=== PATIENT | female | born 1970 | race Caucasian/White ===

== ENCOUNTER 2020-05-07 12:15 | Emergency (ER) | payer BC, SELFPAY ==
[2020-05-07 12:17] VITALS: BP 160/78; PULSE 65; RESP 16; TEMP 36.8; O2SAT 96; BMI 26.6
[2020-05-07] MEDS: Lidocaine HCl 1 % MPF 5 ML VIAL SUBCUT (13:02)
[2020-05-07] MEDS: LORazepam 1 MG TABLET PO (13:03)
--- NOTE | 2020-05-07 13:07 | PC.NURSE ---
PT ALLERGIC TO OXYCODONE. MED NOT GIVEN AND RETURNED.
--- NOTE | 2020-05-07 13:23 | ED.SKABFB ---
HPI - Skin/Abscess/Foreign Bdy General Chief complaint: Skin/Abscess/Foreign Body Stated complaint: abscess Time Seen by Provider: 05/07/20 12:44 Source: patient Mode of arrival: ambulatory Limitations: no limitations History of Present Illness HPI narrative: 49-year-old female presenting to the ED with complaints of an abscess to her right outer labia that started since last night. Denies any fevers or any other symptoms complaints or concerns. Denies history of MRSA. Related Data Previous Rx's Medication Instructions Recorded doxycycline monohydrate 100 mg PO BID 10 Days #20 cap 05/07/20 ibuprofen 800 mg PO Q8H PRN #14 tab 05/07/20 tramadol 50 mg PO BID PRN #14 tab 05/07/20 Allergies Allergy/AdvReac Type Severity Reaction Status Date / Time acetaminophen [From PERCOCET] Allergy Unknown HIVES Unverified 12/30/19 18:48 clarithromycin [From BIAXIN] Allergy Unknown ANAPHYLAXIS Unverified 12/30/19 18:48 erythromycin base Allergy Unknown ANAPHYLAXIS Unverified 12/30/19 18:48 [From ERYTHROCIN] oxycodone [From PERCOCET] Allergy Unknown HIVES Unverified 12/30/19 18:48 penicillin V Allergy Unknown Verified 03/06/14 00:00 Penicillins [PENICILLINS] Allergy Unknown ANAPHYLAXIS Unverified 12/30/19 18:48 Sulfa (Sulfonamide Allergy Unknown ANAPHYLAXIS Unverified 12/30/19 18:48 Antibiotics) [SULFA (SULFONAMIDE ANTIBIOTICS)] vancomycin [VANCOMYCIN] Allergy Unknown ANAPHYLAXIS Unverified 12/30/19 18:48 Erythromycin Allergy Unknown Uncoded 03/06/14 00:00 Review of Systems Review of Systems: Constitutional : No Fever, No Chills , no body aches, no recent illness Head/Face: No facial swelling, No facial redness ENT/Mouth : No oral/throat swelling, No Hoarseness, No Swallowing Difficulty Eyes: No Eye Pain, No Swelling, No Redness Cardiovascular : No Chest Pain, No SOB, No palpitations Respiratory : No Cough, No Sputum, No Wheezing, No Smoke Exposure, No Dyspnea Gastrointestinal : No Nausea, No Vomiting, No Diarrhea, No abdominal Pain Genitourinary : No Dysuria, No Urinary Frequency, No Hematuria Musculoskeletal : No joint pain, No Myalgias, No Joint Swelling Skin : + skin abscess, No Skin Lesions, No rash Neuro : No Weakness, No Numbness, No Headache, No dizziness, No tingling Psych : No Anxiety/Panic, No Depression Heme/Lymph: No Bruising, No Lymphadenopathy Endocrine : No Polyuria, No Polydipsia Denies changes in lotions or detergents. Denies new medications or any changes in medications. Denies drainage from rash. Denies any recent sick contacts or recent travel. Yes all other systems are reviewed and are negative PMFSH Past Medical History Attestation statement: The following information was validated with the patient. Medical History Atrial septal defect Surgical History History of partial hysterectomy Hx of tonsillectomy Social History Social History Advance Directives: No Advance Directives Information Provided: No Physical Exam Vital Signs: Vital Signs: Last Vital Signs Temp 98.2 F 05/07/20 12:17 Pulse 65 05/07/20 12:17 Resp 16 05/07/20 12:17 BP 160/78 H 05/07/20 12:17 Pulse Ox 96 05/07/20 12:17 Body Mass Index 26.6 vital signs have been reviewed as normal and appeared to be correct. Blood pressure normal. Heart rate normal. Respiration rate normal. Temperature normal. Oxygen saturation normal. Appearance: Alert. Oriented X3. No acute distress. Head: Normal external exam. Normocephalic. Atraumatic. Eyes: PERRLA. EOMI. Conjunctiva and sclera normal. Eyelids normal. ENT:Pharynx normal. Uvula midline. Moist mucous membranes. Neck: Normal inspection. Neck supple. FROM. No adenopathy. No meningeal signs. CVS: Normal heart rate and rhythm. Heart sound normal. No murmurs noted. Pulses normal throughout. Respiratory: No respiratory distress. Painless inspiration. : Supervise by NICOLE Hernandez to right outer labia c fluctuance, erythema consistent with abscess. No streaking/induration noted. No foreign bodies or drainage noted. Back: Full range of motion noted. Skin: Skin warm and dry. Normal skin color. Normal skin turgor. No rashes/lesions/lacerations noted. Extremities: Extremities exhibit normal range of motion. Extremities nontender. Neuro: Oriented X 3. No motor deficit. No sensory deficit. Reflexes normal. Course Course Course Narrative: Patient is now status post I&D of abscess to right outer labia. Patient tolerated procedure well. No complications. Will DC home with antibiotics and symptomatic treatment along with instructions return if any new or worsening symptoms to follow up with primary care provider. Patient understands agrees the plan. Procedures Abscess I/D Site: other (Right outer labia) Side (if applicable): right Local Anesthetic: lidocaine 1% Amount of anesthesia used (mL): 4 Technique: needle aspiration and incised with blade Amount of fluid expressed (mL): 3 Sent for culture/gram staining?: No Irrigation: Yes Packing used?: none Complications: other (No complications) MDM - Skin/Abscess/Foreign Bdy Medical Records Attestation: I reviewed the patient's medical records. Discharge Plan Discharge Clinical Impression: Cellulitis, Abscess of skin or subcutaneous tissue Patient Disposition: Home, Self-Care Instructions: Cellulitis (ED), Abscess (ED) Prescriptions: New ibuprofen 800 mg tablet 800 mg PO Q8H PRN (Reason: pain) Qty: 14 RF: 0 doxycycline monohydrate 100 mg capsule 100 mg PO BID 10 Days Qty: 20 RF: 0 tramadol 50 mg tablet 50 mg PO BID PRN (Reason: pain) Qty: 14 RF: 0 Referrals: Artemio Mckinley MD [Primary Care Provider] - 2 days Stand Alone Forms: Work/School Release
== END 2020-05-07 13:39 | disposition home or self-care (01) ==
PROVIDERS: Emergency Provider Internal Medicine; PCP Pediatrics
DX: N76.2 Acute vulvitis (principal); N76.4 Abscess of vulva; Z79.899 Other long term (current) drug therapy
CPT/HCPCS: 56405; 99283; 99284

== ENCOUNTER → 2020-05-11 08:45 | Outpatient (BNVA) | payer BC, SELFPAY | PROVIDERS: PCP Pediatrics; Visit Provider Obstetrics & Gynecology ==

== ENCOUNTER 2020-05-18 09:51 | Outpatient (REF) | payer BC, SELFPAY | END 2020-05-18 09:52 | disposition home or self-care (01) | LOC: HO.LAB 09:51 | PROVIDERS: PCP Pediatrics; Visit Provider Obstetrics & Gynecology | DX: N76.4 Abscess of vulva (principal) | CPT/HCPCS: 10060; 56405; 87071; 87205 ==

== ENCOUNTER → 2020-05-30 15:20 | Outpatient (BNVA) | payer BC, SELFPAY | PROVIDERS: PCP Pediatrics; Visit Provider Obstetrics & Gynecology ==

== ENCOUNTER → 2020-09-29 12:44 | Outpatient (BNVA) | payer BC, SELFPAY | PROVIDERS: PCP Pediatrics; Visit Provider Obstetrics & Gynecology ==

== ENCOUNTER 2020-10-15 12:43 | Emergency (ER) | payer BC, SELFPAY ==
[2020-10-15 12:47] VITALS: BP 140/71; PULSE 74; RESP 18; TEMP 36.9; O2SAT 96; BMI 25.8
[2020-10-15] MEDS: Lidocaine HCl 2 % MPF 5 ML VIAL SUBCUT (13:11)
--- NOTE | 2020-10-15 13:32 | ED_ITS ---
HPI - Skin/Abscess/Foreign Bdy General Chief complaint: Skin/Abscess/Foreign Body Stated complaint: INGROWN HAIR Time Seen by Provider: 10/15/20 13:02 Source: patient Mode of arrival: ambulatory Limitations: no limitations History of Present Illness HPI narrative: 49-year-old female with a past medical history of labial abscess here with complaints of swelling and pain to the left labia times several days. She tells me this morning while showering she noticed some purulent drainage coming from this site. No fevers or chills. Related Data Previous Rx's Medication Instructions Recorded doxycycline monohydrate 100 mg PO BID 10 Days #20 cap 05/07/20 ibuprofen 800 mg PO Q8H PRN #14 tab 05/07/20 tramadol 50 mg PO BID PRN #14 tab 05/07/20 estradiol 0.05 mg/24 hr semiweekly 1 patch TRANSDERMAL 2XW #8 ea 09/29/20 transdermal patch doxycycline monohydrate 100 mg PO BID #20 cap 10/15/20 Allergies Allergy/AdvReac Type Severity Reaction Status Date / Time acetaminophen [From PERCOCET] Allergy Unknown HIVES Verified 10/15/20 12:47 clarithromycin [From BIAXIN] Allergy Unknown ANAPHYLAXIS Verified 10/15/20 12:47 erythromycin base Allergy Unknown ANAPHYLAXIS Verified 10/15/20 12:47 [From ERYTHROCIN] oxycodone [From PERCOCET] Allergy Unknown HIVES Verified 10/15/20 12:47 Penicillins [PENICILLINS] Allergy Unknown ANAPHYLAXIS Verified 10/15/20 12:47 Sulfa (Sulfonamide Allergy Unknown ANAPHYLAXIS Verified 10/15/20 12:47 Antibiotics) [SULFA (SULFONAMIDE ANTIBIOTICS)] vancomycin [VANCOMYCIN] Allergy Unknown ANAPHYLAXIS Verified 10/15/20 12:47 Review of Systems Review of Systems: Yes all other systems are reviewed and are negative Constitutional: Constitutional: Reports no additional constitutional complaints, Denies body ache(s), Denies chills, Denies fever(s), Denies headache(s) and Denies weakness Eyes: Eyes: Reports no additional eye complaints and Denies change in vision ENT: Reports system reviewed and no additional complaints, except as documented, Denies dizziness, Denies headache(s), Denies nasal congestion, Denies nasal discharge and Denies neck pain Cardiovascular: Cardiovascular: Reports no additional cardiovascular complaints, Denies chest pain, Denies leg edema and Denies dyspnea Respiratory: Respiratory: Reports no additional respiratory complaints, Denies cough and Denies dyspnea Gastrointestinal: Gastrointestinal: Reports no additional gastrointestinal complaints, Denies abdominal pain, Denies diarrhea, Denies nausea and Denies vomiting Genitourinary: Genitourinary: Reports no additional female genitourinary complaints and Denies urinary incontinence Musculoskeletal: Musculoskeletal: Reports no additional musculoskeletal c omplaints, Denies back pain, Denies arthralgias, Denies joint swelling, Denies neck pain, Denies numbness and Denies tingling Integumentary/Breasts: Skin/Breast: Reports system reviewed and no additional complaints, except as docu, Reports swelling, Reports erythema and Denies rash Neurologic: Reports system reviewed and no additional complaints, except as documented, Denies Abnormal speech present, Denies dizziness, Denies headache(s), Denies numbness, Denies tingling and Denies weakness PMFSH Past Medical History Attestation statement: The following information was validated with the patient. Source: old records reviewed and nursing notes reviewed Medical History Atrial septal defect Heart problem Surgical History History of open heart surgery History of partial hysterectomy Hx of tonsillectomy Family History Family History Maternal Grandmother Ovarian cancer Unknown Ovarian cancer Social History Social History Advance Directives: No Advance Directives Information Provided: No Patient : No Physical Exam Vital Signs: Vital Signs: Last Vital Signs Temp 98.5 F 10/15/20 12:47 Pulse 74 10/15/20 12:47 Resp 18 10/15/20 12:47 BP 140/71 H 10/15/20 12:47 Pulse Ox 96 10/15/20 12:47 Body Mass Index 25.8 Const: General: cooperative, healthy appearing, comfortable and no acute distress Orientation/consciousness: patient oriented x3 Limitations: no limitations HENMT: Head: Yes normal to inspection Ears: hearing grossly normal bilaterally General nose exam: Normal external nose present Face and sinus: Yes normal facial exam Mouth: Normal oral and palatal mucosa present Throat: Yes posterior oropharynx normal Eyes: General: appearance normal, both eyes and all related structures Pupils: Equal, round and reactive pupils present Neck: Neck: Yes normal visual inspection Chest: Chest palpation & inspection: normal inspection of the chest Resp: Effort & Inspection: normal respiratory effort Auscultation: clear to auscultation bilaterally Cardio: Rate: regular rate Rhythm: regular rhythm Peripheral pulses: Peripheral pulses 2+ throughout GI: Inspection: Yes normal to inspection Palpation (GI): Soft to palpation and nontender Auscultation: normal bowel sounds : Other: To the left labia there is a medium area of drainage with local swelling and redness. It is not over the bartholian gland. ilieana vocational training director present Back/Spine/Pelvis: Thoracic/Lumbar Spine: thoracic and lumbar spine normal to inspection Skin: General skin exam: no rashes or lesions noted Neuro: General: patient oriented x3, no focal motor deficits and normal sensation to monofilament Cranial nerves: Yes Equal, round and reactive pupils present Cognition (Neuro): normal cognition Speech: No Abnormal speech present Gait exam (Neuro): Normal gait present Motor exam (neuro): 5/5 motor strength present throughout Extrem: General: Yes normal to inspection Course Course Course Narrative: left labial abscess. See procedure note. will start patient on oral antibiotics For local area of cellulitis. no redness or swelling extending to the perineum. reviewed worrisome signs and symptoms and when to return to the emergency department. Comfortable discharge home. Procedures Abscess I/D Site: other ( Left labia) Local Anesthetic: lidocaine 2% Amount of anesthesia used (mL): 3 Technique: incised with blade Amount of fluid expressed (mL): 5 Sent for culture/gram staining?: No Irrigation: No Packing used?: iodoform MDM - Skin/Abscess/Foreign Bdy Medical Records Attestation: I reviewed the patient's medical records. Lab Data Attestation: I reviewed the patient's lab results. Discharge Plan Discharge Clinical Impression: Labial abscess Patient Disposition: Home, Self-Care Instructions: Abscess (ED) Additional Instructions: packing removal in 48 hrs if packing falls out no need to return. While packing in place hand washing only and no soaking in tubs/pools or swimming If continued swelling after 2-3 days of antibiotics follow-up with dr wilson Prescriptions: New doxycycline monohydrate 100 mg capsule 100 mg PO BID Qty: 20 RF: 0 No Action ibuprofen 800 mg tablet 800 mg PO Q8H PRN (Reason: pain) Qty: 14 RF: 0 doxycycline monohydrate 100 mg capsule 100 mg PO BID 10 Days Qty: 20 RF: 0 tramadol 50 mg tablet 50 mg PO BID PRN (Reason: pain) Qty: 14 RF: 0 estradiol 0.05 mg/24 hr patch semiweekly 1 patch transdermal 2XW Qty: 8 RF: 11 Referrals: Clifford Wilson MD [Physician] - 3 days (if no improvement ) Interventions: ED Discharge Assessment Last Done: 10/15/20 13:37 Discharge Date/Time: 10/15/20 13:38
== END 2020-10-15 13:38 | disposition home or self-care (01) ==
PROVIDERS: Emergency Provider Emergency Medicine; PCP Pediatrics
DX: N76.4 Abscess of vulva (principal)
CPT/HCPCS: 56405; 99282; 99284

== ENCOUNTER 2021-03-23 09:42 | Outpatient (REF) | payer BC, SELFPAY | END 2021-03-23 09:43 | disposition home or self-care (01) | LOC: HO.HMGCLDS 09:42 | PROVIDERS: PCP Pediatrics; Visit Provider Internal Medicine | DX: Z20.822 Contact with and (suspected) exposure to COVID-19 (principal) | CPT/HCPCS: C9803; U0003; U0005 ==

== ENCOUNTER 2021-03-26 08:10 | Outpatient (REF) | payer BC, SELFPAY ==
[2021-03-26 09:25] LABS: Hematocrit 44.6 % (37.0-47.0); Hemoglobin 14.9 g/dl (12.0-16.0); Mean Corpuscular HGB Conc 33.4 g/dl (31.0-35.0); Mean Corpuscular Volume 89.7 fL (80.0-98.0); Mean Platelet Volume 10.4 fL (9.4-12.3); Platelet Count 276 X10*3/uL (160-400); Red Blood Count 4.97 X10*6/uL (4.20-5.50); Red Cell Distribution Width 12.1 % (11.0-16.0); White Blood Count 8.8 X10*3/uL (4.8-10.8)
[2021-03-26 09:56] LABS: Anion Gap 13 (12-20); Carbon Dioxide 26 mmol/L (22-29); Chloride 107 mmol/L (96-108); Potassium 4.3 mmol/L (3.3-5.1); Sodium 142 mmol/L (135-145)
[2021-03-26 09:57] LABS: Alanine Aminotransferase 15 U/L (0-31); Albumin Level 4.6 g/dL (3.5-5.0); Alkaline Phosphatase 54 U/L (39-117); Aspartate Amino Transferase 18 U/L (5-31); Bilirubin Total 0.5 mg/dL (0.0-1.0); Blood Urea Nitrogen 16 mg/dL (9-16); Calcium 10.1 mg/dL (8.4-10.2); Estimated Glomerular Filt Rate > 60; Total Protein 7.7 g/dL (6.5-8.0)
[2021-03-26 10:40] LABS: Glucose Random 57 mg/dL (60-115)
== END 2021-03-26 08:11 | disposition home or self-care (01) ==
LOC: HO.LAB 08:10
PROVIDERS: PCP Pediatrics; Visit Provider Nurse Practitioner Family
DX: Z01.818 Encounter for other preprocedural examination (principal); K21.9 Gastro-esophageal reflux disease without esophagitis; K58.2 Mixed irritable bowel syndrome; R14.0 Abdominal distension (gaseous); Z79.899 Other long term (current) drug therapy
CPT/HCPCS: 36415; 80053; 85027

== ENCOUNTER 2021-05-02 10:58 | Outpatient (REF) | payer BC, SELFPAY ==
[2021-05-02 11:24] LABS: Binax Internal Control QC Valid; Binax Now Covid-19 Ag Negative (Negative); Binax Performed by: HO.BONILM
== END 2021-05-02 10:59 | disposition home or self-care (01) ==
LOC: HO.HMGCLDS 10:58
PROVIDERS: PCP Pediatrics; Visit Provider Physician Assistant
DX: Z13.89 Encounter for screening for other disorder (principal)

== ENCOUNTER 2021-06-03 08:29 | Emergency (ER) | payer BC, SELFPAY ==
[2021-06-03 08:32] VITALS: BP 143/83; PULSE 84; RESP 18; TEMP 36.8; O2SAT 99; BMI 26.6
--- NOTE | 2021-06-03 09:07 | ED.GENADULT ---
HPI - General Adult General Chief complaint: General Medical Stated complaint: vaginal issue Time Seen by Provider: 06/03/21 09:04 Source: patient Mode of arrival: ambulatory Limitations: no limitations History of Present Illness HPI narrative: 50-year-old female presents with left labial abscess that is increasing in size since yesterday. Patient just noticed it yesterday. It is painful and swollen on the left side of her labia. She has been fine otherwise, except a family member is actively dying this week, and she is stressed and upset. Patient has had no fevers, no nausea, no vomiting, no diarrhea, no dysuria, no hematuria, no vaginal discharge, no abnormal vaginal bleeding, no concerns for sexually transmitted infection. Patient states she has had this abscess twice before and needed it drained twice before, the most recent visit to the ER for this was October 2020. Dr Wilson is her [employer]NAGER provider. Related Data Previous Rx's Medication Instructions Recorded ibuprofen 800 mg tablet 800 mg PO Q8H PRN #14 tab 05/07/20 bisacodyl 5 mg tablet,delayed 10 mg PO ONCE 1 Days #2 tab 03/26/21 release (Dulcolax (bisacodyl)) dicyclomine 10 mg capsule 10 mg PO TID #90 cap 03/26/21 docusate sodium 100 mg capsule 100 mg PO BEDTIME #30 cap 03/26/21 omeprazole 20 mg capsule,delayed 20 mg PO DAILY #30 cap 03/26/21 release polyethylene glycol 3350 17 238 g PO ONCE #238 g 03/26/21 gram/dose oral powder (Miralax) prednisone 20 mg tablet 20 mg PO DAILY #5 tab 05/02/21 doxycycline hyclate 100 mg capsule 100 mg PO BID 10 Days #20 cap 06/03/21 Allergies Allergy/AdvReac Type Severity Reaction Status Date / Time acetaminophen [From PERCOCET] Allergy Unknown HIVES Verified 05/02/21 10:15 clarithromycin [From BIAXIN] Allergy Unknown ANAPHYLAXIS Verified 05/02/21 10:15 erythromycin base Allergy Unknown ANAPHYLAXIS Verified 05/02/21 10:15 [From ERYTHROCIN] oxycodone [From PERCOCET] Allergy Unknown HIVES Verified 05/02/21 10:15 Penicillins [PENICILLINS] Allergy Unknown ANAPHYLAXIS Verified 05/02/21 10:15 Sulfa (Sulfonamide Allergy Unknown ANAPHYLAXIS Verified 05/02/21 10:15 Antibiotics) [SULFA (SULFONAMIDE ANTIBIOTICS)] vancomycin [VANCOMYCIN] Allergy Unknown ANAPHYLAXIS Verified 05/02/21 10:15 Review of Systems Constitutional: Constitutional: Denies body ache(s), Denies chills, Denies fatigue, Denies fever(s), Denies headache(s), Denies malaise and Denies weakness Eyes: Eyes: Denies diplopia ENT: Denies vertigo, Denies dizziness, Denies otalgia, Denies headache(s), Denies mouth pain, Denies post nasal drip, Denies sinus pain, Denies sinus pressure, Denies sore throat and Denies throat swelling Cardiovascular: Cardiovascular: Denies chest pain, Denies syncope, Denies leg edema, Denies lightheadedness, Denies Loss of Consciousness, Denies palpitations and Denies dyspnea Respiratory: Respiratory: Denies chest congestion, Denies cough and Denies dyspnea Gastrointestinal: Gastrointestinal: Denies abdominal pain, Denies hematochezia, Denies constipation, Denies diarrhea and Denies vomiting Genitourinary: Genitourinary: Denies hematuria, Denies difficulty voiding, Denies genital pruritis, Denies dysuria, Denies pelvic pain, Denies sexual dysfunction, Denies flank pain, Denies urinary incontinence, Denies urinary hesitancy, Denies urinary urgency, Denies vaginal discharge, Denies vaginal odor and Denies vaginal pruritus Musculoskeletal: Musculoskeletal: Reports no additional musculoskeletal complaints Integumentary/Breasts: Comments: Swelling and redness outer left labia Neurologic: Denies confusion, Denies vertigo, Denies dizziness, Denies syncope, Denies headache(s) and Denies weakness Psychiatric: Psychiatric: Denies anxiety, Denies confusion and Denies depression Endocrine: Endocrine: Denies fatigue and Denies palpitations Allergic/Immunologic: Allergic/Immunologic: Denies throat swelling PMFSH Past Medical History Medical History Atrial septal defect Heart problem Surgical History History of esophagogastroduodenoscopy (EGD) History of open heart surgery History of partial hysterectomy Hx of colonoscopy Hx of tonsillectomy Family History Family History Maternal Grandmother Ovarian cancer Unknown Ovarian cancer Father Throat cancer Mother Diabetes Social History Social History Advance Directives: No Advance Directives Information Provided: Yes Physical Exam ED Vital Signs: Vital Signs - 24 hr 06/03/21 08:32 Temperature 98.3 F Pulse Rate 84 Respiratory Rate 18 Blood Pressure 143/83 H Pulse Oximetry 99 BMI result Body Mass Index 26.6 Const General: healthy appearing, no acute distress and awake; No confusion Nutritional Appearance: well nourished Orientation/consciousness: patient oriented x3 and No confusion Limitations: no limitations HENMT Head: Yes normal to inspection, Yes normocephalic and Yes atraumatic Ears: hearing grossly normal bilaterally General nose exam: Normal external nose present Face and sinus: Yes normal facial exam Mouth: Normal oral and palatal mucosa present Throat: Yes posterior oropharynx normal Eyes Pupils: Equal, round and reactive pupils present EOM: EOMs intact bilaterally Resp Effort & Inspection: normal respiratory effort and able to speak in complete sentences Auscultation: clear to auscultation bilaterally, no crackles, no rales, no rhonchi and no wheezes Cardio Rate: regular rate Rhythm: regular rhythm Heart sounds: S1 normal heart sound present and S2 normal heart sound present GI Inspection: Yes normal to inspection Palpation (GI): Soft to palpation, not firm, nontender, no guarding and not rigid Percussion: Yes normal to percussion Auscultation: normal bowel sounds Other: Redness swelling at her left labia, otherwise normal external appearance of genitalia Skin Other: Erythema and swelling left labia Neuro General: patient oriented x3 and No confusion Cranial nerves: Yes Equal, round and reactive pupils present Extrem General: Yes normal to inspection, Yes full ROM and Yes capillary refill normal Psych Appearance: grossly normal Mental Status: mental status grossly normal Speech and movement: Normal speech and movement present Affect: normal affect Attitude: cooperative Course Course Course Narrative: 50-year-old female with recurrent left outer labial abscess. No fevers, no other concerns. On exam, patient has swollen area left outer labia approximately 3 cm x 1 cm. The abscess feels like a discrete hard oval structure, concerned that this may be a cyst that needs to be excised. I did incision and drainage, I was able to cut into the cyst, but no purulence drained. I did pack and have patient return. Placed her on doxycycline, follow up with both Dr. Wilson and General surgery. All patient's questions were answered. Procedures Abscess I/D Site: other (Left outer labia) Side (if applicable): left Local Anesthetic: lidocaine 1% Amount of anesthesia used (mL): 5 Technique: incised with blade Amount of fluid expressed (mL): 0 Sent for culture/gram staining?: No Irrigation: No Packing used?: iodoform Discharge Plan Discharge Clinical Impression: Labial abscess Patient Disposition: Home, Self-Care Instructions: Abscess Follow-up (ED) Additional Instructions: Please fill your prescription for antibiotics and start today. Please return to the emergency room in 2 days for recheck of your incision and drainage. I have given you a work note to return to work on Friday. Please call Dr. Wilson at [phone]. I have referred you to him as well. I am concerned that this may be a cyst that needs to be surgically excised. I have also referred you to General surgery at [phone]. Please start with Dr. Wilson, but then you will have the general surgery referral as well I think you need to see both gynecology and General surgery, but start with gynecology Please return sooner than 2 days for any fevers, worsening pain, or any other new or concerning symptoms. Please see my suggestion for pain control below Please alternate Tylenol and ibuprofen for pain. Take 1 or the other every 4 hours. For example, at midnight take 1000 mg of Tylenol, then at 4:00 a.m. take 800 mg ibuprofen, at 8:00 a.m. take 1000 mg of Tylenol, at noon take 800 mg of ibuprofen, at 4:00 p.m. take 1000 mg of Tylenol, at 8:00 p.m. take 800 mg of ibuprofen. Do not exceed 3000 mg of Tylenol in 24 hours. This method is proven to be as effective as an opioid for pain control. Prescriptions: New doxycycline hyclate 100 mg capsule 100 mg PO BID 10 Days Qty: 20 0RF No Action ibuprofen 800 mg tablet 800 mg PO Q8H PRN (Reason: pain) Qty: 14 0RF prednisone 20 mg tablet 20 mg PO DAILY Qty: 5 0RF bisacodyl [Dulcolax (bisacodyl)] 5 mg tablet,delayed release (DR/EC) 10 mg PO ONCE 1 Days Qty: 2 0RF Rx Instructions: take 2 tabs at noon the day before your colonoscopy polyethylene glycol 3350 [Miralax] 17 gram/dose powder 238 g PO ONCE Qty: 238 0RF Rx Instructions: As directed by gastroenterology department at [facility] docusate sodium 100 mg capsule 100 mg PO BEDTIME Qty: 30 3RF omeprazole 20 mg capsule,delayed release(DR/EC) 20 mg PO DAILY Qty: 30 3RF dicyclomine 10 mg capsule 10 mg PO TID Qty: 90 2RF Referrals: Artemio Redding MD [Physician] - 2 days (recurrent labial abscess ) Clifford Wilson MD [Physician] - 2 days (recurrent labial abscess) Stand Alone Forms: Work/School Release Interventions: ED Discharge Assessment Last Done: 06/03/21 10:31 Discharge Date/Time: 06/03/21 10:31
--- NOTE | 2021-06-03 10:24 | PC.NURSE ---
PROVIDER CANCELLING ROUTINE CULTURE ORDER.
[2021-06-03] MEDS: Lidocaine HCl 1 % 20 ML VIAL INFILTRATI (10:26)
== END 2021-06-03 10:31 | disposition home or self-care (01) ==
PROVIDERS: Emergency Provider Emergency Medicine; PCP Pediatrics
DX: N76.4 Abscess of vulva (principal); Z79.899 Other long term (current) drug therapy
CPT/HCPCS: 56405; 99283

== ENCOUNTER → 2021-06-06 15:05 | Outpatient (BNVA) | payer BC, SELFPAY | PROVIDERS: PCP Pediatrics; Visit Provider Surgery ==

== ENCOUNTER 2021-06-07 09:29 | Day surgery (SDC) | payer BC, SELFPAY ==
[2021-06-07] VITALS (13 sets, daily range): BP systolic 117–144; BP diastolic 63–100; PULSE 61–73; RESP 14–19; TEMP 36.6–37.2; O2SAT 97–99; BMI 25.8
--- NOTE | 2021-06-07 09:51 | PC.NURSE ---
pt aware of risk with rings left on. unable to remove them.
--- NOTE | 2021-06-07 12:37 | HO.ANESPROP2 ---
[facility] Active Problems Active Problems: All Active Problems (Updated 06/06/21 @ 16:05 by Uvaldo Schafer MD) Labial abscess (Acute) Vulvar lump (Acute) Sinus infection (Acute) Labial abscess (Acute) Past Medical History Medical History Atrial septal defect Heart problem Labial abscess Family History Family History Maternal Grandmother Ovarian cancer Unknown Ovarian cancer Father Throat cancer Mother Diabetes Family history of problems with anesthesia: No Surgical History Surgical History History of carpal tunnel release History of esophagogastroduodenoscopy (EGD) History of open heart surgery History of partial hysterectomy Hx of colonoscopy Hx of tonsillectomy Social History Social History Patient Tobacco Use Status: Current everyday Tobacco user Tobacco use type: Cigarette Cigarettes Per Day: 10 Use of substances other than those prescribed or required for medical reasons: No Are you DNR?: No Advance Directives: No Advance Directives Information Provided: Yes Meds Allergies Allergy/AdvReac Type Severity Reaction Status Date / Time acetaminophen [From PERCOCET] Allergy Unknown HIVES Verified 06/06/21 15:30 clarithromycin [From BIAXIN] Allergy Unknown ANAPHYLAXIS Verified 06/06/21 15:30 erythromycin base Allergy Unknown ANAPHYLAXIS Verified 06/06/21 15:30 [From ERYTHROCIN] oxycodone [From PERCOCET] Allergy Unknown HIVES Verified 06/06/21 15:30 Penicillins [PENICILLINS] Allergy Unknown ANAPHYLAXIS Verified 06/06/21 15:30 Sulfa (Sulfonamide Allergy Unknown ANAPHYLAXIS Verified 06/06/21 15:30 Antibiotics) [SULFA (SULFONAMIDE ANTIBIOTICS)] vancomycin [VANCOMYCIN] Allergy Unknown ANAPHYLAXIS Verified 06/06/21 15:30 Exam Exam Date and Time: June 07, 2021 1237 Height,Weight and Vital Signs: Height 5 ft 6 in Weight 72.575 kg Last Vital Signs Temp 97.9 F 06/07/21 10:20 Pulse 62 06/07/21 10:20 Resp 16 06/07/21 10:20 BP 123/71 06/07/21 10:20 Pulse Ox 99 06/07/21 10:20 Airway Mallampati Class: II TM Dist: >3cm Neck ROM: Full Loose/Missing/Broken Teeth: No Heart: RRR Lungs: CTA Assessment and Plan Assessment Anesthesia Assessment: Anesthesia Plan Discussed and Chart Reviewed Final Anesthetic Review Family History of Problems with Anesthesia: No NPO: Yes ASA Class: II Final Preanesthetic Review: Meds/Allgs Chart Reviewed, Consent Obtained/Reviewed and Anes Risks/Benef Reviewed Patient Risk: Low Procedure Risk: Low Anesthetic Plan Anesthetic Plan: GA Disposition: Standard PACU
[2021-06-07] MEDS: Lactated Ringers 1,000 ML 50 ML IVCONT (13:18)
--- NOTE | 2021-06-07 13:57 | P.OP_ITS ---
Operative Note Operative Note Date of Service: 06/07/21 Narrative: Ppreop diagnosis: Recurrent left labial abscess Postop diagnosis: Recurrent left labial abscess with an infected cyst Procedure: Excision of infected cyst in the left labia Surgeon: Uvaldo Schafer MD The patient is a 50-year-old female was had a labial abscess many times with multiple I and D's in the past. She last had an I and D about 4 days ago in the ED and she was sent to me because of this.. Examination in the office showed a fluctuant mass in the left labia majora consistent with an infected labial cyst with an abscess. The recurrent nature of this problem, I told her it would be best drain this and hopefully excise this completely this under anesthesia in the operating room. I explained to her the technique of this procedure. I reviewed the risks, benefits, and alternatives and she had given consent. She was brought to the operating room and placed supine under general anesthesia via laryngeal mask airway. A surgical time-out had been done. The patient received clindamycin preoperatively in view of her allergies to penicillins and vancomycin. She was placed in frogleg position to expose the left labial cyst. This area was prepped and draped. Lidocaine 1% was used for local anesthesia. Examination of the left labia showed a cystic induration with a central fluctuance. The was about 3 cm at its widest. Since this induration appeared to be well-defined, decided to excise this completely. I made an elliptical incision on the skin surrounding this cystic induration using blade 15. This carried down through the full-thickness skin and subcutaneous fat to excise this entire indurated area. Note of pus from the central fluctuance on the skin and we did cultures of this . Entire cystic induration was completely excised. The area of excision was about 3.5 x 2 0.5 cm. I used electrocautery to achieve hemostasis. Once hemostasis was ensured, I closed the incision with full- thickness nylon 5-0 interrupted sutures. The area was infiltrated with Marcaine 0.5% for postop analgesia. The patient tolerated Theprocedure well. There were no complications noted. Initial and final counts of sponges and instruments were correct. Estimated blood loss was about 15 cc . The patient was extubated without difficulty and transferred to the recovery room with stable vital signs.
[2021-06-07] MEDS: fentaNYL citrate/PF 100 MCG/2 ML VIAL 25 MCG IVPUSH ×2 (14:38→14:43)
[2021-06-07] MEDS: traMADoL HCL 50 MG TABLET PO (14:38)
[2021-06-07] MEDS: Acetaminophen 325 MG TABLET 650 MG PO (14:38)
== END 2021-06-07 15:58 | disposition home or self-care (01) ==
PROVIDERS: PCP Pediatrics; Visit Provider Surgery
PROC: (CPT 11424; principal; 2021-06-07 12:50)
DX: N76.4 Abscess of vulva (principal); Q21.1 Atrial septal defect; F17.210 Nicotine dependence, cigarettes, uncomplicated; Z88.0 Allergy status to penicillin; Z88.2 Allergy status to sulfonamides; Z88.1 Allergy status to other antibiotic agents; Z88.8 Allergy status to other drugs, medicaments and biological substances
CPT/HCPCS: 11424; 87071; 87205; 88304; J1100; J1885; J2250; J2405; J3010

== ENCOUNTER → 2021-06-21 12:47 | Outpatient (BNVA) | payer BC, SELFPAY | PROVIDERS: PCP Pediatrics; Visit Provider Surgery ==

== ENCOUNTER 2022-04-22 07:13 | Emergency (ER) | payer BC, SELFPAY ==
--- NOTE | ~2022-04-22 | CT_ITS ---
EXAMINATION: CT ABDOMEN AND PELVIS WITH CONTRAST CLINICAL INFORMATION: Left lower quadrant pain. Question presence of diverticulitis or incarcerated hernia. COMPARISON: 02/09/2018 TECHNIQUE: Multidetector volumetric images were obtained from the superior aspect of the liver through the pubic symphysis following administration 85 mL of Omnipaque 350 intravenous contrast. Sagittal and coronal reformatted images were obtained on the technologist's workstation. Oral contrast: No This CT examination was performed using dose optimization techniques as appropriate, variously including the following: *Automated exposure control *Adjustment of mA and/or kV according to patient size (this includes techniques or standardized protocols for targeted exams where dose is matched to indication/reason for exam; i.e. extremities or head) *Use of iterative reconstruction technique DLP: 524 mGy-cm FINDINGS: LUNG BASES: Normal. No pulmonary consolidation or pleural effusion. LIVER: The liver has normal size, shape, and attenuation. No evidence of liver mass. GALLBLADDER AND BILIARY TREE: Gallbladder is without radiopaque stones, wall thickening or pericholecystic fluid. No dilated bile ducts. PANCREAS: Normal. No edema, pancreatic ductal dilatation or mass. SPLEEN: Normal. ADRENAL GLANDS: Normal. KIDNEYS AND URETERS: The kidneys have normal size and cortical thickness. No perinephric edema or fluid collection. No urolithiasis or hydroureteronephrosis. BLADDER: Normal. No calculi or wall thickening. BOWEL AND PERITONEUM: Stomach is unremarkable. No dilated bowel loops. The appendix is surgically absent. No focal bowel wall thickening, mesenteric fat stranding or free fluid. There appear to be several diverticula of the sigmoid colon without evidence of diverticulitis. ABDOMINAL WALL: No abdominal wall mass, fluid collection or hernia. VASCULATURE: Mild atherosclerosis of the abdominal aorta without aneurysm. LYMPH NODES: No pathologic sized lymph nodes in the abdomen or pelvis. No inguinal lymphadenopathy. PELVIC VISCERA: Status post hysterectomy. No adnexal mass. No pelvic free fluid. MUSCULOSKELETAL: No acute findings within the visualized mildly degenerated lower thoracic and lumbar spine. The vertebral body heights and alignment are maintained. No suspicious bone lesions. CT/CT abdomen pelvis w IV con IMPRESSION: No specific cause of pain is identified. No evidence of abdominal wall hernia. No evidence of inflammation or obstruction along the gastrointestinal tract.
[2022-04-22 07:17] VITALS: BP 155/94; PULSE 94; RESP 17; TEMP 36.6; O2SAT 98; BMI 24.2
[2022-04-22 07:33] VITALS: BP 145/74; PULSE 72; RESP 15; TEMP 36.7; O2SAT 96
--- NOTE | 2022-04-22 07:43 | PC.NURSE ---
51 y/o F pw abdominal pain to LLQ. pt states she was moving boxes last and felt a pop, now has a lump in the LLQ with some mild associated pain. pt has no other complaints, VSS at this time. awaiting MD del valle
[2022-04-22] MEDS: 0.9 % Sodium Chloride 1,000 ML 999 ML IV (08:51)
[2022-04-22 09:00] LABS: MANUAL DIFF FLAG NO
[2022-04-22 09:07] LABS: Basophils Absolute Auto 0.2 X10*3/uL (0.0-0.2); Basophils Percent Auto 1.7 % (0-2); Eosinophils Absolute Auto 0.1 X10*3/uL (0.0-0.4); Eosinophils Percent Auto 1.3 % (0-4); Hematocrit 46.7 % (37.0-47.0); Hemoglobin 15.9 g/dl (12.0-16.0); Imm Gran Abs Auto 0.04 X10*3/uL (0.00-0.03); Imm Gran Pct Auto 0.5 % (0.0-0.4); Lymphocytes Absolute Auto 2.8 X10*3/uL (1.2-4.9); Lymphocytes Percent Auto 32.5 % (20-40); Mean Corpuscular Hemoglobin 29.8 pg (27.0-33.0); Mean Corpuscular Volume 87.6 fL (80.0-98.0); Mean Platelet Volume 10.4 fL (9.4-12.3); Monocytes Absolute Auto 0.8 X10*3/uL (0.1-1.2); Monocytes Percent Auto 9.6 % (2-11); Neutrophils Absolute Auto 4.8 x10*3/uL (2.0-8.3); Neutrophils Percent Auto 54.4 % (45-73); Platelet Count 286 X10*3/uL (160-400); Red Blood Count 5.33 X10*6/uL (4.20-5.50); White Blood Count 8.8 X10*3/uL (4.8-10.8)
[2022-04-22 09:08] LABS: Appearance Urine Clear; Color Urine Straw; Glucose Urine UA Negative (Negative); Leukocyte Esterase Urine Negative (Negative); Nitrite Urine Negative (Negative); PH 6.5 (5.0-9.0); Specific Gravity - Urine <= 1.005 (1.005-1.025); Urine Blood Negative (Negative); Urine Ketones Negative (Negative); Urine Protein Negative (Neg-Trace)
[2022-04-22 09:11] LABS: UPreg QC Valid YES; Urine Pregnancy NEGATIVE (NEGATIVE)
[2022-04-22 09:14] VITALS: BP 142/72; PULSE 65; RESP 15; O2SAT 97
[2022-04-22 09:14] LABS: Prothrombin Time 11.6 SEC (10.0-13.1)
[2022-04-22 09:16] LABS: Partial Thromboplastin Time 32.8 SEC (26.0-36.4)
[2022-04-22] MEDS: Ketorolac Tromethamine 30 MG/ML VIAL IVPUSH (09:39)
--- NOTE | 2022-04-22 09:40 | ED_ITS ---
HPI - General Adult General Chief complaint: Abdominal Pain Stated complaint: Hernia Time Seen by Provider: 04/22/22 08:21 Source: patient Mode of arrival: ambulatory Limitations: no limitations History of Present Illness HPI narrative: 51-year-old female with history of diverticulosis presents to ED for umbilical and left lower quadrant pain that is worse on movement and lifting heavy boxes. Patient believes she might have a hernia in that area. Patient states when she lifts heavy box in the coughing she full ROM. Patient denies any constipation nausea vomiting. Patient denies any dysuria or hematuria. Patient denies any vaginal bleeding or vaginal discharge. Related Data Previous Rx's Medication Instructions Recorded paroxetine HCl 10 mg tablet 10 mg PO DAILY #30 tabs 12/14/21 ketorolac 10 mg tablet 10 mg PO QID PRN pain 5 days #20 04/22/22 tabs Allergies Allergy/AdvReac Type Severity Reaction Status Date / Time acetaminophen [From PERCOCET] Allergy Unknown HIVES Verified 12/12/21 15:19 clarithromycin [From BIAXIN] Allergy Unknown ANAPHYLAXIS Verified 12/12/21 15:19 erythromycin base Allergy Unknown ANAPHYLAXIS Verified 12/12/21 15:19 [From ERYTHROCIN] oxycodone [From PERCOCET] Allergy Unknown HIVES Verified 12/12/21 15:19 Penicillins [PENICILLINS] Allergy Unknown ANAPHYLAXIS Verified 12/12/21 15:19 Sulfa (Sulfonamide Allergy Unknown ANAPHYLAXIS Verified 12/12/21 15:19 Antibiotics) [SULFA (SULFONAMIDE ANTIBIOTICS)] vancomycin [VANCOMYCIN] Allergy Unknown ANAPHYLAXIS Verified 12/12/21 15:19 Review of Systems Review of Systems: LLQ pain or umbilical pain Yes all other systems are reviewed and are negative [facility] Past Medical History Medical History Atrial septal defect Heart problem Labial abscess Thyroid nodule Surgical History History of carpal tunnel release History of esophagogastroduodenoscopy (EGD) History of open heart surgery History of partial hysterectomy Hx of colonoscopy Hx of tonsillectomy Family History Family History Maternal Grandmother Ovarian cancer Unknown Ovarian cancer Father Throat cancer Mother Diabetes Social History Social History Household Members: Spouse Housing: House Alcohol intake: never Patient Tobacco Use Status: Current everyday Tobacco user Tobacco use type: Cigarette Cigarettes Per Day: 10 Advance Directives: Yes Advance Directives on File: No Current occupational status: employed Sexual orientation: Straight/Heterosexual Gender identity: Female Physical Exam ED Vital Signs: Vital Signs - 24 hr 04/22/22 07:17 04/22/22 07:33 04/22/22 09:14 Temperature 98 F 98.0 F Pulse Rate 94 72 65 Respiratory Rate 17 15 15 Blood Pressure 155/94 H 145/74 H 142/72 H Pulse Oximetry 98 96 97 Oxygen Delivery Method Room Air Room Air BMI result Body Mass Index 24.2 Const General: cooperative, healthy appearing, comfortable, no acute distress, well developed, alert, awake and Physically active Orientation/consciousness: oriented to person, oriented to place, oriented to time and patient oriented x3 HENMT Head: Yes normal to inspection, Yes No palpable skull fracture present, Yes normocephalic, Yes atraumatic and No abrasion Eyes General: appearance normal, both eyes and all related structures Neck Neck: Yes normal visual inspection, Yes full ROM, Yes no lymphadenopathy, Yes no meningeal signs, Yes trachea midline, Yes supple, No anterior neck swelling and No tender Chest Chest palpation & inspection: normal inspection of the chest and normal palpation of entire chest wall Resp Effort & Inspection: normal respiratory effort and able to speak in complete sentences Auscultation: clear to auscultation bilaterally Cardio Jugular venous distension: no JVD Heart sounds: S1 normal heart sound present and S2 normal heart sound present GI Other: No obvious mass on palpation of abdomen. Inspection: Yes normal to inspection and No abdominal wall ecchymosis Palpation (GI): Soft to palpation, not firm, Tenderness to palpation present (GI) in the LLQ and periumbilically, no guarding and not rigid General: No CVA tenderness and Yes no CVA tenderness Back/Spine/Pelvis Back: no CVA tenderness, No CVA tenderness and No back tenderness Skin General skin exam: no rashes or lesions noted and elasticity normal Neuro Other: Negative for any neuro deficits General: oriented to person, oriented to place, oriented to time, patient oriented x3, gait normal, tone normal, moves all extremities, Normal light touch and pain sensation, no meningeal signs, no focal motor deficits, CN's II-XI intact bilaterally and normal sensation to monofilament Extrem General: Yes normal to inspection and Yes full ROM Psych Appearance: grossly normal, well kempt and not disheveled Course Course Course Narrative: No obvious mass on palpation of abdomen but patient does have significant periumbilical and left lower quadrant tenderness on palpation. Will do labs and CT scan if she does no diverticulitis or any other abdominal etiology or even incarcerated hernia. UA ordered. Reevaluation(s) Reevaluation #1: Labs UA CT scan imaging normal. Most likely patient has abdominal strain. Patient informed to follow with primary care provider Medications Administered Discontinued Medications Generic Name Dose Route Start Last Admin Trade Name Freq PRN Reason Stop Dose Admin Sodium Chloride 1,000 mls @ 999 mls/hr 04/22/22 08:42 04/22/22 09:50 Ns IV 04/22/22 09:42 Infused .Q1H1M STA Infusion Iohexol 85 ml 04/22/22 10:57 04/22/22 10:58 Iohexol 350 Mg/Ml 100 Ml Infus..Btl IV 04/22/22 10:58 85 ml ONCE ONE Administration Ketorolac Tromethamine 30 mg 04/22/22 09:29 04/22/22 09:39 Ketorolac Tromethamine 30 Mg/Ml Vial IVPUSH 04/22/22 09:30 30 mg ONCE ONE Administration Medical Decision Making Medical Decision Making [facility] Narrative: 51-year-old female history of diverticulosis present with periumbilical left lower quadrant pain worse on movement and she has a hernia. Patient well- appearing. Patient medical workup to make sure there is no intra-abdominal etiology such as diverticulitis, incarcerated hernia or any other etiology. Differential Diagnosis Differential Diagnoses: The differential diagnosis associated with the presentation includes (UTI, incarcerated hernia, diverticulitis, small-bowel obstruction) Admission/Observation Visually no indication for observation/admit Consult Healthcare Provider No need for consultation Lab Data [facility] Lab Attestation statement: I reviewed the patient's lab results. 04/22/22 08:50 04/22/22 08:50 Labs: Lab Results 04/22/22 04/22/22 04/22/22 Range/Units 08:50 08:50 08:50 WBC 8.8 (4.8-10.8) X10*3/uL RBC 5.33 (4.20-5.50) X10*6/uL Hgb 15.9 (12.0-16.0) g/dl Hct 46.7 (37.0-47.0) % MCV 87.6 (80.0-98.0) fL MCH 29.8 (27.0-33.0) pg MCHC 34.0 (31.0-35.0) g/dl RDW 12.0 (11.0-16.0) % Plt Count 286 (160-400) X10*3/uL MPV 10.4 (9.4-12.3) fL Immature Gran % (Auto) 0.5 H (0.0-0.4) % Neut % (Auto) 54.4 (45-73) % Lymph % (Auto) 32.5 (20-40) % [place] % (Auto) 9.6 (2-11) % Eos % (Auto) 1.3 (0-4) % Baso % (Auto) 1.7 (0-2) % Lymph # (Auto) 2.8 (1.2-4.9) X10*3/uL [place] # (Auto) 0.8 (0.1-1.2) X10*3/uL Eos # (Auto) 0.1 (0.0-0.4) X10*3/uL Baso # (Auto) 0.2 (0.0-0.2) X10*3/uL Abs Immat Gran (auto) 0.04 H (0.00-0.03) X10*3/uL Absolute Neuts (auto) 4.8 (2.0-8.3) x10*3/uL Absolute Nucleated RBC 0.000 (0.0-0.012) X10*3/uL Nucleated RBC % (auto) 0.0 (0.0-0.2) /100WBC PT 11.6 (10.0-13.1) SEC INR 1.0 (0.9-1.1) APTT 32.8 (26.0-36.4) SEC Sodium (135-145) mmol/L Potassium (3.3-5.1) mmol/L Chloride (96-108) mmol/L Carbon Dioxide (22-29) mmol/L Anion Gap (12-20) BUN (9-16) mg/dL Creatinine (0.5-1.4) mg/dL Estim Creat Clear Calc Estimated GFR Random Glucose (60-115) mg/dL Calcium (8.4-10.2) mg/dL Total Bilirubin (0.0-1.0) mg/dL AST (5-31) U/L ALT (0-31) U/L Alkaline Phosphatase (39-117) U/L Total Protein (6.5-8.0) g/dL Albumin (3.5-5.0) g/dL Urine Color Straw Urine Appearance Clear Urine pH 6.5 (5.0-9.0) Ur Specific [place] <= 1.005 (1.005-1.025) Urine Protein Negative (Neg-Trace) mg/dL Urine Glucose (UA) Negative (Negative) mg/dL Urine Ketones Negative (Negative) mg/dL Urine Blood Negative (Negative) Urine Nitrite Negative (Negative) Ur Leukocyte Esterase Negative (Negative) Urine Test (NEGATIVE) 04/22/22 04/22/22 Range/Units 08:50 09:44 WBC (4.8-10.8) X10*3/uL RBC (4.20-5.50) X10*6/uL Hgb (12.0-16.0) g/dl Hct (37.0-47.0) % MCV (80.0-98.0) fL MCH (27.0-33.0) pg MCHC (31.0-35.0) g/dl RDW (11.0-16.0) % Plt Count (160-400) X10*3/uL MPV (9.4-12.3) fL Immature Gran % (Auto) (0.0-0.4) % Neut % (Auto) (45-73) % Lymph % (Auto) (20-40) % [place] % (Auto) (2-11) % Eos % (Auto) (0-4) % Baso % (Auto) (0-2) % Lymph # (Auto) (1.2-4.9) X10*3/uL [place] # (Auto) (0.1-1.2) X10*3/uL Eos # (Auto) (0.0-0.4) X10*3/uL Baso # (Auto) (0.0-0.2) X10*3/uL Abs Immat Gran (auto) (0.00-0.03) X10*3/uL Absolute Neuts (auto) (2.0-8.3) x10*3/uL Absolute Nucleated RBC (0.0-0.012) X10*3/uL Nucleated RBC % (auto) (0.0-0.2) /100WBC PT (10.0-13.1) SEC INR (0.9-1.1) APTT (26.0-36.4) SEC Sodium 141 (135-145) mmol/L Potassium 4.4 (3.3-5.1) mmol/L Chloride 110 H (96-108) mmol/L Carbon Dioxide 23 (22-29) mmol/L Anion Gap 12 (12-20) BUN 11 (9-16) mg/dL Creatinine 0.76 (0.5-1.4) mg/dL Estim Creat Clear Calc 81.0 Estimated GFR > 60 Random Glucose 80 (60-115) mg/dL Calcium 9.2 D (8.4-10.2) mg/dL Total Bilirubin 0.6 (0.0-1.0) mg/dL AST 15 (5-31) U/L ALT 10 (0-31) U/L Alkaline Phosphatase 56 (39-117) U/L Total Protein 6.8 (6.5-8.0) g/dL Albumin 4.2 (3.5-5.0) g/dL Urine Color Urine Appearance Urine pH (5.0-9.0) Ur Specific [place] (1.005-1.025) Urine Protein (Neg-Trace) mg/dL Urine Glucose (UA) (Negative) mg/dL Urine Ketones (Negative) mg/dL Urine Blood (Negative) Urine Nitrite (Negative) Ur Leukocyte Esterase (Negative) Urine Test NEGATIVE (NEGATIVE) Radiology Impression Discussion of test interpretation with radiology: I have reviewed the radiologist's reading. Radiologist Impression: They were reviewed. CT scan does not show any intra-abdominal etiology. Prescription Management I considered prescription management with: Pain Medication (Toradol) Discharge Plan Discharge Clinical Impression: Abdominal pain, Abdominal wall strain Patient Disposition: Home, Self-Care Instructions: Muscle Strain (ED), Abdominal Pain (ED), Warm Compress or Soak (ED) Additional Instructions: Return to the ED immediately for any vomiting, fever, chills, flank pain, dysuria, hematuria, diarrhea, mass in abdomen, constipation, abdominal pain, or any other concerning symptoms. Recommend follow-up with primary care provider. Do not take any other NSAIDS WITH TORADOL. Prescriptions: New ketorolac 10 mg tablet 10 mg PO QID PRN (Reason: pain) 5 Days Qty: 20 0RF Rx Instructions: recieved 30mg IM injection in the ED. No Action paroxetine HCl 10 mg tablet 10 mg PO DAILY Qty: 30 0RF Stand Alone Forms: Work/School Release Interventions: ED Discharge Assessment Last Done: 04/22/22 12:51 Discharge Date/Time: 04/22/22 12:51 Print Language: Mohawk
[2022-04-22 10:16] LABS: Alanine Aminotransferase 10 U/L (0-31); Albumin Level 4.2 g/dL (3.5-5.0); Alkaline Phosphatase 56 U/L (39-117); Anion Gap 12 (12-20); Aspartate Amino Transferase 15 U/L (5-31); Bilirubin Total 0.6 mg/dL (0.0-1.0); Blood Urea Nitrogen 11 mg/dL (9-16); Calcium 9.2 mg/dL (8.4-10.2); Carbon Dioxide 23 mmol/L (22-29); Chloride 110 mmol/L (96-108); Estimated Glomerular Filt Rate > 60; Glucose Random 80 mg/dL (60-115); Potassium 4.4 mmol/L (3.3-5.1); Sodium 141 mmol/L (135-145); Total Protein 6.8 g/dL (6.5-8.0)
[2022-04-22] MEDS: iohexoL 350 MG/ML 100 ML INFUS..BTL 85 ML IV (10:58)
== END 2022-04-22 12:51 | disposition home or self-care (01) ==
PROVIDERS: Physician Assistant; Emergency Provider Student in an Organized Health Care Education/Training Program; PCP Pediatrics
DX: S39.011A Strain of muscle, fascia and tendon of abdomen, initial encounter (principal); X50.0XXA Overexertion from strenuous movement or load, initial encounter; R10.32 Left lower quadrant pain; R10.33 Periumbilical pain; Y93.9 Activity, unspecified; Y92.9 Unspecified place or not applicable; Y99.9 Unspecified external cause status
CPT/HCPCS: 36415; 74177; 80053; 81003; 81025; 85025; 85610; 85730; 96361; 96374; 99284; J1885; Q9967

== ENCOUNTER → 2022-07-02 15:56 | Outpatient (BNVA) | payer BC, SELFPAY | PROVIDERS: PCP Pediatrics; Visit Provider Nurse Practitioner Family | DX: Z13.89 Encounter for screening for other disorder (principal) ==

== ENCOUNTER 2022-07-03 15:08 | Outpatient (REF) | payer BC, SELFPAY ==
[2022-07-03 18:43] LABS: Folate 12.8 ng/mL (> or = 4.0); TSH reflex Free T4 1.24 uIU/mL (0.32-4.0)
[2022-07-04 06:46] LABS: Vitamin B12 608 pg/mL (200-900)
[2022-07-05 12:57] LABS: Transglutaminase Ab IgG <1.0 U/mL; Transglutaminase IgA <1.0 U/mL
[2022-07-08 16:03] LABS: Vitamin D 25-OH, D2 <4 ng/mL; Vitamin D 25-OH, D3 26 ng/mL; Vitamin D 25-OH, Total 26 ng/mL (30-100)
== END 2022-07-03 15:09 | disposition home or self-care (01) ==
LOC: HO.HMGCLDS 15:08
PROVIDERS: PCP Pediatrics; Visit Provider Nurse Practitioner Family
DX: R10.9 Unspecified abdominal pain (principal); R19.7 Diarrhea, unspecified; K59.00 Constipation, unspecified; E55.9 Vitamin D deficiency, unspecified
CPT/HCPCS: 36415; 82306; 82607; 82746; 84443; 86364

== ENCOUNTER 2022-07-15 07:54 | Inpatient (IN) | payer BC, SELFPAY ==
[2022-07-15] VITALS (11 sets, daily range): BP systolic 117–163; BP diastolic 57–99; PULSE 64–93; RESP 12–20; TEMP 35.9–36.8; O2SAT 94–99; BMI 24.2; BMI 25.9
--- NOTE | ~2022-07-15 | CT_ITS ---
EXAMINATION: CT ABDOMEN AND PELVIS WITH CONTRAST CLINICAL INFORMATION: Abdominal pain. COMPARISON: 04/22/2022. TECHNIQUE: Multidetector volumetric images were obtained from the superior aspect of the liver through the pubic symphysis following administration 85 mL of Omnipaque 350 intravenous contrast. Sagittal and coronal reformatted images were obtained on the technologist's workstation. Oral contrast: No This CT examination was performed using dose optimization techniques as appropriate, variously including the following: *Automated exposure control *Adjustment of mA and/or kV according to patient size (this includes techniques or standardized protocols for targeted exams where dose is matched to indication/reason for exam; i.e. extremities or head) *Use of iterative reconstruction technique DLP: 457 mGy-cm FINDINGS: LUNG BASES: Normal. No pulmonary consolidation or pleural effusion. LIVER: The liver has normal size, shape, and attenuation. No evidence of liver mass. GALLBLADDER AND BILIARY TREE: Gallbladder is without radiopaque stones, wall thickening or pericholecystic fluid. No dilated bile ducts. PANCREAS: Normal. No edema, pancreatic ductal dilatation or mass. SPLEEN: Normal. ADRENAL GLANDS: Normal. KIDNEYS AND URETERS: The kidneys have normal size and cortical thickness. No perinephric edema or fluid collection. No urolithiasis or hydroureteronephrosis. BLADDER: Normal. No calculi or wall thickening. BOWEL AND PERITONEUM: Stomach is unremarkable. No dilated loops of bowel. Prior appendectomy. No overt bowel wall thickening or mesenteric fat stranding. There are diverticula of the sigmoid colon without evidence of diverticulitis. No free fluid or pneumoperitoneum. ABDOMINAL WALL: Unremarkable. VASCULATURE: The atherosclerotic abdominal aorta is normal in caliber. Inferior vena cava is normal. LYMPH NODES: No pathologic sized lymph nodes in the abdomen or pelvis. No inguinal lymphadenopathy. PELVIC VISCERA: Status post hysterectomy. No adnexal mass or pelvic free fluid. MUSCULOSKELETAL: No acute skeletal abnormality. Mild multilevel discovertebral degenerative change of the spine. Facet arthropathy of the lumbar spine is worst at L4-5 and L5-S1. No suspicious bone lesions. CT/CT abdomen pelvis w IV con IMPRESSION: * No acute imaging abnormalities in the abdomen or pelvis compared to 04/22/2022. * Sigmoid colon diverticulosis without evidence of diverticulitis. * No renal stones or hydronephrosis.
--- NOTE | 2022-07-15 08:16 | ED_ITS ---
HPI - General Adult General Chief complaint: Abdominal Pain Stated complaint: bowel issues Time Seen by Provider: 07/15/22 08:15 Source: patient Mode of arrival: ambulatory Limitations: no limitations History of Present Illness HPI narrative: patient is a 51yo female presenting for abdominal pain over the past two months which has worsened in the past week. Patient stated she has had pain in the LLQ and decreased flatus. She states her last BM was this morning but it was minimal and loose. She state that she has not been able to keep any food or water down and vomits within minutes of consuming anything. She has a history of bowel obstruction due to adhesions and stated that her current symptoms feel similar to the last time. She has a history of multiple abdominal surgery including hysterectomy and appendectomy. Patient has no history of diverticulitis. Patient denies associated symptoms including fever, headache, chest pain, or SOB. Patient states that she had an exploratory lap in 2017 at [facility] where she was told she had adhesions that didn't show up on CT scan. Onset (ago): month(s) (2) Location: abdomen (LLQ) Radiation: non-radiation Quality: aching Pain Consistency: constant Exacerbating factors: eating Associated symptoms: nausea/vomiting Treatments prior to arrival: none Related Data Previous Rx's Medication Instructions Recorded linaclotide 145 mcg capsule 145 mcg PO DAILY #30 caps 07/02/22 (Linzess) bisacodyl 5 mg tablet 10 mg PO ONCE 1 day #2 tabs 07/03/22 polyethylene glycol 3350 17 17 g PO DAILY #238 grams 07/03/22 gram/dose oral powder Allergies Allergy/AdvReac Type Severity Reaction Status Date / Time acetaminophen [From PERCOCET] Allergy Unknown HIVES Verified 07/15/22 07:57 clarithromycin [From BIAXIN] Allergy Unknown ANAPHYLAXIS Verified 07/15/22 07:57 erythromycin base Allergy Unknown ANAPHYLAXIS Verified 07/15/22 07:57 [From ERYTHROCIN] oxycodone [From PERCOCET] Allergy Unknown HIVES Verified 07/15/22 07:57 Penicillins [PENICILLINS] Allergy Unknown ANAPHYLAXIS Verified 07/15/22 07:57 Sulfa (Sulfonamide Allergy Unknown ANAPHYLAXIS Verified 07/15/22 07:57 Antibiotics) [SULFA (SULFONAMIDE ANTIBIOTICS)] vancomycin [VANCOMYCIN] Allergy Unknown ANAPHYLAXIS Verified 07/15/22 07:57 Review of Systems Review of Systems: Yes all other systems are reviewed and are negative Constitutional: Constitutional: Reports no additional constitutional complaints, Denies chills, Denies fever(s) and Denies night sweats Eyes: Eyes: Reports no additional eye complaints, Denies blurry vision, Denies change in vision, Denies diplopia, Denies eye discharge, Denies loss of vision and Denies eye pain ENT: Denies dizziness Cardiovascular: Cardiovascular: Reports no additional cardiovascular complaints, Denies chest pain, Denies lightheadedness, Denies Loss of Cons ciousness and Denies dyspnea Respiratory: Respiratory: Reports no additional respiratory complaints and Denies dyspnea Gastrointestinal: Gastrointestinal: Reports no additional gastrointestinal complaints, Reports abdominal pain, Denies melena, Denies hematochezia, Denies change in bowel habits and Reports loose stools Genitourinary: Genitourinary: Denies hematuria, Denies urinary frequency, Denies dysuria, Denies urinary incontinence, Denies urinary hesitancy and Denies urinary urgency Musculoskeletal: Musculoskeletal: Reports no additional musculoskeletal complaints, Denies numbness and Denies tingling Neurologic: Denies dizziness, Denies loss of vision, Denies numbness and Denies tingling Psychiatric: Psychiatric: Reports no additional psychiatric complaints Endocrine: Endocrine: Reports no additional endocrine complaints Hematologic/Lymphatic: Hematologic/Lymphatic: Reports no additional hematologic/lymphatic complaints Allergic/Immunologic: Allergic/Immunologic: Reports no additional allergic/immunologic complaints [facility] Past Medical History Attestation statement: The following information was validated with the patient. Source: old records reviewed and nursing notes reviewed Medical History Atrial septal defect Heart problem Labial abscess Thyroid nodule Surgical History History of carpal tunnel release History of esophagogastroduodenoscopy (EGD) History of incision and drainage History of open heart surgery History of partial hysterectomy Hx of colonoscopy Hx of tonsillectomy Family History Family History Maternal Grandmother Ovarian cancer Unknown Ovarian cancer Father Throat cancer Mother Diabetes Social History Social History Household Members: Spouse Housing: House Alcohol intake: never Patient Tobacco Use Status: Current everyday Tobacco user Tobacco use type: Cigarette Cigarettes Per Day: 10 Advance Directives: No Advance Directives Information Provided: Yes Current occupational status: employed Sexual orientation: Straight/Heterosexual Gender identity: Female Physical Exam ED Vital Signs: Vital Signs - 24 hr 07/15/22 07:57 07/15/22 10:24 07/15/22 12:14 Temperature 98 F 98.3 F Pulse Rate 93 69 77 Respiratory Rate 18 19 17 Blood Pressure 158/99 H 127/76 132/64 Pulse Oximetry 99 95 97 Oxygen Delivery Method Room Air Room Air Room Air BMI result Body Mass Index 24.2 Const General: cooperative, no acute distress, alert, awake and tired appearing Nutritional Appearance: well nourished Orientation/consciousness: patient oriented x3 Limitations: no limitations HENMT Head: Yes normal to inspection and Yes atraumatic Ears: hearing grossly normal bilaterally and external ears normal General nose exam: Normal external nose present, no nasal discharge noted and no epistaxis Face and sinus: Yes normal facial exam, No abrasion and No laceration Mouth: Normal oral and palatal mucosa present, no drooling and no muffled voice Eyes General: appearance normal, both eyes and all related structures Periorbital: periorbital findings normal Eyelids: Yes eyelids normal Conjunctivae: conjunctivae normal Pupils: Equal, round and reactive pupils present EOM: EOMs intact bilaterally Neck Neck: Yes normal visual inspection, Yes full ROM and Yes no lymphadenopathy Chest Chest palpation & inspection: normal inspection of the chest Resp Effort & Inspection: normal respiratory effort Auscultation: clear to auscultation bilaterally Cardio Rate: regular rate Rhythm: regular rhythm GI Inspection: Yes normal to inspection Palpation (GI): Soft to palpation, not firm and Tenderness to palpation present (GI) in the LLQ Auscultation: normal bowel sounds Neuro General: patient oriented x3 and moves all extremities Cranial nerves: Yes Equal, round and reactive pupils present Cognition (Neuro): normal cognition Motor exam (neuro): 5/5 motor strength present throughout Sensory Exam: Normal double simultaneous stimulation for sensation Coordination: [id number] test normal Extrem General: Yes normal to inspection, Yes full ROM and Yes capillary refill normal Psych Appearance: grossly normal Mental Status: mental status grossly normal Affect: normal affect Attitude: cooperative Thought process: Normal thought process present Thought content: Normal thought content present Insight: Good insight present (Psych) Medications Administered Discontinued Medications Generic Name Dose Route Start Last Admin Trade Name Shahid PRN Reason Stop Dose Admin Hydromorphone HCl 1 mg 07/15/22 11:15 07/15/22 11:25 Hydromorphone Hcl 1 Mg/Ml Syringe IVPUSH 07/15/22 11:16 1 mg ONCE ONE Administration Protocol Iohexol 100 ml 07/15/22 10:08 07/15/22 10:09 Iohexol 350 Mg/Ml 100 Ml Infus..Btl IV 07/15/22 10:09 85 ml ONCE ONE Administration Metoclopramide HCl 10 mg 07/15/22 12:16 07/15/22 12:26 Metoclopramide Hcl 10 Mg/2 Ml Vial IVPUSH 07/15/22 12:17 10 mg ONCE ONE Administration Morphine Sulfate 4 mg 07/15/22 08:58 07/15/22 09:24 Morphine Sulfate 4 Mg/Ml Cartridge IVPUSH 07/15/22 08:59 4 mg ONCE ONE Administration Protocol Ondansetron HCl 4 mg 07/15/22 08:58 07/15/22 09:23 Ondansetron Hcl 4 Mg/2 Ml Vial IVPUSH 07/15/22 08:59 4 mg ONCE ONE Administration Medical Decision Making Medical Decision Making [facility] Narrative: Patient is a 51 year old assigned female at with a history of bowel adhesions presenting to the emergency department today with increased LLQ abdominal pain, nausea, and vomiting. Patient's physical exam was unremarkable. Patient's blood work was unremarkable. Patient's abdominal CT showed no acute process. Given her history, I spoke to the general surgery team who came and examined the patient. They agreed to admission and adding her on the surgical schedule. I explained my physical exam findings as well as all test results to the patient. I answered all questions asked by the patient. Patient verbalized agreement and understanding with this treatment plan and admission. Differential Diagnosis Differential Diagnoses: The differential diagnosis associated with the presentation includes bowel obstruction, partial bowel obstruction, chronic abdominal pain Consult Healthcare Provider Management of the patient was discussed with: Decision Analyst (general surgery team) Lab Data [facility] Lab Attestation statement: I reviewed the patient's lab results. 07/15/22 08:35 07/15/22 08:35 Labs: Lab Results 04/03/23 04/03/23 04/03/23 Range/Units 08:35 08:35 08:36 WBC 10.1 (4.8-10.8) X10*3/uL RBC 5.37 (4.20-5.50) X10*6/uL Hgb 15.9 (12.0-16.0) g/dl Hct 46.9 (37.0-47.0) % MCV 87.3 (80.0-98.0) fL MCH 29.6 (27.0-33.0) pg MCHC 33.9 (31.0-35.0) g/dl RDW 12.1 (11.0-16.0) % Plt Count 303 (160-400) X10*3/uL MPV 10.3 (9.4-12.3) fL Immature Gran % (Auto) 0.4 (0.0-0.4) % Neut % (Auto) 63.9 (45-73) % Lymph % (Auto) 24.2 (20-40) % [place] % (Auto) 9.0 (2-11) % Eos % (Auto) 1.3 (0-4) % Baso % (Auto) 1.2 (0-2) % Lymph # (Auto) 2.4 (1.2-4.9) X10*3/uL [place] # (Auto) 0.9 (0.1-1.2) X10*3/uL Eos # (Auto) 0.1 (0.0-0.4) X10*3/uL Baso # (Auto) 0.1 (0.0-0.2) X10*3/uL Abs Immat Gran (auto) 0.04 H (0.00-0.03) X10*3/uL Absolute Neuts (auto) 6.4 (2.0-8.3) x10*3/uL Absolute Nucleated RBC 0.000 (0.0-0.012) X10*3/uL Nucleated RBC % (auto) 0.0 (0.0-0.2) /100WBC Sodium 142 (135-145) mmol/L Potassium 4.3 (3.3-5.1) mmol/L Chloride 106 (96-108) mmol/L Carbon Dioxide 23 (22-29) mmol/L Anion Gap 17 (12-20) BUN 12 (9-16) mg/dL Creatinine 0.85 (0.5-1.4) mg/dL Estim Creat Clear Calc 72.4 Estimated GFR > 60 Random Glucose 91 (60-115) mg/dL Calcium 9.8 D (8.4-10.2) mg/dL Magnesium 2.1 (1.6-2.6) mg/dL Total Bilirubin 0.7 (0.0-1.0) mg/dL AST 18 (5-31) U/L ALT 10 (0-31) U/L Alkaline Phosphatase 64 (39-117) U/L Total Protein 7.7 (6.5-8.0) g/dL Albumin 4.8 (3.5-5.0) g/dL Urine Color Yellow Urine Appearance Clear Urine pH 6.5 (5.0-9.0) Ur Specific [place] <= 1.005 (1.005-1.025) Urine Protein Negative (Neg-Trace) mg/dL Urine Glucose (UA) Negative (Negative) mg/dL Urine Ketones Negative (Negative) mg/dL Urine Blood Negative (Negative) Urine Nitrite Negative (Negative) Ur Leukocyte Esterase Trace H (Negative) Urine RBC 0-2 (0-2) /HPF Urine WBC 0-5 (0-5) /HPF Ur Squamous Epith Cells 0-2 (0-2) /HPF Urine Bacteria None Seen (None Seen) Hyaline Casts 0-2 (0-2) /LPF Independent Interpretation I performed an independent interpretation of an: CT Scan Interpretation: My interpretation is in agreement with the radiologist's impression of this imaging study. EXAMINATION: CT ABDOMEN AND PELVIS WITH CONTRAST? CLINICAL INFORMATION: Abdominal pain.? COMPARISON: 04/22/2022. ? TECHNIQUE: Multidetector volumetric images were obtained from the superior aspect of the liver through the pubic symphysis following administration 85 mL of Omnipaque 350 intravenous contrast. Sagittal and coronal reformatted images were obtained on the technologist's workstation.? Oral contrast: No This CT examination was performed using dose optimization techniques as appropriate, variously including the following: *Automated exposure control *Adjustment of mA and/or kV according to patient size (this includes techniques or standardized protocols for targeted exams where dose is matched to indication/reason for exam; i.e. extremities or head) *Use of iterative reconstruction technique DLP: 457 mGy-cm FINDINGS: LUNG BASES: Normal. No pulmonary consolidation or pleural effusion.? LIVER: The liver has normal size, shape, and attenuation.? No evidence of liver mass. GALLBLADDER AND BILIARY TREE: Gallbladder is without radiopaque stones, wall thickening or pericholecystic fluid.? No dilated bile ducts. PANCREAS: Normal. No edema, pancreatic ductal dilatation or mass.? SPLEEN: Normal.? ADRENAL GLANDS: Normal.? KIDNEYS AND URETERS: The kidneys have normal size and cortical thickness. No perinephric edema or fluid collection. No urolithiasis or hydroureteronephrosis. BLADDER:? Normal. No calculi or wall thickening. BOWEL AND PERITONEUM: Stomach is unremarkable. No dilated loops of bowel. Prior appendectomy. No overt bowel wall thickening or mesenteric fat stranding. There are diverticula of the sigmoid colon without evidence of diverticulitis. No free fluid or pneumoperitoneum. ABDOMINAL WALL: Unremarkable.? VASCULATURE: The atherosclerotic abdominal aorta is normal in caliber. Inferior vena cava is normal. LYMPH NODES: No pathologic sized lymph nodes in the abdomen or pelvis. No inguinal lymphadenopathy. PELVIC VISCERA: Status post hysterectomy. No adnexal mass or pelvic free fluid. MUSCULOSKELETAL: No acute skeletal abnormality. Mild multilevel discovertebral degenerative change of the spine. Facet arthropathy of the lumbar spine is worst at L4-5 and L5-S1. No suspicious bone lesions. CT/CT abdomen pelvis w IV con IMPRESSION: *? No acute imaging abnormalities in the abdomen or pelvis compared to 04/22/2022. *? Sigmoid colon diverticulosis without evidence of diverticulitis. *? No renal stones or hydronephrosis. Dictated By: Maico Doyle MD Signed By: Electronically signed by Maico Doyle MD 07/15/22 1039 Critical Care Time Critical Care Time Critical Care Time: Yes Total Critical Care Time: 30 Attestation: I spent 30 minutes of Critical Care Time with this patient. This does not include time spent on separately reported billable procedures. Discharge Plan Discharge Clinical Impression: Abdominal pain Patient Disposition: Admitted As Inpatient Prescriptions: No Action bisacodyl 5 mg tablet 10 mg PO ONCE 1 Days Qty: 2 0RF Rx Instructions: take 2 tabs at noon the day before your colonoscopy polyethylene glycol 3350 17 gram/dose powder 17 g PO DAILY Qty: 238 0RF Rx Instructions: take as directed by gastroenterology department at [facility] Linzess 145 mcg capsule 145 mcg PO DAILY Qty: 30 4RF
[2022-07-15 08:43] LABS: MANUAL DIFF FLAG NO
[2022-07-15 08:47] LABS: Appearance Urine Clear; Color Urine Yellow; Glucose Urine UA Negative (Negative); Leukocyte Esterase Urine Trace (Negative); Nitrite Urine Negative (Negative); PH 6.5 (5.0-9.0); Specific Gravity - Urine <= 1.005 (1.005-1.025); UMIC TRIGGER UACC YES; Urine Blood Negative (Negative); Urine Ketones Negative (Negative); Urine Protein Negative (Neg-Trace)
[2022-07-15 08:50] LABS: Basophils Absolute Auto 0.1 X10*3/uL (0.0-0.2); Basophils Percent Auto 1.2 % (0-2); Eosinophils Absolute Auto 0.1 X10*3/uL (0.0-0.4); Eosinophils Percent Auto 1.3 % (0-4); Hematocrit 46.9 % (37.0-47.0); Hemoglobin 15.9 g/dl (12.0-16.0); Imm Gran Abs Auto 0.04 X10*3/uL (0.00-0.03); Imm Gran Pct Auto 0.4 % (0.0-0.4); Lymphocytes Absolute Auto 2.4 X10*3/uL (1.2-4.9); Lymphocytes Percent Auto 24.2 % (20-40); Mean Corpuscular HGB Conc 33.9 g/dl (31.0-35.0); Mean Corpuscular Hemoglobin 29.6 pg (27.0-33.0); Mean Corpuscular Volume 87.3 fL (80.0-98.0); Mean Platelet Volume 10.3 fL (9.4-12.3); Monocytes Absolute Auto 0.9 X10*3/uL (0.1-1.2); Neutrophils Absolute Auto 6.4 x10*3/uL (2.0-8.3); Neutrophils Percent Auto 63.9 % (45-73); Platelet Count 303 X10*3/uL (160-400); Red Blood Count 5.37 X10*6/uL (4.20-5.50); Red Cell Distribution Width 12.1 % (11.0-16.0); White Blood Count 10.1 X10*3/uL (4.8-10.8)
[2022-07-15 08:54] LABS: Bacteria Urine None Seen (None Seen); Hyaline Casts Urine 0-2 /LPF (0-2); RBC Urine 0-2 /HPF (0-2); Squamous Epithelial Cell Urine 0-2 /HPF (0-2); WBC Urine 0-5 /HPF (0-5)
[2022-07-15 09:06] LABS: Alanine Aminotransferase 10 U/L (0-31); Albumin Level 4.8 g/dL (3.5-5.0); Alkaline Phosphatase 64 U/L (39-117); Anion Gap 17 (12-20); Aspartate Amino Transferase 18 U/L (5-31); Bilirubin Total 0.7 mg/dL (0.0-1.0); Blood Urea Nitrogen 12 mg/dL (9-16); Calcium 9.8 mg/dL (8.4-10.2); Carbon Dioxide 23 mmol/L (22-29); Chloride 106 mmol/L (96-108); Creatinine Clr Calc Pharmacy 72.4; Estimated Glomerular Filt Rate > 60; Glucose Random 91 mg/dL (60-115); Magnesium 2.1 mg/dL (1.6-2.6); Potassium 4.3 mmol/L (3.3-5.1); Sodium 142 mmol/L (135-145); Total Protein 7.7 g/dL (6.5-8.0)
[2022-07-15] MEDS: ondansetron HCL 4 MG/2 ML VIAL IVPUSH ×2 (09:23→16:55)
[2022-07-15] MEDS: Morphine Sulfate 4 MG/ML CARTRIDGE IVPUSH (09:24)
[2022-07-15] MEDS: iohexoL 350 MG/ML 100 ML INFUS..BTL IV (10:09)
[2022-07-15] MEDS: HYDROmorphone HCl 1 MG/ML SYRINGE IVPUSH (11:25)
[2022-07-15] MEDS: Metoclopramide HCl 10 MG/2 ML VIAL IVPUSH (12:26)
--- NOTE | 2022-07-15 12:54 | PC.NURSE ---
Surgeon at bedside, states he is going to add patient onto the schedule for OR today.
--- NOTE | 2022-07-15 12:54 | PC.NURSE ---
Late note, patient states she is feel nauseous after zofran
--- NOTE | 2022-07-15 12:58 | P.HPGS_ITS ---
History of Present Illness History of Present Illness Date of Service: 07/15/22 Chief complaint: bowel issues Narrative: Kimi Sheikh is a 51 year old female presenting with complaints of abdominal pain beginning in the left lower quadrant extending up into the epigastrium associated with persistent nausea and vomiting. Pain is been increasing in severity as has the nausea and vomiting. She reports not being able to tolerate any type of food including very bland food food. She denies any bleeding per rectum. She reports having a prior colonoscopy several years ago which was normal. Was previously evaluated for the abdominal pain in GI and a CT enterography pending. She is very miserable because of the persistent pain. She reports a prior history of partial hysterectomy and appendectomy. Following this she also had a small-bowel obstruction adhesions treated at [facility]. She feels her symptoms are very similar to her previous episode approximately 5 years ago. Review of Systems Review of Systems: Yes all other systems are reviewed and are negative Constitutional: Constitutional: Denies chills, Reports fever(s), Denies heada ihsan(s), Reports poor appetite and Denies weakness ENT: Denies headache(s) Cardiovascular: Cardiovascular: Denies chest pain, Denies irregular heart rhythm, Denies palpitations and Denies dyspnea Respiratory: Respiratory: Denies cough, Denies excessive phlegm production and Denies dyspnea Gastrointestinal: Gastrointestinal: Reports abdominal pain, Reports bloating, Denies change in bowel habits, Reports constipation, Denies heartburn, Denies diarrhea, Reports nausea and Reports vomiting Genitourinary: Genitourinary: Denies urinary frequency Musculoskeletal: Musculoskeletal: Denies back pain, Denies muscle weakness and Denies numbness Integumentary/Breasts: Skin/Breast: Denies changing lesions and Denies unusual bruising Neurologic: Denies headache(s), Denies numbness, Denies paresthesias and Denies weakness Psychiatric: Psychiatric: Denies anxiety and Denies depression Endocrine: Endocrine: Denies palpitations Hematologic/Lymphatic: Hematologic/Lymphatic: Denies lymphadenopathy PMFSH Past Medical History Medical History Atrial septal defect Heart problem Labial abscess Thyroid nodule Family History Family History Maternal Grandmother Ovarian cancer Unknown Ovarian cancer Father Throat cancer Mother Diabetes Surgical History Surgical History History of carpal tunnel release History of esophagogastroduodenoscopy (EGD) History of incision and drainage History of open heart surgery History of partial hysterectomy Hx of colonoscopy Hx of tonsillectomy Social History Social History Household Members: Spouse Housing: House Alcohol intake: never Patient Tobacco Use Status: Current everyday Tobacco user Tobacco use type: Cigarette Cigarettes Per Day: 10 Advance Directives: No Advance Directives Information Provided: Yes Current occupational status: employed Sexual orientation: Straight/Heterosexual Gender identity: Female Meds Allergies Allergy/AdvReac Type Severity Reaction Status Date / Time acetaminophen [From PERCOCET] Allergy Unknown HIVES Verified 07/15/22 07:57 clarithromycin [From BIAXIN] Allergy Unknown ANAPHYLAXIS Verified 07/15/22 07:57 erythromycin base Allergy Unknown ANAPHYLAXIS Verified 07/15/22 07:57 [From ERYTHROCIN] oxycodone [From PERCOCET] Allergy Unknown HIVES Verified 07/15/22 07:57 Penicillins [PENICILLINS] Allergy Unknown ANAPHYLAXIS Verified 07/15/22 07:57 Sulfa (Sulfonamide Allergy Unknown ANAPHYLAXIS Verified 07/15/22 07:57 Antibiotics) [SULFA (SULFONAMIDE ANTIBIOTICS)] vancomycin [VANCOMYCIN] Allergy Unknown ANAPHYLAXIS Verified 07/15/22 07:57 Physical Exam Vital Signs: Vital Signs: Last Vital Signs Temp 98.3 F 07/15/22 10:24 Pulse 77 07/15/22 12:14 Resp 17 07/15/22 12:14 BP 132/64 07/15/22 12:14 Pulse Ox 97 07/15/22 12:14 O2 Del Method Room Air 07/15/22 12:14 BMI result Body Mass Index 24.2 Const: General: cooperative and no acute distress Nutritional Appearance: well nourished Orientation/consciousness: patient oriented x3 Limitations: no limitations HEENT: Head: Yes normocephalic and Yes atraumatic Ears: hearing grossly normal bilaterally Resp: Effort & Inspection: normal respiratory effort, no audible wheezes, no cough and no respiratory distress Cardio: Jugular venous distension: no JVD GI: Inspection: Yes normal to inspection Palpation (GI): Soft to palpation, Tenderness to palpation present (GI) in the LLQ, no guarding and not rigid Percussion: Yes normal to percussion Auscultation: abnormal bowel sounds Rectal Exam - Female: deferred Abdomen image: 1. Skin: Other: Warm, dry, no rash Neuro: General: patient oriented x3 Extrem: General: Yes no clubbing, cyanosis or edema Results Results Labs: Short CBC 07/15/22 Range/Units 08:35 WBC 10.1 (4.8-10.8) X10*3/uL Hgb 15.9 (12.0-16.0) g/dl Hct 46.9 (37.0-47.0) % Plt Count 303 (160-400) X10*3/uL BMP 07/15/22 08:35 Sodium 142 Potassium 4.3 Chloride 106 Carbon Dioxide 23 BUN 12 Creatinine 0.85 Calcium 9.8 D Liver Function 07/15/22 Range/Units 08:35 Total Bilirubin 0.7 (0.0-1.0) mg/dL AST 18 (5-31) U/L ALT 10 (0-31) U/L Alkaline Phosphatase 64 (39-117) U/L Albumin 4.8 (3.5-5.0) g/dL Urine 07/15/22 Range/Units 08:36 Urine Color Yellow Urine Appearance Clear Urine pH 6.5 (5.0-9.0) Ur Specific [place] <= 1.005 (1.005-1.025) Urine Protein Negative (Neg-Trace) mg/dL Urine Glucose (UA) Negative (Negative) mg/dL Assessment and Plan (1) Abdominal pain: Status: Acute (2) Partial small bowel obstruction: Status: Acute (3) Intestinal adhesions: Status: Acute Plan 51-year-old female patient presenting with complaints of severe persistent and worsening abdominal pain in the left lower quadrant extending into the epigastri um associated with persistent nausea and vomiting. Workup with CT abdomen and pelvis revealed areas of thickening in the mid small bowel as well as the sigmoid colon. There does not appear to be evidence of a complete obstruction however partial obstruction is possible. Patient feels she has symptoms similar to her previous episode which improved after a exploratory laparoscopy. After discussion of the procedure, risks, and alternatives, she consents to an exploratory laparoscopy possible laparotomy, possible small-bowel resection. She has been added onto the operative schedule for today. Her last meal was last evening. Time Spent With Patient Time: Total time managing care of this patient today ____ minutes. Quality Stroke Does the patient have a stroke diagnosis?: No VTE Prior VTE?: No VTE Risk Level:: Surgical - moderate VTE Device Contraindication: N/A - Device Ordered VTE Drug Contraindication: Treatment Not Indicated Procedures Date of Service Date of Service: 07/15/22
--- NOTE | 2022-07-15 13:01 | PHA.MEDREC ---
Pharmacy Consult ? Medication Reconciliation Pharmacy has completed the medication reconciliation. Patient reported all medicaitons. [facility]
[2022-07-15 13:31] LABS: COVID-19 Test Negative (Negative); IDNOW Serial# 6674DD1D
--- NOTE | 2022-07-15 13:41 | HO.ANESPROP2 ---
HPI - Anesthesia Eval Consult details Narrative: for expl lap abd pain , CT negative PMFSH Active Problems Active Problems: All Active Problems (Updated 07/15/22 @ 13:01 by Artemio Redding MD) Intestinal adhesions (Acute) Partial small bowel obstruction (Acute) Abdominal pain (Acute) Colon cancer screening (Acute) Labial abscess (Acute) Vulvar lump (Acute) Sinus infection (Acute) Hot flash, menopausal (Acute) Labial abscess (Acute) Past Medical History Medical History Atrial septal defect Heart problem Labial abscess Thyroid nodule Family History Family History Maternal Grandmother Ovarian cancer Unknown Ovarian cancer Father Throat cancer Mother Diabetes Family history of problems with anesthesia: No Surgical History Surgical History History of carpal tunnel release History of esophagogastroduodenoscopy (EGD) History of incision and drainage History of open heart surgery History of partial hysterectomy Hx of colonoscopy Hx of tonsillectomy Social History Social History Household Members: Spouse Housing: House Alcohol intake: never Patient Tobacco Use Status: Current everyday Tobacco user Tobacco use type: Cigarette Cigarettes Per Day: 10 Are you DNR?: No Advance Directives: No Advance Directives Information Provided: Yes Recently lost weight without trying: No Nutrition Risks: No Nutritional Risk Current occupational status: employed Sexual orientation: Straight/Heterosexual Gender identity: Female Meds Allergies Allergy/AdvReac Type Severity Reaction Status Date / Time acetaminophen [From PERCOCET] Allergy Unknown HIVES Verified 07/15/22 07:57 clarithromycin [From BIAXIN] Allergy Unknown ANAPHYLAXIS Verified 07/15/22 07:57 erythromycin base Allergy Unknown ANAPHYLAXIS Verified 07/15/22 07:57 [From ERYTHROCIN] oxycodone [From PERCOCET] Allergy Unknown HIVES Verified 07/15/22 07:57 Penicillins [PENICILLINS] Allergy Unknown ANAPHYLAXIS Verified 07/15/22 07:57 Sulfa (Sulfonamide Allergy Unknown ANAPHYLAXIS Verified 07/15/22 07:57 Antibiotics) [SULFA (SULFONAMIDE ANTIBIOTICS)] vancomycin [VANCOMYCIN] Allergy Unknown ANAPHYLAXIS Verified 07/15/22 07:57 Active Medications: Current Medications Levofloxacin (Levaquin) 500 mg in 100 mls @ 100 mls/hr IV PREOP ONE Stop: 07/15/22 14:07 Lactated Ringer's (Lr) 1,000 mls @ 100 mls/hr IVCONT .Q10H [facility] Exam Exam Date and Time: July 15, 2022 1341 Height,Weight and Vital Signs: Height 5 ft 6 in Weight 68.039 kg Last Vital Signs Temp 96.6 F L 07/15/22 13:14 Pulse 81 07/15/22 13:14 Resp 20 07/15/22 13:14 BP 163/76 H 07/15/22 13:14 Pulse Ox 97 07/15/22 13:14 O2 Del Method Room Air 07/15/22 13:14 Pertinent Lab Results Pertinent Lab Results: Laboratory Tests 07/15/22 07/15/22 07/15/22 08:35 08:35 08:36 WBC 10.1 RBC 5.37 Hgb 15.9 Hct 46.9 MCV 87.3 MCH 29.6 MCHC 33.9 RDW 12.1 Plt Count 303 MPV 10.3 Immature Gran % (Auto) 0.4 Neut % (Auto) 63.9 Lymph % (Auto) 24.2 Carbon % (Auto) 9.0 Eos % (Auto) 1.3 Baso % (Auto) 1.2 Lymph # (Auto) 2.4 Carbon # (Auto) 0.9 Eos # (Auto) 0.1 Baso # (Auto) 0.1 Abs Immat Gran (auto) 0.04 H Absolute Neuts (auto) 6.4 Absolute Nucleated RBC 0.000 Nucleated RBC % (auto) 0.0 Sodium 142 Potassium 4.3 Chloride 106 Carbon Dioxide 23 Anion Gap 17 BUN 12 Creatinine 0.85 Estim Creat Clear Calc 72.4 Estimated GFR > 60 Random Glucose 91 Calcium 9.8 D Magnesium 2.1 Total Bilirubin 0.7 AST 18 ALT 10 Alkaline Phosphatase 64 Total Protein 7.7 Albumin 4.8 Urine Color Yellow Urine Appearance Clear Urine pH 6.5 Ur Specific [place] <= 1.005 Urine Protein Negative Urine Glucose (UA) Negative Urine Ketones Negative Urine Blood Negative Urine Nitrite Negative Ur Leukocyte Esterase Trace H Urine RBC 0-2 Urine WBC 0-5 Ur Squamous Epith Cells 0-2 Urine Bacteria None Seen Hyaline Casts 0-2 COVID-19 ([facility]) COVID-19 Clin Com 07/15/22 13:10 WBC RBC Hgb Hct MCV MCH MCHC RDW Plt Count MPV Immature Gran % (Auto) Neut % (Auto) Lymph % (Auto) Carbon % (Auto) Eos % (Auto) Baso % (Auto) Lymph # (Auto) Carbon # (Auto) Eos # (Auto) Baso # (Auto) Abs Immat Gran (auto) Absolute Neuts (auto) Absolute Nucleated RBC Nucleated RBC % (auto) Sodium Potassium Chloride Carbon Dioxide Anion Gap BUN Creatinine Estim Creat Clear Calc Estimated GFR Random Glucose Calcium Magnesium Total Bilirubin AST ALT Alkaline Phosphatase Total Protein Albumin Urine Color Urine Appearance Urine pH Ur Specific [place] Urine Protein Urine Glucose (UA) Urine Ketones Urine Blood Urine Nitrite Ur Leukocyte Esterase Urine RBC Urine WBC Ur Squamous Epith Cells Urine Bacteria Hyaline Casts COVID-19 ([facility]) Negative COVID-19 Clin Com See Note Airway Mallampati Class: II TM Dist: >3cm Neck ROM: Full Heart: rrr Lungs: cta Assessment and Plan Assessment Anesthesia Assessment: Anesthesia Plan Discussed, Smoking Cess. Discussed and Chart Reviewed Final Anesthetic Review Family History of Problems with Anesthesia: No ASA Class: II Final Preanesthetic Review: No Changes in Pt Med Stat, Meds/Allgs Chart Reviewed, Consent Obtained/Reviewed and Anes Risks/Benef Reviewed Patient Risk: Low Procedure Risk: Low Anesthetic Plan Anesthetic Plan: GA Disposition: Standard PACU
--- NOTE | 2022-07-15 14:27 | P.OP_ITS ---
Operative Note Operative Note Date of Service: 07/15/22 Narrative: Preoperative diagnosis: Abdominal pain, possible adhesions, possible small- bowel obstruction Postoperative diagnosis: normal exploratory laparoscopy Procedure: exploratory laparoscopy Surgeon: Artemio Redding MD Director Child Abuse Therapy: Maria Luisa Adams PA-C Anesthesia: general endotracheal Indications for procedure: 51-year-old female patient presenting with a prior history small-bowel obstruction due to adhesions found to have similar symptoms with nausea, vomiting, and abdominal bloating. Operative findings: Normal stomach, duodenum, small bowel, terminal ileum, ascending, transverse, descending and sigmoid colon without evidence of infection or obstruction. Previous hysterectomy with Normal appearing tube remnant and ovaries. Specimen: None Estimated blood loss: Less than 1 mL Complications: None Procedure details: Patient was brought to the OR placed in a supine position. After administering general anesthesia, the abdomen was prepped with ChloraPrep and draped in a sterile fashion. A surgical time-out was called the consent confirmed. Patient received preoperative antibiotics and Venodyne boots were in place. Local anesthesia was infiltrated in the umbilicus. A 5 mm incision was then made with scalpel below the umbilicus. A Veress needle was then inserted while elevating the abdominal cavity with towel clips. After a positive drop test the abdomen was insufflated to a pressure of 15 mmHg. The Veress needle was removed and a 5 mm trocar inserted. Abdomen was then explored using a 5 mm 0 degree scope no abdominal adhesions were noted to the anterior abdominal wall. A 2nd 5 mm trocar was then placed in the left lower quadrant under direct view. The patient was placed in a Trendelenburg position. A dilated loop of sigmoid colon was identified. This was evaluated further and no signs of obstruction was identified adjacent to this. There is no evidence of diverticulitis and no distal obstruction could be identified. The descending colon transverse colon and ascending colon all appeared to be normal without evidence of infection. A normal terminal ileum was identified without evidence of ileitis. Next the liver was evaluated and appeared normal without evidence of cirrhotic changes. Gallbladder was soft and normal appearing. Stomach was also noted to be of normal caliber without evidence of inflammation on the anterior surface. Inferior surface could not be evaluated. Duodenal junction and pylorus appeared normal. The remaining jejunum and ileum were non adherent with no evidence of a closed looped obstruction, adhesions, inflammation, or other pathology. Evaluation of the pelvis revealed previous hysterectomy. The remnants of the tubes bilaterally were normal without hydrosalpinx. Bilateral ovaries appeared normal size without cyst and there is no evidence of endometriosis. The pneumoperitoneum was evacuated with suction. All trocars removed and no bleeding noted from the trocar sites. Skin was then closed using subcuticular 4 -0 Polysorb suture. Steri-Strips, 2 x 2 gauze and Tegaderm were then applied. The patient tolerated the procedure well. Sponge, instrument, and needle counts reported as correct. Patient was transferred to PACU in stable condition.
[2022-07-15] MEDS: HYDROmorphone HCl 2 MG TABLET PO (14:45)
[2022-07-15] MEDS: Lactated Ringers 1,000 ML 100 ML IVCONT ×2 (15:00→23:22)
[2022-07-15] MEDS: HYDROmorphone HCl 1 MG/ML SYRINGE 0.5 MG IVPUSH (15:28)
[2022-07-15] MEDS: 0.9 % Sodium Chloride Flush 3 ML SYRINGE IVFLUSH (23:24)
[2022-07-16 03:48] VITALS: BP 119/55; PULSE 63; RESP 18; TEMP 36.6; O2SAT 95
[2022-07-16 08:00] VITALS: BP 123/56; PULSE 72; RESP 16; TEMP 36.9; O2SAT 96
[2022-07-16] MEDS: Acetaminophen 325 MG TABLET 650 MG PO (08:13)
--- NOTE | 2022-07-16 09:12 | MHC.CM.PN ---
Female 51 DX Abdominal bloating She lives with spouse. She is independent. She has been Vaxxed. A copy of HCP requested. DP home self care. Pts spouse will transport home.
--- NOTE | 2022-07-16 09:32 | PM.DS ---
DS: Providers Provider Date of Service: 07/16/22 Date of admission: 07/15/22 13:08 Date of discharge: 07/16/22 Primary care physician: Artemio Mckinley MD Attending physician on admission: Artemio Redding DS: Diagnosis Discharge Diagnosis (1) Abdominal pain: Status: Acute (2) Partial small bowel obstruction: Status: Acute (3) Intestinal adhesions: Status: Acute DS: Summary Hospital Course Hospital Course: HPI AT ADMISSION: Kimi Sheikh is a 51 year old female presenting with complaints of abdominal pain beginning in the left lower quadrant extending up into the epigastrium associated with persistent nausea and vomiting. Pain is been increasing in severity as has the nausea and vomiting. She reports not being able to tolerate any type of food including very bland food food. She denies any bleeding per rectum. She reports having a prior colonoscopy several years ago which was normal. Was previously evaluated for the abdominal pain in GI and a CT enterography pending. She is very miserable because of the persistent pain. She reports a prior history of partial hysterectomy and appendectomy. Following this she also had a small-bowel obstruction adhesions treated at [facility]. She feels her symptoms are very similar to her previous episode approximately 5 years ago. HOSPITAL COURSE: There did not appear to be evidence of a complete obstruction however partial obstruction is possible and she felt her symptoms were similar to her previous episode which improved after a exploratory laparoscopy. She was therefore added onto the OR schedule for exploratory laparoscopy possible laparotomy, possible small-bowel resection. On 07/15/22, an exploratory laparoscopy was performed by Dr. Redding without complication. The laparoscopy was normal. She was admitted to the medical/surgical floor for observation. The following day, she felt overall improved with less abdominal pain and only mild incisional pain. She was comfortable. She was tolerating a diet. She was ambulating without difficulty. She had a benign abd exam with appropriate post op tenderness and dressings intact. She felt ready for discharge to home. She was discharged to home on 07/16/22 in stable condition. She can follow up in the office for a wound check in 1 week. Status at Discharge Functional status at discharge: independent ambulation Overall status at discharge: patient is progressing back to baseline Time Spent with Patient Time attestation: Total time managing care of this patient today ____ minutes. Discharge coordination time: Less than 30 minutes Quality: Safe Use of Opioids Does Pt have an Active Cancer Diagnosis on the Problem List?: No Quality: Stroke Does the patient have a stroke diagnosis?: No Physical Exam Vital Signs: Vital Signs: Last Vital Signs Temp 98.4 F 07/16/22 08:00 Pulse 72 07/16/22 08:00 Resp 16 07/16/22 08:00 BP 123/56 L 07/16/22 08:00 Pulse Ox 96 07/16/22 08:00 O2 Del Method Room Air 07/16/22 08:00 O2 Flow Rate 5 07/15/22 14:35 BMI result Body Mass Index 25.9 Const: General: comfortable, no acute distress, well developed and alert Orientation/consciousness: patient oriented x3 Resp: Effort & Inspection: normal respiratory effort GI: Inspection: No distended and Yes incision (dressings intact) Palpation (GI): Soft to palpation, Tenderness to palpation present (GI) (very mild incisional), no guarding and not rigid Skin: General skin exam: no rashes or lesions noted Neuro: General: patient oriented x3 DS: Data Data Completed and Pending Labs on day of discharge: Laboratory Results - last 24 hr 07/15/22 13:10 COVID-19 ([facility]) Negative COVID-19 Clin Com See Note Discharge Plan Discharge Anticipated Discharge Date/Time: 07/16/22 08:20 Patient Disposition: Home, Self-Care Discharge Diagnosis: Abdominal pain Referrals: Artemio Redding MD [Physician] - 1 Week Artemio Mckinley MD [Primary Care Provider] - 1 Week Discharge Medications: New hydrocodone-acetaminophen 5-300 mg tablet 1 tab PO Q8H PRN (Reason: pain (scale score 7-10)) Qty: 10 0RF Rx Instructions: Partial Fill upon patient request. Continued Linzess 145 mcg capsule 145 mcg PO DAILY Qty: 30 4RF Discharge Orders: Discharge Order (Routine); Ordered 07/16/22 Ordered By: Artemio Redding Diet: Advance to usual diet Activity on Discharge: No heavy lifting Stand Alone Forms: Patient Portal Discharge page, Work/School Release Activity Restrictions/Additional Instructions: No lifting > 10 pounds for 2 weeks No driving for one week Ice to the incision x 24 hours Remove dressing in 3 days Follow up in office in one week. Care Plan Goals: Return to normal activity and diet Health Concerns: acute abdominal pain, nausea and vomiting Plan of Treatment: Exploratory laparoscopy Assessment: Negative laparoscopy
--- NOTE | 2022-07-16 11:20 | MHC.CLN ---
RE: CONSULT PT REPORTED WT LOSS ON NSG ADMISSION ASSESSMENT CURRENT WT 73KG PREVIOUS WT 73 KG (01/04/22) NO CURRENT SIGNIFICANT WT LOSS AT THIS TIME CONTINUE CURRENT CARE PLAN
--- NOTE | 2022-07-16 14:10 | HO.POSTANES ---
Post Anesthesia Evaluation Post Anesthesia Evaluation Vital Signs: Vital Signs Temp Pulse Resp BP Pulse Ox O2 Del Method 07/16/22 08:00 98.4 F 72 16 123/56 L 96 Room Air 07/16/22 03:48 97.8 F 63 18 119/55 L 95 Room Air Anesthesia: General Endotracheal-GETA Mental Status: Awake Pain Control: Satisfactory Nausea/Vomiting: None Hydration: Adequate Anesthesia-Related Issues: No Anes. Related Issues
== END 2022-07-16 11:44 | disposition home or self-care (01) | DRG 223 ==
LOC: HO.ED 12:59 → HO.EDOVER 13:13 → HO.S3 14:58
PROVIDERS: Anesthesiology; Physician Assistant Medical; Admitting Provider Surgery; Emergency Provider Emergency Medicine; PCP Pediatrics; Visit Provider Surgery
PROC: 0DJD4ZZ Inspection of Lower Intestinal Tract, Percutaneous Endoscopic Approach (ICD-10-PCS; CPT 49320; principal; 2022-07-15 13:30)
DX: R10.9 Unspecified abdominal pain (principal); F17.210 Nicotine dependence, cigarettes, uncomplicated; Z20.822 Contact with and (suspected) exposure to COVID-19; Z87.74 Personal history of (corrected) congenital malformations of heart and circulatory system; Z71.6 Tobacco abuse counseling; Z88.0 Allergy status to penicillin; Z88.2 Allergy status to sulfonamides; Z88.5 Allergy status to narcotic agent; Z79.899 Other long term (current) drug therapy
CPT/HCPCS: 36415; 74177; 80053; 81001; 83735; 85025; 87635; 99283; J1100; J1170; J1885; J1956; J2250; J2270; J2405; J2765; J3010; Q9967

== ENCOUNTER 2022-07-23 10:18 | Outpatient (REF) | payer BC, SELFPAY | END 2022-07-23 10:19 | disposition home or self-care (01) | LOC: HO.LAB 10:18 | PROVIDERS: Absent Provider Nurse Practitioner Family; PCP Pediatrics; Visit Provider Surgery | DX: Z13.89 Encounter for screening for other disorder (principal) ==

== ENCOUNTER 2022-07-26 10:58 | Outpatient (REF) | payer BC, SELFPAY ==
[2022-07-26 14:22] LABS: C Reactive Protein 0.34 mg/dL (< or = 0.50)
== END 2022-07-26 10:59 | disposition home or self-care (01) ==
LOC: HO.HMGCLDS 10:58
PROVIDERS: PCP Pediatrics; Visit Provider Nurse Practitioner Family
DX: K58.0 Irritable bowel syndrome with diarrhea (principal); R15.9 Full incontinence of feces; R10.9 Unspecified abdominal pain
CPT/HCPCS: 36415; 86140

== ENCOUNTER 2022-07-27 09:23 | Outpatient (REF) | payer BC, SELFPAY ==
[2022-07-27 14:31] LABS: Adenovirus F 40/41 Not Detected (Not Detect.); Astrovirus Not Detected (Not Detect.); Campylobacter Not Detected (Not Detect.); Cryptosporidium Not Detected (Not Detect.); Cyclospora cayetanensis Not Detected (Not Detect.); E. coli EAEC Not Detected (Not Detect.); E. coli EPEC Not Detected (Not Detect.); E. coli ETEC Not Detected (Not Detect.); E. coli STEC Not Detected (Not Detect.); Entamoeba histolytica Not Detected (Not Detect.); Giardia lamblia Not Detected (Not Detect.); Norovirus GI/GII Not Detected (Not Detect.); Plesiomonas shigelloides Not Detected (Not Detect.); Rotavirus A Not Detected (Not Detect.); Salmonella Not Detected (Not Detect.); Sapovirus Not Detected (Not Detect.); Shigella sp./EIEC Not Detected (Not Detect.); Vibrio Not Detected (Not Detect.); Vibrio Cholerae Not Detected (Not Detect.); Yersinia enterocolitica Not Detected (Not Detect.)
[2022-08-04 23:44] LABS: Calprotectin, Fecal 9 mcg/g
[2022-08-07 00:48] LABS: Pancreatic Elastase-1 400 mcg/g
== END 2022-07-27 09:24 | disposition home or self-care (01) ==
LOC: HO.HMGCLNP 09:23
PROVIDERS: PCP Pediatrics; Visit Provider Nurse Practitioner Family
DX: R10.9 Unspecified abdominal pain (principal); R19.7 Diarrhea, unspecified; K21.9 Gastro-esophageal reflux disease without esophagitis; R15.9 Full incontinence of feces
CPT/HCPCS: 82656; 83993; 87338; 87507

== ENCOUNTER → 2022-10-02 15:19 | Outpatient (BNVA) | payer BC, SELFPAY | PROVIDERS: PCP Pediatrics; Visit Provider Nurse Practitioner Family ==

== ENCOUNTER 2022-12-06 09:54 | Day surgery (SDC) | payer BC, SELFPAY ==
[2022-09-19 15:06] VITALS: BMI 24.9
--- NOTE | 2022-09-20 12:43 | HO.ANESPROP2 ---
HPI - Anesthesia Eval Consult details Narrative: 51yo F for Upper Endoscopy and Colonoscopy s/p ex lap 07/2022 with GA-ETT 7 PMFSH Active Problems Active Problems: All Active Problems (Updated 07/24/22 @ 00:01 by Nuzhat Bray) Perianal cyst (Acute) Nausea & vomiting (Acute) Colon cancer screening (Acute) Labial abscess (Acute) Vulvar lump (Acute) Sinus infection (Acute) Hot flash, menopausal (Acute) Labial abscess (Acute) Past Medical History Medical History Atrial septal defect Heart problem Labial abscess Thyroid nodule Family History Family History Maternal Grandmother Ovarian cancer Unknown Ovarian cancer Father Throat cancer Mother Diabetes Family history of problems with anesthesia: No Surgical History Surgical History History of carpal tunnel release History of esophagogastroduodenoscopy (EGD) History of exploratory laparotomy (07/15/22) History of incision and drainage History of open heart surgery History of partial hysterectomy Hx of colonoscopy Hx of tonsillectomy Social History Social History Household Members: Spouse Housing: House Do you presently have visiting nurse or other home services: No Alcohol intake: never Patient Tobacco Use Status: Current everyday Tobacco user Tobacco use type: Cigarette Cigarette Packs Per Day: 0.5 Cigarettes Per Day: 10.0 Years Smoked: 45 e-Cigarette/Vaping Use: Never Used Second Hand Smoke Exposure: Yes service: No Current occupational status: employed Sexual orientation: Straight/Heterosexual Gender identity: Female Meds Allergies Allergy/AdvReac Type Severity Reaction Status Date / Time morphine Allergy Mild Rash Verified 07/23/22 11:15 clarithromycin [From BIAXIN] Allergy Unknown ANAPHYLAXIS Verified 07/23/22 11:15 erythromycin base Allergy Unknown ANAPHYLAXIS Verified 07/23/22 11:15 [From ERYTHROCIN] oxycodone [From PERCOCET] Allergy Unknown HIVES Verified 07/23/22 11:15 Penicillins [PENICILLINS] Allergy Unknown ANAPHYLAXIS Verified 07/23/22 11:15 Sulfa (Sulfonamide Allergy Unknown ANAPHYLAXIS Verified 07/23/22 11:15 Antibiotics) [SULFA (SULFONAMIDE ANTIBIOTICS)] vancomycin [VANCOMYCIN] Allergy Unknown ANAPHYLAXIS Verified 07/23/22 11:15 Exam Exam Date and Time: September 20, 2022 1243 Height,Weight and Vital Signs: Height 5 ft 6 in Weight 69.853 kg Pertinent Lab Results Pertinent Lab Results: Laboratory Tests 07/15/22 07/15/22 08:35 08:35 WBC 10.1 Hgb 15.9 Hct 46.9 Plt Count 303 Sodium 142 Potassium 4.3 Chloride 106 Carbon Dioxide 23 BUN 12 Creatinine 0.85 Assessment and Plan Assessment Anesthesia Assessment: Chart Reviewed Final Anesthetic Review Family History of Problems with Anesthesia: No
--- NOTE | 2022-12-05 09:20 | P.CONAN_ITS ---
Documented by User: Kaylah Landeros NP 12/05/22 09:22 HPI - Anesthesia Eval Consult details Narrative: 52yo F for Upper Endoscopy and Colonoscopy s/p ex lap 07/2022 with GA-ETT 7 Hx ASD s/p repair PMFSH Active Problems Active Problems: All Active Problems (Updated 07/24/22 @ 00:01 by Nuzhat Bray) Perianal cyst (Acute) Nausea & vomiting (Acute) Colon cancer screening (Acute) Labial abscess (Acute) Vulvar lump (Acute) Sinus infection (Acute) Hot flash, menopausal (Acute) Labial abscess (Acute) Past Medical History Medical History Abdominal pain Atrial septal defect Heart problem Intestinal adhesions Labial abscess Partial small bowel obstruction Thyroid nodule Family History Family History Maternal Grandmother Ovarian cancer Unknown Ovarian cancer Father Throat cancer Mother Diabetes Family history of problems with anesthesia: No Surgical History Surgical History History of carpal tunnel release History of esophagogastroduodenoscopy (EGD) History of exploratory laparotomy (07/15/22) History of incision and drainage History of open heart surgery History of partial hysterectomy Hx of colonoscopy Hx of tonsillectomy Social History Social History Household Members: Spouse Housing: House Do you presently have visiting nurse or other home services: No Alcohol intake: never Patient Tobacco Use Status: Current someday Tobacco user Tobacco use type: Cigarette Cigarette Packs Per Day: 0.5 Cigarettes Per Day: 10.0 Years Smoked: 45 e-Cigarette/Vaping Use: Never Used Second Hand Smoke Exposure: Yes Are you DNR?: No Advance Directives: No Advance Directives Information Provided: Yes service: No Current occupational status: employed Sexual orientation: Straight/Heterosexual Gender identity: Female Meds Allergies Allergy/AdvReac Type Severity Reaction Status Date / Time morphine Allergy Mild Rash Verified 10/02/22 15:26 clarithromycin [From BIAXIN] Allergy Unknown ANAPHYLAXIS Verified 10/02/22 15:26 erythromycin base Allergy Unknown ANAPHYLAXIS Verified 10/02/22 15:26 [From ERYTHROCIN] oxycodone [From PERCOCET] Allergy Unknown HIVES Verified 10/02/22 15:26 Penicillins [PENICILLINS] Allergy Unknown ANAPHYLAXIS Verified 10/02/22 15:26 Sulfa (Sulfonamide Allergy Unknown ANAPHYLAXIS Verified 10/02/22 15:26 Antibiotics) [SULFA (SULFONAMIDE ANTIBIOTICS)] vancomycin [VANCOMYCIN] Allergy Unknown ANAPHYLAXIS Verified 10/02/22 15:26 Exam Exam Date and Time: December 05, 2022 0920 Height,Weight and Vital Signs: Height 5 ft 6 in Weight 69.853 kg Assessment and Plan Assessment Anesthesia Assessment: Chart Reviewed Final Anesthetic Review Family History of Problems with Anesthesia: No Documented by User: Corrina Hudson MD 12/06/22 12:42 [facility] Past Medical History Medical History Abdominal pain Atrial septal defect Heart problem Intestinal adhesions Labial abscess Partial small bowel obstruction Thyroid nodule Family History Family History Maternal Grandmother Ovarian cancer Unknown Ovarian cancer Father Throat cancer Mother Diabetes Surgical History Surgical History History of carpal tunnel release History of esophagogastroduodenoscopy (EGD) History of exploratory laparotomy (07/15/22) History of incision and drainage History of open heart surgery History of partial hysterectomy Hx of colonoscopy Hx of tonsillectomy History of Problems with Anesthesia: No Social History Social History Household Members: Spouse Housing: House Do you presently have visiting nurse or other home services: No Alcohol intake: never Patient Tobacco Use Status: Current someday Tobacco user Tobacco use type: Cigarette Cigarette Packs Per Day: 0.5 Cigarettes Per Day: 10.0 Years Smoked: 45 e-Cigarette/Vaping Use: Never Used Second Hand Smoke Exposure: Yes Are you DNR?: No Advance Directives: No Advance Directives Information Provided: Yes service: No Current occupational status: employed Sexual orientation: Straight/Heterosexual Gender identity: Female Meds Allergies Allergy/AdvReac Type Severity Reaction Status Date / Time morphine Allergy Mild Rash Verified 10/02/22 15:26 clarithromycin [From BIAXIN] Allergy Unknown ANAPHYLAXIS Verified 10/02/22 15:26 erythromycin base Allergy Unknown ANAPHYLAXIS Verified 10/02/22 15:26 [From ERYTHROCIN] oxycodone [From PERCOCET] Allergy Unknown HIVES Verified 10/02/22 15:26 Penicillins [PENICILLINS] Allergy Unknown ANAPHYLAXIS Verified 10/02/22 15:26 Sulfa (Sulfonamide Allergy Unknown ANAPHYLAXIS Verified 10/02/22 15:26 Antibiotics) [SULFA (SULFONAMIDE ANTIBIOTICS)] vancomycin [VANCOMYCIN] Allergy Unknown ANAPHYLAXIS Verified 10/02/22 15:26 Exam Airway Mallampati Class: II TM Dist: >3cm Neck ROM: Full Heart: rrr Lungs: cta Assessment and Plan Assessment Anesthesia Assessment: Anesthesia Plan Discussed Final Anesthetic Review History of Problems with Anesthesia: No NPO: Yes ASA Class: II Final Preanesthetic Review: No Changes in Pt Med Stat, Meds/Allgs Chart Reviewed and Consent Obtained/Reviewed Patient Risk: Intermediate Procedure Risk: Intermediate Anesthetic Plan Anesthetic Plan: MAC: Disposition: Standard PACU
[2022-12-06 11:15] VITALS: BP 122/63; PULSE 69; RESP 16; TEMP 37; O2SAT 96; BMI 24.2
--- NOTE | 2022-12-06 11:33 | MHC.SHP ---
Pre-Procedural Eval Section A Date of Service: 12/06/22 The patient is an INPATIENT: No The History & Physical has been completed within 30 days and I have reviewed it.: No Section B Chief Complaint: Colon cancer screening, IBS mixed, abdominal pain Relevant Family History (Specify if Yes): No Relevant Social History: Tobacco Use Present Medications: see Short Stay Collaborative assessment Medical History: Significant History (Abdominal pain Atrial septal defect Heart problem Intestinal adhesions Labial abscess Partial small bowel obstruction Thyroid nodule) History of Previous Operations: Relevant previous surgery/procedure and date(s) (History of carpal tunnel release History of esophagogastroduodenoscopy (EGD) History of exploratory laparotomy (07/15/22) History of incision and drainage History of open heart surgery History of partial hysterectomy Hx of colonoscopy Hx of tonsillectomy) Allergies: Allergies Allergy/AdvReac Type Severity Reaction Status Date / Time morphine Allergy Mild Rash Verified 10/02/22 15:26 clarithromycin [From BIAXIN] Allergy Unknown ANAPHYLAXIS Verified 10/02/22 15:26 erythromycin base Allergy Unknown ANAPHYLAXIS Verified 10/02/22 15:26 [From ERYTHROCIN] oxycodone [From PERCOCET] Allergy Unknown HIVES Verified 10/02/22 15:26 Penicillins [PENICILLINS] Allergy Unknown ANAPHYLAXIS Verified 10/02/22 15:26 Sulfa (Sulfonamide Allergy Unknown ANAPHYLAXIS Verified 10/02/22 15:26 Antibiotics) [SULFA (SULFONAMIDE ANTIBIOTICS)] vancomycin [VANCOMYCIN] Allergy Unknown ANAPHYLAXIS Verified 10/02/22 15:26 Review of Systems Sugical H&P ROS: Negative: Constitution, Cardiovascular and Respiratory and Yes, Specify: Gastrointestinal (IBS) Exam Surgical H&P Exam: Normal: Heart, Normal: Lungs, Normal: Extremities and Normal: Abdomen Plan Diagnosis/Plan: Change (add EGD to colonoscopy procedure) I have reviewed the history and physical and performed a pertinent physical examination on my patient. No changes have occurred unless specified. Time Spent With Patient Time: Total time managing care of this patient today ____ minutes.
[2022-12-06] MEDS: Lactated Ringers 1,000 ML 100 ML IVCONT (11:52)
[2022-12-06 11:57] LABS: Glucose, Whole Blood 84 mg/dL (60-115)
--- NOTE | 2022-12-06 12:34 | P.OP_ITS ---
Operative Note Operative Note Date of Service: 12/06/22 Narrative: FLEXIBLE TRANSORAL UPPER GASTROINTESTINAL ENDOSCOPY WITH BIOPSIES AND COLONOSCOPY TILL CECUM WITH BIOPSIES AND SNARE POLYPECTOMY Pre-op diagnosis: Colon cancer screening, abdominal pain, IBS with diarrhea and constipation Post-op diagnosis: ?GERD, hiatal hernia, gastritis, colon polyps, diverticulosis, hemorrhoids Endoscopist:? Michelle Krueger MD Anesthesia:?MAC UPPER ENDOSCOPY Consent: Indications for the procedure and potential complications of bleeding, perforation, reaction to medications and missed diagnosis were discussed with the patient and informed consent was obtained. Instrument: Olympus GIF H 190 mid size upper endoscope Monitoring: Vital signs and clinical assessment, continuous EKG monitoring, Pulse oximetry, Carbon Dioxide monitoring and blood pressure monitoring were done throughout the procedure. Procedure: The patient was placed in the left lateral decubitis position and pre-procedure medications were administered and a bite block was placed. The endoscope was inserted into the mouth and advanced under direct vision to the third part of duodenum. A careful inspection was made as the upper endoscope was withdrawn including a retroflexed examination of the proximal stomach; Findings and interventions are described below. Findings: Larynx: Normal Esophagus: GE junction at 34 cms, hiatal hernia 34 to 38 cms. No esophagitis or Savage's. Stomach: Moderate gastric erythema with multiple chronic appearing erosions. Biopsies were obtained. Grade 3 flap valve on retroflexed examination of the cardia. Duodenum: Mild duodenitis in the bulb and normal descending duodenum. Biopsies obtained from 3rd part of the duodenum to check for celiac sprue. Intervention: Biopsies as noted above COLONOSCOPY PROCEDURE NOTE Consent: Indications for the procedure and potential complications of bleeding, perforation, reaction to medications and missed diagnosis were discussed with the patient and informed consent was obtained. Instrument: Olympus PCF H 190 L variable stiffness pediatric colonoscope Monitoring: Vital signs and clinical assessment, intermittent blood pressure monitoring, continuous EKG monitoring, Pulse oximetry and Carbon Dioxide monitoring were done throughout the procedure. Colon withdrawl time was 19 minutes. Procedure: The patient was placed in the left lateral decubitis position and pre-procedure medications were administered. After a digital rectal examination of the ano-rectum, the video colonoscope was inserted into the rectum and advanced through the colon to the cecum. The colonoscope was slowly withdrawn in a retrograde panoramic fashion and the colon mucosa was carefully examined including a retroflexed view of the rectum. Findings and interventions are described below. Procedure Difficulty: : Without difficulty Findings: Terminal Ileum: Not evaluated Cecum: Normal Ascending Colon: A 7-8 mm sessile polyp in the distal AC - removed with a cold snare Transverse Colon: Normal Descending Colon: Normal Sigmoid Colon: A 10-12 mm sessile polyp - removed with hot snare. Moderate diverticulosis Rectum: Normal Ano-rectum: Moderate internal hemorrhoids Colon preparation: Good after copious irrigation Impression and Post Procedure Diagnosis: Endoscopy Findings: ESOPHAGUS: GE junction at 34 cms, hiatal hernia 34 to 38 cms. No esophagitis or Savage's. STOMACH: Moderate gastric erythema with multiple chronic appearing erosions. Biopsies were obtained. DUODENUM: Mild duodenitis in the bulb and normal descending duodenum. Biopsies obtained from 3rd part of the duodenum to check for celiac sprue. Colonoscopy Findings: One small and one medium sized polyps removed Moderate diverticulosis seen in the sigmoid colon Moderate hemorrhoids on retroflexed exam. Plan: Await pathology results Patient has an appointment on 12/20/22 in the GI Clinic with Rima Tarango FNP- [facility]. Repeat Colonoscopy interval based on path results - in 3-5 years if polyps are adenomatous and 10 years if polyps are hyperplastic. Above findings were reviewed with the patient and Hiatal hernia, colon polyps and diverticulosis handouts were given in the discharge area BIOPSIES SHOWED: A. Small bowel, biopsy: Small intestinal mucosa within normal limits; negative for celiac disease. B. Stomach, antrum, biopsy: Antral-type mucosa within normal limits; no Helicobacter organisms seen. C. Colon, ascending, polypectomy: Fragments of tubular adenoma; negative for high-grade dysplasia or carcinoma. D. Colon, right, biopsy: Colonic mucosa within normal limits; negative for microscopic colitis. E. Colon, transverse, polypectomy: Hyperplastic mucosal polyp. F. Colon, left, biopsy: Colonic mucosa within normal limits; negative for microscopic colitis
[2022-12-06 13:36] VITALS: BP 109/55; PULSE 85; RESP 16; TEMP 36.3; O2SAT 94
[2022-12-06 13:51] VITALS: BP 122/79; PULSE 64; RESP 16; TEMP 36.3; O2SAT 94
== END 2022-12-06 14:35 | disposition home or self-care (01) ==
PROVIDERS: PCP Pediatrics; Visit Provider Internal Medicine Gastroenterology
PROC: (CPT 45385; principal; 2022-12-06 11:50)
DX: Z12.11 Encounter for screening for malignant neoplasm of colon (principal); D12.2 Benign neoplasm of ascending colon; K63.5 Polyp of colon; K57.30 Diverticulosis of large intestine without perforation or abscess without bleeding; K64.8 Other hemorrhoids; K58.2 Mixed irritable bowel syndrome; K29.70 Gastritis, unspecified, without bleeding; K29.80 Duodenitis without bleeding; K21.9 Gastro-esophageal reflux disease without esophagitis; K44.9 Diaphragmatic hernia without obstruction or gangrene; K66.0 Peritoneal adhesions (postprocedural) (postinfection); Z98.890 Other specified postprocedural states; Z88.5 Allergy status to narcotic agent; Z88.1 Allergy status to other antibiotic agents; Z88.0 Allergy status to penicillin; Z88.2 Allergy status to sulfonamides; F17.210 Nicotine dependence, cigarettes, uncomplicated
CPT/HCPCS: 45385; 45380; 43239; 82947; 88305; 88342; J2250

== ENCOUNTER → 2022-12-06 09:54 | Outpatient (BNV) | payer BC, SELFPAY | PROVIDERS: PCP Pediatrics; Visit Provider Internal Medicine Gastroenterology | DX: Z12.11 Encounter for screening for malignant neoplasm of colon (principal); K58.0 Irritable bowel syndrome with diarrhea; K58.1 Irritable bowel syndrome with constipation; K21.9 Gastro-esophageal reflux disease without esophagitis; K29.70 Gastritis, unspecified, without bleeding; K57.30 Diverticulosis of large intestine without perforation or abscess without bleeding; K64.0 First degree hemorrhoids; D12.5 Benign neoplasm of sigmoid colon; D12.2 Benign neoplasm of ascending colon | CPT/HCPCS: 43239; 45385 ==

== ENCOUNTER 2022-12-20 15:04 | Outpatient (AMB) | payer BC, SELFPAY ==
[2022-12-20 15:21] VITALS: BP 143/79; PULSE 77; BMI 25.5
--- NOTE | 2022-12-20 15:21 | MHC.OFFVIS ---
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 Accompanied by: Self / Same As Patient Allergies morphine Allergy (Mild, Verified 12/20/22 15:24) Rash clarithromycin [From BIAXIN] Allergy (Unknown, Verified 12/20/22 15:24) ANAPHYLAXIS erythromycin base [From ERYTHROCIN] Allergy (Unknown, Verified 12/20/22 15:24) ANAPHYLAXIS oxycodone [From PERCOCET] Allergy (Unknown, Verified 12/20/22 15:24) HIVES Penicillins [PENICILLINS] Allergy (Unknown, Verified 12/20/22 15:24) ANAPHYLAXIS Sulfa (Sulfonamide Antibiotics) [SULFA (SULFONAMIDE ANTIBIOTICS)] Allergy (Unknown, Verified 12/20/22 15:24) ANAPHYLAXIS vancomycin [VANCOMYCIN] Allergy (Unknown, Verified 12/20/22 15:24) ANAPHYLAXIS HPI S/p egd/colon- [facility] HPI Details LAST VISIT Colon cancer screening What to expect before during and after procedure discussed with patient. Patient was for GI group in [place] and is aware of prep. What to expect before during and after the procedure discussed with patient. Will do split MiraLax plaque with Dulcolax tablets. MiraLax prep at 17:00 and 22:00. Patient denies any cardiac or respiratory symptoms. Recently had exploratory laparoscopic procedure and did well with anesthesia Abdominal bloating Postprandial abdominal bloating related possibly to constipation and to the food the patient is eating. Low FODMAP diet reviewed with patient IBS (irritable bowel syndrome) Continue low FODMAP diet. Food recommended as well as food to avoid discussed with patient. Negative inflammatory markers. Most likely IBS with both diarrhea and constipation. Patient was also encouraged to increase fiber intake, fluid intake and activity to promote better bowel motility. Constipation Continue Linzess. Patient can bulk her stools with Citrucel. If Linzess 72 mcg is not enough patient can take 145 mcg daily. She was encouraged to hold the higher dose now if she continues to have diarrhea. Epigastric discomfort Epigastric discomfort postprandially. Discussed with patient avoiding dietary triggers. Will send her for upper endoscopy to rule out gastritis, esophagitis, duodenitis. I will see her after the procedure, sooner on as needed basis. Patient is agreeable to this plan and verbalizes understanding of instructions. She was given the opportunity to ask questions and all questions answered. COLONOSCOPY AND UPPER ENDOSCOPY Findings: Larynx: Normal Esophagus: GE junction at 34 cms, hiatal hernia 34 to 38 cms. No esophagitis or Savage's. Stomach: Moderate gastric erythema with multiple chronic appearing erosions. Biopsies were obtained. Grade 3 flap valve on retroflexed examination of the cardia. Duodenum: Mild duodenitis in the bulb and normal descending duodenum. Biopsies obtained from 3rd part of the duodenum to check for celiac sprue. Intervention: Biopsies as noted above Findings: Terminal Ileum: Not evaluated Cecum: Normal Ascending Colon: A 7-8 mm sessile polyp in the distal AC - removed with a cold snare Transverse Colon: Normal Descending Colon: Normal Sigmoid Colon: A 10-12 mm sessile polyp - removed with hot snare. Moderate diverticulosis Rectum: Normal Ano-rectum: Moderate internal hemorrhoids Colon preparation: Good after copious irrigation Impression and Post Procedure Diagnosis: Endoscopy Findings: LARYNX: [] ESOPHAGUS: [] STOMACH: [] DUODENUM: [] Colonoscopy Findings: One small and onemedium sized polyps removed Moderate diverticulosis seen in the sigmoid colon Moderate hemorrhoids on retroflexed exam. Plan: Await pathology results Patient has an appointment on 12/20/22 in the GI Clinic with Rima Tarango FNP-BC. Repeat Colonoscopy interval based on path results - in 3-5 years if polyps are adenomatous and 10 years if polyps are hyperplastic. Above findings were reviewed with the patient and Hiatal hernia, colon polyps and diverticulosis handouts were given in the discharge area PATHOLOGY Diagnosis A. Small bowel, biopsy: Small intestinal mucosa within normal limits; negative for celiac disease. B. Stomach, antrum, biopsy: Antral-type mucosa within normal limits; no Helicobacter organisms seen. C. Colon, ascending, polypectomy: Fragments of tubular adenoma; negative for high-grade dysplasia or carcinoma. D. Colon, right, biopsy: Colonic mucosa within normal limits; negative for microscopic colitis. E. Colon, transverse, polypectomy: Hyperplastic mucosal polyp. F. Colon, left, biopsy: Colonic mucosa within normal limits; negative for microscopic colitis. TODAY'S VISIT Patient is here today for follow-up and to discuss upper endoscopy and colonoscopy results. Patient denies any ill effects from the prep, anesthesia or procedure itself. Patient does report that her symptoms of postprandial epigastric discomfort, bloating occasional loose stools and constipation are still present. Patient reports epigastric discomfort postprandially. Patient feels like she can not eat much sometimes no matter what she eats she feels like she will get bloated. Patient is not taking Linzess or any PPI at this moment. Upper endoscopy and colonoscopy discussed with patient. Small hiatal hernia seen. Patient denies any nausea or vomiting. Denies any melena, hematochezia, unintentional weight loss or ribbon like stools. [facility] Medical History (Updated 12/26/22 @ 20:37 by Rima Tarango [facility]) Hiatal hernia Intestinal adhesions Partial small bowel obstruction Abdominal pain Thyroid nodule Labial abscess Heart problem Atrial septal defect Surgical History (Updated 12/19/22 @ 10:38 by Otilio Barrera) History of exploratory laparotomy (07/15/22) History of incision and drainage History of carpal tunnel release Hx of colonoscopy History of esophagogastroduodenoscopy (EGD) History of open heart surgery History of partial hysterectomy Hx of tonsillectomy Family History Maternal Grandmother Ovarian cancer Unknown Ovarian cancer Father Throat cancer Mother Diabetes Social History Household Members: Spouse Housing: House Do you presently have visiting nurse or other home services: No Alcohol intake: never Patient Tobacco Use Status: Current someday Tobacco user Tobacco use type: Cigarette Cigarette Packs Per Day: 0.5 Cigarettes Per Day: 10.0 Years Smoked: 45 e-Cigarette/Vaping Use: Never Used Second Hand Smoke Exposure: Yes service: No Current occupational status: employed Sexual orientation: Straight/Heterosexual Gender identity: Female Review of Systems Const Denies weight gain and Denies weight loss ENT Reports no additional complaints, Denies dysphagia and Denies odynophagia Card Reports no additional complaints Resp Reports no additional complaints GI Reports abdominal pain (Epigastric), Denies belching, Denies melena, Reports bloating, Reports constipation, Denies dysphagia, Denies excessive flatus, Reports dyspepsia, Reports heartburn, Denies diarrhea, Reports loose stools, Denies nausea, Denies odynophagia and Denies vomiting Reports no additional complaints Musc Reports no additional complaints Neuro Reports no additional complaints Psych Reports no additional complaints Endo Reports no additional complaints Physical Exam Vital Signs: Last Vital Signs Pulse 77 12/20/22 15:21 BP 143/79 H 12/20/22 15:21 BMI result Body Mass Index 25.5 Const General: healthy appearing, no acute distress and well developed Nutritional Appearance: well nourished Orientation/consciousness: patient oriented x3 HEENT Head: Yes normal to inspection, Yes normocephalic and Yes atraumatic Face and sinus: Yes normal facial exam Mouth: Normal oral and palatal mucosa present Throat: Yes posterior oropharynx normal, Yes tonsils normal and Yes uvula midline Eyes General: appearance normal, both eyes and all related structures Neck Neck: Yes normal visual inspection, Yes full ROM and Yes trachea midline Thyroid: Thyroid normal Resp Effort & Inspection: normal respiratory effort, able to speak in complete sentences, no tracheal deviation and symmetric chest movement Auscultation: clear to auscultation bilaterally Cardio Rate: regular rate Heart sounds: S1 normal heart sound present and S2 normal heart sound present GI Inspection: Yes normal to inspection and No distended Palpation (GI): Soft to palpation, not firm, nontender and No hepatosplenomegaly present Auscultation: normal bowel sounds General: Yes no CVA tenderness Back/Spine/Pelvis Back: no CVA tenderness Skin General skin exam: elasticity normal, turgor normal and dry skin Neuro General: patient oriented x3 Psych Appearance: grossly normal Mental Status: mental status grossly normal Speech and movement: Normal speech and movement present Assessment & Plan Assessment & Plan (1) Hiatal hernia: Code(s): K44.9 - Diaphragmatic hernia without obstruction or gangrene Plan: Will send patient for barium swallow. (2) Abdominal bloating: Code(s): R14.0 - Abdominal distension (gaseous) Plan: Occasional postprandial abdominal bloating. Discussed with patient avoiding dietary triggers. Low FODMAP diet discussed with patient. (3) IBS (irritable bowel syndrome): Code(s): K58.9 - Irritable bowel syndrome without diarrhea Qualifiers: Irritable bowel syndrome type: with both diarrhea and constipation Qualified Code(s): K58.2 - Mixed irritable bowel syndrome Plan: Postprandial abdominal bloating and cramping. Mostly on the left lower quadrant. Patient does have diverticulosis that was seen on CT scan as well as on colonoscopy. Patient was encouraged to move her bowels better. Patient can take Senokot to help her empty her bowels better. Low FODMAP diet discussed with patient (4) Constipation: Code(s): K59.00 - Constipation, unspecified Qualifiers: Constipation type: slow transit constipation Qualified Code(s): K59.01 - Slow transit constipation Plan: Patient reports to be constipated. Will have her take Citrucel in the morning and Senokot at bedtime. Patient was encouraged to increase fluid intake and activity to promote better bowel motility. (5) Epigastric discomfort: Code(s): R10.13 - Epigastric pain Plan: Patient reports epigastric discomfort. Hiatal hernia seen on upper endoscopy. Will send patient for barium swallow. If hiatal hernia large and sliding we may have to refer her to surgery. We will review the study with the surgeon before making the decision. I will see patient in 6 months, sooner on as needed basis. Patient is agreeable to this plan and verbalizes understanding of instructions. She was given the opportunity to ask questions and all questions answered. Thank you for allowing me to participate in her care Medications: New sucralfate 1 g PO BEDTIME 30 tabs 4RF R19.7 - Diarrhea, unspecified methylcellulose (laxative) (Citrucel) take it with full glass of water 500 mg PO DAILY 90 tabs 2RF K59.00 - Constipation, unspecified pantoprazole take one tablet half an hour before breakfast 40 mg PO DAILY 30 tabs 2RF K21.9 - Gastro-esophageal reflux disease without esophagitis sennosides (Natural Senna Laxative) 17.2 mg (2 x 8.6 mg) PO BEDTIME 180 tabs 3RF constipation K59.00 - Constipation, unspecified Coding Level of Care Code Est Pt Level 4 (01786) Diagnoses Hiatal hernia K44.9 Abdominal bloating R14.0 Irritable bowel syndrome with both constipation and diarrhea K58.2 Irritable bowel syndrome type: with both diarrhea and constipation Slow transit constipation K59.01 Constipation type: slow transit constipation Epigastric discomfort R10.13 Time Spent (min) 40 Comment 25 minutes spent with patient and additional 15 minutes spent reviewing her records
== END 2022-12-20 15:48 | disposition home or self-care (01) ==
PROVIDERS: PCP Pediatrics; Visit Provider Nurse Practitioner Family
DX: K44.9 Diaphragmatic hernia without obstruction or gangrene (principal); R14.0 Abdominal distension (gaseous); K58.2 Mixed irritable bowel syndrome; K59.01 Slow transit constipation; R10.13 Epigastric pain
CPT/HCPCS: 99214

== ENCOUNTER → 2022-12-20 15:04 | Outpatient (BNVA) | payer BC, SELFPAY | PROVIDERS: PCP Pediatrics; Visit Provider Nurse Practitioner Family ==

== ENCOUNTER 2022-12-25 07:32 | Outpatient (REF) | payer BC, SELFPAY ==
--- NOTE | ~2022-12-25 | FL_ITS ---
EXAMINATION: FL BARIUM SWALLOW WITH AIR CLINICAL INFORMATION: Dysphagia. COMPARISON: None available. TECHNIQUE: Esophagram with thin and thick barium. Half-inch diameter barium tablet and barium coated tristin crackers also given for study. Fluoroscopy Time: 1 minute, 59 seconds DAP: 479.1 uGy-m2 Dose: 36.76 mCi FINDINGS: There is normal apposition of the vocal cords while saying E . There is normal elevation of soft palate while saying candy . There is no evidence of nasopharyngeal reflux or tracheal aspiration. No Zenker's diverticulum is seen. No cricopharyngeal hypertrophy noted. There is normal esophageal motility without mucosal abnormality identified. No persistent stricture is seen. There is a small sliding hiatal hernia present. No gastroesophageal reflux was elicited during the study including with water siphon test. Patient was able to swallow half-inch diameter barium tablet without difficulty. Barium-coated tristin cracker demonstrated normal motility. FL/FL barium swallow with air IMPRESSION: Small sliding hiatal hernia. No gastroesophageal reflux identified.
== END 2022-12-25 07:33 | disposition home or self-care (01) ==
LOC: HO.XRAY 07:32
PROVIDERS: PCP Pediatrics; Visit Provider Nurse Practitioner Family
DX: R13.10 Dysphagia, unspecified (principal)
CPT/HCPCS: 74221

== ENCOUNTER → 2022-12-25 07:32 | Outpatient (BNV) | payer BC, SELFPAY | PROVIDERS: PCP Pediatrics; Visit Provider Radiology Diagnostic Radiology | DX: R13.10 Dysphagia, unspecified (principal) | CPT/HCPCS: 74221 ==

== ENCOUNTER 2023-02-03 14:20 | Outpatient (AMB) | payer BC, SELFPAY ==
--- NOTE | 2023-02-03 14:30 | MHC.OFFVIS ---
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 Allergies morphine Allergy (Mild, Verified 12/20/22 15:24) Rash clarithromycin [From BIAXIN] Allergy (Unknown, Verified 12/20/22 15:24) ANAPHYLAXIS erythromycin base [From ERYTHROCIN] Allergy (Unknown, Verified 12/20/22 15:24) ANAPHYLAXIS oxycodone [From PERCOCET] Allergy (Unknown, Verified 12/20/22 15:24) HIVES Penicillins [PENICILLINS] Allergy (Unknown, Verified 12/20/22 15:24) ANAPHYLAXIS Sulfa (Sulfonamide Antibiotics) [SULFA (SULFONAMIDE ANTIBIOTICS)] Allergy (Unknown, Verified 12/20/22 15:24) ANAPHYLAXIS vancomycin [VANCOMYCIN] Allergy (Unknown, Verified 12/20/22 15:24) ANAPHYLAXIS HPI HPI Comments History of Present Illness Details Thank you for referring Kimi in cardiology consultation today for management of adult congenital heart disease. She had a repair of atrial septal defect in 1990 and age of 20. This was diagnosed after she had multiple syncopal episodes and subsequent workup showed a large ASD. Unclear as to the type of ASD. Do not have any of her old records. However she required surgical repair with a pericardial patch, done at [facility]. She had lot of difficulties postsurgical due to sternal wound bleeding. She had to undergo 2nd sternal repair at that point time. Patient is also a long-time smoker since age of 10-12 years. She had recent workup done for for GI reasons with abdominal pelvic CT scan which shows aortic atherosclerotic changes. She complains of exertional shortness of breath. She also however also complains with stress she has intermittent episodes of interscapular discomfort radiating to her left arm. She does not get much symptoms with exertion although she says she does not exercise on a regular basis. She denies any orthopnea, PND. She has never had any neurologic symptoms. She does get pain in her sternal area which improved with position. She denies any prolonged palpitations, lightheadedness, syncope. [facility] Medical History Hiatal hernia Intestinal adhesions Partial small bowel obstruction Abdominal pain Thyroid nodule Labial abscess Heart problem Atrial septal defect Surgical History Status post atrial septal defect repair History of exploratory laparotomy (07/15/22) History of incision and drainage History of carpal tunnel release Hx of colonoscopy History of esophagogastroduodenoscopy (EGD) History of open heart surgery History of partial hysterectomy Hx of tonsillectomy Family History Maternal Grandmother Ovarian cancer Unknown Ovarian cancer Father Throat cancer Mother Diabetes Social History Household Members: Spouse Housing: House Do you presently have visiting nurse or other home services: No Alcohol intake: never Patient Tobacco Use Status: Current someday Tobacco user Tobacco use type: Cigarette Cigarette Packs Per Day: 0.5 Cigarettes Per Day: 10.0 Years Smoked: 45 e-Cigarette/Vaping Use: Never Used Second Hand Smoke Exposure: Yes service: No Current occupational status: employed Sexual orientation: Straight/Heterosexual Gender identity: Female Review of Systems Const Denies chills, Denies fatigue, Denies fever(s), Denies frequent falls, Denies weakness, Denies weight gain and Denies weight loss ENT Denies dizziness Card Denies chest pain, Denies leg edema, Denies lightheadedness, Denies palpitations, Denies dyspnea, Denies dyspnea on exertion, Denies orthopnea and Denies other (loss of consciousness) Resp Denies cough, Denies dyspnea and Denies dyspnea on exertion GI Denies hematochezia and Denies change in stool character Musc Denies abnormal gait, Denies muscle weakness, Denies numbness, Denies radiating pain into limb and Denies tingling Neuro Denies abnormal gait, Denies dizziness, Denies frequent falls, Denies numbness, Denies tingling and Denies weakness Endo Denies fatigue and Denies palpitations Physical Exam Vital Signs: Last Vital Signs Pulse 69 02/03/23 14:31 BP 124/74 02/03/23 14:31 BMI result Body Mass Index 26.0 Const General: cooperative, comfortable, no acute distress, well developed, alert, awake and Physically active Nutritional Appearance: average body habitus and well nourished Orientation/consciousness: patient oriented x3 Limitations: no limitations HEENT Head: Yes normocephalic and Yes atraumatic Neck Neck: Yes trachea midline, Yes supple and Yes no JVD Resp Effort & Inspection: normal respiratory effort Auscultation: clear to auscultation bilaterally Cardio Jugular venous distension: no JVD Palpation: normal PMI Rate: regular rate Rhythm: regular rhythm Heart sounds: S1 normal heart sound present, S2 normal heart sound present, no click, no gallops, no murmurs, no rubs and Other heart sounds present (Well-healed sternotomy scar) GI Auscultation: normal bowel sounds Skin General skin exam: no rashes or lesions noted Neuro General: patient oriented x3 and no focal motor deficits Extrem General: Yes no clubbing, cyanosis or edema Psych Appearance: grossly normal Office Procedures EKG Details: EKG shows normal sinus rhythm nonspecific ST changes 75887-[id number], Complete Assessment & Plan Assessment & Plan (1) Status post atrial septal defect repair: Code(s): Z87.74 - Personal history of (corrected) congenital malformations of heart and circulatory system Plan: Patient with prior ASD repair many years ago. Will obtain old records. Will advise an echocardiogram to evaluate for biatrial chamber size and RV size and systolic function. Will also evaluate for AST/stress ideal component. Unlikely. Clinically has no symptoms at this point time. Long-term complications of ASD repair and residual underlying pathology was discussed including atrial arrhythmias. Currently not having any symptoms related to the same. Further treatment based on the finding of echocardiogram. (2) Atypical chest pain: Code(s): R07.89 - Other chest pain Plan: Patient with longstanding history of smoking with noted atherosclerotic changes in the abdominal aorta on recent CT scan. She is having atypical chest discomfort associated stressful situation. Will evaluate with exercise treadmill stress test to evaluate for myocardial ischemia. If this is negative further risk stratification will be performed lipid panel, high sensitivity CRP and coronary calcium score. This was discussed with her. Further treatment based on the findings. Discussed with patient about smoking cessation and the benefits associated with long-term health. Complains of exertional shortness of breath and need to rule out presence of underlying COPD. Will order PFTs Follow up in the clinic in 6 weeks time, sooner p.r.n.. Thank you for allowing me to partake in the care Orders: Orders PFT pulmonary function test Today R06.02 - Shortness of breath CRP High Sensitivity Today E78.5 - Hyperlipidemia, unspecified, R07.89 - Other chest pain CA echo transthoracic complete Today Z87.74 - Personal history of (corrected) congenital malformations of heart and circulatory system CA stress test Today R07.89 - Other chest pain Lipid Panel Today I25.10 - Atherosclerotic heart disease of [place] coronary artery without angina pectoris, R07.89 - Other chest pain Coding Level of Care Code New Pt Level 4 (32530) Diagnoses Status post atrial septal defect repair Z87.74 Atypical chest pain R07.89 CPT Codes EKG - CPT: 38914-Aajriqzxbsszilrtt, Complete ([id number])
[2023-02-03 14:31] VITALS: BP 124/74; PULSE 69; BMI 26.0
== END 2023-02-03 15:19 | disposition home or self-care (01) ==
PROVIDERS: PCP Pediatrics; Visit Provider Internal Medicine Cardiovascular Disease
DX: Z87.74 Personal history of (corrected) congenital malformations of heart and circulatory system (principal); R07.89 Other chest pain
CPT/HCPCS: 93010; 99204

== ENCOUNTER → 2023-02-03 14:20 | Outpatient (BNVA) | payer BC, SELFPAY | PROVIDERS: PCP Pediatrics; Visit Provider Internal Medicine Cardiovascular Disease | DX: R07.89 Other chest pain (principal); Z87.74 Personal history of (corrected) congenital malformations of heart and circulatory system | CPT/HCPCS: 93005 ==

== ENCOUNTER 2023-02-22 06:31 | Outpatient (REF) | payer BC, SELFPAY ==
[2023-02-22 12:36] LABS: Cholesterol 235 mg/dL (<200); HDL Cholesterol 44 mg/dL (>40); LDL Cholesterol Calculated 173 mg/dL (<100); Triglycerides 90 mg/dL (<150)
[2023-02-24 12:53] LABS: CRP High Sensitivity 2.5 mg/L
== END 2023-02-22 06:32 | disposition home or self-care (01) ==
LOC: HO.HMGCLDS 06:31
PROVIDERS: PCP Pediatrics; Visit Provider Internal Medicine Cardiovascular Disease
DX: R07.89 Other chest pain (principal); I25.10 Atherosclerotic heart disease of native coronary artery without angina pectoris; E78.5 Hyperlipidemia, unspecified
CPT/HCPCS: 36415; 80061; 86141

== ENCOUNTER → 2023-03-17 08:22 | Outpatient (REF) | payer BC, SELFPAY ==
--- NOTE | 2023-03-17 09:20 | CA_ITS ---
Acquisition Time: 2023-03-17 10:25:43 Total Exercise Time: 00:07:21 Test Indications: CHEST PAIN Medications: SEE MED SHEET Protocol: KOBY Max HR: 137 BPM 82% of Pred: 167 BPM Max BP: 184/072 mmHG Max Work Load: 9.0 METS Exercise stress test exercise 7 min 21 sec achieving 81% MPHR with moderate SOB, no chest pain, with isolated PVCs., with normotensive response to exercise, with EKG changes in leads 2, 3, aVF, V4-V6. Test reviewed with Dr. Kerns. Referred By: Jonh Garcia Overread By: Eve Ferreira
--- NOTE | 2023-03-17 09:20 | CA_ITS ---
Transthoracic Echocardiogram Patient (Last, First, Middle): Kimi Sheikh, Gender: Female Date of : 1970 Age: 52 Procedure Date: 03/17/2023 Procedure Type: Transthoracic Echocardiogram Location: OP Height: 167.64 cm Weight: 70.31 kg BSA: 1.79 m2 Heart Rate: bpm BP: 120 / 70 mmHg Education And Training Manager: Referring MD: Jonh Garcia MD Symptoms: Z87.74 - Personal history of (corrected) congenital malformations of hea... Study Quality: Adequate ECG Rhythm: Sinus Conclusions: - The left ventricular systolic function is normal. The calculated ejection fraction is 57% by biplane method. - The basal inferior segment is hypokinetic. - No obvious valvular pathology seen on this study. Findings Left Ventricle Normal left ventricular cavity size. There is normal left ventricular wall thickness. The left ventricular systolic function is normal. The calculated ejection fraction is 57% by biplane method. Diastolic function is normal for age. Suggestion of basal inferior hypokinesis in some views. Wall Motion Rest Echo Findings The basal inferior segment is hypokinetic. Right Ventricle Normal right ventricular cavity size and systolic function. Atria Both atria are normal in size. There is no evidence of interatrial shunt by color Doppler. Aortic Valve There is a normal trileaflet aortic valve. There is no aortic valve stenosis. There is no aortic valve regurgitation. Mitral Valve The mitral valve appears normal. There is mild mitral valve regurgitation. There is no mitral valve stenosis. Pulmonic Valve The pulmonic valve is likely normal. Tricuspid Valve There is mild tricuspid valve regurgitation. There is no evidence of pulmonary hypertension. Great Vessels The asc aorta is normal in size. Venous The inferior vena cava is normal in size and collapses greater than 50% with inspiration. Pericardium/Pleural There is no evidence of pericardial effusion. Prior Study Comparison No prior study available for comparison. Recommendations, Care & Conclusions No obvious valvular pathology seen on this study. Measurements 2D Linear Measurements IVSd: 0.96 0.6-0.9/0.6-1.0 cm LVIDd: 4.57 3.9-5.3/4.2-5.9 cm LVIDd Index: 2.55 2.4-3.2/2.2-3.1 cm/m2 LVIDs: 3.00 2.0-3.6 cm LVPWd: 0.99 0.7-1.1 cm Ao Root: 2.60 2.1-3.5 cm LA Diam: 4.20 2.7-3.8/3.0-4.0 cm LAIDs Index: 2.35 1.5-2.3 cm/m2 LV Mass: 189.92 67-162/88-224 g LV Mass Index: 106.10 43-95/49-115 g/m2 LVOT Diam: 2.00 3.0+(-)1.3 cm 2D Systolic Function EF 4C: 61.80 >55% EF 2C: 53.30 >55% EF BiP: 57.00 >55% Mitral Valve MV Pk E: 0.63 MV PK A: 0.78 MV Decel Time: 379.00 E/A: 0.80 E'Lateral: 9.90 E'Medial: 6.64 E/E' Med: 9.40 E/E' Lat: 6.30 PHT: 111.00 MVA PHT: 1.98 Decel Towner: 1.65 Aortic Valve AoV Pk Atif: 1.43 AoV Mn Atif: 0.89 AoV VTI: 0.34 AoV Pk Grad: 8.00 Aov Mn Grad: 4.00 [place] Cont.VTI: 1.96 LVOT LVOT Pk Atif: 0.97 LVOT Mn Atif: 0.67 LVOT VTI: 0.22 LVOT Pk Grad: 4.00 LVOT Mn Grad: 2.00 LVOT Diam: 2.00 LVOT Area: 3.14 Diastolic Function MV Pk E: 0.63 MV Pk A: 0.78 E/A: 0.80 E'Medial: 6.64 E/E' Med: 9.40 E' Laterial: 9.90 E/E' Lat: 6.30 Right Ventricle TAPSE (mm): 22.00 TVS' Atif: 11.00 Tricuspid Valve TR Pk Atif: 2.22 TR Pk Grad: 20.00 RA Press: 3.00 RVSP: 23.00 Great Vessels Aorta Ao Root-2D: 2.60 2.0-3.7 cm Ao Asc: 2.60 2.1-3.4 cm Pulmonary Valve PV Pk Atif: 0.78 Peak PV Grad: 2.00 Updated in Other Vendor System with Status of Final Eyal Kerns MD electronically signed on 03/17/2023 12:20:36 PM with status of Final
--- NOTE | 2023-03-17 11:57 | PFT_ITS ---
Indication: Dyspnea Spirometry [FEV1 to FVC 73%; FEV1 3.04 L which is 97% predicted; FVC 4.16 L which is 99% predicted. No significant response to bronchodilators noted. Maximum voluntary ventilation 107% predicted.] Lung Volumes [Total lung capacity 97% predicted] Diffusion Capacity [DLCO 61% predicted] Comparisons [None] Interpretation [No obstructive nor restrictive ventilatory defects identified. No significant response to bronchodilators noted. Normal flow volume loop. Normal maximum voluntary ventilation. Normal lung volumes. The patient does have a mild isolated diffusion impairment. Should correct for hemoglobin. Consider underlying pulmonary vascular conditions and or occult interstitial lung conditions. Clinical correlation warranted. MTDD
== END ==
LOC: HO.CARD 08:22
PROVIDERS: PCP Pediatrics; Visit Provider Internal Medicine Cardiovascular Disease
DX: R07.89 Other chest pain (principal); R06.02 Shortness of breath; Z87.74 Personal history of (corrected) congenital malformations of heart and circulatory system
CPT/HCPCS: 93017; 93306; 94010; 94727; 94729

== ENCOUNTER → 2023-03-17 09:20 | Outpatient (BNV) | payer BC, SELFPAY | PROVIDERS: PCP Pediatrics; Visit Provider Internal Medicine | DX: I34.0 Nonrheumatic mitral (valve) insufficiency (principal); R06.02 Shortness of breath | CPT/HCPCS: 93016; 93018; 93306 ==

== ENCOUNTER → 2023-03-26 07:47 | Outpatient (REF) | payer BC, SELFPAY ==
--- NOTE | ~2023-03-26 | NM_ITS ---
Exercise Myocardial perfusion study Indication: Chest pain to evaluate for myocardial ischemia Technique: The patient was brought in for an exercise perfusion study on 03/26/2023. Patient performed exercise as per Jacob protocol and was injected 25 mCi of sestamibi was given intravenously one target HR was achieved. Images were obtained using the SPECT gamma camera interlaced with the gating device. Images were obtained in supine position. Resting perfusion study was performed on 03/27/2023. Patient was administered 25 mCi of sestamibi intravenously at rest. Images were then obtained in supine position. Images obtained with and without CT attenuation. Total DLP 94 mGy-cm Images were processed with the software and compared side to side in short axis, horizontal long axis and vertical long axis views. Findings: On raw tomographic images there appears to be shifting breast attenuation. Is also intense subdiaphragmatic liver uptake. The stress perfusion study showed non attenuated images show mildly reduced uptake in the anterior wall of the LV myocardium sparing the apex. There is also mildly reduced uptake in the basal lateral wall of the LV myocardium. Attenuation corrected images show minimally reduced uptake in the anteroseptal wall of the LV myocardium.. The gated study shows normal LV systolic function with calculated LVEF of 70%. LV cavity is normal in size. The gated study shows normal systolic wall thickening and contraction of all segments. There is no transient ischemic dilation. Resting study shows nontender images show improved uptake in the anterior wall of the LV myocardium as well as the lateral wall of the LV myocardium. Attenuated corrected images also showed improved uptake in the anteroseptal wall of the LV myocardium.. Gating at rest reveals normal systolic wall motion with ejection fraction at greater than 60%. The findings are consistent with equivocal for mild intensity reversible defect of the anterior wall which could be related ischemia or shifting breast attenuation.. NM/NM cardiolite stress test Impression: 1. Equivocal for mild anterior wall ischemia 2. Gated LVEF is 70% 3. Transient ischemic dilatation not present Stress EKG is positive for ischemia
--- NOTE | 2023-03-26 07:50 | CA_ITS ---
Acquisition Time: 2023-03-26 08:11:18 Total Exercise Time: 00:08:59 Test Indications: ABN ETT, CP, SOB Medications: SEE H Protocol: KOBY Max HR: 137 BPM 82% of Pred: 167 BPM Max BP: 180/060 mmHG Max Work Load: 10.1 METS Exercise stress test exercise 8 min 59 sec of Koby protocol achieving 83% MPHR, with mild SOB, no chest discomfort, with isolated PVCs, with normotensive response to exercise, with baseline abnormalities that increased in leads 2, 3, aVF, V5-V6, and downsloping depression in V3. Nuclear images pending. Test reviewed with Dr. Miller. Referred By: Eve Ferreira Overread By: Eve Ferreira
== END ==
LOC: HO.CARD 07:47
PROVIDERS: Visit Provider Nurse Practitioner
DX: R07.89 Other chest pain (principal); R94.39 Abnormal result of other cardiovascular function study
CPT/HCPCS: 78452; 93017; A9500

== ENCOUNTER → 2023-03-26 07:50 | Outpatient (BNV) | payer BC, SELFPAY | PROVIDERS: Visit Provider Nurse Practitioner | DX: I25.10 Atherosclerotic heart disease of native coronary artery without angina pectoris (principal); R07.9 Chest pain, unspecified | CPT/HCPCS: 78452; 93016; 93018 ==

== ENCOUNTER 2023-04-02 15:08 | Outpatient (REF) | payer BC, SELFPAY ==
[2023-04-02 16:32] LABS: MANUAL DIFF FLAG NO
[2023-04-02 16:34] LABS: Basophils Absolute Auto 0.1 X10*3/uL (0.0-0.2); Basophils Percent Auto 1.3 % (0-2); Eosinophils Absolute Auto 0.2 X10*3/uL (0.0-0.4); Eosinophils Percent Auto 2.4 % (0-4); Hematocrit 42.1 % (37.0-47.0); Hemoglobin 14.3 g/dl (12.0-16.0); Imm Gran Abs Auto 0.03 X10*3/uL (0.00-0.03); Imm Gran Pct Auto 0.3 % (0.0-0.4); Lymphocytes Percent Auto 40.1 % (20-40); Mean Corpuscular Hemoglobin 30.6 pg (27.0-33.0); Mean Platelet Volume 11.3 fL (9.4-12.3); Monocytes Percent Auto 10.2 % (2-11); Neutrophils Absolute Auto 4.5 x10*3/uL (2.0-8.3); Neutrophils Percent Auto 45.7 % (45-73); Platelet Count 270 X10*3/uL (160-400); Red Blood Count 4.68 X10*6/uL (4.20-5.50); Red Cell Distribution Width 12.4 % (11.0-16.0); White Blood Count 9.9 X10*3/uL (4.8-10.8)
[2023-04-02 16:43] LABS: INTERNATIONAL NORM RATIO 0.9 (0.9-1.1); Prothrombin Time 11.1 SEC (11.1-13.3)
[2023-04-02 17:29] LABS: Anion Gap 14 (12-20); Blood Urea Nitrogen 17 mg/dL (9-16); Calcium 9.1 mg/dL (8.4-10.2); Carbon Dioxide 25 mmol/L (22-29); Chloride 109 mmol/L (96-108); Estimated Glomerular Filt Rate 59; Glucose Random 104 mg/dL (60-115); Potassium 4.1 mmol/L (3.3-5.1); Sodium 144 mmol/L (135-145)
== END 2023-04-02 15:09 | disposition home or self-care (01) ==
LOC: HO.HMGCLDS 15:08
PROVIDERS: Nurse Practitioner; Visit Provider Internal Medicine Cardiovascular Disease
DX: Z01.812 Encounter for preprocedural laboratory examination (principal); R07.89 Other chest pain; E78.00 Pure hypercholesterolemia, unspecified
CPT/HCPCS: 36415; 80048; 85025; 85610

== ENCOUNTER → 2023-04-10 23:59 | Outpatient (BNV) | payer BC, SELFPAY | PROVIDERS: Visit Provider Internal Medicine Cardiovascular Disease | DX: R93.1 Abnormal findings on diagnostic imaging of heart and coronary circulation (principal); I20.89 Other forms of angina pectoris | CPT/HCPCS: 93458; 93571; 99152 ==

== ENCOUNTER 2023-04-22 07:54 | Outpatient (AMB) | payer BC, SELFPAY ==
[2023-04-22 08:17] VITALS: BP 120/72; PULSE 69; BMI 27.1
--- NOTE | 2023-04-22 08:17 | A.OFFVIS_ITS ---
Intake Vital Signs 04/22/23 08:17 Height 5 ft 6 in Weight 167 lb 15.876 oz BMI 27.1 BP 120/72 Blood Pressure Location Lt brachial Position Sitting Pulse 69 Pulse Source Pulse Oximeter Intake Visit Reasons: Follow up post cardiac cath Nurse Coordinator Required: No Allergies morphine Allergy (Mild, Verified 04/22/23 08:19) Rash clarithromycin [From BIAXIN] Allergy (Unknown, Verified 04/22/23 08:19) ANAPHYLAXIS erythromycin base [From ERYTHROCIN] Allergy (Unknown, Verified 04/22/23 08:19) ANAPHYLAXIS oxycodone [From PERCOCET] Allergy (Unknown, Verified 04/22/23 08:19) HIVES Penicillins [PENICILLINS] Allergy (Unknown, Verified 04/22/23 08:19) ANAPHYLAXIS Sulfa (Sulfonamide Antibiotics) [SULFA (SULFONAMIDE ANTIBIOTICS)] Allergy (Unknown, Verified 04/22/23 08:19) ANAPHYLAXIS vancomycin [VANCOMYCIN] Allergy (Unknown, Verified 04/22/23 08:19) ANAPHYLAXIS Medication List - Last Reconciled 04/22/23 by Zahira Hernandez NP-C aspirin 81 mg PO DAILY 90 days atorvastatin (Lipitor) 40 mg PO DAILY lorazepam 0.5 mg PO DIRECTED PRN metoprolol succinate ER 25 mg PO DAILY nicotine 1 patch transdermal DAILY pantoprazole 40 mg PO QAM sennosides (Natural Senna Laxative) 17.2 mg (2 x 8.6 mg) PO BEDTIME sucralfate 1 g PO BEDTIME HPI Follow up post cardiac cath HPI Details Kimi is a 52-year-old female with past medical history of smoking, hyperlipidemia, ASD repair 1990 who had reported some interscapular discomfort with left arm radiation and underwent cardiac testing. She had had a echocardiogram and nuclear stress test which did show abnormalities. She then underwent a cardiac catheterization and now presents for follow-up. Today she reports that she has been doing generally well since her cardiac catheterization procedure. She has not had any chest area discomfort. She has had occasional scapular discomfort, nonexertional. No concerning shortness of breath, palpitation, presyncope, syncope, PND, orthopnea or edema. Right radial catheterization site is sensitive but healing well. Taking all meds as directed. [facility] Medical History Claustrophobia Hiatal hernia Intestinal adhesions Partial small bowel obstruction Abdominal pain Thyroid nodule Labial abscess Heart problem Atrial septal defect Surgical History Status post atrial septal defect repair History of exploratory laparotomy (07/15/22) History of incision and drainage History of carpal tunnel release Hx of colonoscopy History of esophagogastroduodenoscopy (EGD) History of open heart surgery History of partial hysterectomy Hx of tonsillectomy Family History Maternal Grandmother Ovarian cancer Unknown Ovarian cancer Father Throat cancer Mother Diabetes Social History Household Members: Spouse Housing: House Do you presently have visiting nurse or other home services: No Alcohol intake: never Patient Tobacco Use Status: Current someday Tobacco user Tobacco use type: Cigarette Cigarette Packs Per Day: 0.5 Cigarettes Per Day: 10.0 Years Smoked: 45 e-Cigarette/Vaping Use: Never Used Second Hand Smoke Exposure: Yes service: No Current occupational status: employed Sexual orientation: Straight/Heterosexual Gender identity: Female Review of Systems Const All systems reviewed & are unremarkable except as noted in HPI and below ENT Denies dizziness Card Denies chest pain, Denies chest pain at rest, Denies chest pain with activity, Denies rapid heart rate, Denies pedal edema, Denies edema, Denies leg edema, Denies lightheadedness, Denies palpitations, Denies dyspnea, Denies dyspnea on exertion and Denies orthopnea Resp Denies cough, Denies dyspnea and Denies dyspnea on exertion GI Denies hematochezia and Denies change in stool character Musc Denies abnormal gait, Denies limited range of motion, Denies muscle cramps, Denies muscle weakness, Denies numbness, Denies radiating pain into limb, Denies stiffness and Denies tingling Neuro Denies abnormal gait, Denies dizziness, Denies numbness and Denies tingling Endo Denies palpitations Physical Exam Vital Signs: Last Vital Signs Pulse 69 04/22/23 08:17 BP 120/72 04/22/23 08:17 BMI result Body Mass Index 27.1 Const General: cooperative, healthy appearing, comfortable and no acute distress Orientation/consciousness: patient oriented x3 Neck Neck: Yes normal visual inspection and Yes no JVD Resp Effort & Inspection: normal respiratory effort Auscultation: clear to auscultation bilaterally, no crackles, no rales, no rhonchi and no wheezes Cardio Jugular venous distension: no JVD Rate: regular rate Rhythm: regular rhythm Heart sounds: S1 normal heart sound present, S2 normal heart sound present, no murmurs and no rubs Neuro General: patient oriented x3 Extrem General: Yes normal to inspection and No no pedal edema Psych Appearance: grossly normal Mental Status: mental status grossly normal Speech and movement: Normal speech and movement present Assessment & Plan Assessment & Plan (1) CAD (coronary artery disease): Code(s): I25.10 - Atherosclerotic heart disease of [place] coronary artery without angina pectoris Plan: Patient with no prior known history of CAD. Does have history of ASD repair 1990. Cardiac risk factors include Long-term history of smoking, hyperlipidemia. On prior visit she reported atypical chest discomfort. Echocardiogram done 03/17/2023 showed normal EF, basal inferior hypokinesis. A nuclear stress test was done on 03/27/2023 with exercise 9 minutes, mild shortness of breath, no chest discomfort, nuclear imaging with mild anterior perfusion defect. She then underwent cardiac catheterization on 04/10/2023 showing moderate LAD stenosis, IFR 0.93. Plan for medical management. Her symptoms are not related to CAD. Spent time reviewing all test results in detail. Diagnosis of coronary artery disease reviewed. Signs and symptoms of angina discussed. Continue aspirin indefinitely. Continue atorvastatin with ideal LDL goal less than 70. Planning for fasting lipid profile and CMP in 2 months, patient aware. Continue metoprolol. Heart rate and blood pressure currently well controlled. Continue activity as tolerated. Discussed cardiac rehab and she declines. She will do exercise on her own and notify this office if she has any concerning symptoms. Cardiology follow-up in 6 months, sooner if needed (2) Atypical chest pain: Code(s): R07.89 - Other chest pain Plan: As above (3) S/P cardiac cath: Comment: 04/10/2023, left main normal, lad mid 60% stenosis, IFR 0.93, left circumflex and RCA normal. Code(s): Z98.890 - Other specified postprocedural states (4) Hyperlipidemia: Code(s): E78.5 - Hyperlipidemia, unspecified Qualifiers: Hyperlipidemia type: unspecified Qualified Code(s): E78.5 - Hyperlipidemia, unspecified Plan: [place] LDL goal less than 70. Recently started on statin therapy. Plan for labs in 2 months. (5) Status post atrial septal defect repair: Comment: 1990 Code(s): Z87.74 - Personal history of (corrected) congenital malformations of heart and circulatory system Plan: Remote history of syncope with finding of large ASD. She underwent ASD repair 1990. At present she denies any symptoms of lightheadedness, presyncope, syncope. Recent echocardiogram shows normal EF, no evidence of intra-atrial shunt by color Doppler. Plan Time spent with chart review, documentation, interview and assessment Orders: Orders Comprehensive Met. Panel Today E78.5 - Hyperlipidemia, unspecified, I25.10 - Atherosclerotic heart disease of [place] coronary artery without angina pectoris Lipid Panel Today E78.5 - Hyperlipidemia, unspecified, I25.10 - Atherosclerotic heart disease of [place] coronary artery without angina pectoris Medications: New nicotine 1 patch transdermal DAILY 28 ea 1RF Refilled metoprolol succinate ER 25 mg PO DAILY 90 tabs 3RF aspirin 81 mg PO DAILY 90 days 90 tabs 3RF atorvastatin (Lipitor) 40 mg PO DAILY 90 tabs 3RF Coding Level of Care Code Est Pt Level 4 (35280) Diagnoses CAD (coronary artery disease) I25.10 Atypical chest pain R07.89 S/P cardiac cath Z98.890 Hyperlipidemia, unspecified hyperlipidemia type E78.5 Hyperlipidemia type: unspecified Status post atrial septal defect repair Z87.74 Time Spent (min) 30
== END 2023-04-22 08:56 | disposition home or self-care (01) ==
PROVIDERS: PCP Pediatrics; Referring Provider Pediatrics; Visit Provider Nurse Practitioner Family
DX: I25.10 Atherosclerotic heart disease of native coronary artery without angina pectoris (principal); R07.89 Other chest pain; Z98.890 Other specified postprocedural states; E78.5 Hyperlipidemia, unspecified; Z87.74 Personal history of (corrected) congenital malformations of heart and circulatory system
CPT/HCPCS: 99214

== ENCOUNTER → 2023-04-22 07:54 | Outpatient (BNVA) | payer BC, SELFPAY | PROVIDERS: Visit Provider Nurse Practitioner Family ==

== ENCOUNTER 2023-05-01 15:14 | Outpatient (AMB) | payer BC, SELFPAY ==
[2023-05-01 15:22] VITALS: BP 114/70; PULSE 69; O2SAT 94; BMI 27.4
--- NOTE | 2023-05-01 15:22 | MHC.PC.OV ---
Vital Signs 05/01/23 15:22 Height 5 ft 6 in Weight 170 lb BMI 27.4 BP 114/70 Blood Pressure Location Rt brachial Position Sitting Pulse 69 Pulse Source Pulse Oximeter Pulse Oximetry (%) 94 Oxygen Delivery Method Room Air Intake Visit Reasons: Est Care/Requesting PE Intake Note: Pt is here to est care Allergies morphine Allergy (Mild, Verified 05/01/23 16:17) Rash clarithromycin [From BIAXIN] Allergy (Unknown, Verified 05/01/23 16:17) ANAPHYLAXIS erythromycin base [From ERYTHROCIN] Allergy (Unknown, Verified 05/01/23 16:17) ANAPHYLAXIS oxycodone [From PERCOCET] Allergy (Unknown, Verified 05/01/23 16:17) HIVES Penicillins [PENICILLINS] Allergy (Unknown, Verified 05/01/23 16:17) ANAPHYLAXIS Sulfa (Sulfonamide Antibiotics) [SULFA (SULFONAMIDE ANTIBIOTICS)] Allergy (Unknown, Verified 05/01/23 16:17) ANAPHYLAXIS vancomycin [VANCOMYCIN] Allergy (Unknown, Verified 05/01/23 16:17) ANAPHYLAXIS Tobacco use date assessed: 05/01/23 Dental Screening Dental Screen Date: 05/01/23 Did you have a dental visit in the last 12 months?: Yes Did you have a dental problem in the last 6 months where you did not have access to dental care?: No Was dental information given to patient?: Patient has dentist HPI HPI Comments History of Present Illness Details Patient is a 52-year-old female here to establish care. She has a past medical history significant for coronary artery disease, hypertension, and hyperlipidemia. She has a cardiac surgical history which includes repair ventral septal defect. Her recent cardiac catheterization 1 month prior showed 60% blockage. Patient has denied episodes of chest pain, syncope, dizziness, numbness, epigastric pain, shortness a breath. She offers a chief complaint of increased anxiety over the past several months. Patient states that she is having episodes of anxiety while driving and while in crowded spaces. The anxiety is starting to get in the way of her activities of daily life. She is not currently taking any medications for anxiety. Patient would like to pursue cognitive behavioral therapy, will refer to in office mental health liaison. [facility] Medical History Claustrophobia Hiatal hernia Intestinal adhesions Partial small bowel obstruction Abdominal pain Thyroid nodule Labial abscess Heart problem Atrial septal defect Surgical History Status post atrial septal defect repair History of exploratory laparotomy (07/15/22) History of incision and drainage History of carpal tunnel release Hx of colonoscopy History of esophagogastroduodenoscopy (EGD) History of open heart surgery History of partial hysterectomy Hx of tonsillectomy Family History Maternal Grandmother Ovarian cancer Unknown Ovarian cancer Father Throat cancer Mother Diabetes Social History Household Members: Spouse Housing: House Do you presently have visiting nurse or other home services: No Alcohol intake: never Patient Tobacco Use Status: Current everyday Tobacco user Tobacco use type: Cigarette Cigarette Packs Per Day: 0.5 Cigarettes Per Day: 10.0 Years Smoked: 45 e-Cigarette/Vaping Use: Never Used Second Hand Smoke Exposure: Yes service: No Current occupational status: employed Sexual orientation: Straight/Heterosexual Gender identity: Female Cognitive needs: No Hearing needs: No Vision needs: No Questionnaire PHQ-9 Over the last 2 weeks, how often have you been bothered by any of the following problems? 1. Little interest or pleasure in doing things: more than half the days 2. Feeling down, depressed, or hopeless: more than half the days 3. Trouble falling or staying asleep, or sleeping too much: several days 4. Feeling tired or having little energy: more than half the days 5. Poor appetite or overeating: more than half the days 6. Feeling bad about yourself - or that you are a failure or have let yourself or your family down: not at all 7. Trouble concentrating on things, such as reading the newspaper or watching television: not at all 8. Moving or speaking so slowly that other people could have noticed. Or the opposite - being so fidgety or restless that you have been moving around a lot more than usual: not at all 9. Thoughts that you would be better off or of hurting yourself in some way: not at all Total score: 9 Depression Screening Interpretation: Negative Depression Screening Done: Yes 15352 - PHQ-9 Billing: Yes Source: Developed by Drs. Russel Deluna, Dontrell Orozco and colleagues, with an educational randee from [employer]. Thrive Questionnaire Date Thrive assessed: 05/01/23 I am a: Patient What is your living situation today?: I have a steady place to live Within the past 12 months, did the food you bought not last and you didn't have the money to get more?: Never true Within the past 12 months, did you worry whether your food would run out before you got money to buy more?: Never true Do you have trouble paying for medicines?: No Do you have trouble getting transportation to medical appointments?: No Do you have trouble paying your heating and electricity bill?: No Do you have trouble taking care of your child, family member or friend?: No Do you have trouble with day-to-day activities such as bathing, preparing meals, shopping, managing finances, etc.?: No Are you currently unemployed and looking for a job?: No Are you interested in more education?: No AUDIT C Alcohol Use Questionnaire (AUDIT-C) 1. How often do you have a drink containing alcohol?: Monthly or less 2. How many drinks containing alcohol do you have on a typical day when you are drinking?: 1 or 2 3. How often do you have six or more drinks on one occasion?: Never Total Score: 1 ZACARIAS-7 AMB Questionnaire ZACARIAS-7 Date ZACARIAS - 7 assessed: 05/01/23 Feeling nervous, anxious, or on edge: 2 = More than half the days Not being able to stop or control worryin = More than half the days Worrying too much about different things: 2 = More than half the days Trouble relaxin = More than half the days Being so restless that it is hard to sit still: 1 = Several days Becoming easily annoyed or irritable: 1 = Several days Feeling afraid as if something awful might happen: 1 = Several days Total ZACARIAS-7 score (0-4 normal; 5-9 mild; 10-14 moderate; 15-21 severe): 11 Source: Developed by Drs. Russel Deluna, Dontrell Orozco and colleagues, with an educational randee from [employer]. ZACARIAS-7 Assessment Billing ZACARIAS-7 Assessment Tool: ZACARIAS-7 Assessment 35105 Review of Systems Const Details: Constitutional : No Weight loss, No Fever, No Chills, No Fatigue, No Malaise ENT/Mouth : No sore throat, No Rhinorrhea Eyes: No Eye Pain, No Swelling, No Redness Cardiovascular : No Chest Pain, No SOB, No Dyspnea on Exertion, No Orthopnea, No Edema, No Palpitations Respiratory : No Cough, No Sputum, No Wheezing Gastrointestinal : No Nausea, No Vomiting, No Diarrhea, No Constipation, No abdominal Pain, No Hematochezia, No Melena Genitourinary : No Dysuria, No Urinary Frequency, No Hematuria, Musculoskeletal : No joint pain, No Myalgias, No Joint Swelling Skin : No Skin Lesions, No rash Neuro : No Weakness, No Numbness, No Dizziness, No Headache Psych : Admits Anxiety/Panic, Admits some Depression, Denies SI/HI. Heme/Lymph: No Bruising, No Bleeding,No Lymphadenopathy Endocrine : No Polyuria, No Polydipsia All other systems reviewed and are negative Physical exam (Primary Care) Vital Signs: Last Vital Signs Pulse 69 05/01/23 15:22 BP 114/70 05/01/23 15:22 Pulse Ox 94 05/01/23 15:22 Oxygen Delivery Method Room Air 05/01/23 15:22 Care Plan Goal for BP management: Vital signs reviewed are stable BMI result Body Mass Index 27.4 Tobacco/Smoking Status: Tobacco use Status Tobacco use date assessed 05/01/23 05/01/23 15:29 Patient Tobacco Use Status Current everyday Tobacco 05/01/23 15:29 Tobacco use type Cigarette 05/01/23 15:22 e-Cigarette/Vaping Use Never Used 05/01/23 15:22 PHQ-9: PHQ-9 Score PHQ-9: Total score 12 05/01/23 15:59 Depression Screening Interpretation: Negative Thrive Assessment: Date of Thrive Assessment Date Thrive assessed 05/01/23 05/01/23 15:41 Const Other: Appearance: Alert.? Oriented X3.? No acute distress.? ENT: Pharynx normal.? Neck: Normal inspection.? Neck supple.? CVS: Normal heart rate and rhythm.? Pulses normal.? Respiratory: No respiratory distress.? Breath sounds normal.? Abdomen: Soft and nontender.? Skin: Skin warm and dry.? Normal skin color.? Normal skin turgor.? Neuro: Oriented X 3.? No motor deficit.? No sensory deficit. CN 2-12 intact Assessment and Plan Assessment & Plan (1) Anxiety: Comment: Will give patient hydroxyzine to be taken p.r.n., and boost prone to be taken as directed. Patient has been educated the side effects of these medications. Patient has been educated on signs of worsening symptoms and when to report to the office or when to present to the ED. Code(s): F41.9 - Anxiety disorder, unspecified Plan: Follow-up in 6 weeks for medication he Plan Take your medications as prescribed. If you were prescribed antibiotics today, it is important that you take your medication to their entirety, do not skip any doses, do not finish them early. Follow-up with your primary care provider this week. Return to the emergency department with new or worsening symptoms. Such as fevers, chills, chest pain, shortness of breath, nausea, vomiting, dizziness, headache, vision changes, lethargy In case of emergency call 911 Orders: Orders Vitamin B12 Today Z13.21 - Encounter for screening for nutritional disorder Vitamin D 25-OH (D2 and D3) Today Z13.21 - Encounter for screening for nutritional disorder UA CC w/rflx Micro + Cult Today E86.0 - Dehydration TSH reflex Free T4 Today E03.9 - Hypothyroidism, unspecified Complete Blood Count Auto Diff Today R53.83 - Other fatigue IRON PROFILE Today Z13.0 - Encounter for screening for diseases of the blood and blood-forming organs and certain disorders involving the immune mechanism Vitamin B6 Today Z13.21 - Encounter for screening for nutritional disorder Medications: New hydroxyzine HCl Can cause drowsiness. 25 mg PO ONCE PRN 30 tabs 0RF anxiety buspirone 5 mg PO BID 90 tabs 0RF levalbuterol tartrate 45 mcg/actuation (Xopenex HFA) 2 puffs inhalation Q4-6H PRN 15 grams 0RF shortness of breath Coding Level of Care Code Est Pt Level 3 (00552) Diagnoses Anxiety F41.9 Additional Codes ZACARIAS-7 Assessment Billing - ZACARIAS-7 Assessment Tool: ZACARIAS-7 Assessment 98052 ([id number]) Time Spent (min) 35
== END 2023-05-01 16:47 | disposition home or self-care (01) ==
PROVIDERS: PCP Nurse Practitioner Primary Care; Visit Provider Nurse Practitioner Primary Care
DX: F41.9 Anxiety disorder, unspecified (principal)
CPT/HCPCS: 99213

== ENCOUNTER 2023-05-17 06:59 | Outpatient (REF) | payer BC, SELFPAY ==
[2023-05-17 11:35] LABS: MANUAL DIFF FLAG NO
[2023-05-17 11:38] LABS: Basophils Absolute Auto 0.1 X10*3/uL (0.0-0.2); Basophils Percent Auto 1.4 % (0-2); Eosinophils Absolute Auto 0.2 X10*3/uL (0.0-0.4); Eosinophils Percent Auto 2.2 % (0-4); Hematocrit 45.4 % (37.0-47.0); Hemoglobin 15.4 g/dl (12.0-16.0); Imm Gran Abs Auto 0.02 X10*3/uL (0.00-0.03); Imm Gran Pct Auto 0.2 % (0.0-0.4); Lymphocytes Percent Auto 22.7 % (20-40); Mean Corpuscular HGB Conc 33.9 g/dl (31.0-35.0); Mean Corpuscular Hemoglobin 30.4 pg (27.0-33.0); Mean Corpuscular Volume 89.5 fL (80.0-98.0); Mean Platelet Volume 11.3 fL (9.4-12.3); Monocytes Absolute Auto 0.8 X10*3/uL (0.1-1.2); Monocytes Percent Auto 8.5 % (2-11); Neutrophils Absolute Auto 5.8 x10*3/uL (2.0-8.3); Platelet Count 249 X10*3/uL (160-400); Red Blood Count 5.07 X10*6/uL (4.20-5.50); Red Cell Distribution Width 12.3 % (11.0-16.0); White Blood Count 8.8 X10*3/uL (4.8-10.8)
[2023-05-17 12:03] LABS: Appearance Urine Clear; Color Urine Yellow; Glucose Urine UA Negative (Negative); Leukocyte Esterase Urine Small (1+) (Negative); Nitrite Urine Negative (Negative); Specific Gravity - Urine 1.015 (1.005-1.025); UMIC TRIGGER UACC YES; Urine Blood Small (1+) (Negative); Urine Ketones Negative (Negative); Urine Protein Negative (Neg-Trace)
[2023-05-17 12:14] LABS: Alanine Aminotransferase 18 U/L (0-31); Albumin Level 4.5 g/dL (3.5-5.0); Alkaline Phosphatase 65 U/L (39-117); Anion Gap 13 (12-20); Aspartate Amino Transferase 19 U/L (5-31); Bilirubin Total 0.8 mg/dL (0.0-1.0); Blood Urea Nitrogen 14 mg/dL (9-16); Calcium 9.7 mg/dL (8.4-10.2); Carbon Dioxide 27 mmol/L (22-29); Chloride 107 mmol/L (96-108); Estimated Glomerular Filt Rate > 60; Glucose Random 74 mg/dL (60-115); Iron 99 mcg/dL (30-160); Percent Iron Saturation 33 % (15-50); Sodium 143 mmol/L (135-145); Total Iron Binding Capacity 299 mcg/dL (228-428); Total Protein 7.7 g/dL (6.5-8.0); Unsaturated Iron Binding 200 ug/dL
[2023-05-17 12:15] LABS: Bacteria Urine Trace (None Seen); Hyaline Casts Urine 0-2 /LPF (0-2); UACC Culture Trigger YES; WBC Urine 0-5 /HPF (0-5)
[2023-05-17 12:21] LABS: Cholesterol 123 mg/dL (<200); HDL Cholesterol 36 mg/dL (>40); LDL Cholesterol Calculated 61 mg/dL (<100); TSH reflex Free T4 0.83 uIU/mL (0.32-4.0); Triglycerides 132 mg/dL (<150)
[2023-05-17 12:27] LABS: Vitamin B12 881 pg/mL (200-900)
[2023-05-21 12:29] LABS: Vitamin D 25-OH, D2 <4 ng/mL; Vitamin D 25-OH, D3 24 ng/mL; Vitamin D 25-OH, Total 24 ng/mL (30-100)
[2023-05-22 15:04] LABS: Vitamin B6 9.3 ng/mL (2.1-21.7)
== END 2023-05-17 07:00 | disposition home or self-care (01) ==
LOC: HO.HMGCLDS 06:59
PROVIDERS: Nurse Practitioner Family; PCP Nurse Practitioner Primary Care; Visit Provider Nurse Practitioner Primary Care
DX: Z13.21 Encounter for screening for nutritional disorder (principal); Z13.0 Encounter for screening for diseases of the blood and blood-forming organs and certain disorders involving the immune mechanism; E78.5 Hyperlipidemia, unspecified; I25.10 Atherosclerotic heart disease of native coronary artery without angina pectoris; R53.83 Other fatigue; E03.9 Hypothyroidism, unspecified; R07.89 Other chest pain; E78.00 Pure hypercholesterolemia, unspecified
CPT/HCPCS: 36415; 80053; 80061; 81001; 81003; 82306; 82607; 83540; 84207; 84443; 85025; 87086

== ENCOUNTER 2023-06-16 15:17 | Outpatient (REF) | payer BC, SELFPAY ==
--- NOTE | ~2023-06-16 | US_ITS ---
EXAMINATION: US THYROID CLINICAL INFORMATION: Multinodular goiter. Prior biopsy or surgery at outside facility with results and images not available at this time. Benign per patient, but correlation with prior reports and images recommended for confirmation. COMPARISON: None available. TECHNIQUE: Linear transducer grayscale and color Doppler examination with attention to the region of the thyroid. FINDINGS: SIZE: Measurements of the thyroid lobes and nodules are given in sagittal, anteroposterior and transverse dimensions respectively. Right Thyroid Lobe: 6.0 x 1.8 x 1.8 cm, volume 1.2 mL. Parenchyma: The gland echotexture is diffusely heterogeneous. Thyroid vascularity is normal. Left Thyroid Lobe: 6.4 x 2.7 x 1.9 cm, volume 17.2 mL. Parenchyma: The gland echotexture is heterogeneous. Thyroid vascularity is normal. Isthmus: 1.0 cm in maximum AP dimension. Estimated total number of nodules greater than or equal to 1 cm: 4. Tenter Feeder nodules are described as follows: 1. Location: Left ive-rb-hwdow pole. Size: 0.8 x 0.4 x 0.6 cm, volume 0.10 mL. Nodule characteristics: Composition: Solid/almost completely solid (2). Echogenicity: Isoechoic (1). Shape: Not taller than wide (0). Margins: Smooth (0). Echogenic Foci: None (0). ACR TI-RADS total points: 3. ACR TI-RADS category: 3. 2. Location: Left lower pole. Size: 2.5 x 1.7 x 1.6 cm, volume 3.45 mL. Nodule characteristics: Composition: Solid/almost completely solid (2). Echogenicity: Hypoechoic (2). Shape: Not taller than wide (0). Margins: Ill-defined (0). Echogenic Foci: None (0). ACR TI-RADS total points: 4. ACR TI-RADS category: 4. 3. Location: Left lower isthmus. Size: 2.7 x 1.4 x 3.0 cm, volume 5.88 mL. Nodule characteristics: Composition: Solid (2). Echogenicity: Hypoechoic (2). Shape: Not taller than wide (0). Margins: Ill-defined (0). Echogenic Foci: None (0). ACR TI-RADS total points: 4. ACR TI-RADS category: 4. 4. Location: Right lower isthmus. Size: 1.1 x 0.6 x 0.9 cm, volume is 0.3 mL. Nodule characteristics: Composition: Solid (2). Echogenicity: Hypoechoic (2). Shape: Not taller than wide (0). Margins: Smooth (0). Echogenic Foci: None (0). ACR TI-RADS total points: 4. ACR TI-RADS category: 4. NODES: No lymphadenopathy is seen in the tissue surrounding the thyroid gland. US/US thyroid IMPRESSION: 2.5 cm left lower pole TR4 nodule and 3.0 cm left lower isthmus TR4 thyroid nodule meet criteria for biopsy. Fine-needle aspiration recommended. Please note that it is difficult to determine whether these are 2 distinct, separate nodules versus a single conglomerate nodule. This study was presented today 06/17/2023 for interpretation. Stat results provided at this time as requested by referring provider. ACR TI-RADS RECOMMENDATION REFERENCE: Ultrasound-guided fine-needle aspiration, followup ultrasound, no further followup. * TR1 (0 point) and TR2 (2 points): No FNA or followup. * TR3 (3 points): FNA if more than or equal to 2.5 cm in maximum dimension, followup ultrasound in 1, 3 and 5 years if 1.5 to 2.4 cm in maximum dimension. * TR4 (4-6 points): FNA if more than or equal to 1.5 cm in maximum dimension, followup ultrasound in 1, 2, 3 and 5 years if 1 to 1.4 cm in maximum dimension. * TR5 (more than or equal to 7 points): FNA if more than or equal to 1 cm in maximum dimension, followup ultrasound every year for 5 years if 0.5 to 0.9 cm in maximum dimension. * TR3, TR4 or TR5 nodules that are below the size threshold for followup receive no followup.
== END 2023-06-16 15:18 | disposition home or self-care (01) ==
LOC: HO.HMGCX 15:17
PROVIDERS: PCP Nurse Practitioner Primary Care; Visit Provider Internal Medicine Endocrinology, Diabetes & Metabolism
DX: E04.2 Nontoxic multinodular goiter (principal)
CPT/HCPCS: 76536

== ENCOUNTER 2023-06-18 15:07 | Outpatient (AMB) | payer BC, SELFPAY ==
[2023-06-18 15:12] VITALS: BP 130/78; PULSE 62; O2SAT 96; BMI 27.2
--- NOTE | 2023-06-18 15:12 | MHC.PC.OV ---
Vital Signs 06/18/23 15:12 Height 5 ft 6 in Weight 168 lb 4 oz BMI 27.2 BP 130/78 Blood Pressure Location Rt brachial Position Sitting Pulse 62 Pulse Source Pulse Oximeter Pulse Oximetry (%) 96 Oxygen Delivery Method Room Air Intake Visit Reasons: 6W F/U Intake Note: pt is here to follow up for lab results Allergies morphine Allergy (Mild, Verified 06/18/23 15:16) Rash clarithromycin [From BIAXIN] Allergy (Unknown, Verified 06/18/23 15:16) ANAPHYLAXIS erythromycin base [From ERYTHROCIN] Allergy (Unknown, Verified 06/18/23 15:16) ANAPHYLAXIS oxycodone [From PERCOCET] Allergy (Unknown, Verified 06/18/23 15:16) HIVES Penicillins [PENICILLINS] Allergy (Unknown, Verified 06/18/23 15:16) ANAPHYLAXIS Sulfa (Sulfonamide Antibiotics) [SULFA (SULFONAMIDE ANTIBIOTICS)] Allergy (Unknown, Verified 06/18/23 15:16) ANAPHYLAXIS vancomycin [VANCOMYCIN] Allergy (Unknown, Verified 06/18/23 15:16) ANAPHYLAXIS Tobacco use date assessed: 06/18/23 Dental Screening Dental Screen Date: 06/18/23 Did you have a dental visit in the last 12 months?: Yes Did you have a dental problem in the last 6 months where you did not have access to dental care?: No Was dental information given to patient?: Patient has dentist HPI HPI Comments History of Present Illness Details Patient is a 52-year-old female in today for a 6 week follow-up. She was started on buspirone and hydroxyzine for anxiety. She has a significant past medical history including ventral septal defect which she had repaired 3 months prior. She has been followed by [facility], recently had stress testing performed. She also has a past medical history significant for hyperlipidemia, goiter. She is establish care with [facility]. She has upcoming pulmonary function test, has Xopenex inhaler due to cardiac history. The appointment today patient states that she has not yet started the medication. She cut COVID and was feeling nauseous and did not want to start any new medications at that time. Patient is planning to start the boost prone today and will have follow-up in 6 weeks. [facility] Medical History Claustrophobia Hiatal hernia Intestinal adhesions Partial small bowel obstruction Abdominal pain Thyroid nodule Labial abscess Heart problem Atrial septal defect Surgical History Status post atrial septal defect repair History of exploratory laparotomy (07/15/22) History of incision and drainage History of carpal tunnel release Hx of colonoscopy History of esophagogastroduodenoscopy (EGD) History of open heart surgery History of partial hysterectomy Hx of tonsillectomy Family History Maternal Grandmother Ovarian cancer Unknown Ovarian cancer Father Throat cancer Mother Diabetes Social History Household Members: Spouse Housing: House Do you presently have visiting nurse or other home services: No Alcohol intake: never Patient Tobacco Use Status: Current everyday Tobacco user Tobacco use type: Cigarette Cigarette Packs Per Day: 0.5 Cigarettes Per Day: 10.0 Years Smoked: 45 e-Cigarette/Vaping Use: Never Used Second Hand Smoke Exposure: Yes service: No Current occupational status: employed Sexual orientation: Straight/Heterosexual Gender identity: Female Cognitive needs: No Hearing needs: No Vision needs: No Questionnaire PHQ-9 Over the last 2 weeks, how often have you been bothered by any of the following problems? 1. Little interest or pleasure in doing things: several days 2. Feeling down, depressed, or hopeless: several days 3. Trouble falling or staying asleep, or sleeping too much: several days 4. Feeling tired or having little energy: not at all 5. Poor appetite or overeating: several days 6. Feeling bad about yourself - or that you are a failure or have let yourself or your family down: several days 7. Trouble concentrating on things, such as reading the newspaper or watching television: not at all 8. Moving or speaking so slowly that other people could have noticed. Or the opposite - being so fidgety or restless that you have been moving around a lot more than usual: several days 9. Thoughts that you would be better off or of hurting yourself in some way: not at all Total score: 6 Depression Screening Interpretation: Negative Depression Screening Done: Yes 87343 - PHQ-9 Billing: Yes Source: Developed by Drs. Russel Deluna, Bee Fernando, Dontrell Major and colleagues, with an educational randee from [employer]. Thrive Questionnaire Date Thrive assessed: 05/01/23 ZACARIAS-7 AMB Questionnaire ZACARIAS-7 Date ZACARIAS - 7 assessed: 05/01/23 Feeling nervous, anxious, or on edge: 1 = Several days Not being able to stop or control worryin = More than half the days Worrying too much about different things: 1 = Several days Trouble relaxin = More than half the days Being so restless that it is hard to sit still: 2 = More than half the days Becoming easily annoyed or irritable: 1 = Several days Feeling afraid as if something awful might happen: 1 = Several days Total ZACARIAS-7 score (0-4 normal; 5-9 mild; 10-14 moderate; 15-21 severe): 10 Source: Developed by Drs. Russel Deluna, Bee Fernando, Dontrell Major and colleagues, with an educational randee from [employer]. ZACARIAS-7 Assessment Billing ZACARIAS-7 Assessment Tool: ZACARIAS-7 Assessment 24771 Review of Systems Const Details: Constitutional : No Weight loss, No Fever, No Chills, No Fatigue, No Malaise Cardiovascular : No Chest Pain, No SOB, No Dyspnea on Exertion, No Orthopnea, No Edema, No Palpitations Respiratory : No Cough, No Sputum, No Wheezing Neuro : No Weakness, No Numbness, No Dizziness, No Headache Psych : Admits Anxiety/Panic, No Depression, Denies SI/HI. All other systems reviewed and are negative Physical exam (Primary Care) Vital Signs: Last Vital Signs Pulse 62 06/18/23 15:12 BP 130/78 06/18/23 15:12 Pulse Ox 96 06/18/23 15:12 Oxygen Delivery Method Room Air 06/18/23 15:12 Care Plan Goal for BP management: Patient's vital signs in control. BMI result Body Mass Index 27.2 Tobacco/Smoking Status: Tobacco use Status Tobacco use date assessed 06/18/23 06/18/23 15:20 Patient Tobacco Use Status Current everyday Tobacco 06/18/23 15:12 Tobacco use type Cigarette 06/18/23 15:12 e-Cigarette/Vaping Use Never Used 06/18/23 15:12 Depression Screening Interpretation: Negative Thrive Assessment: Date of Thrive Assessment Date Thrive assessed 05/01/23 06/18/23 15:12 Assessment and Plan Assessment & Plan (1) Anxiety: Comment: Will give patient hydroxyzine to be taken p.r.n., and Buspirone to be taken as directed. Patient has been educated the side effects of these medications. Patient has been educated on signs of worsening symptoms and when to report to the office or when to present to the ED. Code(s): F41.9 - Anxiety disorder, unspecified Plan: Take your medications as prescribed. If you were prescribed antibiotics today, it is important that you take your medication to their entirety, do not skip any doses, do not finish them early. Follow-up with your primary care provider this week. Return to the emergency department with new or worsening symptoms. Such as fevers, chills, chest pain, shortness of breath, nausea, vomiting, dizziness, headache, vision changes, lethargy In case of emergency call 911 Plan Follow-up in 6 weeks. Orders: Orders Free T4 (Free Thyroxine) Today E04.9 - Nontoxic goiter, unspecified Coding Level of Care Code Est Pt Level 3 (58296) Diagnoses Anxiety F41.9 Additional Codes ZACARIAS-7 Assessment Billing - ZACARIAS-7 Assessment Tool: ZACARIAS-7 Assessment 67417 ([id number]) Time Spent (min) 26
== END 2023-06-18 15:56 | disposition home or self-care (01) ==
PROVIDERS: PCP Nurse Practitioner Primary Care; Visit Provider Nurse Practitioner Primary Care
DX: F41.9 Anxiety disorder, unspecified (principal)
CPT/HCPCS: 99213

== ENCOUNTER 2023-07-30 15:03 | Outpatient (AMB) | payer BC, SELFPAY ==
[2023-07-30 15:04] VITALS: BP 124/74; PULSE 66; O2SAT 97; BMI 27.4
--- NOTE | 2023-07-30 15:04 | A.OFFPC_ITS ---
Vital Signs 07/30/23 15:04 Height 5 ft 6 in Weight 170 lb BMI 27.4 BP 124/74 Blood Pressure Location Lt brachial Position Sitting Pulse 66 Pulse Source Pulse Oximeter Pulse Oximetry (%) 97 Oxygen Delivery Method Room Air Intake Visit Reasons: 6W F/U Intake Note: Pt is here today for 6 weeks follow up visit on thyroid testing. Allergies morphine Allergy (Mild, Verified 07/30/23 15:37) Rash clarithromycin [From BIAXIN] Allergy (Unknown, Verified 07/30/23 15:37) ANAPHYLAXIS erythromycin base [From ERYTHROCIN] Allergy (Unknown, Verified 07/30/23 15:37) ANAPHYLAXIS oxycodone [From PERCOCET] Allergy (Unknown, Verified 07/30/23 15:37) HIVES Penicillins [PENICILLINS] Allergy (Unknown, Verified 07/30/23 15:37) ANAPHYLAXIS Sulfa (Sulfonamide Antibiotics) [SULFA (SULFONAMIDE ANTIBIOTICS)] Allergy (Unknown, Verified 07/30/23 15:37) ANAPHYLAXIS vancomycin [VANCOMYCIN] Allergy (Unknown, Verified 07/30/23 15:37) ANAPHYLAXIS Medication List - Last Reconciled 07/30/23 by SAIMA Foss amlodipine 2.5 mg PO DAILY aspirin 81 mg PO DAILY 90 days atorvastatin (Lipitor) 40 mg PO DAILY diazepam 2 mg PO ONCE PRN levalbuterol tartrate 45 mcg/actuation (Xopenex HFA) 2 puffs inhalation Q4-6H PRN metoprolol succinate ER 25 mg PO DAILY pantoprazole 40 mg PO QAM sennosides (Natural Senna Laxative) 17.2 mg (2 x 8.6 mg) PO BEDTIME sucralfate 1 g PO BEDTIME Tobacco use date assessed: 06/18/23 Dental Screening Dental Screen Date: 06/18/23 HPI HPI Comments History of Present Illness Details Patient is a 52-year-old female in for medication follow-up. Patient was prescribed 5 mg BuSpar p.o. t.i.d. at previous appointment but has not yet started taking the medication as she wants to wait and tell she is completed her treatment plan for thyroid nodule/biopsy. Patient is getting treated for this at [facility], recently had thyroid biopsy. Patient states that she has unhappy with the treatment plan provided to her and would like a 2nd opinion through [facility], will provide referral. Patient denies SI/HI. She reports she has had having stress at work. Will start BuSpar at appointment today in follow-up in 6 weeks. [facility] Medical History Claustrophobia Hiatal hernia Intestinal adhesions Partial small bowel obstruction Abdominal pain Thyroid nodule Labial abscess Heart problem Atrial septal defect Surgical History Status post atrial septal defect repair History of exploratory laparotomy (07/15/22) History of incision and drainage History of carpal tunnel release Hx of colonoscopy History of esophagogastroduodenoscopy (EGD) History of open heart surgery History of partial hysterectomy Hx of tonsillectomy Family History Maternal Grandmother Ovarian cancer Unknown Ovarian cancer Father Throat cancer Mother Diabetes Social History Household Members: Spouse Housing: House Do you presently have visiting nurse or other home services: No Alcohol intake: never Patient Tobacco Use Status: Current everyday Tobacco user Tobacco use type: Cigarette Cigarette Packs Per Day: 0.5 Cigarettes Per Day: 10.0 Years Smoked: 45 e-Cigarette/Vaping Use: Never Used Second Hand Smoke Exposure: Yes service: No Current occupational status: employed Sexual orientation: Straight/Heterosexual Gender identity: Female Cognitive needs: No Hearing needs: No Vision needs: No Questionnaire Thrive Questionnaire Date Thrive assessed: 05/01/23 ZACARIAS-7 AMB Questionnaire ZACARIAS-7 Date ZACARIAS - 7 assessed: 05/01/23 Source: Developed by Drs. Russel Deluna, Bee Fernando, Dontrell Major and colleagues, with an educational randee from [employer]. Review of Systems Const Details: Constitutional : No Weight loss, No Fever, No Chills, No Fatigue, No Malaise ENT/Mouth : No sore throat, No Rhinorrhea. Admits bilateral ear pain. Eyes: No Eye Pain, No Swelling, No Redness Cardiovascular : No Chest Pain, No SOB, No Dyspnea on Exertion, No Orthopnea, No Edema, No Palpitations Respiratory : No Cough, No Sputum, No Wheezing Psych : Admits some Anxiety/Panic, No Depression, Denies SI/HI. Endocrine : No Polyuria, No Polydipsia All other systems reviewed and are negative Physical exam (Primary Care) Vital Signs: Last Vital Signs Pulse 66 07/30/23 15:04 BP 124/74 07/30/23 15:04 Pulse Ox 97 07/30/23 15:04 Oxygen Delivery Method Room Air 07/30/23 15:04 Care Plan Goal for BP management: Vital signs reviewed stable. BMI result Body Mass Index 27.4 Tobacco/Smoking Status: Tobacco use Status Tobacco use date assessed 06/18/23 07/30/23 15:08 Patient Tobacco Use Status Current everyday Tobacco 07/30/23 15:08 Tobacco use type Cigarette 07/30/23 15:08 e-Cigarette/Vaping Use Never Used 07/30/23 15:08 Thrive Assessment: Date of Thrive Assessment Date Thrive assessed 05/01/23 07/30/23 15:08 Const Other: Appearance: Alert.? Oriented X3.? No acute distress.? Head: Normocephalic, atraumatic, no step-offs or deformities ENT: TM intact, Erythema and Effusion of bilateral TM. CVS: Normal heart rate and rhythm.? Pulses normal.? Respiratory: No respiratory distress.? Breath sounds normal.? Neuro: Oriented X 3.? No motor deficit.? No sensory deficit. CN 2-12 intact Assessment and Plan Assessment & Plan (1) Thyroid nodule greater than or equal to 1.5 cm in diameter incidentally noted on imaging study: Comment: Patient has care through [facility] endocrinology. Patient is unhappy with care, would like referral to [facility]. Code(s): E04.1 - Nontoxic single thyroid nodule (2) Bilateral otitis media: Comment: Patient has bilateral otitis media. Will give doxycycline 100 mg b.i.d. x7 day s. Code(s): H66.93 - Otitis media, unspecified, bilateral Qualifiers: Otitis media type: unspecified Qualified Code(s): H66.93 - Otitis media, unspecified, bilateral Plan: Take your medications as prescribed. If you were prescribed antibiotics today, it is important that you take your medication to their entirety, do not skip any doses, do not finish them early. Follow-up with your primary care provider this week. Return to the emergency department with new or worsening symptoms. Such as fevers, chills, chest pain, shortness of breath, nausea, vomiting, dizziness, headache, vision changes, lethargy In case of emergency call 911 Orders: Referrals Endocrinology Referral E04.1 - Nontoxic single thyroid nodule Medications: New doxycycline hyclate 100 mg PO BID 14 tabs 0RF Refilled levalbuterol tartrate 45 mcg/actuation (Xopenex HFA) 2 puffs inhalation Q4-6H PRN 15 grams 0RF shortness of breath Coding Level of Care Code Est Pt Level 3 (59133) Diagnoses Thyroid nodule greater than or equal to 1.5 cm in diameter incidentally noted on imaging study E04.1 Bilateral otitis media, unspecified otitis media type H66.93 Otitis media type: unspecified Time Spent (min) 28
== END 2023-07-30 16:43 | disposition home or self-care (01) ==
PROVIDERS: PCP Nurse Practitioner Primary Care; Visit Provider Nurse Practitioner Primary Care
DX: E04.1 Nontoxic single thyroid nodule (principal); H66.93 Otitis media, unspecified, bilateral
CPT/HCPCS: 99213

== ENCOUNTER 2023-09-03 08:24 | Emergency (ER) | payer BC, SELFPAY ==
--- NOTE | ~2023-09-03 | XR_ITS ---
EXAMINATION: XR CHEST CLINICAL INFORMATION: Chest pain, patient states open heart surgery March 2023, 60% heart blockage, new chest pain starting 2 days ago, increasing pain COMPARISON: None available. TECHNIQUE: 2 views of the chest were obtained. FINDINGS: There is no gross pneumothorax. Median sternotomy wires. There is a break in the most inferior median sternotomy wire. Degenerative changes in the thoracic spine with dextroscoliosis of the thoracolumbar spine. Lungs are well-inflated. Heart size is normal. Right heart border is obscured suggesting possible right middle lobe opacity, possibly related to an infectious/inflammatory process. No pleural effusion. XR/XR chest 2V IMPRESSION: Right heart border is obscured suggesting possible right middle lobe opacity, possibly related to an infectious/inflammatory process. This study was presented today, September 03, 2023 for interpretation. Stat results provided at this time as requested by referring provider.
--- NOTE | 2023-09-03 08:26 | ECG_ITS ---
Test Reason : cp Blood Pressure : / mmHG Vent. Rate : 069 BPM Atrial Rate : 069 BPM P-R Int : 134 ms QRS Dur : 090 ms QT Int : 412 ms P-R-T Axes : 024 077 -67 degrees QTc Int : 441 ms Normal sinus rhythm Nonspecific ST and T wave abnormality Abnormal ECG No previous ECGs available Referred By: Generic ED Physician Electronically Signed By:SYMONE SMITH MD
[2023-09-03 08:37] VITALS: BP 150/79; PULSE 68; RESP 16; TEMP 37; O2SAT 96; BMI 25.8
[2023-09-03 08:41] LABS: MANUAL DIFF FLAG NO
[2023-09-03 08:42] LABS: Basophils Absolute Auto 0.1 X10*3/uL (0.0-0.2); Basophils Percent Auto 1.5 % (0-2); Eosinophils Absolute Auto 0.2 X10*3/uL (0.0-0.4); Eosinophils Percent Auto 1.8 % (0-4); Hematocrit 45.8 % (37.0-47.0); Hemoglobin 15.7 g/dl (12.0-16.0); Imm Gran Abs Auto 0.03 X10*3/uL (0.00-0.03); Imm Gran Pct Auto 0.4 % (0.0-0.4); Lymphocytes Absolute Auto 2.3 X10*3/uL (1.2-4.9); Lymphocytes Percent Auto 27.9 % (20-40); Mean Corpuscular HGB Conc 34.3 g/dl (31.0-35.0); Mean Corpuscular Hemoglobin 30.3 pg (27.0-33.0); Mean Corpuscular Volume 88.4 fL (80.0-98.0); Mean Platelet Volume 10.2 fL (9.4-12.3); Monocytes Absolute Auto 0.8 X10*3/uL (0.1-1.2); Monocytes Percent Auto 9.2 % (2-11); Neutrophils Percent Auto 59.2 % (45-73); Platelet Count 253 X10*3/uL (160-400); Red Blood Count 5.18 X10*6/uL (4.20-5.50); Red Cell Distribution Width 12.6 % (11.0-16.0); White Blood Count 8.4 X10*3/uL (4.8-10.8)
[2023-09-03 08:47] LABS: INTERNATIONAL NORM RATIO 0.9 (0.9-1.1); Prothrombin Time 11.1 SEC (11.1-13.3)
[2023-09-03 08:50] LABS: Partial Thromboplastin Time 31.3 SEC (26.0-36.8)
[2023-09-03 08:56] LABS: Anion Gap 17 (12-20); Blood Urea Nitrogen 12 mg/dL (9-16); Calcium 10.2 mg/dL (8.4-10.2); Carbon Dioxide 24 mmol/L (22-29); Chloride 106 mmol/L (96-108); Estimated Glomerular Filt Rate > 60; Glucose Random 87 mg/dL (60-115); Potassium 3.9 mmol/L (3.3-5.1); Sodium 143 mmol/L (135-145)
[2023-09-03 09:08] LABS: Troponin-I High Sensitivity < 2.7 ng/L (<3.5-17.0)
--- NOTE | 2023-09-03 09:49 | ED.CHESTPAIN ---
HPI - Chest Pain General Chief Complaint: Chest Pain Stated Complaint: chest pain, back pain Time Seen by Provider: 09/03/23 09:49 Source: patient Mode of arrival: ambulatory Limitations: no limitations History of Present Illness ED Provider: Susanna Mcgee PA-C HPI narrative: Patient is a 52 year old assigned female at with a history of anxiety presenting to the emergency department today with back pain and pain with deep breathing. Patient states that over the last 2 days she has had back pain and pain with deep breathing. Patient states that she is also having increased urinary frequency. Patient denies any dizziness, lightheadedness, abdominal pain, nausea, vomiting, fever, chills, blurry vision, double vision, loss of vision, night sweats, pain with urination, increased urinary urgency, blood in her urine or stool, syncope or a near syncopal episode, recent trauma or falls, bowel incontinence, bladder incontinence, bowel retention, bladder retention, or any other complaints at this time. Onset (ago): day(s) (2) Relieving factors: nothing Exacerbating factors: other (deep breathing) Treatment prior to arrival: none Related Data Previous Rx's ?Medication ?Instructions ?Recorded sennosides 8.6 mg tablet (Natural 17.2 mg (2 x 8.6 mg) PO BEDTIME 12/20/22 Senna Laxative) constipation #180 tabs pantoprazole 40 mg tablet,delayed 40 mg PO QAM #90 tabs 04/09/23 release aspirin 81 mg tablet,delayed 81 mg PO DAILY 90 days #90 tabs 04/22/23 release atorvastatin 40 mg tablet (Lipitor) 40 mg PO DAILY #90 tabs 04/22/23 metoprolol succinate 25 mg 25 mg PO DAILY #90 tabs 04/22/23 tablet,extended release 24 hr sucralfate 1 gram tablet 1 g PO BEDTIME #30 tabs 05/22/23 amlodipine 2.5 mg tablet 2.5 mg PO DAILY #30 tabs 06/23/23 diazepam 2 mg tablet 2 mg PO ONCE PRN anxiety #1 tab 07/01/23 doxycycline hyclate 100 mg tablet 100 mg PO BID #14 tabs 07/30/23 levalbuterol tartrate 45 2 puff inhalation Q4-6H PRN 08/04/23 mcg/actuation aerosol inhaler shortness of breath #15 grams (Xopenex HFA) hydrocortisone-acetic acid 1 %-2 % 4 drp otic (ears) TID #10 mL 08/07/23 ear drops linaclotide 72 mcg capsule 72 mcg PO DAILY #30 caps 08/13/23 (Linzess) doxycycline hyclate 100 mg tablet 100 mg PO BID 7 days #14 tabs 09/03/23 Allergies Allergy/AdvReac Type Severity Reaction Status Date / Time morphine Allergy Mild Rash Verified 09/03/23 08:48 clarithromycin [From BIAXIN] Allergy Unknown ANAPHYLAXIS Verified 09/03/23 08:48 erythromycin base Allergy Unknown ANAPHYLAXIS Verified 09/03/23 08:48 [From ERYTHROCIN] oxycodone [From PERCOCET] Allergy Unknown HIVES Verified 09/03/23 08:48 Penicillins [PENICILLINS] Allergy Unknown ANAPHYLAXIS Verified 09/03/23 08:48 Sulfa (Sulfonamide Allergy Unknown ANAPHYLAXIS Verified 09/03/23 08:48 Antibiotics) [SULFA (SULFONAMIDE ANTIBIOTICS)] vancomycin [VANCOMYCIN] Allergy Unknown ANAPHYLAXIS Verified 09/03/23 08:48 Review of Systems Constitutional: Constitutional: Reports no additional constitutional complaints, Denies chills, Denies fever(s) and Denies night sweats Eyes: Eyes: Reports no additional eye complaints, Denies blurry vision, Denies change in vision, Denies diplopia, Denies eye discharge, Denies loss of vision and Denies eye pain ENT: Denies dizziness Cardiovascular: Cardiovascular: Reports no additional cardiovascular complaints, Denies lightheadedness, Denies Loss of Consciousness and Denies dyspnea Respiratory: Respiratory: Reports no additional respiratory complaints and Denies dyspnea Gastrointestinal: Gastrointestinal: Reports no additional gastrointestinal complaints, Denies abdominal pain, Denies melena, Denies hematochezia, Denies change in bowel habits and Denies change in stool character Genitourinary: Genitourinary: Denies hematuria, Denies urinary frequency, Denies dysuria, Denies urinary incontinence, Denies urinary hesitancy and Denies urinary urgency Comments: increased urinary frequency Musculoskeletal: Musculoskeletal: Reports no additional musculoskeletal complaints, Reports back pain, Denies numbness and Denies tingling Neurologic: Denies dizziness, Denies loss of vision, Denies numbness and Denies tingling Psychiatric: Psychiatric: Reports no additional psychiatric complaints Endocrine: Endocrine: Reports no additional endocrine complaints Hematologic/Lymphatic: Hematologic/Lymphatic: Reports no additional hematologic/lymphatic complaints Allergic/Immunologic: Allergic/Immunologic: Reports no additional allergic/immunologic complaints [facility] Past Medical History Attestation statement: The following information was validated with the patient. Source: old records reviewed and nursing notes reviewed Medical History Claustrophobia Hiatal hernia Intestinal adhesions Partial small bowel obstruction Abdominal pain Thyroid nodule Labial abscess Heart problem Atrial septal defect Surgical History Status post atrial septal defect repair History of exploratory laparotomy (07/15/22) History of incision and drainage History of carpal tunnel release Hx of colonoscopy History of esophagogastroduodenoscopy (EGD) History of open heart surgery History of partial hysterectomy Hx of tonsillectomy Family History Family History Maternal Grandmother Ovarian cancer Unknown Ovarian cancer Father Throat cancer Mother Diabetes Social History Social History Household Members: Spouse Housing: House Do you presently have visiting nurse or other home services: No Alcohol intake: never Patient Tobacco Use Status: Current everyday Tobacco user Tobacco use type: Cigarette Cigarette Packs Per Day: 0.5 Cigarettes Per Day: 10.0 Years Smoked: 45 e-Cigarette/Vaping Use: Never Used Second Hand Smoke Exposure: Yes Advance Directives: No service: No Current occupational status: employed Sexual orientation: Straight/Heterosexual Gender identity: Female Cognitive needs: No Hearing needs: No Vision needs: No Physical Exam Vital Signs: Vital Signs: Last Vital Signs Temp 98 F 09/03/23 10:12 Pulse 52 09/03/23 10:12 Resp 12 09/03/23 10:12 BP 141/67 H 09/03/23 10:12 Pulse Ox 94 09/03/23 10:12 O2 Del Method Room Air 09/03/23 10:12 BMI result Body Mass Index 25.8 Const: General: cooperative, no acute distress, alert and awake Nutritional Appearance: well nourished Orientation/consciousness: patient oriented x3 Limitations: no limitations HEENT: Head: Yes normal to inspection and Yes atraumatic Ears: hearing grossly normal bilaterally and external ears normal General nose exam: Normal external nose present, no nasal discharge noted and no epistaxis Face and sinus: Yes normal facial exam, No abrasion and No laceration Mouth: Normal oral and palatal mucosa present, no drooling and no muffled voice Eyes: General: appearance normal, both eyes and all related structures Periorbital: periorbital findings normal Eyelids: Yes eyelids normal Conjunctivae: conjunctivae normal Pupils: Equal, round and reactive pupils present EOM: EOMs intact bilaterally Neck: Neck: Yes normal visual inspection, Yes full ROM and Yes no lymphadenopathy Chest: Chest palpation & inspection: normal inspection of the chest Resp: Effort & Inspection: normal respiratory effort and able to speak in complete sentences GI: Inspection: Yes normal to inspection Neuro: General: patient oriented x3 and moves all extremities Cranial nerves: Yes Equal, round and reactive pupils present Cognition (Neuro): normal cognition Motor exam (neuro): 5/5 motor strength present throughout Sensory Exam: Normal double simultaneous stimulation for sensation Coordination: [id number] test normal Extrem: General: Yes normal to inspection, Yes full ROM and Yes capillary refill normal Psych: Appearance: grossly normal Mental Status: mental status grossly normal Affect: normal affect Attitude: cooperative Thought process: Normal thought process present Thought content: Normal thought content present Insight: Good insight present (Psych) Medical Decision Making Medical Decision Making MDM Narrative: Patient is a 52 year old assigned female at with a history of anxiety presenting to the emergency department today with back pain, pain with deep breathing, and increased urinary frequency. Patient's physical exam was unremarkable. Patient's blood work was unremarkable. Patient's urine showed a possible UTI, given patient's symptoms, will treat. Patient's EKG was unremarkable. Patient's chest x-ray showed a right middle lobe PNA. I explained my physical exam findings as well as all test results to the patient. I answered all questions asked by the patient. I stressed the importance of the patient taking her medication as prescribed. I stressed the importance of the patient following up with her primary care provider. I stressed the importance of the patient returning to the emergency department immediately if her symptoms were to worsen or if she were to develop any dizziness, shortness of breath, difficulty breathing, chest pain, blurry vision, loss of vision, nausea, vomiting, abdominal pain, fever, chills, back pain, or any other complaints. Patient verbalized agreement and understanding with this treatment plan and discharge. Differential Diagnosis Differential Diagnoses: The differential diagnosis associated with the presentation includes PNA NSTEMI STEMI Musculoskeletal pain UTI Admission/Observation Consideration of admission/observation: Escalation of care including admission/observation considered Patient would have been admitted to the hospital had her work up had any findings where hospital admission was appropriate and her clinical presentation warranted hospital admission. Lab Data [facility] Lab Attestation statement: I reviewed the patient's lab results. My interpretation of these results are in the [facility] Rationale portion of this note. 09/03/23 08:37 09/03/23 08:37 Labs: Lab Results 09/03/23 09/03/23 09/03/23 Range/Units 08:37 10:05 10:07 WBC 8.4 (4.8-10.8) X10*3/uL RBC 5.18 (4.20-5.50) X10*6/uL Hgb 15.7 (12.0-16.0) g/dl Hct 45.8 (37.0-47.0) % MCV 88.4 (80.0-98.0) fL MCH 30.3 (27.0-33.0) pg MCHC 34.3 (31.0-35.0) g/dl RDW 12.6 (11.0-16.0) % Plt Count 253 (160-400) X10*3/uL MPV 10.2 (9.4-12.3) fL Immature Gran % (Auto) 0.4 (0.0-0.4) % Neut % (Auto) 59.2 (45-73) % Lymph % (Auto) 27.9 (20-40) % Mcleod % (Auto) 9.2 (2-11) % Eos % (Auto) 1.8 (0-4) % Baso % (Auto) 1.5 (0-2) % Lymph # (Auto) 2.3 (1.2-4.9) X10*3/uL Mcleod # (Auto) 0.8 (0.1-1.2) X10*3/uL Eos # (Auto) 0.2 (0.0-0.4) X10*3/uL Baso # (Auto) 0.1 (0.0-0.2) X10*3/uL Abs Immat Gran (auto) 0.03 (0.00-0.03) X10*3/uL Absolute Neuts (auto) 5.0 (2.0-8.3) x10*3/uL Absolute Nucleated RBC 0.000 (0.0-0.012) X10*3/uL Nucleated RBC % (auto) 0.0 (0.0-0.2) /100WBC PT 11.1 (11.1-13.3) SEC INR 0.9 (0.9-1.1) APTT 31.3 (26.0-36.8) SEC Sodium 143 (135-145) mmol/L Potassium 3.9 (3.3-5.1) mmol/L Chloride 106 (96-108) mmol/L Carbon Dioxide 24 (22-29) mmol/L Anion Gap 17 (12-20) BUN 12 (9-16) mg/dL Creatinine 0.84 (0.5-1.4) mg/dL Estim Creat Clear Calc 79.0 Estimated GFR > 60 Random Glucose 87 (60-115) mg/dL Calcium 10.2 (8.4-10.2) mg/dL Total Bilirubin 0.8 (0.0-1.0) mg/dL Direct Bilirubin 0.3 (0.0-0.5) mg/dL AST 19 (5-31) U/L ALT 16 (0-31) U/L Alkaline Phosphatase 69 (39-117) U/L Troponin I High Sens < 2.7 (<3.5-17.0) ng/L Total Protein 8.1 H (6.5-8.0) g/dL Albumin 4.8 (3.5-5.0) g/dL Lipase 50 (8-78) U/L Urine Color Yellow Urine Appearance Clear Urine pH 7.5 (5.0-9.0) Ur Specific [place] <= 1.005 (1.005-1.025) Urine Protein Negative (Neg-Trace) mg/dL Urine Glucose (UA) Negative (Negative) mg/dL Urine Ketones Negative (Negative) mg/dL Urine Blood Trace H (Negative) Urine Nitrite Negative (Negative) Ur Leukocyte Esterase Trace H (Negative) Urine RBC 0-2 (0-2) /HPF Urine WBC 0-5 (0-5) /HPF Ur Squamous Epith Cells 3-5 (0-2) /HPF Urine Bacteria Trace (None Seen) Hyaline Casts 0-2 (0-2) /LPF Influenza Type A (PCR) NEGATIVE (Negative) Influenza Type B (PCR) NEGATIVE (Negative) RSV RNA Qual (PCR) NEGATIVE (Negative) SARS-CoV-2 RNA (RT-PCR) NEGATIVE (Negative) Independent Interpretation I performed an independent interpretation of an: EKG and Plain X-Ray Interpretation: My interpretation is in agreement with the radiologist's impression of this imaging study. EXAMINATION: XR CHEST CLINICAL INFORMATION: Chest pain, patient states open heart surgery March 2023, 60% heart blockage, new chest pain starting 2 days ago, increasing pain COMPARISON: None available. TECHNIQUE: 2 views of the chest were obtained. FINDINGS: There is no gross pneumothorax. Median sternotomy wires. There is a break in the most inferior median sternotomy wire. Degenerative changes in the thoracic spine with dextroscoliosis of the thoracolumbar spine. Lungs are well-inflated. Heart size is normal. Right heart border is obscured suggesting possible right middle lobe opacity, possibly related to an infectious/inflammatory process. No pleural effusion. XR/XR chest 2V IMPRESSION: Right heart border is obscured suggesting possible right middle lobe opacity, possibly related to an infectious/inflammatory process. This study was presented today, September 03, 2023 for interpretation. Stat results provided at this time as requested by referring provider. Dictated By: Rubia Parada MD Signed By: Electronically signed by Rubia Parada MD 09/03/23 0929 Vent. Rate: 069 BPM Atrial Rate: 069 BPM P-R Int: 134 ms QRS Dur: 090 ms QT Int: 412 ms P-R-T Axes: 024 077 -67 degrees QTc Int: 441 ms Normal sinus rhythm Nonspecific ST and T wave abnormality Abnormal ECG No previous ECGs available DD/ 0825 Radiology Impression Discussion of test interpretation with radiology: I have reviewed the radiologist's reading. Prescription Management I considered prescription management with: Antibiotic (patient prescribed an antibiotic to cover both her UTI and PNA) Discharge Plan Discharge Clinical Impression: Pneumonia, UTI (urinary tract infection) Patient Disposition: Home, Self-Care Instructions: Urinary Tract Infection in Women (DC), Community Acquired Pneumonia (DC) Additional Instructions: Take your antibiotic as prescribed. Follow up with your primary care provider. Return to the emergency department immediately if your symptoms worsen or if you develop any dizziness, shortness of breath, difficulty breathing, chest pain, blurry vision, loss of vision, nausea, vomiting, abdominal pain, fever, chills, back pain, or any other complaints. Prescriptions: New doxycycline hyclate 100 mg tablet 100 mg PO BID 7 Days Qty: 14 0RF No Action pantoprazole 40 mg tablet,delayed release (DR/EC) 40 mg PO QAM Qty: 90 3RF sucralfate 1 gram tablet 1 g PO BEDTIME Qty: 30 4RF amlodipine 2.5 mg tablet 2.5 mg PO DAILY Qty: 30 5RF Rx Instructions: New BP medicine. diazepam 2 mg tablet 2 mg PO ONCE PRN (Reason: anxiety) Qty: 1 0RF Rx Instructions: Take 30 minutes before procedure. levalbuterol tartrate [Xopenex HFA] 45 mcg/actuation HFA aerosol inhaler 2 puff inhalation Q4-6H PRN (Reason: shortness of breath) Qty: 15 0RF hydrocortisone-acetic acid 1-2 % drops 4 drp otic (ears) TID Qty: 10 0RF Linzess 72 mcg capsule 72 mcg PO DAILY Qty: 30 2RF doxycycline hyclate 100 mg tablet 100 mg PO BID Qty: 14 0RF aspirin 81 mg tablet,delayed release (DR/EC) 81 mg PO DAILY 90 Days Qty: 90 3RF atorvastatin [Lipitor] 40 mg tablet 40 mg PO DAILY Qty: 90 3RF metoprolol succinate 25 mg tablet extended release 24 hr 25 mg PO DAILY Qty: 90 3RF sennosides [Natural Senna Laxative] 8.6 mg tablet 17.2 mg PO BEDTIME Qty: 180 3RF Referrals: Aden Arias FNP [Primary Care Provider] - Stand Alone Forms: Work/School Release Print Language: Thai
[2023-09-03 10:12] VITALS: BP 141/67; PULSE 52; RESP 12; TEMP 36.6; O2SAT 94
[2023-09-03 10:13] LABS: Appearance Urine Clear; Color Urine Yellow; Glucose Urine UA Negative (Negative); Leukocyte Esterase Urine Trace (Negative); Nitrite Urine Negative (Negative); PH 7.5 (5.0-9.0); Specific Gravity - Urine <= 1.005 (1.005-1.025); UMIC TRIGGER UACC YES; Urine Blood Trace (Negative); Urine Ketones Negative (Negative); Urine Protein Negative (Neg-Trace)
[2023-09-03 10:15] LABS: Bacteria Urine Trace (None Seen); Hyaline Casts Urine 0-2 /LPF (0-2); RBC Urine 0-2 /HPF (0-2); WBC Urine 0-5 /HPF (0-5)
[2023-09-03 10:32] LABS: Alanine Aminotransferase 16 U/L (0-31); Albumin Level 4.8 g/dL (3.5-5.0); Alkaline Phosphatase 69 U/L (39-117); Aspartate Amino Transferase 19 U/L (5-31); Bilirubin Direct 0.3 mg/dL (0.0-0.5); Bilirubin Total 0.8 mg/dL (0.0-1.0); Lipase 50 U/L (8-78); Total Protein 8.1 g/dL (6.5-8.0)
[2023-09-03 10:49] LABS: Influenza A PCR NEGATIVE (Negative); Influenza B PCR NEGATIVE (Negative); Resp Syncy Virus RNA Qual PCR NEGATIVE (Negative); SARS COV2 PCR INHOUSE NEGATIVE (Negative)
[2023-09-03 11:18] VITALS: BP 128/76; PULSE 84; RESP 20; TEMP 36.7; O2SAT 100
== END 2023-09-03 11:30 | disposition home or self-care (01) ==
PROVIDERS: Physician Assistant Medical; Emergency Provider Emergency Medicine; PCP Nurse Practitioner Primary Care
DX: N39.0 Urinary tract infection, site not specified (principal); J18.9 Pneumonia, unspecified organism; R07.9 Chest pain, unspecified; M54.9 Dorsalgia, unspecified; R35.0 Frequency of micturition; Z03.818 Encounter for observation for suspected exposure to other biological agents ruled out
CPT/HCPCS: 0241U; 36415; 71046; 80048; 80076; 81001; 83690; 84484; 85025; 85610; 85730; 93005; 99283; 99284

== ENCOUNTER → 2023-09-03 08:26 | Outpatient (BNV) | payer BC, SELFPAY | PROVIDERS: Emergency Provider Emergency Medicine; PCP Nurse Practitioner Primary Care; Visit Provider Internal Medicine Cardiovascular Disease | DX: R94.31 Abnormal electrocardiogram [ECG] [EKG] (principal) | CPT/HCPCS: 93010 ==

== ENCOUNTER 2023-09-15 11:43 | Outpatient (AMB) | payer BC, SELFPAY ==
[2023-09-15 11:45] VITALS: BP 122/74; PULSE 75; O2SAT 98; BMI 27.1
--- NOTE | 2023-09-15 11:45 | A.OFFPC_ITS ---
Vital Signs 09/15/23 11:45 Height 5 ft 6 in Weight 168 lb BMI 27.1 BP 122/74 Blood Pressure Location Rt brachial Position Sitting Pulse 75 Pulse Source Pulse Oximeter Pulse Oximetry (%) 98 Oxygen Delivery Method Room Air Intake Visit Reasons: Anxiety Intake Note: pt is here for follow up on anxiety Machine Stuffer Automatic Required: No Accompanied by: Self / Same As Patient Allergies morphine Allergy (Mild, Verified 09/15/23 12:06) Rash clarithromycin [From BIAXIN] Allergy (Unknown, Verified 09/15/23 12:06) ANAPHYLAXIS erythromycin base [From ERYTHROCIN] Allergy (Unknown, Verified 09/15/23 12:06) ANAPHYLAXIS oxycodone [From PERCOCET] Allergy (Unknown, Verified 09/15/23 12:06) HIVES Penicillins [PENICILLINS] Allergy (Unknown, Verified 09/15/23 12:06) ANAPHYLAXIS Sulfa (Sulfonamide Antibiotics) [SULFA (SULFONAMIDE ANTIBIOTICS)] Allergy (Unknown, Verified 09/15/23 12:06) ANAPHYLAXIS vancomycin [VANCOMYCIN] Allergy (Unknown, Verified 09/15/23 12:06) ANAPHYLAXIS bupropion [From Wellbutrin] Adverse Reaction (Intermediate, Verified 09/15/23 12:27) Agitated Medication List - Last Reconciled 09/15/23 by SAIMA Foss amlodipine 2.5 mg PO DAILY aspirin 81 mg PO DAILY 90 days atorvastatin (Lipitor) 40 mg PO DAILY linaclotide (Linzess) 72 mcg PO DAILY metoprolol succinate ER 25 mg PO DAILY pantoprazole 40 mg PO QAM sennosides (Natural Senna Laxative) 17.2 mg (2 x 8.6 mg) PO BEDTIME sucralfate 1 g PO BEDTIME Tobacco use date assessed: 06/18/23 Dental Screening Dental Screen Date: 06/18/23 HPI HPI Comments History of Present Illness Details Patient is a 52-year-old female in today for follow-up with anxiety. Patient has been prescribed BuSpar 5 mg p.o. t.i.d. has not yet started taking the medication. Patient has been educated that she should start taking this medication because it takes several weeks for it to take effect. Patient has also been given hydroxyzine for insomnia secondary to anxiety. Patient denies SI/HI. She will also meet with our in office mental health liaison to establish care with therapist Psychiatry. PFSH Medical History Claustrophobia Hiatal hernia Intestinal adhesions Partial small bowel obstruction Abdominal pain Thyroid nodule Labial abscess Heart problem Atrial septal defect Surgical History Status post atrial septal defect repair History of exploratory laparotomy (07/15/22) History of incision and drainage History of carpal tunnel release Hx of colonoscopy History of esophagogastroduodenoscopy (EGD) History of open heart surgery History of partial hysterectomy Hx of tonsillectomy Family History Maternal Grandmother Ovarian cancer Unknown Ovarian cancer Father Throat cancer Mother Diabetes Social History Household Members: Spouse Housing: House Do you presently have visiting nurse or other home services: No Alcohol intake: never Patient Tobacco Use Status: Current everyday Tobacco user Tobacco use type: Cigarette Cigarette Packs Per Day: 0.5 Cigarettes Per Day: 10.0 Years Smoked: 45 e-Cigarette/Vaping Use: Never Used Second Hand Smoke Exposure: Yes service: No Current occupational status: employed Sexual orientation: Straight/Heterosexual Gender identity: Female Cognitive needs: No Hearing needs: No Vision needs: No Questionnaire Thrive Questionnaire Date Thrive assessed: 05/01/23 ZACARIAS-7 AMB Questionnaire ZACARIAS-7 Date ZACARIAS - 7 assessed: 05/01/23 Feeling nervous, anxious, or on edge: 3 = Nearly every day Not being able to stop or control worryin = More than half the days Worrying too much about different things: 3 = Nearly every day Trouble relaxin = Nearly every day Being so restless that it is hard to sit still: 2 = More than half the days Becoming easily annoyed or irritable: 2 = More than half the days Feeling afraid as if something awful might happen: 3 = Nearly every day Total ZACARISA-7 score (0-4 normal; 5-9 mild; 10-14 moderate; 15-21 severe): 18 Source: Developed by Drs. Russel Deluna, Bee Fernando, Dontrell Major and colleagues, with an educational randee from [employer]. ZACARIAS-7 Assessment Billing ZACARIAS-7 Assessment Tool: ZACARIAS-7 Assessment 39567 (Patient starting medication today buspirone 5 mg PO TID. Meeting for liaison for therapy and psychiatry. No SI.HI. ) Review of Systems Const All systems reviewed & are unremarkable except as noted in HPI and below Physical exam (Primary Care) Vital Signs: Last Vital Signs Pulse 75 09/15/23 11:45 BP 122/74 09/15/23 11:45 Pulse Ox 98 09/15/23 11:45 Oxygen Delivery Method Room Air 09/15/23 11:45 Care Plan Goal for BP management: Patients BP in control. BMI result Body Mass Index 27.1 Tobacco/Smoking Status: Tobacco use Status Tobacco use date assessed 06/18/23 09/15/23 11:51 Patient Tobacco Use Status Current everyday Tobacco 09/15/23 11:51 Tobacco use type Cigarette 09/15/23 11:51 e-Cigarette/Vaping Use Never Used 09/15/23 11:51 Thrive Assessment: Date of Thrive Assessment Date Thrive assessed 05/01/23 09/15/23 11:51 Const Other: Appearance: Alert.? Oriented X3.? No acute distress.? Head: Normocephalic,. Eyes: Sclera white. Respiratory: No respiratory distress.? Neuro: Oriented X 3.? Psych: No SI/HI. Assessment and Plan Assessment & Plan (1) Non-compliant patient: Comment: This is patient 3rd appointment for anxiety has yet to start anxiety medication originally prescribed. Patient indicates that she will start them today. Code(s): Z91.199 - Patient's noncompliance with other medical treatment and regimen due to unspecified reason (2) Anxiety: Comment: Will give patient hydroxyzine to be taken p.r.n., and Buspirone to be taken as directed. Patient has been educated the side effects of these medications. Patient has been educated on signs of worsening symptoms and when to report to the office or when to present to the ED. Will also meet with in office liaison to establish care with therapy and Psychiatry. Code(s): F41.9 - Anxiety disorder, unspecified Plan: Follow up in 5 weeks. Coding Level of Care Code Est Pt Level 3 (34132) Diagnoses Non-compliant patient Z91.199 Anxiety F41.9 Additional Codes ZACARIAS-7 Assessment Billing - ZACARIAS-7 Assessment Tool: ZACARIAS-7 Assessment 89304 ([id number]) Time Spent (min) 24
== END 2023-09-15 12:35 | disposition home or self-care (01) ==
PROVIDERS: PCP Nurse Practitioner Primary Care; Visit Provider Nurse Practitioner Primary Care
DX: F41.9 Anxiety disorder, unspecified (principal); Z91.199 Patient's noncompliance with other medical treatment and regimen due to unspecified reason
CPT/HCPCS: 96127; 99213

== ENCOUNTER 2023-09-26 08:31 | Outpatient (AMB) | payer BC, SELFPAY ==
[2023-09-26 08:34] VITALS: BP 110/62; BMI 27.0
--- NOTE | 2023-09-26 08:34 | MHC.OFFVIS ---
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 Present Accompanied by: Self / Same As Patient Allergies morphine Allergy (Mild, Verified 09/26/23 08:35) Rash clarithromycin [From BIAXIN] Allergy (Unknown, Verified 09/26/23 08:35) ANAPHYLAXIS erythromycin base [From ERYTHROCIN] Allergy (Unknown, Verified 09/26/23 08:35) ANAPHYLAXIS oxycodone [From PERCOCET] Allergy (Unknown, Verified 09/26/23 08:35) HIVES Penicillins [PENICILLINS] Allergy (Unknown, Verified 09/26/23 08:35) ANAPHYLAXIS Sulfa (Sulfonamide Antibiotics) [SULFA (SULFONAMIDE ANTIBIOTICS)] Allergy (Unknown, Verified 09/26/23 08:35) ANAPHYLAXIS vancomycin [VANCOMYCIN] Allergy (Unknown, Verified 09/26/23 08:35) ANAPHYLAXIS bupropion [From Wellbutrin] Adverse Reaction (Intermediate, Verified 09/26/23 08:35) Agitated Is last menstrual period known: Yes Post menopausal: Yes HPI Comments Details: Patient is here today to discuss treatment for hot flashes, along with feeling low energy, and difficulty focusing. She tried Estrace patch in the past and felt well on. Subsequent follow up appointment in 11/2021 she was ordered Paroxetine and does not remember taking this medicine. History of a left breast biopsy 2-3 years ago at [facility], no follow up mammograms since, no records available today. History of CAD, cardiac catheter and stent placement 2022. Current everyday smoker. History of goiter/ enlarged thyroid nodules, has an endocrine appointment on October 19. She reports taking Buspirone currently, it was deleted off her med list, advised her to speak to her primary care if there are refills or it was discontinued. [facility] Medical History Claustrophobia Hiatal hernia Intestinal adhesions Partial small bowel obstruction Abdominal pain Thyroid nodule Labial abscess Heart problem Atrial septal defect Surgical History Status post atrial septal defect repair History of exploratory laparotomy (07/15/22) History of incision and drainage History of carpal tunnel release Hx of colonoscopy History of esophagogastroduodenoscopy (EGD) History of open heart surgery History of partial hysterectomy Hx of tonsillectomy Family History Maternal Grandmother Ovarian cancer Unknown Ovarian cancer Father Throat cancer Mother Diabetes Social History Household Members: Spouse Housing: House Do you presently have visiting nurse or other home services: No Alcohol intake: never Patient Tobacco Use Status: Current everyday Tobacco user Tobacco use type: Cigarette Cigarette Packs Per Day: 0.5 Cigarettes Per Day: 10.0 Years Smoked: 45 e-Cigarette/Vaping Use: Never Used Second Hand Smoke Exposure: Yes service: No Current occupational status: employed Sexual orientation: Straight/Heterosexual Gender identity: Female Cognitive needs: No Hearing needs: No Vision needs: No Review of Systems Const All systems reviewed & are unremarkable except as noted in HPI and below Endo Reports no additional complaints Physical Exam Vital Signs: Last Vital Signs BP 110/62 09/26/23 08:34 BMI result Body Mass Index 27.0 Const General: cooperative, healthy appearing and no acute distress Psych Appearance: well kempt Attitude: cooperative Thought process: Normal thought process present Assessment & Plan Assessment & Plan (1) Hot flash, menopausal: Code(s): N95.1 - Menopausal and female climacteric states Category: Medical (2) Counseling for hormone replacement therapy: Code(s): Z71.89 - Other specified counseling Plan Discussed: The role of HRT, indications, side effects and risks including increased risk for cardiovascular and stroke events. Advised to review the literature and look at alternatives. Handout Memonote from menopause.org regarding hormone replacement therapy use. She responded I can live with the hot flashes, it's the other stuff . Sign a release for records for Domenico Castillo documents on her breast care to include breast biopsy, any imaging MRI, ultrasound, pathology reports, and provider notes. Schedule a mammogram here as she has transitioned her primary care to the [facility]. Schedule annual exam, and schedule follow up to discuss her menopausal symptoms. Clarify with pharmacy her primary care about her dosing and medication refills. Lab work for thyroid, keep a follow up appointment with endocrine. Discuss the role of functioning of the thyroid can also affect some of the symptoms she is feeling and can be treated if there is an underlying cause. All of her questions and concerns were addressed to the best of my ability and shared decision making. She is agreeable to the plan of care. This note is constructed using voice recognition software. While every effort has been made to ensure accuracy, receiving tank operator errors may have been included. Orders: Orders TSH reflex Free T4 Today N95.1 - Menopausal and female climacteric states, R23.2 - [place] MM tomosynthesis screening BI Today Z12.31 - Encounter for screening mammogram for malignant neoplasm of breast Coding Level of Care Code Est Pt Level 4 (27425) Diagnoses Hot flash, menopausal N95.1 Counseling for hormone replacement therapy Z71.89
== END 2023-09-26 09:09 | disposition home or self-care (01) ==
PROVIDERS: PCP Nurse Practitioner Primary Care; Visit Provider Advanced Practice Midwife
DX: N95.1 Menopausal and female climacteric states (principal); Z71.89 Other specified counseling
CPT/HCPCS: 99214

== ENCOUNTER → 2023-09-26 08:31 | Outpatient (BNVA) | payer BC, SELFPAY | PROVIDERS: PCP Nurse Practitioner Primary Care; Visit Provider Advanced Practice Midwife ==

== ENCOUNTER 2023-10-10 09:06 | Outpatient (REF) | payer BC, SELFPAY ==
--- NOTE | ~2023-10-10 | MM_ITS ---
EXAMINATION: MM SCREENING DIGITAL BREAST TOMOSYNTHESIS, BILATERAL CLINICAL INFORMATION: Screening. Asymptomatic. COMPARISON: Mammography: There are no prior bilateral mammograms for comparison. Air is a prior unilateral left mammogram for comparison from September 2020. TECHNIQUE: Digital breast tomosynthesis is performed in both the craniocaudal and mediolateral oblique views along with computer-aided detection (CAD). Synthesized 2D images are generated from the tomosynthesis. FINDINGS: There are scattered areas of fibroglandular density (ACR BI-RADS breast composition Category b). There are no significant masses, abnormal calcifications, or other abnormalities. There is a tissue marker in the left breast from prior percutaneous biopsy. MM/MM tomosynthesis screening BI IMPRESSION: No mammographic evidence of malignancy. ASSESSMENT: BI-RADS BI-RADS 2 - Benign Findings RECOMMENDATION: Routine annual mammography screening. 1 year F/U This examination should not preclude the clinical evaluation of a suspicious palpable abnormality. This patient's information was entered into a reminder system with a target due date for their next mammogram.
== END 2023-10-10 09:07 | disposition home or self-care (01) ==
LOC: HO.MAMMO 09:06
PROVIDERS: PCP Nurse Practitioner Primary Care; Visit Provider Advanced Practice Midwife
DX: Z12.31 Encounter for screening mammogram for malignant neoplasm of breast (principal)
CPT/HCPCS: 77063; 77067

== ENCOUNTER → 2023-10-10 09:30 | Outpatient (BNV) | payer BC, SELFPAY | PROVIDERS: PCP Nurse Practitioner Primary Care; Visit Provider Radiology Diagnostic Radiology | DX: Z12.31 Encounter for screening mammogram for malignant neoplasm of breast (principal) | CPT/HCPCS: 77063; 77067 ==

== ENCOUNTER 2023-10-20 10:07 | Outpatient (AMB) | payer BC, SELFPAY ==
[2023-10-20 10:27] VITALS: BP 110/66; PULSE 73; O2SAT 95; BMI 27.6
--- NOTE | 2023-10-20 10:27 | A.OFFPC_ITS ---
Vital Signs 10/20/23 10:27 Height 5 ft 6 in Weight 171 lb BMI 27.6 BP 110/66 Blood Pressure Location Lt brachial Position Sitting Pulse 73 Pulse Source Pulse Oximeter Pulse Oximetry (%) 95 Oxygen Delivery Method Room Air Intake Visit Reasons: 5WK F/U Anxiety Intake Note: pt is here for 5 wk f/u for anxiety Allergies morphine Allergy (Mild, Verified 10/20/23 10:51) Rash clarithromycin [From BIAXIN] Allergy (Unknown, Verified 10/20/23 10:51) ANAPHYLAXIS erythromycin base [From ERYTHROCIN] Allergy (Unknown, Verified 10/20/23 10:51) ANAPHYLAXIS oxycodone [From PERCOCET] Allergy (Unknown, Verified 10/20/23 10:51) HIVES Penicillins [PENICILLINS] Allergy (Unknown, Verified 10/20/23 10:51) ANAPHYLAXIS Sulfa (Sulfonamide Antibiotics) [SULFA (SULFONAMIDE ANTIBIOTICS)] Allergy (Unknown, Verified 10/20/23 10:51) ANAPHYLAXIS vancomycin [VANCOMYCIN] Allergy (Unknown, Verified 10/20/23 10:51) ANAPHYLAXIS bupropion [From Wellbutrin] Adverse Reaction (Intermediate, Verified 10/20/23 10:51) Agitated Medication List - Last Reconciled 10/20/23 by SAIMA Foss amlodipine 2.5 mg PO DAILY aspirin 81 mg PO DAILY 90 days atorvastatin (Lipitor) 40 mg PO DAILY linaclotide (Linzess) 72 mcg PO DAILY metoprolol succinate ER 25 mg PO DAILY pantoprazole 40 mg PO QAM sennosides (Natural Senna Laxative) 17.2 mg (2 x 8.6 mg) PO BEDTIME sucralfate 1 g PO BEDTIME Tobacco use date assessed: 10/20/23 Dental Screening Dental Screen Date: 06/18/23 HPI HPI Comments History of Present Illness Details Patient is here for a follow-up for anxiety. She reports that she has not started the BuSpar, however she feels better because she has changed jobs. She reports that she feels most of her stress has been from her place of employment. She denies any SI/HI. Patient does have complaint of left knee pain x2 weeks. Patient reports that she twisted her knee and felt a small pop. She reports she has been able to ambulate on the affected extremity, however the pain has not subsided even with rest and ice. Will obtain left knee x-ray. Will refer to PT if indicated. [facility] Medical History Claustrophobia Hiatal hernia Intestinal adhesions Partial small bowel obstruction Abdominal pain Thyroid nodule Labial abscess Heart problem Atrial septal defect Surgical History H/O left breast biopsy Status post atrial septal defect repair History of exploratory laparotomy (07/15/22) History of incision and drainage History of carpal tunnel release Hx of colonoscopy History of esophagogastroduodenoscopy (EGD) History of open heart surgery History of partial hysterectomy Hx of tonsillectomy Family History Maternal Grandmother Ovarian cancer Unknown Ovarian cancer Father Throat cancer Mother Diabetes Social History Household Members: Spouse Housing: House Do you presently have visiting nurse or other home services: No Alcohol intake: never Patient Tobacco Use Status: Current everyday Tobacco user Tobacco use type: Cigarette Cigarette Packs Per Day: 0.5 Cigarettes Per Day: 10.0 Years Smoked: 45 e-Cigarette/Vaping Use: Never Used Second Hand Smoke Exposure: Yes service: No Current occupational status: employed Sexual orientation: Straight/Heterosexual Gender identity: Female Cognitive needs: No Hearing needs: No Vision needs: No Questionnaire Thrive Questionnaire Date Thrive assessed: 05/01/23 AUDIT C Alcohol Use Questionnaire (AUDIT-C) 1. How often do you have a drink containing alcohol?: Monthly or less 2. How many drinks containing alcohol do you have on a typical day when you are drinking?: 1 or 2 3. How often do you have six or more drinks on one occasion?: Never Total Score: 1 ZACARIAS-7 AMB Questionnaire ZACARIAS-7 Date ZACARIAS - 7 assessed: 10/20/23 Feeling nervous, anxious, or on edge: 0 = Not at all Not being able to stop or control worryin = Nearly every day Worrying too much about different things: 3 = Nearly every day Trouble relaxin = Not at all Being so restless that it is hard to sit still: 0 = Not at all Becoming easily annoyed or irritable: 1 = Several days Feeling afraid as if something awful might happen: 0 = Not at all Total ZACARIAS-7 score (0-4 normal; 5-9 mild; 10-14 moderate; 15-21 severe): 7 Source: Developed by Drs. Russel Deluna, Bee Fernando, Dontrell Major and colleagues, with an educational randee from [employer]. ZACARIAS-7 Assessment Billing ZACARIAS-7 Assessment Tool: ZACARIAS-7 Assessment 11434 Review of Systems Const All systems reviewed & are unremarkable except as noted in HPI and below Psych Denies homicidal ideation and Denies suicidal ideation Physical exam (Primary Care) Vital Signs: Last Vital Signs Pulse 73 10/20/23 10:27 BP 110/66 10/20/23 10:27 Pulse Ox 95 10/20/23 10:27 Oxygen Delivery Method Room Air 10/20/23 10:27 Care Plan Goal for BP management: patient's blood pressure is controlled. BMI result Body Mass Index 27.6 Tobacco/Smoking Status: Tobacco use Status Tobacco use date assessed 10/20/23 10/20/23 10:33 Patient Tobacco Use Status Current everyday Tobacco 10/20/23 10:33 Tobacco use type Cigarette 10/20/23 10:33 e-Cigarette/Vaping Use Never Used 10/20/23 10:33 Thrive Assessment: Date of Thrive Assessment Date Thrive assessed 05/01/23 10/20/23 10:33 Const Other: Appearance: Alert.? Oriented X3.? No acute distress.? Head: Normocephalic, atraumatic, no step-offs or deformities Neck: Normal inspection.? Neck supple.? CVS: Normal heart rate and rhythm.? Pulses normal.? Respiratory: No respiratory distress.? Breath sounds normal.? Skin: Skin warm and dry.? Normal skin color.? Normal skin turgor.? Extremities: Scant left knee edema.+ Crepitus. No erythema.? No calf ttp. 5/5 strength to bilateral upper and lower extremities. Neuro: Oriented X 3.? No motor deficit.? No sensory deficit. CN 2-12 intact Assessment and Plan Assessment & Plan (1) Knee crepitus: Comment: Will order left knee x-ray. Will also order ultrasound of left knee. Code(s): M23.8X9 - Other internal derangements of unspecified knee Qualifiers: Laterality: left Qualified Code(s): M23.8X2 - Other internal derangements of left knee (2) Anxiety: Comment: patient reports that she feels heard anxiety and depression has improved with employment change. Code(s): F41.9 - Anxiety disorder, unspecified Orders: Orders XR knee LT 2V Today M23.8X9 - Other internal derangements of unspecified knee US venous duplex LE LT Today M25.469 - Effusion, unspecified knee, M71.20 - Synovial cyst of popliteal space [Welch], unspecified knee Coding Level of Care Code Est Pt Level 3 (25038) Diagnoses Crepitus of joint of left knee M23.8X2 Laterality: left Anxiety F41.9 Additional Codes ZACARIAS-7 Assessment Billing - ZACARIAS-7 Assessment Tool: ZACARIAS-7 Assessment 97623 ([id number])
== END 2023-10-20 12:55 | disposition home or self-care (01) ==
PROVIDERS: PCP Nurse Practitioner Primary Care; Visit Provider Nurse Practitioner Primary Care
DX: M23.8X2 Other internal derangements of left knee (principal); F41.9 Anxiety disorder, unspecified
CPT/HCPCS: 99213

== ENCOUNTER 2023-10-21 08:28 | Outpatient (AMB) | payer BC, SELFPAY ==
[2023-10-21 08:42] VITALS: BP 124/68; PULSE 64; BMI 27.4
--- NOTE | 2023-10-21 08:42 | A.OFFVIS_ITS ---
Vital Signs 10/21/23 08:42 10/21/23 08:49 10/21/23 08:50 10/21/23 08:52 Height 5 ft 6 in Weight 170 lb BMI 27.4 BP 124/68 137/75 127/77 132/84 Blood Pressure Location Lt brachial Lt brachial Lt brachial Lt brachial Position Sitting Supine Sitting Standing Pulse 64 70 75 80 Pulse Source Pulse Oximeter Pulse Oximeter Pulse Oximeter Pulse Oximeter Intake Visit Reasons: 6 mth f/up per DC Intake Note: pt is here for follow up pt feels dizziness. Accompanied by: Spouse Allergies morphine Allergy (Mild, Verified 10/20/23 10:51) Rash clarithromycin [From BIAXIN] Allergy (Unknown, Verified 10/20/23 10:51) ANAPHYLAXIS erythromycin base [From ERYTHROCIN] Allergy (Unknown, Verified 10/20/23 10:51) ANAPHYLAXIS oxycodone [From PERCOCET] Allergy (Unknown, Verified 10/20/23 10:51) HIVES Penicillins [PENICILLINS] Allergy (Unknown, Verified 10/20/23 10:51) ANAPHYLAXIS Sulfa (Sulfonamide Antibiotics) [SULFA (SULFONAMIDE ANTIBIOTICS)] Allergy (Unknown, Verified 10/20/23 10:51) ANAPHYLAXIS vancomycin [VANCOMYCIN] Allergy (Unknown, Verified 10/20/23 10:51) ANAPHYLAXIS bupropion [From Wellbutrin] Adverse Reaction (Intermediate, Verified 10/20/23 10:51) Agitated Medication List - Last Reconciled 10/21/23 by Jonh Garcia MD amlodipine 2.5 mg PO DAILY aspirin 81 mg PO DAILY 90 days atorvastatin (Lipitor) 40 mg PO DAILY linaclotide (Linzess) 72 mcg PO DAILY metoprolol succinate ER 25 mg PO DAILY pantoprazole 40 mg PO QAM sennosides (Natural Senna Laxative) 17.2 mg (2 x 8.6 mg) PO BEDTIME sucralfate 1 g PO BEDTIME HPI Comments Details: Kimi comes for follow-up after 6 months. LDL in May was well controlled at 61 mg/dL. She has been taking a statin therapy. She has not had any more chest pain since being on amlodipine therapy. She has symptoms of palpitations which she feels fluttering in her chest that last for few seconds. Symptoms usually happen in the morning and also happen when she is trying to rest at nighttime. She also complains of symptoms of dizziness which happens while she is walking or sometimes while she is sitting and watching TV. No lightheadedness or syncopal episodes. No prolonged irregular heartbeat or palpitations. No exertional chest pain. No worsening shortness of breath, orthopnea, PND. [facility] Medical History Claustrophobia Hiatal hernia Intestinal adhesions Partial small bowel obstruction Abdominal pain Thyroid nodule Labial abscess Heart problem Atrial septal defect Surgical History H/O left breast biopsy Status post atrial septal defect repair History of exploratory laparotomy (07/15/22) History of incision and drainage History of carpal tunnel release Hx of colonoscopy History of esophagogastroduodenoscopy (EGD) History of open heart surgery History of partial hysterectomy Hx of tonsillectomy Family History Maternal Grandmother Ovarian cancer Unknown Ovarian cancer Father Throat cancer Mother Diabetes Social History Household Members: Spouse Housing: House Do you presently have visiting nurse or other home services: No Alcohol intake: never Patient Tobacco Use Status: Current everyday Tobacco user Tobacco use type: Cigarette Cigarette Packs Per Day: 0.5 Cigarettes Per Day: 10.0 Years Smoked: 45 e-Cigarette/Vaping Use: Never Used Second Hand Smoke Exposure: Yes service: No Current occupational status: employed Sexual orientation: Straight/Heterosexual Gender identity: Female Cognitive needs: No Hearing needs: No Vision needs: No Review of Systems Const Denies weakness ENT Reports dizziness Card Denies chest pain, Denies chest pain with activity, Denies syncope, Denies rapid heart rate, Denies pedal edema, Denies edema, Denies leg edema, Denies lightheadedness, Denies palpitations, Denies dyspnea, Denies dyspnea on exertion and Denies orthopnea Resp Denies cough, Denies dyspnea and Denies dyspnea on exertion GI Denies hematochezia and Denies change in stool character Musc Denies abnormal gait, Denies muscle cramps, Denies muscle weakness, Denies numbness, Denies radiating pain into limb and Denies tingling Neuro Denies abnormal gait, Reports dizziness, Denies syncope, Denies numbness, Denies tingling and Denies weakness Endo Denies palpitations Physical Exam Vital Signs: Last Vital Signs Pulse 80 10/21/23 08:52 BP 132/84 10/21/23 08:52 BMI result Body Mass Index 27.4 Const General: cooperative, comfortable, no acute distress, well developed, alert, awake and Physically active Nutritional Appearance: average body habitus and well nourished Orientation/consciousness: patient oriented x3 Limitations: no limitations HEENT Head: Yes normocephalic and Yes atraumatic Neck Neck: Yes trachea midline, Yes supple and Yes no JVD Resp Effort & Inspection: normal respiratory effort Auscultation: clear to auscultation bilaterally Cardio Jugular venous distension: no JVD Palpation: normal PMI Rate: regular rate Rhythm: regular rhythm Heart sounds: S1 normal heart sound present, S2 normal heart sound present, no click, no gallops, no murmurs, no rubs and Other heart sounds present (Well- healed sternotomy scar) GI Auscultation: normal bowel sounds Skin General skin exam: no rashes or lesions noted Neuro General: patient oriented x3 and no focal motor deficits Extrem General: Yes no clubbing, cyanosis or edema Psych Appearance: grossly normal Assessment & Plan Assessment & Plan (1) CAD (coronary artery disease): Code(s): I25.10 - Atherosclerotic heart disease of [place] coronary artery without angina pectoris Category: Medical Plan: CAD with moderate nonobstructive disease in mid LAD. Her symptoms of atypical chest discomfort have improved with dual therapy with metoprolol amlodipine. Question coronary vaso spasm. Continue amlodipine therapy. She has not having any side effects. Continue low-dose aspirin therapy for life. Her LDL is extremely well optimized on current dose of statin. Continue the same. Importance of good risk factor modification was discussed with her. She u nderstands and agrees. (2) Status post atrial septal defect repair: Comment: 1990 Code(s): Z87.74 - Personal history of (corrected) congenital malformations of heart and circulatory system Category: Surgical Plan: Prior history of ASD repair without any evidence of shunting at this point time. Continue to follow clinically. (3) Palpitations: Code(s): R00.2 - Palpitations Plan: Symptoms of palpitation most suggestive of PACs. She is at risk for developing atrial fibrillation this was discussed with her. If she develops more prolonged irregular heartbeat she is advised to call my office and may require further monitoring and alternative therapy for management. Continue metoprolol therapy. Avoidance of stimulants was discussed. Will follow up in the clinic in 1 year's time, sooner p.r.n.. Thank you for allowing me to partake in the care Medications: New nicotine apply 1-21 mg NICOTINE PATCH daily for 28 days; follow with 1-14 mg PATCH daily for 14 days, then 1-7mg PATCH daily for 14 days transdermal 56 patches 0RF Coding Level of Care Code Est Pt Level 4 (10505) Diagnoses CAD (coronary artery disease) I25.10 Status post atrial septal defect repair Z87.74 Palpitations R00.2
[2023-10-21 08:49] VITALS: BP 137/75; PULSE 70
[2023-10-21 08:50] VITALS: BP 127/77; PULSE 75
[2023-10-21 08:52] VITALS: BP 132/84; PULSE 80
== END 2023-10-21 09:12 | disposition home or self-care (01) ==
PROVIDERS: PCP Nurse Practitioner Primary Care; Referring Provider Nurse Practitioner Primary Care; Visit Provider Internal Medicine Cardiovascular Disease
DX: I25.10 Atherosclerotic heart disease of native coronary artery without angina pectoris (principal); Z87.74 Personal history of (corrected) congenital malformations of heart and circulatory system; R00.2 Palpitations
CPT/HCPCS: 99214

== ENCOUNTER → 2023-10-21 08:28 | Outpatient (BNVA) | payer BC, SELFPAY | PROVIDERS: Visit Provider Internal Medicine Cardiovascular Disease ==

== ENCOUNTER 2023-10-22 08:38 | Outpatient (AMB) | payer BC, SELFPAY ==
--- NOTE | 2023-10-22 08:43 | A.OFFVIS_ITS ---
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 (Melanie Smith JONO) Accompanied by: Self / Same As Patient Allergies morphine Allergy (Mild, Verified 10/22/23 08:50) Rash clarithromycin [From BIAXIN] Allergy (Unknown, Verified 10/22/23 08:50) ANAPHYLAXIS erythromycin base [From ERYTHROCIN] Allergy (Unknown, Verified 10/22/23 08:50) ANAPHYLAXIS oxycodone [From PERCOCET] Allergy (Unknown, Verified 10/22/23 08:50) HIVES Penicillins [PENICILLINS] Allergy (Unknown, Verified 10/22/23 08:50) ANAPHYLAXIS Sulfa (Sulfonamide Antibiotics) [SULFA (SULFONAMIDE ANTIBIOTICS)] Allergy (Unknown, Verified 10/22/23 08:50) ANAPHYLAXIS vancomycin [VANCOMYCIN] Allergy (Unknown, Verified 10/22/23 08:50) ANAPHYLAXIS bupropion [From Wellbutrin] Adverse Reaction (Intermediate, Verified 10/22/23 08:50) Agitated Post menopausal: Yes HPI Comments Details: Presenting for annual exam. Complaining of hot flashes, the patient was started on paroxetine , took them for few months but did not make a difference in her hot flashes severity and frequency , she discontinued the medication on her own. Last Pap/HPV was many years ago no history of abnormal Pap smear and the patient is status post hysterectomy for benign disease Last Mammogram was in 10/10/2023, reports still pending Last colonoscopy was in 12/04, the recommendation was to repeat in 5 years No previous screening DEXA scan, the patient is currently a smoker and has history of rheumatoid arthritis [facility] Medical History Claustrophobia Hiatal hernia Intestinal adhesions Partial small bowel obstruction Abdominal pain Thyroid nodule Labial abscess Heart problem Atrial septal defect Surgical History H/O left breast biopsy Status post atrial septal defect repair History of exploratory laparotomy (07/15/22) History of incision and drainage History of carpal tunnel release Hx of colonoscopy History of esophagogastroduodenoscopy (EGD) History of open heart surgery History of partial hysterectomy Hx of tonsillectomy Family History Maternal Grandmother Ovarian cancer Unknown Ovarian cancer Father Throat cancer Mother Diabetes Social History Household Members: Spouse Housing: House Do you presently have visiting nurse or other home services: No Alcohol intake: never Patient Tobacco Use Status: Current everyday Tobacco user Tobacco use type: Cigarette Cigarette Packs Per Day: 0.5 Cigarettes Per Day: 10.0 Years Smoked: 45 e-Cigarette/Vaping Use: Never Used Second Hand Smoke Exposure: Yes service: No Current occupational status: employed Sexual orientation: Straight/Heterosexual Gender identity: Female Cognitive needs: No Hearing needs: No Vision needs: No Female Reproductive History Menstrual Date of Mammogram: 10/10/23 Review of Systems Const All systems reviewed & are unremarkable except as noted in HPI and below Card Reports as per HPI and Reports no additional complaints Resp Reports as per HPI and Reports no additional complaints GI Reports as per HPI and Reports no additional complaints Reports as per HPI Physical Exam Vital Signs: Last Vital Signs BP 122/70 10/22/23 08:47 BMI result Body Mass Index 27.4 Const General: cooperative, healthy appearing and comfortable Chest Chest palpation & inspection: normal inspection of the chest and normal palpation of entire chest wall Breast/axilla inspection: normal inspection of the breasts and normal inspection of the axillae Breast/axilla palpation: normal palpation of the breasts, normal palpation of the axillae and no axillary lymphadenopathy Resp Effort & Inspection: normal respiratory effort Auscultation: clear to auscultation bilaterally Percussion: percussion normal Cardio Palpation: normal PMI Rate: regular rate Rhythm: regular rhythm Heart sounds: no murmurs and no rubs Peripheral pulses: Peripheral pulses 2+ throughout GI Inspection: Yes normal to inspection Palpation (GI): Soft to palpation, nontender, no guarding, not rigid and No hepatosplenomegaly present Percussion: Yes normal to percussion Auscultation: normal bowel sounds Rectal Exam - Female: deferred General: Yes bladder normal to palpation External Female Exam: No lesion Speculum Exam - Vagina: normal appearance of the vagina, normal vaginal discharge and not erythematous Speculum Exam - Cervix: Cervix absent Bimanual exam- vagina & uterus: bladder normal to palpation and uterus absent Bimanual Exam- Adnexa, other: Other (No masses detected) Assessment & Plan Assessment & Plan (1) Well woman exam: Code(s): Z01.419 - Encounter for gynecological examination (general) (routine) without abnormal findings Category: Medical Plan: Co testing not indicated. Counseled the patient about the recommended dietary allowance of 1200 mg of Calcium & 600 IU of vitamin D. Instructions given the patient to schedule next screening Mammogram in 10/06. Will order DEXA scan since the patient has risk factors for osteoporosis, instructions given the patient to schedule a 2 week DEXA scan follow-up appointment The patient was instructed to perform monthly self-breast exams and schedule annual exam in a year. All questions answered and the patient verbalized understanding. (2) Hot flashes: Code(s): R23.2 - [place] Category: Medical Plan: Discussed with the patient the options of treatment of hot flashes including hormonal replacement therapy, which will increase the risk of DC with a history of coronary artery 60% blockage and being a smoker. In addition, discussed with the patient non hormonal treatment options for hot flashes treatment in surgical menopausal patient. Options discussed with the patient include the following: SSRI/SNRIs , difficulty has been demonstrated in multiple trials clinical response is more rapid (days) than typical response to SSRI for depression (weeks), they are equally effective in natural versus surgical menopause, they have similar modest benefit for hot flashes; Paroxetine 7.5 mg per day is suggested to be as a 1st choice the SSRI/SNRI such, FDA approved for treatment of hot flashes. Citalopram 20 mg per day is another 1st choice option. Sertraline and fluoxetine are not effective options. Effexor at 37.5 mg per day up to 75 mg per day after the 1st week has similar efficacy for hot flashes relief as low-dose estradiol at 0.5 mg per day, 47% efficacy reduction hot flashes Gabapentin it 300 mg p.o. t.i.d. especially for patient was hot flashes are at night has been shown to reduce hot flashes, 41% efficacy reduction hot flashes, if 1 of the SSRI/SNRI class of drugs is ineffective or not tolerated trial of gabapentin would be reasonable Other options include the following: Clonidine patch 0.1 mg per day up to 0.3 mg per day is another acceptable less effective options with high side effect profile Oxybutynin 5-10 mg p.o. q.d. has been shown to relieve hot flashes, the most common side effects will be dry mouth in 20-30% of patients Depo-Provera has been shown to reduce hot flashes Norethindrone acetate at 10 mg p.o. q.d. The patient decided to proceed with citalopram 20 mg p.o. q.d., prescription sent for 90 days. Instructions given to patient to schedule a 3 month follow-up appointment. All questions answered, the patient verbalized understanding Orders: Orders XR DEXA axial skeleton Today Z78.0 - Asymptomatic menopausal state Medications: New citalopram 20 mg PO DAILY 90 days 90 tabs 0RF Coding Level of Care Code Est Pt Prev Care 40-64y(28888) Diagnoses Well woman exam Z01.419 Hot flashes R23.2
[2023-10-22 08:47] VITALS: BP 122/70; BMI 27.4
== END 2023-10-22 10:05 | disposition home or self-care (01) ==
PROVIDERS: PCP Nurse Practitioner Primary Care; Visit Provider Obstetrics & Gynecology
DX: Z01.419 Encounter for gynecological examination (general) (routine) without abnormal findings (principal); R23.2 Flushing
CPT/HCPCS: 99396

== ENCOUNTER → 2023-10-22 08:38 | Outpatient (BNVA) | payer BC, SELFPAY | PROVIDERS: PCP Nurse Practitioner Primary Care; Visit Provider Obstetrics & Gynecology ==

== ENCOUNTER 2023-10-23 11:16 | Outpatient (REF) | payer BC, SELFPAY ==
--- NOTE | ~2023-10-23 | US_ITS ---
EXAMINATION: US VENOUS ULTRASOUND WITH DOPPLER LOWER EXTREMITY, LEFT CLINICAL INFORMATION: Effusion COMPARISON: None available. TECHNIQUE: Ultrasound of the deep veins is performed from the hip to the calf with compression sonography and color and pulse Doppler assessment. Spectral analysis with color-flow imaging is performed. FINDINGS: There is normal venous compression and respiratory variation and augmented flow. The visualized common femoral vein, superficial femoral vein, profunda femoral vein, popliteal vein, and the trifurcation region shows no evidence of deep venous thrombosis. There is no significant popliteal fossa cyst. Contralateral common femoral vein is patent. If the patient's symptoms persist, followup ultrasound in 5 days 7 days might be of value to exclude proximal propagation from a non-visualized calf vein. US/US venous duplex LE LT IMPRESSION: No DVT demonstrated in the left lower extremity.
--- NOTE | ~2023-10-23 | XR_ITS ---
EXAMINATION: XR KNEE, LEFT CLINICAL INFORMATION: Internal derangement of unspecified knee. COMPARISON: None available. TECHNIQUE: Two views of the left knee. FINDINGS: Trace joint effusion. Minimal narrowing of the medial compartment with minimal marginal osteophytes. XR/XR knee LT 2V IMPRESSION: Minimal degenerative changes.
== END 2023-10-23 11:17 | disposition home or self-care (01) ==
LOC: HO.HMGCX 11:16
PROVIDERS: PCP Nurse Practitioner Primary Care; Visit Provider Nurse Practitioner Primary Care
DX: M25.462 Effusion, left knee (principal); M71.22 Synovial cyst of popliteal space [Baker], left knee; R60.0 Localized edema
CPT/HCPCS: 73560; 93971

== ENCOUNTER 2023-11-14 13:25 | Outpatient (AMB) | payer BC, SELFPAY ==
--- NOTE | 2023-11-14 13:58 | MHC.OFFVIS ---
Vital Signs 11/14/23 14:16 Height 5 ft 6 in Weight 171 lb 15.369 oz BMI 27.8 BP 136/64 Blood Pressure Location Lt brachial Position Sitting Pulse 63 Intake Visit Reasons: abdominal pains Intake Note: Kimi presents in the office as a follow up for abdominal pains. CC: She states that she is having issues with constipation and pains in her stomach. She will have severe constipation that turns to explosive diarrhea. It is turning to a point where she is missing days and having to leave at her job. It goes in a cycle. Internal Audit Director Required: No Allergies morphine Allergy (Mild, Verified 11/17/23 08:17) Rash clarithromycin [From BIAXIN] Allergy (Unknown, Verified 11/17/23 08:17) ANAPHYLAXIS erythromycin base [From ERYTHROCIN] Allergy (Unknown, Verified 11/17/23 08:17) ANAPHYLAXIS oxycodone [From PERCOCET] Allergy (Unknown, Verified 11/17/23 08:17) HIVES Penicillins [PENICILLINS] Allergy (Unknown, Verified 11/17/23 08:17) ANAPHYLAXIS Sulfa (Sulfonamide Antibiotics) [SULFA (SULFONAMIDE ANTIBIOTICS)] Allergy (Unknown, Verified 11/17/23 08:17) ANAPHYLAXIS vancomycin [VANCOMYCIN] Allergy (Unknown, Verified 11/17/23 08:17) ANAPHYLAXIS bupropion [From Wellbutrin] Adverse Reaction (Intermediate, Verified 11/17/23 08:17) Agitated HPI HPI abdominal pains: Details: LAST VISIT Hiatal hernia Will send patient for barium swallow. Abdominal bloating Occasional postprandial abdominal bloating. Discussed with patient avoiding dietary triggers. Low FODMAP diet discussed with patient. IBS (irritable bowel syndrome) Postprandial abdominal bloating and cramping. Mostly on the left lower quadrant. Patient does have diverticulosis that was seen on CT scan as well as on colonoscopy. Patient was encouraged to move her bowels better. Patient can take Senokot to help her empty her bowels better. Low FODMAP diet discussed with patient Constipation Patient reports to be constipated. Will have her take Citrucel in the morning and Senokot at bedtime. Patient was encouraged to increase fluid intake and activity to promote better bowel motility. Epigastric discomfort Patient reports epigastric discomfort. Hiatal hernia seen on upper endoscopy. Will send patient for barium swallow. If hiatal hernia large and sliding we may have to refer her to surgery. We will review the study with the surgeon before making the decision. I will see patient in 6 months, sooner on as needed basis. Patient is agreeable to this plan and verbalizes understanding of instructions. She was given the opportunity to ask questions and all questions answered. ? Thank you for allowing me to participate in her care Plan Medications New sucralfate 1 g PO BEDTIME 30 tabs 4RF R19.7 methylcellulose (laxative) (Citrucel) take it with full glass of water 500 mg PO DAILY 90 tabs 2RF K59.00 pantoprazole take one tablet half an hour before breakfast 40 mg PO DAILY 30 tabs 2RF K21.9 sennosides (Natural Senna Laxative) 17.2 mg (2 x 8.6 mg) PO BEDTIME 180 tabs 3RF constipation K59.00 TODAY'S VISIT Patient is here today for requested visit. Patient states that she has been having abdominal pain and discomfort. Patient states that the pain is getting worse it is throughout the whole abdomen. Patient reports pain radiating to her back. Patient denies any nausea or vomiting. Frequent loose stools, reports rectal pain. Denies any melena or hematochezia. History of ileal adhesion and partial small-bowel obstructions. Patient denies any fever or chills. Reports abdominal bloating, states that her abdomen feels always bloated. Patient denies acid reflux, dyspepsia, dysphagia or odynophagia. [facility]LY [facility], [facility] Medical History (Updated 11/14/23 @ 14:48 by SAIMA Cifuentes-MILTON) Ileal adhesions Claustrophobia Hiatal hernia Intestinal adhesions Partial small bowel obstruction Abdominal pain Thyroid nodule Labial abscess Heart problem Atrial septal defect Surgical History H/O left breast biopsy Status post atrial septal defect repair History of exploratory laparotomy (07/15/22) History of incision and drainage History of carpal tunnel release Hx of colonoscopy History of esophagogastroduodenoscopy (EGD) History of open heart surgery History of partial hysterectomy Hx of tonsillectomy Family History Maternal Grandmother Ovarian cancer Unknown Ovarian cancer Father Throat cancer Mother Diabetes Social History Household Members: Spouse Housing: House Do you presently have visiting nurse or other home services: No Alcohol intake: never Patient Tobacco Use Status: Current everyday Tobacco user Tobacco use type: Cigarette Cigarette Packs Per Day: 0.5 Cigarettes Per Day: 10.0 Years Smoked: 45 e-Cigarette/Vaping Use: Never Used Second Hand Smoke Exposure: Yes service: No Current occupational status: employed Sexual orientation: Straight/Heterosexual Gender identity: Female Cognitive needs: No Hearing needs: No Vision needs: No Review of Systems Const Denies weight gain and Denies weight loss ENT Reports no additional complaints, Denies dysphagia and Denies odynophagia Card Reports no additional complaints Resp Reports no additional complaints GI Reports abdominal pain, Denies belching, Denies melena, Reports bloating, Reports constipation, Denies dysphagia, Denies excessive flatus, Denies dyspepsia, Denies heartburn, Denies diarrhea, Reports loose stools, Denies nausea, Denies odynophagia and Denies vomiting Reports no additional complaints Musc Reports no additional complaints Neuro Reports no additional complaints Psych Reports no additional complaints Endo Reports no additional complaints Physical Exam Vital Signs: Last Vital Signs Pulse 63 11/14/23 14:16 BP 136/64 11/14/23 14:16 BMI result Body Mass Index 27.8 Const General: healthy appearing, no acute distress and well developed Nutritional Appearance: well nourished Orientation/consciousness: patient oriented x3 Resp Effort & Inspection: normal respiratory effort, able to speak in complete sentences, no tracheal deviation and symmetric chest movement Auscultation: clear to auscultation bilaterally Cardio Rate: regular rate GI Inspection: Yes normal to inspection and No distended Palpation (GI): Soft to palpation, not firm, nontender and No hepatosplenomegaly present Auscultation: normal bowel sounds Rectal Exam - Female: normal sphincter tone and External hemorrhoid(s) present General: Yes no CVA tenderness Back/Spine/Pelvis Back: no CVA tenderness Skin General skin exam: elasticity normal, turgor normal and dry skin Neuro General: patient oriented x3 Psych Appearance: grossly normal Mental Status: mental status grossly normal Results Reviewed Results Reviewed: BARIUM SWALLOW FINDINGS: There is normal apposition of the vocal cords while saying E . There is normal elevation of soft palate while saying candy . There is no evidence of nasopharyngeal reflux or tracheal aspiration. No Zenker's diverticulum is seen. No cricopharyngeal hypertrophy noted. There is normal esophageal motility without mucosal abnormality identified. No persistent stricture is seen. There is a small sliding hiatal hernia present. No gastroesophageal reflux was elicited during the study including with water siphon test. Patient was able to swallow half-inch diameter barium tablet without difficulty. Barium-coated tristin cracker demonstrated normal motility. FL/FL barium swallow with air IMPRESSION: Small sliding hiatal hernia. No gastroesophageal reflux identified. Assessment & Plan Assessment & Plan (1) Ileal adhesions: Code(s): K66.0 - Peritoneal adhesions (postprocedural) (postinfection) Category: Medical (2) Abdominal bloating: Code(s): R14.0 - Abdominal distension (gaseous) (3) IBS (irritable bowel syndrome): Code(s): K58.9 - Irritable bowel syndrome without diarrhea Qualifiers: Irritable bowel syndrome type: with both diarrhea and constipation Qualified Code(s): K58.2 - Mixed irritable bowel syndrome (4) Constipation: Code(s): K59.00 - Constipation, unspecified Qualifiers: Constipation type: slow transit constipation Qualified Code(s): K59.01 - Slow transit constipation (5) Abdominal pain: Code(s): R10.9 - Unspecified abdominal pain Qualifiers: Abdominal location: lower abdomen, unspecified Qualified Code(s): R10.30 - Lower abdominal pain, unspecified Plan Patient will start taking Dulcolax daily, patient will stop senna. Increase Citrucel to 2 tablets a day. Proctosol for hemorrhoids. Small hemorrhoids noted on rectal exam. Abdomen nontender, history of ileal adhesions and small-bowel obstructions will send patient for enterography. Patient will call our office if she will continue to have symptoms. Patient is agreeable to plan and verbalizes understanding of instructions. She was given the opportunity to ask questions and all questions answered. Thank you for allowing me Orders: Orders CT enterography 11/14/23 K57.90 - Diverticulosis of intestine, part unspecified, without perforation or abscess without bleeding, K66.0 - Peritoneal adhesions (postprocedural) (postinfection) Blood Urea Nitrogen 11/14/23 R10.11 - Right upper quadrant pain Creatinine 11/14/23 R10.11 - Right upper quadrant pain Medications: New bisacodyl (Dulcolax (bisacodyl)) 10 mg (2 x 5 mg) PO BEDTIME 180 tabs 4RF hydrocortisone 2.5% (Proctosol HC) 1 appl TX BID-QID PRN 30 grams 2RF hemorrhoids K64.9 - Unspecified hemorrhoids methylcellulose (laxative) (Citrucel) take it with full glass of water 500 mg PO DAILY 90 tabs 2RF K59.00 - Constipation, unspecified Discontinued sennosides (Natural Senna Laxative) Discontinued Reason: Doctor's Order 17.2 mg (2 x 8.6 mg) PO BEDTIME 180 tabs 3RF constipation K59.00 - Constipation, unspecified Coding Level of Care Code Est Pt Level 4 (99438) Diagnoses Ileal adhesions K66.0 Abdominal bloating R14.0 Irritable bowel syndrome with both constipation and diarrhea K58.2 Irritable bowel syndrome type: with both diarrhea and constipation Slow transit constipation K59.01 Constipation type: slow transit constipation Lower abdominal pain R10.30 Abdominal location: lower abdomen, unspecified Time Spent (min) 35 Comment 25 minutes spent with patient and additional 10 minutes spent reviewing her records
[2023-11-14 14:16] VITALS: BP 136/64; PULSE 63; BMI 27.8
== END 2023-11-14 15:05 | disposition home or self-care (01) ==
PROVIDERS: PCP Nurse Practitioner Family; Visit Provider Nurse Practitioner Family
DX: K66.0 Peritoneal adhesions (postprocedural) (postinfection) (principal); R14.0 Abdominal distension (gaseous); K58.2 Mixed irritable bowel syndrome; K59.01 Slow transit constipation; R10.30 Lower abdominal pain, unspecified
CPT/HCPCS: 99214

== ENCOUNTER → 2023-11-14 13:25 | Outpatient (BNVA) | payer BC, SELFPAY | PROVIDERS: PCP Nurse Practitioner Family; Visit Provider Nurse Practitioner Family ==

== ENCOUNTER 2023-11-17 08:11 | Outpatient (AMB) | payer BC, SELFPAY ==
[2023-11-17 08:12] VITALS: BP 124/80; PULSE 73; TEMP 36.6; O2SAT 94; BMI 27.8
--- NOTE | 2023-11-17 08:12 | AM.OFFWIN_ITS ---
Intake Vital Signs 11/17/23 08:12 Height 5 ft 6 in Weight 172 lb 2 oz BMI 27.8 BP 124/80 Blood Pressure Location Lt brachial Position Sitting Pulse 73 Pulse Source Pulse Oximeter Temp 97.9 F Temp Source Oral Pulse Oximetry (%) 94 Oxygen Delivery Method Room Air Intake Visit Reasons: Diarrhea, nausa, pain mid section Intake Note: Pt states she started to begin to nausea and having diarrhea at work. Over the weekend symptoms progress. Stomach pain is wrapping around towards her lower back. Unable to hole any food or fluids down. Patient Tobacco Use Status: Current everyday Tobacco user Allergies morphine Allergy (Mild, Verified 11/17/23 08:17) Rash clarithromycin [From BIAXIN] Allergy (Unknown, Verified 11/17/23 08:17) ANAPHYLAXIS erythromycin base [From ERYTHROCIN] Allergy (Unknown, Verified 11/17/23 08:17) ANAPHYLAXIS oxycodone [From PERCOCET] Allergy (Unknown, Verified 11/17/23 08:17) HIVES Penicillins [PENICILLINS] Allergy (Unknown, Verified 11/17/23 08:17) ANAPHYLAXIS Sulfa (Sulfonamide Antibiotics) [SULFA (SULFONAMIDE ANTIBIOTICS)] Allergy (Unknown, Verified 11/17/23 08:17) ANAPHYLAXIS vancomycin [VANCOMYCIN] Allergy (Unknown, Verified 11/17/23 08:17) ANAPHYLAXIS bupropion [From Wellbutrin] Adverse Reaction (Intermediate, Verified 11/17/23 08:17) Agitated Do you need a note to return to daycare/school/sports/work: Yes HPI Diarrhea, nausa, pain mid section HPI Details This note is constructed using voice recognition software. While every effort has been made to ensure accuracy, child and youth program assistant errors may have been included. The patient is a 53 year old female who presents to the clinic today with nausea, diarrhea, abdominal pain. She notes that she was seen by her GI specialist on Friday, at which time she was ordered labs and a CT scan for concern of diverticulitis. She has not yet had these as she saw this provider later on Friday and needed prior authorization from the insurance. She denies fever, chills at this time, however feels that she did have a low-grade fever on Friday. Pain is in the left side of her abdomen wrapping around the left side slightly. She is having numerous diarrhea episodes per day, and feels that she is unable to keep any food in as a result. She is hydrating well. As a result of her symptoms she did stop her Linzess as well as her Dulcolax. [facility] Medical History (Updated 11/14/23 @ 14:48 by Rima Tarango [facility]) Ileal adhesions Claustrophobia Hiatal hernia Intestinal adhesions Partial small bowel obstruction Abdominal pain Thyroid nodule Labial abscess Heart problem Atrial septal defect Surgical History H/O left breast biopsy Status post atrial septal defect repair History of exploratory laparotomy (07/15/22) History of incision and drainage History of carpal tunnel release Hx of colonoscopy History of esophagogastroduodenoscopy (EGD) History of open heart surgery History of partial hysterectomy Hx of tonsillectomy Family History Maternal Grandmother Ovarian cancer Unknown Ovarian cancer Father Throat cancer Mother Diabetes Social History Household Members: Spouse Housing: House Do you presently have visiting nurse or other home services: No Alcohol intake: never Patient Tobacco Use Status: Current everyday Tobacco user Tobacco use type: Cigarette Cigarette Packs Per Day: 0.5 Cigarettes Per Day: 10.0 Years Smoked: 45 e-Cigarette/Vaping Use: Never Used Second Hand Smoke Exposure: Yes service: No Current occupational status: employed Sexual orientation: Straight/Heterosexual Gender identity: Female Cognitive needs: No Hearing needs: No Vision needs: No Review of Systems Const All systems reviewed & are unremarkable except as noted in HPI and below Physical Exam Vital Signs: Last Vital Signs Temp 97.9 F 11/17/23 08:12 Pulse 73 11/17/23 08:12 BP 124/80 11/17/23 08:12 Pulse Ox 94 11/17/23 08:12 Oxygen Delivery Method Room Air 11/17/23 08:12 BMI result Body Mass Index 27.8 Const General: cooperative, healthy appearing, comfortable, no acute distress and alert Orientation/consciousness: patient oriented x3 Limitations: no limitations Resp Effort & Inspection: normal respiratory effort and able to speak in complete sentences Auscultation: clear to auscultation bilaterally Cardio Jugular venous distension: no JVD Palpation: normal PMI Rate: regular rate Heart sounds: S1 normal heart sound present, S2 normal heart sound present, no click, no gallops, no murmurs and no rubs GI Inspection: Yes normal to inspection Palpation (GI): Soft to palpation and Tenderness to palpation present (GI) in the LLQ and in the LUQ Percussion: Yes normal to percussion Rectal Exam - Female: deferred Skin General skin exam: no rashes or lesions noted, elasticity normal and turgor normal Neuro General: patient oriented x3 Psych Appearance: grossly normal Mental Status: mental status grossly normal Speech and movement: Normal speech and movement present Affect: normal affect Assessment & Plan Assessment & Plan (1) Diarrhea: Code(s): R19.7 - Diarrhea, unspecified Qualifiers: Diarrhea type: unspecified type Qualified Code(s): R19.7 - Diarrhea, unspecified Plan: Reviewed provider note from specialty and GI. Patient does have labs and CT scan pending, advised patient to contact the office to get a CT scan scheduled urgently as it was ordered. Discussed potential causes including diverticulitis, gastroenteritis. Advised patient to continue with ongoing hydration efforts. Additional labs and imaging not ordered at this time as the appropriate workup is pending with her gastro specialist. Letter provided for work for today. Plan See above for full details and plan. Coding Level of Care Code Est Pt Level 3 (36052) Diagnoses Diarrhea, unspecified type R19.7 Diarrhea type: unspecified type
== END 2023-11-17 08:51 | disposition home or self-care (01) ==
PROVIDERS: PCP Nurse Practitioner Family; Visit Provider Registered Nurse
DX: R19.7 Diarrhea, unspecified (principal)
CPT/HCPCS: 99213

== ENCOUNTER 2023-11-24 12:50 | Outpatient (REF) | payer BC, SELFPAY ==
--- NOTE | ~2023-11-24 | CT_ITS ---
EXAMINATION: CT ENTEROGRAPHY ABDOMEN AND PELVIS WITH CONTRAST CLINICAL INFORMATION: Diverticulosis. COMPARISON: 07/15/2022 and 04/22/2022 TECHNIQUE: Study performed with oral VoLumen (1350 mL) and 480 mL of water to distend the abdomen. The patient was injected with 85 mL Omnipaque 350 intravenous contrast which was administered without adverse effect. Coronal and sagittal reformatted images were obtained at the technologist's workstation. This CT examination was performed using dose optimization techniques as appropriate, variously including the following: *Automated exposure control *Adjustment of mA and/or kV according to patient size (this includes techniques or standardized protocols for targeted exams where dose is matched to indication/reason for exam; i.e. extremities or head) *Use of iterative reconstruction technique DLP: 460 mGy-cm FINDINGS: GASTROINTESTINAL FINDINGS: Stomach: Well distended and unremarkable in appearance. Small intestine: Suboptimally distended. No small bowel obstruction. No mucosal hyperenhancement. Large intestine: Satisfactorily distended. No focal wall thickening. Moderate fecal retention in the colon. Sigmoid diverticulosis. No perirectal changes demonstrated. The appendix is not visualized. Additional findings: No abnormal enhancement of the vasa recta or significant mesenteric or retroperitoneal lymphadenopathy is seen. No abdominal abscess or fistulous tract demonstrated. ABDOMINAL AND PELVIC CT FINDINGS: Liver, gallbladder, biliary tract: The liver is normal in size and contour. No focal hepatic lesion. No biliary ductal dilatation. The gallbladder is unremarkable. Pancreas: No ductal dilatation. Spleen: Not enlarged. Adrenal glands and kidneys: No adrenal mass. The kidneys are symmetric in size and enhance normally. No hydronephrosis or perinephric fluid collection. Ureters and bladder: Unremarkable. Lymphovascular structures: No bulky lymphadenopathy. Normal caliber abdominal aorta. Pelvic viscera: Uterus is surgically absent. Bones: No destructive bone lesions. Lung bases: No pleural or pericardial effusion. CT/CT enterography IMPRESSION: No acute abnormality in the abdomen or pelvis.
[2023-11-24 13:34] LABS: Blood Urea Nitrogen 20 mg/dL (9-16); Estimated Glomerular Filt Rate 55
[2023-11-24] MEDS: iohexoL 350 MG/ML 100 ML INFUS..BTL IV (14:50)
[2023-11-24] MEDS: Sorbitol/Mannit/Xanth Imaging 500 ML LIQUID 1500 ML PO (14:52)
== END 2023-11-24 12:51 | disposition home or self-care (01) ==
LOC: HO.CT 12:50
PROVIDERS: PCP Nurse Practitioner Primary Care; Visit Provider Nurse Practitioner Family
DX: K57.90 Diverticulosis of intestine, part unspecified, without perforation or abscess without bleeding (principal); K66.0 Peritoneal adhesions (postprocedural) (postinfection); R10.11 Right upper quadrant pain
CPT/HCPCS: 36415; 74177; 82565; 84520; Q9967

== ENCOUNTER 2024-06-25 13:33 | Outpatient (REF) | payer BC, SELFPAY ==
--- NOTE | ~2024-06-25 | US_ITS ---
EXAMINATION: US THYROID HISTORY: MULTINODULAR GOITER TECHNIQUE: Real-time grayscale ultrasound imaging was performed and images were reviewed. COMPARISON: Comparison is made with the prior examination dated 06/16/2023. FINDINGS: SIZE: The right thyroid lobe measures 6.5 x 1.7 x 1.7 cm. The left thyroid lobe measures 6.4 x 2.7 x 1.8 cm. The isthmus measures 10 mm. FLOW: Flow to the gland is normal. ECHOGENICITY: The echotexture of the gland is homogeneous. NODULES: Multiple nodules are again identified as described below: Nodule #: 1 Location: A portion of the left thyroid lobe measuring 7 x 4 x 6 mm (previously 8 x 4 x 6 mm). Shape: Wider than tall (0 points) Margins: Smooth (0 points) Echotexture: Isoechoic (1 point) Composition: Mostly solid (2 points) Calcifications: None (0 points) Total points: 3 TIRADS: TR3: Mildly suspicious. Nodule #: 2 Location: Lower pole left thyroid lobe measuring 2.5 x 1.9 x 1.7 cm (previously 2.5 x 1.7 x 1.6 cm). Shape: Taller than wide (3 points) Margins: Ill-defined (0 points) Echotexture: Hypoechoic (2 points) Composition: Solid (2 points) Calcifications: None (0 points) Total points: 7 TIRADS: TR5: Highly suspicious. Nodule #: 3 Location: Lower left isthmus measuring 2.4 x 1.6 x 2.2 cm (previously 2.7 x 1.4 x 3.0 cm). Shape: Wider than tall (0 points) Margins: Ill-defined (0 points) Echotexture: Hypoechoic (2 points) Composition: Solid (2 points) Calcifications: None (0 points) Total points: 4 TIRADS: TR4: Moderately suspicious. Nodule #: 4 Location: Lower right isthmus measuring 1.3 x 0.7 x 1.0 cm (previously 1.1 x 0.6 x 0.9 cm). Shape: Wider than tall (0 points) Margins: Smooth (0 points) Echotexture: Hypoechoic (2 points) Composition: Solid (2 points) Calcifications: None (0 points) Total points: 4 TIRADS: TR4: Moderately suspicious. US/US thyroid IMPRESSION: Multiple bilateral thyroid nodules are again noted. Ultrasound-guided fine-needle aspiration of the left lower pole nodule (nodule #2) and the left lower isthmus nodule (nodule #3) is recommended if this has not previously been performed. ACR TI-RADS Guidelines TR1: Benign, No follow-up or biopsy required TR2: Not Suspicious, No biopsy indicated TR3: Mildly Suspicious, FNA if >= 2.5 cm, Follow if >= 1.5 cm TR4: Moderately Suspicious, FNA if >= 1.5 cm, Follow if >= 1.0 cm TR5: Highly Suspicious, FNA if >= 1.0 cm, Follow if >= 0.5 cm Electronically signed by: Russel Jensen MD 06/25/2024 02:51 PM EDT
--- OUTSIDE RECORDS SUMMARY | 2024-06-25 15:10 | XMS_ITS | Patient Health Record ---
Author Organization [facility] Address [address] [place] [address] Care Team Providers Care Drawing Operator Name Role Phone Artemio Mckinley MD Primary Care Provider Unavail able Deepika Cortez Unavailable [phone] Allergies Allergen (clinical drug ingredient) Drug/Non Drug Allergy documented on EMR Reaction Allergy Type Onset Date Status Biaxin throat closes, hives, shortness of breath Drug Allergy Active erythromycin Erythromycin throat closes, hives, shortness of breath Drug Allergy Active acetaminophen / oxycodone Percocet throat closes, hives, shortness of breath Drug Allergy Active vancomycin Vancomycin HCl throat closes, hives, shortness of breath Drug Allergy Active Latex Latex Unknown Allergy Active Substance with penicillin structure and antibacterial mechanism of action (substance) Penicillins throat closes, hives, shortness of breath Drug Allergy Active Substance with sulfonamide structure and antibacterial mechanism of action (substance) Sulfa Antibiotics throat closes, hives, shortness of breath Drug Allergy Active Reason For Referral No Information Social History Tobacco Use: Social History Observation Description Date Details (start date - stop date) Current Smoker NA - NA Tobacco Use/Smoking Question Answer Notes Are you a: current smoker Additional Findings: Tobacco User Light cigarett e smoker ((1-9 cigs/day) Alcohol Screen Question Answer Notes Did you have a drink containing alcohol in the p ast year? No Points 0 Interpretation Negative Tobacco use other than smoking: Question Answer Notes Are you an other tobacco user? No Problems Problem Type SNOMED Code ICD Code Onset Dates Problem Status W/U Status Risk Notes Problem [id number] Hammer toe of right foot (M20.41) Active confirmed Plan Of Treatment Pending Test Test Name Order Date X ray : Foot, right 3V 01/29/2022 Insurance Providers Payer Name Payer Address Payer Phone Subscriber Number Group Number Insured Name Patient Relationship to Insured Coverage Start Date Coverage End Date [facility] [address] [place] [address] [id number] Emmett Sheikh Spouse - patient is the spouse of the insured Medical (General) History Medical History History ICD Code Anxiety Arthritis asthma Back,Hip,and Knee pain Diverticulosis Fibromyalgia Reflux ( GERD) chronic sinusitis thyroid Transfusions Surgical History Surgery Date(Month/Year) Open Heart 11/17/1990 tonsillectomy and adenoidectomy carpal tunnel surgery partial hysterectomy 2009 multiple fibroid removals
== END 2024-06-25 13:34 | disposition home or self-care (01) ==
LOC: HO.HMGCX 13:33
PROVIDERS: PCP Nurse Practitioner Family; Visit Provider Internal Medicine Endocrinology, Diabetes & Metabolism
DX: E04.2 Nontoxic multinodular goiter (principal)
CPT/HCPCS: 76536

== ENCOUNTER → 2024-06-25 13:37 | Outpatient (BNV) | payer BC, SELFPAY | PROVIDERS: PCP Nurse Practitioner Family; Visit Provider Radiology Diagnostic Radiology | DX: E04.2 Nontoxic multinodular goiter (principal) | CPT/HCPCS: 76536 ==

== ENCOUNTER 2024-07-21 08:02 | Outpatient (AMB) | payer BC, SELFPAY ==
--- OUTSIDE RECORDS SUMMARY | 2024-07-21 08:07 | XMS_ITS | Patient Health Record ---
Author Organization [facility] Address [address] [place] [address] Care Team Providers Care Communications Maintainer Name Role Phone Artemio Mckinley MD Primary Care Provider Unavail able Deepika Cortez Unavailable [phone] Allergies Allergen (clinical drug ingredient) Drug/Non Drug [...] Problem Status W/U Status Risk Notes Problem [id number] Hammer toe of right foot (M20.41) Active confirmed Plan Of Treatment Pending Test Test Name Order Date X ray : Foot, right 3V 01/29/2022 Insurance Providers Payer Name Payer Address Payer Phone Subscriber Number Group Number Insured Name Patient Relationship to Insured Coverage Start Date Coverage End Date [facility] [address] [place] [address] [id number] Emmett Sheikh Spouse - patient is the spouse of the insured Medical (General) History Medical History History ICD Code Anxiety Arthritis asthma Back,Hip,and Knee pain Diverticulosis Fibromyalgia Reflux ( GERD) chronic sinusitis thyroid Transfusions Surgical History Surgery Date(Month/Year) Open Heart 11/17/1990 tonsillectomy and adenoidectomy carpal tunnel surgery partial hysterectomy 2009 multiple fibroid removals
--- NOTE | 2024-07-21 08:13 | A.OFFVIS_ITS ---
Vital Signs 07/21/24 08:14 Height 5 ft 6 in Weight 178 lb 9.191 oz BMI 28.8 BP 120/74 Blood Pressure Location Lt brachial Position Sitting Pulse 70 Intake Visit Reasons: Follow up Intake Note: Follow-up per patients request c/o heart palpitations in the morning and fatigue Plug Drill Operator Required: No Allergies morphine Allergy (Mild, Verified 11/17/23 08:17) Rash clarithromycin [From BIAXIN] Allergy (Unknown, Verified 11/17/23 08:17) ANAPHYLAXIS erythromycin base [From ERYTHROCIN] Allergy (Unknown, Verified 11/17/23 08:17) ANAPHYLAXIS oxycodone [From PERCOCET] Allergy (Unknown, Verified 11/17/23 08:17) HIVES Penicillins [PENICILLINS] Allergy (Unknown, Verified 11/17/23 08:17) ANAPHYLAXIS Sulfa (Sulfonamide Antibiotics) [SULFA (SULFONAMIDE ANTIBIOTICS)] Allergy (Unknown, Verified 11/17/23 08:17) ANAPHYLAXIS vancomycin [VANCOMYCIN] Allergy (Unknown, Verified 11/17/23 08:17) ANAPHYLAXIS bupropion [From Wellbutrin] Adverse Reaction (Intermediate, Verified 11/17/23 08:17) Agitated Medication List - Last Reconciled 07/21/24 by Jonh Garcia MD amlodipine 2.5 mg PO DAILY aspirin 81 mg PO DAILY 90 days atorvastatin (Lipitor) 40 mg PO DAILY metoprolol succinate ER 25 mg PO DAILY sucralfate 1 g PO BEDTIME 90 days HPI Comments Details: Kimi comes for follow-up. She is worried about her broken sternal wire. She complains of dermatomal pain in the lower thoracic region and also pain in the right upper extremity. She was complains of significant amount of fatigue and with exertional shortness of breath. She has no exertional chest pain. She has been taking all her medications unfortunately she continues to smoke. She was no orthopnea, PND, leg edema. Every morning or almost every morning she gets short episodes of fast heart rate, describes fluttering. No lightheadedness, syncope. [facility] Medical History Ileal adhesions Claustrophobia Hiatal hernia Intestinal adhesions Partial small bowel obstruction Abdominal pain Thyroid nodule Labial abscess Heart problem Atrial septal defect Surgical History H/O left breast biopsy Status post atrial septal defect repair History of exploratory laparotomy (07/15/22) History of incision and drainage History of carpal tunnel release Hx of colonoscopy History of esophagogastroduodenoscopy (EGD) History of open heart surgery History of partial hysterectomy Hx of tonsillectomy Family History Maternal Grandmother Ovarian cancer Unknown Ovarian cancer Father Throat cancer Mother Diabetes Social History Household Members: Spouse Housing: House Do you presently have visiting nurse or other home services: No Alcohol intake: never Patient Tobacco Use Status: Current everyday Tobacco user Tobacco use type: Cigarette Cigarette Packs Per Day: 0.5 Cigarettes Per Day: 10.0 Years Smoked: 45 e-Cigarette/Vaping Use: Never Used Second Hand Smoke Exposure: Yes service: No Current occupational status: employed Sexual orientation: Straight/Heterosexual Gender identity: Female Cognitive needs: No Hearing needs: No Vision needs: No Review of Systems Const Denies chills, Reports fatigue, Denies fever(s), Denies frequent falls, Denies weakness, Denies weight gain and Denies weight loss ENT Denies dizziness Card Reports chest pain, Denies leg edema, Denies lightheadedness, Reports palpitations, Denies dyspnea, Denies dyspnea on exertion, Denies orthopnea and Denies other (loss of consciousness) Resp Denies cough, Denies dyspnea and Denies dyspnea on exertion GI Denies hematochezia and Denies change in stool character Musc Denies abnormal gait, Denies muscle weakness, Denies numbness, Denies radiating pain into limb and Denies tingling Neuro Denies abnormal gait, Denies dizziness, Denies frequent falls, Denies numbness, Denies tingling and Denies weakness Endo Reports fatigue and Reports palpitations Physical Exam Vital Signs: Last Vital Signs Pulse 70 07/21/24 08:14 BP 120/74 07/21/24 08:14 BMI result Body Mass Index 28.8 Const General: cooperative, comfortable, no acute distress, well developed, alert, awake and Physically active Nutritional Appearance: average body habitus and well nourished Orientation/consciousness: patient oriented x3 Limitations: no limitations HEENT Head: Yes normocephalic and Yes atraumatic Neck Neck: Yes trachea midline, Yes supple and Yes no JVD Resp Effort & Inspection: normal respiratory effort Auscultation: clear to auscultation bilaterally Cardio Jugular venous distension: no JVD Palpation: normal PMI Rate: regular rate Rhythm: regular rhythm Heart sounds: S1 normal heart sound present, S2 normal heart sound present, no click, no gallops, no murmurs, no rubs and Other heart sounds present (Well- healed sternotomy scar) GI Auscultation: normal bowel sounds Skin General skin exam: no rashes or lesions noted Neuro General: patient oriented x3 and no focal motor deficits Extrem General: Yes no clubbing, cyanosis or edema Psych Appearance: grossly normal Office Procedures EKG Details: EKG shows normal sinus rhythm with diffuse ST T wave changes which could represent repolarization abnormality [id number], Complete Assessment & Plan Assessment & Plan (1) CAD (coronary artery disease): Code(s): I25.10 - Atherosclerotic heart disease of [place] coronary artery without angina pectoris Category: Medical Plan: Known CAD with moderate stenosis. She is currently having increasing symptoms. Will suggest a exercise myocardial perfusion imaging to evaluate for progressive coronary artery disease. Discussed about complete smoking cessation to reduce risk of future cardiovascular events. Continue low-dose aspirin therapy. Dang nue current metoprolol as amlodipine was well optimized blood pressure. Also suggest to continue high-intensity statin therapy. Advised lipid panel as well as other lipid parameters in near future to assess for adequate response. Importance of good medical therapy was discussed. She understands agrees. Will also obtain echocardiogram to evaluate for LV systolic and diastolic function to evaluate for atrial septal defect repair. (2) Status post atrial septal defect repair: Comment: 1990 Code(s): Z87.74 - Personal history of (corrected) congenital malformations of heart and circulatory system Category: Surgical Plan: Status post ASD repair remotely. Noted to have broken sternal wires on a CAT scan imaging. Benign nature of this was discussed. Discussed that this would be high risk surgery if required to do so. If she would propose can referred to Cardiothoracic surgery although this is unnecessary. As advised Holter monitor given her frequent symptoms of palpitation as atrial arrhythmias highly likely. Given her significant fatigue will obtain sleep study to assess for the same. Will follow up in the clinic in 1 year's time, sooner p.r.n.. Thank you for allowing me to partake in her care Orders: Orders NM cardiolite stress test 2 Weeks R07.89 - Other chest pain, R07.9 - Chest pain, unspecified ECG 7 day holter monitor Today R00.2 - Palpitations Complete Blood Count no Diff Today I25.10 - Atherosclerotic heart disease of [place] coronary artery without angina pectoris Basic Metabolic Panel Today I25.10 - Atherosclerotic heart disease of [place] coronary artery without angina pectoris TSH reflex Free T4 Today I25.10 - Atherosclerotic heart disease of [place] coronary artery without angina pectoris CA stress test Today R07.89 - Other chest pain CA echo transthoracic complete Today R07.89 - Other chest pain RT home sleep study Today R40.0 - Somnolence Lipid Panel Today I25.10 - Atherosclerotic heart disease of [place] coronary artery without angina pectoris CRP High Sensitivity Today E78.5 - Hyperlipidemia, unspecified, I25.10 - Atherosclerotic heart disease of [place] coronary artery without angina pectoris Vitamin D 1,25 dihydroxy Today I25.10 - Atherosclerotic heart disease of [place] coronary artery without angina pectoris Vitamin D 25-OH (D2 and D3) Today I25.10 - Atherosclerotic heart disease of [place] coronary artery without angina pectoris Vitamin D 25-OH Total Today I25.10 - Atherosclerotic heart disease of [place] coronary artery without angina pectoris Coding Level of Care Code Est Pt Level 4 (44507) Complex EM visit Add On G2211 Diagnoses CAD (coronary artery disease) I25.10 Status post atrial septal defect repair Z87.74 CPT Codes EKG - CPT: 61974-[id number], Complete ([id number])
[2024-07-21 08:14] VITALS: BP 120/74; PULSE 70; BMI 28.8
== END 2024-07-21 09:07 | disposition home or self-care (01) ==
LOC: HO.HCS 08:03
PROVIDERS: PCP Nurse Practitioner Family; Visit Provider Internal Medicine Cardiovascular Disease
DX: I25.10 Atherosclerotic heart disease of native coronary artery without angina pectoris (principal); Z87.74 Personal history of (corrected) congenital malformations of heart and circulatory system
CPT/HCPCS: 93010; 99214

== ENCOUNTER → 2024-07-21 08:02 | Outpatient (BNVA) | payer BC, SELFPAY | PROVIDERS: PCP Nurse Practitioner Family; Visit Provider Internal Medicine Cardiovascular Disease | DX: I25.10 Atherosclerotic heart disease of native coronary artery without angina pectoris (principal); Z87.74 Personal history of (corrected) congenital malformations of heart and circulatory system | CPT/HCPCS: 93005 ==

== ENCOUNTER 2024-07-30 10:02 | Outpatient (REF) | payer BC, SELFPAY ==
[2024-07-30 12:36] LABS: Alanine Aminotransferase 25 U/L (0-31); Albumin Level 4.6 g/dL (3.5-5.0); Anion Gap 11 (12-20); Aspartate Amino Transferase 26 U/L (5-31); Bilirubin Direct 0.2 mg/dL (0.0-0.5); Bilirubin Total 0.5 mg/dL (0.0-1.0); Blood Urea Nitrogen 15 mg/dL (9-16); Calcium 9.8 mg/dL (8.4-10.2); Carbon Dioxide 28 mmol/L (22-29); Chloride 106 mmol/L (96-108); Estimated Glomerular Filt Rate > 60; Glucose Random 84 mg/dL (60-115); Lipase 50 U/L (8-78); Potassium 4.1 mmol/L (3.3-5.1); Sodium 141 mmol/L (135-145); Total Protein 7.8 g/dL (6.5-8.0)
[2024-07-30 19:44] LABS: Alkaline Phosphatase 63 U/L (39-117); Amylase 80 U/L (28-100)
== END 2024-07-30 10:03 | disposition home or self-care (01) ==
LOC: HO.LAB 10:02
PROVIDERS: PCP Nurse Practitioner Family; Visit Provider Nurse Practitioner Family
DX: R07.89 Other chest pain (principal)
CPT/HCPCS: 36415; 80048; 80076; 82150; 83690

== ENCOUNTER 2024-07-30 10:02 | Outpatient (AMB) | payer BC, SELFPAY ==
--- NOTE | 2024-07-30 10:49 | A.OFFVIS_ITS ---
Vital Signs 07/30/24 10:50 Height 5 ft 6 in Weight 173 lb BMI 27.9 BP 100/70 Blood Pressure Location Lt brachial Position Sitting Pulse 71 Pulse Source Pulse Oximeter Intake Visit Reasons: follow[facility]up [facility] Intake Note: [facility] f/up Automation Controls Expert Required: No Accompanied by: Self / Same As Patient Allergies morphine Allergy (Mild, Verified 11/17/23 08:17) Rash clarithromycin [From BIAXIN] Allergy (Unknown, Verified 11/17/23 08:17) ANAPHYLAXIS erythromycin base [From ERYTHROCIN] Allergy (Unknown, Verified 11/17/23 08:17) ANAPHYLAXIS oxycodone [From PERCOCET] Allergy (Unknown, Verified 11/17/23 08:17) HIVES Penicillins [PENICILLINS] Allergy (Unknown, Verified 11/17/23 08:17) ANAPHYLAXIS Sulfa (Sulfonamide Antibiotics) [SULFA (SULFONAMIDE ANTIBIOTICS)] Allergy (Unknown, Verified 11/17/23 08:17) ANAPHYLAXIS vancomycin [VANCOMYCIN] Allergy (Unknown, Verified 11/17/23 08:17) ANAPHYLAXIS bupropion [From Wellbutrin] Adverse Reaction (Intermediate, Verified 11/17/23 08:17) Agitated Medication List - Last Reconciled 07/30/24 by ALYCIA GutierrezC amlodipine 2.5 mg PO DAILY aspirin 81 mg PO DAILY 90 days atorvastatin (Lipitor) 40 mg PO DAILY metoprolol succinate ER 25 mg PO DAILY pantoprazole 40 mg PO QAM sucralfate 1 g PO BEDTIME 90 days HPI HPI follow-up [facility] [place]: Details: The patient is a 53-year-old female presenting with chest pain and a cardiovascular history of coronary artery disease. She experienced severe chest pain, described as sharply intense, located in the center of both the chest and back. The pain began on Friday morning after a weekend of malaise and fluctuated in severity without a distinct pattern. Hypertense episodes prompted a [facility] emergency room visit, where diagnostic evaluations including an EKG, cardiac enzymes, chest x-rays, and a CTA were performed. The EKG showed nonspecific ST and T-wave abnormalities which were not new, and the CTA of chest was normal, No pulmonary embolism. They also did a nuclear stress test which showed no ischemia and echocardiogram which showed no acute abnormalities. The patient has known history of nonobstructive coronary artery disease as seen on prior cardiac catheterization, however there is no evidence to indicate this is causing her symptom. Despite undergoing comprehensive cardiac evaluation, the exact etiology of the pain remains unclear, although esophageal spasm and musculoskeletal pain are considered. She remains exhausted and continues to experience episodes of pain intermittently, described as affecting her quality of life and activities. She has not been having any concerning palpitations and declines the Holter monitor at this time. [facility] Medical History Ileal adhesions Claustrophobia Hiatal hernia Intestinal adhesions Partial small bowel obstruction Abdominal pain Thyroid nodule Labial abscess Heart problem Atrial septal defect Surgical History H/O left breast biopsy Status post atrial septal defect repair History of exploratory laparotomy (07/15/22) History of incision and drainage History of carpal tunnel release Hx of colonoscopy History of esophagogastroduodenoscopy (EGD) History of open heart surgery History of partial hysterectomy Hx of tonsillectomy Family History Maternal Grandmother Ovarian cancer Unknown Ovarian cancer Father Throat cancer Mother Diabetes Social History Household Members: Spouse Housing: House Do you presently have visiting nurse or other home services: No Alcohol intake: never Patient Tobacco Use Status: Current everyday Tobacco user Tobacco use type: Cigarette Cigarette Packs Per Day: 0.5 Cigarettes Per Day: 10.0 Years Smoked: 45 e-Cigarette/Vaping Use: Never Used Second Hand Smoke Exposure: Yes service: No Current occupational status: employed Sexual orientation: Straight/Heterosexual Gender identity: Female Cognitive needs: No Hearing needs: No Vision needs: No Review of Systems Const All systems reviewed & are unremarkable except as noted in HPI and below Denies chills, Denies fatigue, Denies fever(s), Denies frequent falls, Denies weakness, Denies weight gain and Denies weight loss ENT Denies dizziness Card Reports chest pain, Reports chest pain at rest, Denies chest pain with activity, Denies leg edema, Denies lightheadedness, Denies palpitations, Denies dyspnea and Denies dyspnea on exertion Resp Denies cough, Denies dyspnea and Denies dyspnea on exertion GI Denies hematochezia Musc Denies abnormal gait, Denies muscle weakness, Denies numbness, Denies radiating pain into limb and Denies tingling Neuro Denies abnormal gait, Denies dizziness, Denies frequent falls, Denies numbness, Denies tingling and Denies weakness Endo Denies fatigue and Denies palpitations Physical Exam Vital Signs: Last Vital Signs Pulse 71 07/30/24 10:50 BP 100/70 07/30/24 10:50 BMI result Body Mass Index 27.9 Const General: cooperative, healthy appearing, comfortable and no acute distress Orientation/consciousness: patient oriented x3 Neck Neck: Yes normal visual inspection Resp Effort & Inspection: normal respiratory effort Auscultation: clear to auscultation bilaterally, no rales, no rhonchi and no wheezes Cardio Rate: regular rate Rhythm: regular rhythm Heart sounds: S1 normal heart sound present, S2 normal heart sound present, no gallops, no murmurs and no rubs Neuro General: patient oriented x3 Extrem General: Yes normal to inspection, No no pedal edema and No calf tenderness Psych Appearance: grossly normal Mental Status: mental status grossly normal Speech and movement: Normal speech and movement present Assessment & Plan Assessment & Plan (1) Non-cardiac chest pain: Code(s): R07.89 - Other chest pain Category: Medical Plan: Reports of atypical chest discomfort that was ruled noncardiac based on in depth [facility] cardiac evaluation. (2) CAD (coronary artery disease): Code(s): I25.10 - Atherosclerotic heart disease of chilkat coronary artery without angina pectoris Category: Medical Plan: Known history of nonobstructive coronary disease. Continue aspirin indefinitely. Continue atorvastatin with ideal LDL goal less than 70. Continue metoprolol. Signs and symptoms of angina reviewed. (3) S/P cardiac cath: Comment: 04/10/2023, left main normal, lad mid 60% stenosis, IFR 0.93, left circumflex and RCA normal. Code(s): Z98.890 - Other specified postprocedural states Category: Surgical Plan During this visit, we discussed the results of the comprehensive cardiac evaluations, including the EKG findings and normal nuclear stress test, which ruled out immediate cardiac concerns like myocardial infarction. I explained the secondary nature of pre-existing coronary artery disease given the lack of stress-induced perfusion deficiencies. We considered alternative pain sources such as esophageal spasms and musculoskeletal conditions. I addressed potential gastrointestinal involvement, suggesting lab work for gallbladder assessment. I emphasized recognizing exacerbated symptoms during physical exertion, potential heart palpitations, and action plans for significant episodes, assuring her that her current cardiac state is stable. She understands the plan, including analgesic options and seeking further evaluation to differentiate non-cardiac origins. Orders: Orders Amylase Today R07.89 - Other chest pain Liver Panel Today R07.89 - Other chest pain Basic Metabolic Panel Today R07.89 - Other chest pain Lipase Today R07.89 - Other chest pain Patient Instructions: - Monitor for any pain on exertion or associated symptoms such as shortness of breath or dizziness. - Use [id number] pain relief such as ibuprofen or Tylenol as needed. - Follow up with Primary care provider to evaluate noncardiac causes of her symptom. - Obtain labwork today - Return for immediate evaluation if experiencing intense chest pain, especially if associated with additional symptoms like fainting or sweating. Coding Level of Care Code Est Pt Level 4 (91198) Complex EM visit Add On G2211 Diagnoses Non-cardiac chest pain R07.89 CAD (coronary artery disease) I25.10 S/P cardiac cath Z98.890 Time Spent (min) 30
[2024-07-30 10:50] VITALS: BP 100/70; PULSE 71; BMI 27.9
--- OUTSIDE RECORDS SUMMARY | 2024-07-30 10:50 | XMS_ITS | Patient Health Record ---
Author Organization [facility] Address [address] [place] [address] Care Team Providers Care Marketing Planner Name Role Phone Artemio Mckinley MD Primary Care Provider Unavail able Deepika Cortez Unavailable [phone] Allergies Allergen (clinical drug ingredient) Drug/Non Drug [...] Problem Status W/U Status Risk Notes Problem [id number] Hammer toe of right foot (M20.41) Active confirmed Plan Of Treatment Pending Test Test Name Order Date X ray : Foot, right 3V 01/29/2022 Insurance Providers Payer Name Payer Address Payer Phone Subscriber Number Group Number Insured Name Patient Relationship to Insured Coverage Start Date Coverage End Date [facility] [address] [place] [address] [id number] Emmett Sheikh Spouse - patient is the spouse of the insured Medical (General) History Medical History History ICD Code Anxiety Arthritis asthma Back,Hip,and Knee pain Diverticulosis Fibromyalgia Reflux ( GERD) chronic sinusitis thyroid Transfusions Surgical History Surgery Date(Month/Year) Open Heart 11/17/1990 tonsillectomy and adenoidectomy carpal tunnel surgery partial hysterectomy 2009 multiple fibroid removals
== END 2024-07-30 11:34 | disposition home or self-care (01) ==
LOC: HO.HCS 10:02
PROVIDERS: PCP Nurse Practitioner Family; Visit Provider Nurse Practitioner Family
DX: R07.89 Other chest pain (principal); I25.10 Atherosclerotic heart disease of native coronary artery without angina pectoris; Z98.890 Other specified postprocedural states
CPT/HCPCS: 99214

== ENCOUNTER 2024-11-01 07:10 | Outpatient (REF) | payer BC, SELFPAY ==
--- OUTSIDE RECORDS SUMMARY | 2024-11-01 07:13 | XMS_ITS | Patient Health Record ---
Author Organization [facility] Address [address] [place] [address] Care Team Providers Care Rd Manager Name Role Phone Artemio Mckinley MD Primary Care Provider Unavail able Deepika Cortez Unavailable [phone] Allergies Allergen (clinical drug ingredient) Drug/Non Drug [...] Problem Status W/U Status Risk Notes Problem Acquired hammer toe of right foot ([id number]) Hammer toe of right foot (M20.41) Active confirmed Plan Of Treatment Pending Test Test Name Order Date X ray : Foot, right 3V 01/29/2022 Insurance Providers Payer Name Payer Address Payer Phone Subscriber Number Group Number Insured Name Patient Relationship to Insured Coverage Start Date Coverage End Date [facility] [address] [place] [address] [id number] Emmett Sheikh Spouse - patient is the spouse of the insured Medical (General) History Medical History History ICD Code Anxiety Arthritis asthma Back,Hip,and Knee pain Diverticulosis Fibromyalgia Reflux ( GERD) chronic sinusitis thyroid Transfusions Surgical History Surgery Date(Month/Year) Open Heart 11/17/1990 tonsillectomy and adenoidectomy carpal tunnel surgery partial hysterectomy 2009 multiple fibroid removals
--- OUTSIDE RECORDS SUMMARY | 2024-11-01 07:13 | XMS_ITS | Encounter Summary ---
Author Organization [facility] Address [address] [place] [address] Phone Care Team Providers Care Marketing Assistant Manager Name Role Phone Artemio Mckinley MD Primary Care Provider [phone] Reason for Visit * Reason Comments Med Change Request Encounter Details Date Type Department Care Team (Late st Contact Info) Description 10/14/2024 Refill [facility] Medical [facility] Family Medicine [address] [place] [address] Artemio Mckinley MD [address] [facility] [place] [address] .[employer] Med Change Request Social History Tobacco Use Types Packs/Day Years Used Date Smoking Tobacco: Every Day Cigarettes 1 39.6 Started: 1985 Smokeless Tobacco: Never Comments:Tapering down [...] 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 Not on file Not on file documented as of this encounter Plan of Treatment Not on file documented as of this encounter Visit Diagnoses Diagnosis Menopausal and postmenopausal disorder Unspecified menopausal and postmenopausal disorder Anxiety Anxiety state, unspecified documented in this encounter Additional Health Concerns Assessment Noted Time PHQ-9 Depression Total Score: 14 023 1:53 PM EDT PHQ-2 Depression Total Score: 6 08/03/19 23 1:53 PM EDT documented as of this encounter Care Teams Marketing Assistant Manager Relationship Specialty Start Date End Date Artemio Mckinley MD [address] [place] [address], [address] [place] [address] [email or web address] PCP - General Internal Medicine 04/27/19 documented as of this encounter Additional Source Comments The information contained in this document represents components of the legal health record. It is not the complete legal health record.[facility]
[2024-11-01 10:07] LABS: MANUAL DIFF FLAG NO
[2024-11-01 10:25] LABS: Hematocrit 44.7 % (37.0-47.0); Hemoglobin 15.2 g/dl (12.0-16.0); Imm Gran Abs Auto 0.03 X10*3/uL (0.00-0.03); Imm Gran Pct Auto 0.4 % (0.0-0.4); Lymphocytes Absolute Auto 3.0 X10*3/uL (1.2-4.9); Mean Corpuscular HGB Conc 34.0 g/dl (31.0-35.0); Mean Corpuscular Hemoglobin 30.5 pg (27.0-33.0); Mean Corpuscular Volume 89.8 fL (80.0-98.0); NRBC Abs Auto 0.000 X10*3/uL (0.0-0.012); NRBC Pct Auto 0.0 /100WBC (0.0-0.2); Platelet Count 266 X10*3/uL (160-400); Red Blood Count 4.98 X10*6/uL (4.20-5.50); White Blood Count 8.5 X10*3/uL (4.8-10.8)
[2024-11-01 10:29] LABS: Alanine Aminotransferase 19 U/L (0-31); Albumin Level 4.6 g/dL (3.5-5.0); Alkaline Phosphatase 62 U/L (39-117); Anion Gap 11 (12-20); Aspartate Amino Transferase 24 U/L (5-31); Blood Urea Nitrogen 18 mg/dL (9-16); Calcium 9.0 mg/dL (8.4-10.2); Carbon Dioxide 27 mmol/L (22-29); Chloride 109 mmol/L (96-108); Cholesterol 128 mg/dL (<200); Estimated Glomerular Filt Rate 60; HDL Cholesterol 34 mg/dL (>40); Potassium 3.9 mmol/L (3.3-5.1); Sodium 143 mmol/L (135-145); Total Protein 7.5 g/dL (6.5-8.0); Triglycerides 156 mg/dL (<150)
[2024-11-06 15:38] LABS: Vitamin D 25-OH, D2 <4 ng/mL; Vitamin D 25-OH, D3 44 ng/mL; Vitamin D 25-OH, Total 44 ng/mL (30-100)
[2024-11-06 22:54] LABS: VITAMIN D (1,25 OH) D3 32 pg/mL; Vit D (1,25-Dihydroxy) Total 32 pg/mL (18-72); Vitamin D (1,25 OH) D2 <8 pg/mL
== END 2024-11-01 07:11 | disposition home or self-care (01) ==
LOC: HO.HMGCLDS 07:10
PROVIDERS: Internal Medicine Cardiovascular Disease; PCP Pediatrics; Visit Provider Pediatrics
DX: I25.10 Atherosclerotic heart disease of native coronary artery without angina pectoris (principal); I25.83 Coronary atherosclerosis due to lipid rich plaque; E78.5 Hyperlipidemia, unspecified
CPT/HCPCS: 36415; 80053; 80061; 82306; 82652; 84443; 85025; 86141

== ENCOUNTER 2024-12-16 11:18 | Outpatient (REF) | payer BC, SELFPAY ==
--- OUTSIDE RECORDS SUMMARY | 2006-11-18 | XMS_ITS | Encounter Summary ---
Author Organization [facility] Address [address] [place] [address] Phone Care Team Providers Care Esl Instructional Assistant Name Role Phone Unavailable Primary Care Provider Unavailabl e Encounter Details Date Type Department Care Team (Late st Contact Info) Description 11/18/2006 Hospital Encounter [facility],Outside Imaging [address] [place], [place] [phone] System, Provider [place] In, [place] [address] Social History Tobacco Use Types Packs/Day Years Used Date Smoking Tobacco: Every Day Cigarettes 1 39.7 Started: 1985 Smokeless Tobacco: Never Comments:Tapering down [...] 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
--- OUTSIDE RECORDS SUMMARY | 2006-11-18 00:05 | XMS_ITS | Encounter Summary ---
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
--- NOTE | ~2024-12-16 | MM_ITS ---
EXAMINATION: MM SCREENING DIGITAL BREAST TOMOSYNTHESIS, BILATERAL CLINICAL INFORMATION: Screening. Asymptomatic. COMPARISON: Mammography: Comparison is made with available priors TECHNIQUE: Digital breast mammography with tomosynthesis is performed in both the craniocaudal and mediolateral oblique views along with computer-aided detection (CAD). FINDINGS: There are scattered areas of fibroglandular density (ACR BI-RADS breast composition Category b). Left marker clip. There are no significant masses, abnormal calcifications, or other abnormalities. MM/MM tomosynthesis screening BI IMPRESSION: No mammographic evidence of malignancy. ASSESSMENT: BI-RADS BI-RADS 2 - Benign Findings RECOMMENDATION: Routine annual mammography screening. 1 year F/U This examination should not preclude the clinical evaluation of a suspicious palpable abnormality. This patient's information was entered into a reminder system with a target due date for their next mammogram. Electronically signed by: Nicolasa Drake DO 12/20/2024 10:52 AM EDT
--- OUTSIDE RECORDS SUMMARY | 2024-12-16 12:59 | XMS_ITS | Encounter Summary ---
Author Organization [facility] Address [address] [place] [address] Phone Care Team Providers Care Bi Tri Operator Name Role Phone Artemio Mckinley MD Primary Care Provider [phone] Reason for Visit * Reason Comments Med Change Request Encounter Details Date Type Department Care Team (Late st Contact Info) Description 10/14/2024 Refill [facility] Medical [facility] Family Medicine [address] [place] [address] Artemio Mckinley MD [address] 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 Not on file Not on file documented as of this encounter Plan of Treatment Upcoming Encounters Date Type Department Care Team (Late st Contact Info) Description 03/07/2025 4:30 PM EST Office Visit [facility] [address] [place] [address] Artemio Mckinley MD [address] [place] [address], [address] [place] [address] [email or web address] documented as of this encounter Visit Diagnoses Diagnosis Menopausal and postmenopausal disorder Unspecified menopausal and postmenopausal disorder Anxiety Anxiety state, unspecified documented in this encounter Additional Health Concerns Assessment Noted Time PHQ-9 Depression Total Score: 14 023 1:53 PM EDT PHQ-2 Depression Total Score: 6 08/03/19 23 1:53 PM EDT documented as of this encounter Care Teams Bi Tri Operator Relationship Specialty Start Date End Date Artemio Mckinley MD [address] [place] [address], [address] [place] [address] [email or web address] PCP - General Internal Medicine 04/27/19 documented as of this encounter Additional Source Comments The information contained in this document represents components of the legal health record. It is not the complete legal health record.[facility]
--- OUTSIDE RECORDS SUMMARY | 2024-12-16 12:59 | XMS_ITS | Encounter Summary ---
Author Organization [facility] Address [address] [place] [address] Phone Care Team Providers Care Director Of Religious Activities Name Role Phone Misa Dinero MD Unavailable [phone] Tri Trujillo MD Unavailable [phone] Artemio Mckinley MD Primary Care Provider [phone] Artemio Mckinley MD Unavailable [phone] Encounter Details Date Type Department Care Team (Late st Contact Info) Description 12/31/2019 Procedure Pass [address] [address] Social History Tobacco Use Types Packs/Day Years Used Date Smoking Tobacco: Every Day Cigarettes 0.5 25 Smokeless Tobacco: Never Alcohol Use Standard Drinks/Week Comments No 0 (1 standard drink = 0.6 oz pur e alcohol) once a year, maybe Comments No Sex and Gender Information Value Date Recorded Sex Assigned at Female 10/13/2017 8:55 AM EDT Legal Sex Female 10:32 PM EDT Gender Identity Female 10/13/2017 8:55 AM EDT Sexual Orientation Straight 10/13/2017 8: 55 AM EDT Occupation Industry 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 Not on file Not on file documented as of this encounter Plan of Treatment Upcoming Encounters Date Type Department Care Team (Late st Contact Info) Description 03/07/2025 4:30 PM EST Office Visit [address] [place] [address] Artemio Mckinley MD [address] [facility] [place] [address] documented as of this encounter Visit Diagnoses Not on filedocumented in this encounter Additional Health Concerns Infection Onset Date Last Indicated Resolved Time CoV-Risk 02/07/2020 02/07/2020 02/21/2020 1:23 AM EST CoV-Risk 03/31/2020 03/31/2020 04/14/2020 1:24 AM EST CoV-Exposed Comment:Recent close contact documented in the COVID-19 PCR/PRO order 08/02/2020 08/02/2020 08/17/2020 1:23 AM E DT CoV-Presumed 02/01/2022 02/01/2022 02/22/2022 1:23 AM EST Assessment Noted Time PHQ-2 Depression Total Score: 0 10/01/19 11:25 AM EDT documented as of this encounter Care Teams Director Of Religious Activities Relationship Specialty Start Date End Date Artemio Mckinley MD [address] [facility] [place] [address] PCP - General Internal Medicine 04/27/19 Misa Dinero MD [address] [place] [address], [address] [place] [address] Historical LMR Provider 02/01/1704/21 [facility] [address] [address] Historical LMR Provider 02/01/17 2 Artemio Mckinley MD [address] [facility] [address] [place] [address] Insurance Assigned Provider 07/19/23 01/18/24 documented as of this encounter Additional Source Comments The information contained in this document represents components of the legal health record. It is not the complete legal health record.[facility]
--- OUTSIDE RECORDS SUMMARY | 2024-12-16 12:59 | XMS_ITS | Encounter Summary ---
Author Organization [facility] Address [address] [place] [address] Phone Care Team Providers Care Retail Management Keyholder Name Role Phone Misa Dinero MD Unavailable Tri Trujillo MD Unavailable [phone] Artemio Mckinley MD Primary Care Provider [phone] Artemio Mckinley MD Unavailable [phone] Encounter Details Date Type Department Care Team (Late st Contact Info) Description 12/31/2019 Ancillary Orders [facility] [address] [place] [address] Artemio Mckinley MD [address] [facility] [place] [address] [email or web address] Breast pain, left Social History Tobacco Use Types Packs/Day Years Used Date Smoking Tobacco: Every Day Cigarettes 0.5 25 Smokeless Tobacco: Never Alcohol Use Standard Drinks/Week Comments No 0 (1 standard drink = 0.6 oz pur e alcohol) once a year, maybe Comments Unknown Sex and Gender Information Value Date Recorded Sex Assigned at Female 10/13/2017 8:55 AM EDT Legal Sex Female 10:32 PM EDT Gender Identity Female 10/13/2017 8:55 AM EDT Sexual Orientation Straight 10/13/2017 8: 55 AM EDT Occupation Industry Job Start Date Job End Date 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 Not on file Not on file documented as of this encounter Plan of Treatment Upcoming Encounters Date Type Department Care Team (Late st Contact Info) Description 03/07/2025 4:30 PM EST Office Visit [facility] [address] [place] [address] Artemio Mckinley MD [address] [facility] [place] [address] [email or web address] documented as of this encounter Results * BI US BREAST LIMITED (LEFT) (01/13/2020 12:02 PM EDT) Anatomical Region Laterality Modality Breast Left, Breast Bilateral Left Ul trasound 01/13/2020 11:4 7 AM EDT Narrative 01/13/2020 11:57 AM EDT Refer to same day mammogram report. Procedure Note Indio Majano MD - 01/13/2020 Refer to same day mammogram report. Artemio Mckinley MD [facility] US BREAST Final Result documented in this encounter Visit Diagnoses Diagnosis Breast pain, left Breast pain, left documented in this encounter Additional Health Concerns Infection [...] documented as of this encounter Care Teams Retail Management Keyholder Relationship Specialty Start Date End Date Artemio Mckinley MD [address] [facility] [place] [address] PCP - General Internal Medicine 04/27/19 Misa Dinero MD [address] [facility] [place] [address] [email or web address] Historical LMR Provider 02/01/1704/21 [facility] [address] [address] Historical LMR Provider 02/01/17 2 Artemio Mckinley MD [address] [facility] [place] [address] [email or web address] Insurance Assigned Provider 07/19/23 01/18/24 documented as of this encounter Additional Source Comments The information contained in this document represents components of the legal health record. It is not the complete legal health record.[facility]
--- OUTSIDE RECORDS SUMMARY | 2024-12-16 12:59 | XMS_ITS | Clinical Summary ---
Author Organization [facility] Address [address] [place] [address] Phone Care Team Providers Care Over Hauler Helper Name Role Phone Artemio Mckinley MD Primary Care Provider [phone] Allergies Active Allergy Reactions Criticality Noted Date Comments Citalopram Insomnia Low 10/01/2019 Clarithromycin Anaphylaxis High 12/27/2013 Clindamycin Anaphylaxis High 05/21/2021 Venlafaxine Insomnia Low 01/26/2021 Erythromycin Rash,Anaphylaxis High 12/27/2013 Fd And C Red No.40 Nausea And Vomiting 12/28/19 14 Pt reports she does not have this allergy-JL 04/30/2019 Latex Unknown 09/13/2024 Morphine Rash Low 08/02/2022 Penicillins Rash,Anaphylaxis High 12/27/2013 Oxycodone-Acetaminophen GI Upset 10/13/2017 Propofol 09/13/2024 Sulfa (Sulfonamide Antibiotics) Rash Low 10/13/2017 Other reaction(s): rash, respitory distress Sulfadiazine Anaphylaxis High 06/28/2021 Sulfasalazine Anaphylaxis High 12/27/2013 Vancomycin Rash,Anaphylaxis High 12/27/2013 Bupropion Hcl 01/26/2021 Medications sucralfate (CARAFATE) 1 gram tablet Take 1 g by mouth daily. 4 Active metoprolol succinate (TOPROL-XL) 25 MG 24 hr tablet Take 25 mg by mouth daily. 4 Active atorvastatin (LIPITOR) 40 MG tablet Take 1 tablet by mouth every morning. 4 Active aspirin 81 MG EC tablet Take 81 mg by mouth daily. 4 Active amLODIPine (NORVASC) 2.5 MG tablet Take 2.5 mg by mouth daily. Active pantoprazole (PROTONIX) 40 MG tablet Take 40 mg by mouth every morning. 5 Active venlafaxine (EFFEXOR-XR) 37.5 MG 24 hr capsuleIndications: Menopausal and postmenopausal disorder,Anxiety TAKE 1 CAPSULE BY MOUTH EVERY DAY 90 capsule 3 5 Active Active Problems Problem Noted Date Diagnosed Date Coronary atherosclerosis due to lipid rich plaqu e 04/15/2023 Overview (04/15/2023): 60% LAD lesion at Cath, Dr. Miller, [facility] [place] 03/2023 Assessment & Plan (09/13/2024 2:38 PM EDT): Chronic. - History of a 60% blockage in one of the heart arteries, managed medically. Currently on amlodipine, aspirin, atorvastatin, metoprolol, pantoprazole, and Carafate. - Fasting labs will be ordered to monitor current health status. Orders: Lipid panel; Future Comprehensive metabolic panel; Future CBC and differential; Future Menopausal syndrome (hot flashes) 10/20/2021 Weight gain 06/28/2021 Fibromyalgia 06/11/2020 Assessment & Plan (05/15/2021 6:16 PM EST): Has tried several meds in past, has not tolerated SNRI, may have tolerated pregabalin. Controlled med status of this medication discussed. Side effects discussed. Recommend starting at lowest dose, reassess in a month. Vaccine reaction 06/09/2020 Overview (06/09/2020): Reaction to Moderna vaccine #2. Nontoxic multinodular goiter 05/24/2020 Assessment & Plan (07/01/2024 3:02 PM EDT): The patient has nontoxic multinodular goiter. Repeat ultrasound shows thyroid nodule #1 is slightly smaller in size and is subcentimeter in size does not require biopsy. Nodule #2 that was previously biopsy has grown by 20% and does not have significant growth to repeat the biopsy. Nodule #3 is smaller in size this nodule was also biopsied found to be benign and does not require repeat biopsy. Nodule #4 has grown by 51% but this nodule is still small and typically we wait for all 3 dimensions to be at least 1 cm in size before biopsying. So at this point we will request ultrasound to be repeated at [facility] in a years time by 06/25/2024. Assessment & Plan (07/04/2023 1:00 PM EDT): The patient had her left lower pole nodule indicated as #2 in the HPI and left lower isthmus nodule indicated as #3 and per HPI which was biopsied and found to be benign. At this point I recommend the patient repeat ultrasound thyroid panel on 06/15/2024 at [facility] and she should follow-up with me afterwards to review imaging and to determine future management. Assessment & Plan (06/23/2023 4:16 PM EDT): The patient repeated ultrasound at [facility] because is more convenient to her due to the location. However, the description of the nodules are completely different and it is really difficult to follow. The ultrasound actually is quite excellent and I have informed the patient that in the future she just needs to follow-up 1 place. Since she did have the ultrasound done last at [facility] she should continue going there from now on. In any case there are 2 nodules in particular that are quite large and is difficult for me to say if they have grown extensively or not because I cannot compared volumes to the previous nodule since I do not know exactly which 1 was switch. There is 1 in particular left lower isthmus nodule that is quite large measuring 2.7 x 1.4 x 3.0 cm a volume of 5.88 mL that should definitely be biopsy. The left lower pole nodule measuring 2.5 x 1.7 x 1.6 cm with a volume of 3.45 mL should be biopsy as well because I cannot really tell which nodule this was previously. I have informed her that she has to go through interventional radiology at [facility] for the biopsy. Assessment & Plan (03/18/2022 3:43 PM EST): Repeat ultrasound done on 06/20/2021 shows that the nodules are either smaller in size and if they have grown grew by 8.9% which is not significant. Therefore she does not require repeat biopsy but nevertheless we still have to continue monitoring the nodules for growth. She now needs to repeat the ultrasound in 2 years time by 06/21/2023. Assuming the nodules remain stable in size then she will require repeat the ultrasound 3 years later by 2026 and then 5 years later by 2031. We monitor the nodules for period of 11 years. After 11 years we do not need to continue monitoring. If during one of the ultrasounds the nodules grow by 30 %/year or more this is considered significant and she will require repeat biopsy. Then we start the process over again. Still ultrasound date is so far out in advance I cannot order the study presently. So what I suggested to the patient is that she contact me by 23 to schedule this ultrasound alternatively she can also request that her primary care physician also ordered the study at least 6 months prior to the due date. She should follow with me after she obtains the ultrasound study. At this point I would not give her a follow-up appointment because I cannot schedule II years in advance. Assessment & Plan (07/21/2020 12:02 PM EDT): This is a patient with a nontoxic multinodular goiter with a dominant nodule in the left lobe which was biopsied and found to be benign. The patient will repeat ultrasound in a year's time around June 2021, for monitoring of nodular growth. She will return for follow-up in 1 year. Assessment & Plan (05/24/2020 4:53 PM EST): This is a patient with a nontoxic multinodular goiter with at least 3 nodules in the left lobe. 2 of the nodules are enlarged and one of them is classified as TI RADS 4 nodule which is moderately suspicious for malignancy the second is classified as a TI RADS 3 nodule which is mildly suspicious for malignancy. I believe that we should biopsy both nodules. I did inform the patient that multiple nodules are usually less inclined to be malignant then single nodules. Also I informed that high TSH is associated with malignancy but normal TSH is not. I will check TPO antibodies for evaluation of Halie's thyroiditis because it is associated with papillary thyroid carcinoma. I did inform the patient that 95% of all nodules are benign nevertheless we still have to perform the biopsy to ensure that this is the case. Thyroid nodule greater than or equal to 1 cm in diameter incidentally noted on imaging study 04/28/2020 Overview (04/28/2020): Noted on outside CT at [facility] for evaluation of shortness of breath. Dedicated ultrasound is needed. Assessment & Plan (08/02/2022 2:53 PM EDT): next US due 06/21/2023, follow up with Dr. Schneider Other chest pain 09/17/2019 Assessment & Plan (09/17/2019 2:33 PM EDT): Very atypical symptoms right shoulder into the neck and upper chest area. Likely this is some sort of musculoskeletal or radiculopathy. I reassured her. If this persist or gets worse then we can talk about an exercise stress test although I my very low suspicion of this being something cardiac Tobacco dependence syndrome 04/30/2019 Assessment & Plan (09/13/2024 9:56 AM EDT): Assessment & Plan (08/04/2022 11:08 PM EDT): Contemplative regarding smoking cessation. Hopefully, the buspirone will help with smoking cessation. Assessment & Plan (01/28/2021 7:05 PM EDT): Tobacco use is unchanged. Smoking cessation counseling was provided. precontemplative regarding smoking cessation Tobacco use will be reassessed at the next regular appointment. Time spent in counseling 5 minutes. Assessment & Plan (09/17/2019 2:34 PM EDT): We talked at length about her smoking. In the past she is able to quit cold turkey for up to 4-1/2 years. However the headaches from withdrawal really bad. Regular try a nicotine patch to help her quit Rheumatoid arthritis 04/30/2019 Assessment & Plan (01/28/2021 7:01 PM EDT): Working diagnosis, recommend further evaluation with rheumatology. She would like to see Dr. Rm at the [facility], close to her home. Defer workup to rheumatology. History of atrial septal defect repair 9 Assessment & Plan (02/12/2019 2:56 PM EDT): I am going to repeat her echocardiogram to just assess her ASD repair and any other structural abnormality's. I think her symptoms of fatigue weight gain and what sounds like anxiety are all exactly that related to stress. I want her to increase her exercise to 30 minutes a day. She should try to lose some weight. I want to take a TSH as well just to be sure there is nothing abnormal there. Otherwise I did provide her with reassurance her EKG is fine. If her echocardiogram is normal I am happy to see her as needed. Malaise and fatigue 02/12/2019 Depression 01/04/2014 IBS (irritable bowel syndrome) 01/04/2014 Anxiety 01/04/2014 Assessment & Plan (09/13/2024 2:38 PM EDT): Reports heightened anxiety due to personal stressors, affecting sleep and overall well-being. - Discussed the potential benefits of counseling and advised to explore virtual counseling options covered by insurance. - Venlafaxine 37.5 mg will also be used to help manage anxiety symptoms. - Encouraged to check with insurance provider for available counseling services. Orders: venlafaxine (EFFEXOR-XR) 37.5 MG 24 hr capsule; Take 1 capsule (37.5 mg total) by mouth daily. Anxiety Follow-up E-Visit; Future Assessment & Plan (09/05/2022 8:58 AM EDT): Increase buspirone to 15 mg twice daily, this would be more of a therapeutic dose. Reassess in 6 weeks. Assessment & Plan (08/04/2022 11:04 PM EDT): Has not responded to other medications, trial of buspirone, side effects discussed. ASD (atrial septal defect) 01/04/2014 Overview (04/30/2019): Overview: repaired Allergic rhinitis 01/04/2014 GERD (gastroesophageal reflux disease) 4 Overview (06/11/2020): Overview: Seen on EGD 08/22 Hyperlipidemia 01/04/2014 Encounters Date Type Department Care Team Description 12/06/[address] [place] [address] Artemio Mckinley MD 11/12/2024 Orders Only [address] [address] Jacoby Pereyra MD 11/11/[address] [place] [address] Artemio Mckinley MD Results 11/09/2024 Orders Only [address] [place] [address] Jacoby Pereyra MD 11/05/[address] [place] [address] Artemio Mckinley MD Medication Refill 11/04/[address] [place] [address] Daniel Blanton RN 11/03/2024 Orders Only [address] [place] [address] Jacoby Pereyra MD 10/14/[address] [place] [address] Artemio Mckinley MD Med Change Request from Last 3 Months Immunizations Immunization Administration Dates Next Due COVID-19 (Pre-02/03) Moderna Vaccine, mRNA, PF 0 06/07/2020,05/04/2020 Influenza Quadrivalent Preservative Free IM 01/12,02/15/2019 MMR 12/14/2008 Measles 12/14/2008 Rubella 12/14/2008 Varicella 12/14/2008 Family History Medical History Relation Comments Mental retardation Brother Osteoarthritis Father Prostate cancer Father Throat cancer Father Breast cancer Maternal Aunt Brain cancer Maternal Uncle COPD Mother Relation Status Comments Brother Alive Daughter Alive Father Alive Maternal Aunt Maternal Uncle (Age 60) Mother (Age 73) Son Alive Social History Tobacco Use Types Packs/Day Years Used Date Smoking Tobacco: Every Day Cigarettes 1 39.7 Started: 1985 Smokeless Tobacco: Never Tobacco Cessation:Ready to Q uit: Not Asked; Counseling Given: Not Answered Comments:Tapering down quite a lot. Not setting [...] your housing situation today? 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 Not on file Not on file Last Filed Vital Signs Vital Sign Reading Time Taken Comments Blood Pressure 122/60 09/13/2024 9:09 AM EDT Pulse 89 09/13/2024 9:09 AM EDT Temperature 36.1 C (97 F) 09/13/2024 9:09 AM EDT Respiratory Rate 18 11/24/2022 10:37 AM EDT Oxygen Saturation 97% 09/13/2024 9:09 AM EDT Inhaled Oxygen Concentration - - Weight 77.1 kg (170 lb) 09/13/2024 9:09 AM EDT Height 164.6 cm (5' 4.8 ) 09/13/2024 9:09 AM EDT Body Mass Index 28.46 09/13/2024 9:09 AM EDT Plan of Treatment Upcoming Encounters Date Type Department Care Team (Late st Contact Info) Description 03/07/2025 4:30 PM EST Office Visit [facility] [address] [place] [address] [place] [address] Artemio Mckinley MD [address] [facility] [place] [address] [phone] (work) Health Maintenance Due Date Last Done Comments Adult Td,Tdap Booster 1969 PNEUMOCOCCAL VACCINES (50+ years) (1 of 2 - PCV) 1988 COLOGUARD 2014 FIT TEST 2014 FOBT 2014 SIGMOIDOSCOPY 2014 VIRTUAL COLONOSCOPY 2014 LUNG CANCER SCREENING (LDCT Only) 11/01/2019 ZOSTER VACCINES (1 of 2) 11/01/2019 MAMMOGRAM 01/12/2022 01/13/2020, 11/18/2006 SCREENING FOR DIABETES 12/30/2022 0, 12/31/2019 DEPRESSION SCREENING 08/03/2023 08/02/2022, 08/02/2022 INFLUENZA VACCINE (#1) 2024 0, 02/15/2019 COVID-19 VACCINE (2024-2 6 season) 2024 03/16/2021, 06/07/2020, 05/04/2020 SMOKING Hx and SMOKELESS TOBACCO SCREENING 09/13/2025 09/13/2024 COLONOSCOPY 12/06/2032 12/06/2022 COLORECTAL CANCER SCREENING 12/06/2032 HEPATITIS C SCREENING Completed 01/07/2014 HIV ONE-TIME SCREENING (18-6 5 YEARS) Completed 01/07/2014, 01/07/2014 HEPATITIS A VACCINES Aged Out No long er eligible based on patient's age to complete this topic HIB VACCINES Aged Out No longer eligi ble based on patient's age to complete this topic MENINGOCOCCAL VACCINES (ACWY) Aged Out No longer eligible based on patient's age to complete this topic MENINGOCOCCAL VACCINES (B) Aged Out N o longer eligible based on patient's age to complete this topic Medical Devices Implanted Type Area [employer] Consultant Device Identifier Shelf Expiration Date Model / Serial / Lot Marker Ultraclip 17ga 10cm Tissue Dual Trigger Breast Ti Heart Shape Bx/5ea - [id number] Implanted:Qty: 1 on 04/24/2020 by Gamal Orlando MD at [facility] Left: Breast CR [employer] [id number] / / Procedures Procedure Name Priority Date/Time Associated Diagnosis Comments OUTSIDE LAB Routine 11/01/2024 3:00 PM EDT OUTSIDE LAB Routine 11/01/2024 11:01 AM EDT OUTSIDE LAB Routine 11/01/2024 10:57 AM EDT [facility] COLONOSCOPY FOR RESULT ENTRY ONLY Routine 12/06/2022 BI MAMMOGRAM DIAGNOSTIC WITH TOMOSYNTHESIS WITH CAD (BILATERAL) Routine 01/13/2020 11:09 AM EDT Breast pain OUTSIDE HIV Routine 01/07/2014 OUTSIDE HEPATITIS C VIRUS SCREENING Routine 01/07/2014 from Last 3 Months or Most Recently Relevant to Health Maintenance Results * Outside Lab (11/01/2024 3:00 PM EDT) Only the most recent of3 resultswithin the time period is included. Historical Provider LAB BLOOD ORDERABLES Edit ed Result - Final * [facility] COLONOSCOPY FOR RESULT ENTRY ONLY (12/06/2022) Artemio Mckinley MD HEALTH MAINTENANCE Edited Resu lt - Final * BI MAMMOGRAM DIAGNOSTIC WITH TOMOSYNTHESIS WITH CAD (BILATERAL) (01/13/2020 11:09 AM EDT) Anatomical Region Laterality Modality Breast Left, Breast Right, Breast Bilateral Bila teral Mammography 01/13/2020 11:2 0 AM EDT Addenda Addendum by Roxanne Stratton MD on 01/17/2020 1:06 PM EDT Previous mammograms from 2006 are available for comparison. No interval change. Impressions 01/13/2020 12:01 PM EDT Left breast palpable abnormality corresponds to a 1.5 cm mass on ultrasound only. This may represent an island of benign fibroglandular tissue lower potentially fibroadenoma. Ultrasound-guided biopsy is recommended. Findings discussed with the patient at the completion of the exam. These findings were Cortexted to Dr. Mckinley at the time of dictation with receipt confirmation and acknowledgment. BI-RADS CATEGORY 4 - SUSPICIOUS DENSITY: There are scattered fibroglandular densities. LEFT RECOMMENDATION DATE: 1 Month Biopsy RIGHT RECOMMENDATION DATE: 12 Months Mammography Screening Narrative 01/13/2020 12:01 PM EDT 49-year-old female with presents for left breast pain and lump. No prior mammograms available for comparison. Interpretation made in conjunction with computer-aided detection and tomosynthesis. Standard views obtained with skin marker at the site of the upper outer left breast lump. There are scattered areas of fibroglandular density. No suspicious mass, architectural distortion or suspicious cluster of microcalcifications. Left breast ultrasound was performed. At the site of the palpable abnormality which is at 2:00 5 cm from the nipple is a circumscribed macrolobulated hypoechoic avascular mass measuring 1.5 x 1.5 x 0.8 cm. No suspicious findings. Procedure Note Roxanne Stratton MD - 01/13/2020 49-year-old female with presents for left breast pain and lump. No priormammograms available for comparison. Interpretation made in conjunctionwith computer-aided detection and tomosynthesis. Standard views obtained with skin marker at the site of the upper outerleft breast lump. There are scattered areas of fibroglandular density. Nosuspicious mass, architectural distortion or suspicious cluster ofmicrocalcifications. Left breast ultrasound was performed. At the site of the palpableabnormality which is at 2:00 5 cm from the nipple is a circumscribedmacrolobulated hypoechoic avascular mass measuring 1.5 x 1.5 x 0.8 cm. Nosuspicious findings. IMPRESSION: Left breast palpable abnormality corresponds to a 1.5 cm mass onultrasound only. This may represent an island of benign fibroglandulartissue lower potentially fibroadenoma. Ultrasound-guided biopsy isrecommended. Findings discussed with the patient at the completion of theexam. These findings were Cortexted to Dr. Mckinley at the time of dictationwith receipt confirmation and acknowledgment. BI-RADS CATEGORY 4 - SUSPICIOUS DENSITY: There are scattered fibroglandular densities. LEFT RECOMMENDATION DATE: 1 Month Biopsy RIGHT RECOMMENDATION DATE: 12 Months Mammography Screening Deepika Jack PA IMG MG EXAMS Edite d Result - Final * Outside Hepatitis C Virus Screening (01/07/2014) Hepatitis C Screening - External Neg Historical Provider LAB BLOOD ORDERABLES Marine [facility] Result * OUTSIDE HIV TEST (01/07/2014) HIV - External Neg Historical Provider LAB BLOOD ORDERABLES Marine [facility] Result from Last 3 Months or Most Recently Relevant to Health Maintenance Insurance [facility] [place] [id number] [facility] [place] [id number] [facility] [place] [id number] [facility] Care Teams Over Hauler Helper Relationship Specialty Start Date End Date Artemio Mckinley MD [address] [place] [address], [address] [place], [place] [id number] [email or web address] PCP - General Internal Medicine 04/27/19 Additional Source Comments The information contained in this document represents components of the legal health record. It is not the complete legal health record.[facility]
--- OUTSIDE RECORDS SUMMARY | 2024-12-16 12:59 | XMS_ITS | Encounter Summary ---
Author Organization [facility] Address [address] [place] [address] Phone Care Team Providers Care Historic Interpreter Name Role Phone Artemio Mckinley MD Primary Care Provider [phone] Artemio Mckinley MD Unavailable [phone] Encounter Details Date Type Department Care Team (Late Contact Info) Description 07/12/2021 Telephone [facility] [address] [address] Artemio Mckinley MD [address] [facility] [place] [address] [email or web address] Social History Tobacco Use Types Packs/Day Years [...] 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 Not on file Not on file documented as of this encounter Plan of Treatment Upcoming Encounters Date Type Department Care Team (Late Contact Info) Description 03/07/2025 4:30 PM EST Office Visit [facility] [address] [place] [address] Artemio Mckinley MD [address] [facility] [place] [address] [email or web address] documented as of this encounter Visit Diagnoses Not on filedocumented in this encounter Additional Health Concerns Infection Onset Date Last Indicated Resolved Time CoV-Presumed 02/01/2022 02/01/2022 02/22/2022 1:23 AM EST Assessment Noted Time PHQ-2 Depression Total Score: 0 10/01/19 11:25 AM EDT documented as of this encounter Care Teams Historic Interpreter Relationship Specialty Start Date End Date Artemio Mckinley MD [address] [place] [address], [address] [place] [address] [email or web address] PCP - General Internal Medicine 04/27/19 Artemio Mckinley MD [address] [place] [address], [address] [place] [address] [email or web address] Insurance Assigned Provider 07/19/23 01/18/24 documented as of this encounter Additional Source Comments The information contained in this document represents components of the legal health record. It is not the complete legal health record.[facility]
--- OUTSIDE RECORDS SUMMARY | 2024-12-16 12:59 | XMS_ITS | Encounter Summary ---
Author Organization [facility] Address [address] [place] [address] Phone Care Team Providers Care Commercial Appraiser Name Role Phone Artemio Mckinley MD Primary Care Provider [phone] Artemio Mckinley MD Unavailable [phone] Encounter Details Date Type Department Care Team (Late st Contact Info) Description 07/02/2023 Procedure Pass [facility] [address] [place] [address] Social History Tobacco Use Types Packs/Day Years Used Date Smoking Tobacco: Every Day Cigarettes 0.5 25 Smokeless Tobacco: Never Comments:Tapering down quite a [...] Answer Date Recorded Are you interested in help w ith more adult education (for example, completing high school, GED, job training, learning the Khmer language, technical skills, or developing parenting skills)? 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 Not on file Not on file documented as of this encounter Plan of Treatment Upcoming Encounters Date Type Department Care Team (Late st Contact Info) Description 03/07/2025 4:30 PM EST Office Visit [facility] [place] [facility] [address] [place] [address] [place] [address] Artemio Mckinley MD [address] [place] [address], [address] [place] [address] [email or web address] documented as of this encounter Visit Diagnoses Not on filedocumented in this encounter Additional Health Concerns Assessment Noted Time PHQ-9 Depression Total Score: 14 023 1:53 PM EDT PHQ-2 Depression Total Score: 6 08/03/19 23 1:53 PM EDT documented as of this encounter Care Teams Commercial Appraiser Relationship Specialty Start Date End Date Artmeio Mckinley MD [address] [place] [address], [address] [place] [address] [email or web address] PCP - General Internal Medicine 04/27/19 Artemio Mckinley MD [address] [place] [address], [address] [place] [address] [email or web address] Insurance Assigned Provider 07/19/23 01/18/24 documented as of this encounter Additional Source Comments The information contained in this document represents components of the legal health record. It is not the complete legal health record.[facility]
--- OUTSIDE RECORDS SUMMARY | 2024-12-16 13:00 | XMS_ITS | Encounter Summary ---
Author Organization [facility] Address [address] [place] [address] Phone Care Team Providers Care Manager Utilities Name Role Phone Misa Dinero MD Unavailable [phone] Tri Trujillo MD Unavailable [phone] Artemio Mckinley MD Primary Care Provider [phone] Artemio Mckinley MD Unavailable [phone] Encounter Details Date Type Department Care Team (Latest Contact Info) Description 08/02/2020 Transcribe Orders Virtual Department [address] [place] [address] Carter Andersen MD [address] [place] [address] [email or web address] Close exposure to COVID-19 virus (Primary Dx) Social History Tobacco Use Types Packs/Day Years [...] 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 NO [facility] 08/02/2020 8:57 AM EDT 08/02/2020 1:09 PM EDT us Carter Andersen MD BODY FLUIDS AND STOOLS ORDERAB LES Final Result [facility] [address] [place] [address] documented in this encounter Visit Diagnoses Diagnosis Close exposure to COVID-19 virus- Primary documented in this encounter Additional Health Concerns Infection Onset Date Last Indicated Resolved Time CoV-Exposed Comment:Recent close contact documented in the COVID-19 PCR/PRO order 08/02/2020 08/02/2020 08/17/2020 1:23 AM E DT CoV-Presumed 02/01/2022 02/01/2022 02/22/2022 1:23 AM EST Assessment Noted Time PHQ-2 Depression Total Score: 0 10/01/19 20 11:25 AM EDT documented as of this encounter Care Teams Manager Utilities Relationship Specialty Start Date End Date Artemio Mckinley MD [address] [place] [address], [address] [place] [address] PCP - General Internal Medicine 04/27/19 Misa Dinero MD [address] [facility], [address] [place] [address] [email or web address] Historical LMR Provider 02/01/1704/21 Tri Trujillo MD [address] [address] Historical LMR Provider 02/01/17 2 Artemio Mckinley MD [address] [facility], [address] [place] [address] [email or web address] Insurance Assigned Provider 07/19/23 01/18/24 documented as of this encounter Additional Source Comments The information contained in this document represents components of the legal health record. It is not the complete legal health record.[facility]
--- OUTSIDE RECORDS SUMMARY | 2024-12-16 13:00 | XMS_ITS | Encounter Summary ---
Author Organization [facility] Address [address] [place] [address] Phone Care Team Providers Care Soaping Machine Back Tender Name Role Phone Misa Dinero MD Unavailable [phone] Tri Trujillo MD Unavailable [phone] Artemio Mckinley MD Primary Care Provider [phone] Artemio Mckinley MD Unavailable [phone] Encounter Details Date Type Department Care Team (Latest Contact Info) Description 04/24/2020 Ancillary Orders [facility] [address] [place] [address] [place] [address] Artemio Mckinley MD [address] [facility], [address] [place] [address] [email or web address] Breast lump in female Social History Tobacco Use Types Packs/Day Years [...] 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 Not on file Not on file documented as of this encounter Plan of Treatment Upcoming Encounters Date Type Department Care Team (Late st Contact Info) Description 03/07/2025 4:30 PM EST Office Visit [facility] [address] [place] [address] Artemio Mckinley MD [address] [facility], [address] [place] [address] [email or web address] documented as of this encounter Results * BI MAMMOGRAM DIAGNOSTIC POST PROCEDURE NO TOMOSYNTHESIS NO CAD (LEFT) (04/24/2020 9:41 AM EST) Anatomical Region Laterality Modality Breast Left Left Mammography 04/24/2020 12:1 3 PM EST Addenda Addendum by Gamal Orlando MD on 04/25/2020 5:31 PM EST ADDENDUM: FINAL PATHOLOGIC DIAGNOSIS: PALPABLE LEFT BREAST MASS, 2 O'CLOCK UPPER/OUTER, ULTRASOUND GUIDED CORE BIOPSY: Mostly fibroadipose tissue with scant breast tissue. Clinical and radiologic correlation is recommended to see if this is account services representative. Pathology findings are benign and concordant with the imaging findings. From the imaging point of view, patient may return to routine screening mammogram. However, if any clinical concern persists on the physical examination, recommend consult with breast surgeon. Impressions 04/24/2020 12:18 PM EST Left breast ultrasound-guided core biopsy completed. Pathology pending. Concordance addendum will be generated when pathologic analysis is complete. Narrative 04/24/2020 12:18 PM EST History: Left breast mass for ultrasound-guided core biopsy. Diagnostic workup for palpable concern on January 13, 2020 describes a finding in the left breast at 2 o'clock position at 5 cm measuring 1.5 x 1.5 x 0.8 cm. The procedure was explained to the patient including benefits and alternatives. The risks, including but not limited to infection and bleeding, were reviewed and the patient agreed to undergo the procedure, signing the consent form. Her identity was confirmed with two unique patient identifiers. Left breast ultrasound-guided core biopsy: The patient's left breast was imaged with the [facility] ultrasound unit and images of the solid hypoechoic structure measuring 1.5 x 1.4 x 0.8 cm at 2 o'clock at the distance of 5 cm from the nipple were obtained. The breast was prepped for the procedure and area was anesthetized with a local anesthetic. Using a Bard 14-gauge 13 cm needle, one pass was made through the area and 3 specimens were obtained. A heart shaped micromarker was placed at the site of the core biopsy. The patient experienced no complications during the procedure. Postprocedure full field digital mammogram: The patient was then moved to a digital mammographic room where CC, MLO and ML 90 degrees full field digital mammographic images of the breast were obtained. These show satisfactory placement of the heart shape micromarker. Procedure Note Gamal Orlando MD - 04/24/2020 History: Left breast mass for ultrasound-guided core biopsy. Diagnosticworkup for palpable concern on January 13, 2020 describes a finding in theleft breast at 2 o'clock position at 5 cm measuring 1.5 x 1.5 x 0.8 cm. The procedure was explained to the patient including benefits andalternatives. The risks, including but not limited to infection andbleeding, were reviewed and the patient agreed to undergo the procedure,signing the consent form. Her identity was confirmed with two uniquepatient identifiers. Left breast ultrasound-guided core biopsy: The patient's left breast was imaged with the [facility] ultrasound unit andimages of the solid hypoechoic structure measuring 1.5 x 1.4 x 0.8 cm at 2o'clock at the distance of 5 cm from the nipple were obtained. The breastwas prepped for the procedure and area was anesthetized with a localanesthetic. Using a Bard 14- gauge 13 cm needle, one pass was made throughthe area and 3 specimens were obtained. A heart shaped micromarker wasplaced at the site of the core biopsy. The patient experienced nocomplications during the procedure. Postprocedure full field digital mammogram: The patient was then moved to a digital mammographic room where CC, MLOand ML 90 degrees full field digital mammographic images of the breastwere obtained. These show satisfactory placement of the heart shapemicromarker. IMPRESSION: Left breast ultrasound-guided core biopsy completed. Pathology pending. Concordance addendum will be generated when pathologic analysis iscomplete. Artemio Mckinley MD IMG MG EXAMS Edited Result - Final documented in this encounter Visit Diagnoses Diagnosis Breast lump in female Lump or mass in breast Breast lump in female Lump or mass in breast documented in this encounter Additional Health Concerns Infection Onset Date Last Indicated Resolved Time CoV-Exposed Comment:Recent close contact documented in the COVID-19 PCR/PRO order 08/02/2020 08/02/2020 08/17/2020 1:23 AM E DT CoV-Presumed 02/01/2022 02/01/2022 02/22/2022 1:23 AM EST Assessment Noted Time PHQ-2 Depression Total Score: 0 10/01/19 20 11:25 AM EDT documented as of this encounter Care Teams Soaping Machine Back Tender Relationship Specialty Start Date End Date Artemio Mckinley MD [address] [facility], [address] [place] [address] PCP - General Internal Medicine 04/27/19 Misa Dinero MD [address] [facility], [address] [place] [address] Historical LMR Provider 02/01/1704/21 Tri Trujillo MD [facility] [address] [address] Historical LMR Provider 02/01/17 2 Artemio Mckinley MD [address] [facility], [address] [place] [address] [email or web address] Insurance Assigned Provider 07/19/23 01/18/24 documented as of this encounter Additional Source Comments The information contained in this document represents components of the legal health record. It is not the complete legal health record.[facility]
--- OUTSIDE RECORDS SUMMARY | 2024-12-16 13:00 | XMS_ITS | Encounter Summary ---
Author Organization [facility] Address [address] [place] [address] Phone Care Team Providers Care Sports Broadcaster Name Role Phone Misa Dinero MD Unavailable Tri Trujillo MD Unavailable [phone] Patricia Martinez MD Primary Care Provider Eli Cornejo Primary Care Provide r Artemio Mckinley MD Primary Care Provider Artemio Mckinley MD Unavailable [phone] Reason for Referral * Physical Therapy (Routine) - Closed Specialty Diagnoses / Procedures Referred By Agatha razo Referred To Contact Physical Therapy Diagnoses Encounter for rehabilitation System, Provider Not In, [facility] [id number] [place] [address] Phone: tel: Referral ID Status Reason Start Date Expiration Date Visits Re quested Visits Authorized [id number] Closed 02/17/2017 02/17/2018 16 16 Encounter Details Date Type Department Care Team (Latest Contact Info) Description 02/27/2017 Transcribe Orders [facility] [address] [place] [id number] Indio Davis MD [address] [place] [address] Encounter for rehabilitation (Primary Dx) Social History Tobacco Use Types Packs/Day Years Used Date Smoking Tobacco: Never Assessed Comments Unknown Sex and Gender Information Value Date Recorded Sex Assigned at Female 10/13/2017 8:55 AM EDT Legal Sex Female 10:32 PM EDT Gender Identity Female 10/13/2017 8:55 AM EDT Sexual Orientation Straight 10/13/2017 8: 55 AM EDT documented as of this encounter Plan of Treatment Upcoming Encounters Date Type Department Care Team ([facility] st Contact Info) Description 03/07/2025 4:30 PM EST Office Visit [address] [place] [address] Artemio Mckinley MD [address] [place] [address], [address] [place] [address] [email or web address] Scheduled Referrals Name Type Priority Associated Diagnoses Orde r Schedule Ambulatory referral to [facility] Physical Therapy Outpatient Referral Routine Encounter for rehabilitation Ordered: 02/27/2017 documented as of this encounter Visit Diagnoses Diagnosis Encounter for rehabilitation- Primary documented in this encounter Additional Health [...] AM EST documented as of this encounter Care Teams Sports Broadcaster Relationship Specialty Start Date End Date Patricia Martinez MD [address] [address] PCP - General Internal Medicine 02/18/17 01/28/19 Eli Cornejo PA [address] [address] PCP - General Pumper Head 01/29/19 04/26/19 Artemio Mckinley MD [address] [place] [address], [address] [place] [address] PCP - General Internal Medicine 04/27/19 Misa Dinero MD [address] [facility], [address] [place] [address] Historical LMR Provider 02/01/1704/21 Tri Trujillo MD [address] [address] Historical LMR Provider 02/01/17 2 Artemio Mckinley MD [address] [place] [address], [address] [place] [address] Insurance Assigned Provider 07/19/23 01/18/24 documented as of this encounter Additional Source Comments The information contained in this document represents components of the legal health record. It is not the complete legal health record.[facility]
--- OUTSIDE RECORDS SUMMARY | 2024-12-16 13:00 | XMS_ITS | Encounter Summary ---
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 Not on file Not on file documented as of this encounter Plan of Treatment Upcoming Encounters Date Type Department Care Team (Late st Contact Info) Description 03/07/2025 4:30 PM EST Office Visit [facility] Cast[facility] [address] [place] [address] Artemio Mckinley MD [address] [place] [address], [address] [place] [address] [email or web address] documented as of this encounter Procedures Procedure Name Priority Date/Time Associated Diagnosis Comments OUTSIDE LAB Routine 11/01/2024 11:01 AM EDT documented in this encounter Results * Outside Lab (11/01/2024 11:01 AM EDT) us Historical Provider LAB BLOOD ORDERABLES Edit ed Result - Final documented in this encounter Visit Diagnoses Not on filedocumented in this encounter Additional Health Concerns Assessment Noted Time PHQ-9 Depression Total Score: 14 023 1:53 PM EDT PHQ-2 Depression Total Score: 6 08/03/19 23 1:53 PM EDT documented as of this encounter Care Teams Compressor Battery Pellets Relationship Specialty Start Date End Date Artemio Mckinley MD [address] [place] [address], [address] [place] [address] [email or web address] PCP - General Internal Medicine 04/27/19 documented as of this encounter Additional Source Comments The information contained in this document represents components of the legal health record. It is not the complete legal health record.[facility]
--- OUTSIDE RECORDS SUMMARY | 2024-12-16 13:00 | XMS_ITS | Encounter Summary ---
Author Organization [facility] Address [address] [place] [address] Phone Care Team Providers Care Assistant Director Of Plant Operations Name Role Phone Artemio Mckinley MD Primary Care Provider [phone] Encounter Details Date Type Department Care Team (Late st Contact Info) Description 12/06/2024 Telephone [employer] [facility] [address] [place] [address] Artemio Mckinley MD [address] [facility], [address] [place] [address] [email or web address] Social History Tobacco Use Types Packs/Day Years [...] 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 Not on file Not on file documented as of this encounter Plan of Treatment Upcoming Encounters Date Type Department Care Team (Late st Contact Info) Description 03/07/2025 4:30 PM EST Office Visit [address] [place] [address] Artemio Mckinley MD [address] [place] [address], [address] [place] [address] [email or web address] documented as of this encounter Visit Diagnoses Not on filedocumented in this encounter Additional Health Concerns Assessment Noted Time PHQ-9 Depression Total Score: 14 023 1:53 PM EDT PHQ-2 Depression Total Score: 6 08/03/19 23 1:53 PM EDT documented as of this encounter Care Teams Assistant Director Of Plant Operations Relationship Specialty Start Date End Date Artemio Mckinley MD [address] [place] [address], [address] [place] [address] [email or web address] PCP - General Internal Medicine 04/27/19 documented as of this encounter Additional Source Comments The information contained in this document represents components of the legal health record. It is not the complete legal health record.[facility]
--- OUTSIDE RECORDS SUMMARY | 2024-12-16 13:00 | XMS_ITS | Patient Health Record ---
Author Organization [facility] Address [address] [facility] [place] [address] Care Team Providers Care Ingot Supervisor Name Role Phone Artemio Mckinley MD Primary Care Provider Unavail able Deepika Cortez Unavailable [phone] Allergies Allergen (clinical drug ingredient) Drug/Non Drug [...] Problem Acquired hammer toe of right foot ([id number] 105) Hammer toe of right foot (M20.41) Active confirmed Plan Of Treatment Pending Test Test Name Order Date X ray : Foot, right 3V 01/29/2022 Insurance Providers Payer Name Payer Address Payer Phone Subscriber Number Group Number Insured Name Patient Relationship to Insured Coverage Start Date Coverage End Date [facility] [address] [place] [address] [id number] Emmett Sheikh Spouse - patient is the spouse of the insured Medical (General) History Medical History History ICD Code Anxiety Arthritis asthma Back,Hip,and Knee pain Diverticulosis Fibromyalgia Reflux ( GERD) chronic sinusitis thyroid Transfusions Surgical History Surgery Date(Month/Year) Open Heart 11/17/1990 tonsillectomy and adenoidectomy carpal tunnel surgery partial hysterectomy 2009 multiple fibroid removals
--- OUTSIDE RECORDS SUMMARY | 2024-12-16 13:00 | XMS_ITS | Encounter Summary ---
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 Not on file Not on file documented as of this encounter Plan of Treatment Upcoming Encounters Date Type Department Care Team (Late st Contact Info) Description 03/07/2025 4:30 PM EST Office Visit [facility] Medicine [address] [place] [address] Artemio Mckinley MD [address] [facility], [address] [place] [address] [email or web address] documented as of this encounter Visit Diagnoses [...] documented as of this encounter Care Teams Teamcenter Solution Architect Relationship Specialty Start Date End Date Artemio Mckinley MD [address] [place] [address], [address] [place] [address] [email or web address] PCP - General Internal Medicine 04/27/19 Misa Dinero MD [address] [place] [address], [address] [place] [address] [email or web address] Historical LMR Provider 02/01/1704/21 [facility] [address] [address] Historical LMR Provider 02/01/17 2 Artemio Mckinley MD [address] [place] [address], [address] [place] [address] [email or web address] Insurance Assigned Provider 07/19/23 01/18/24 documented as of this encounter Additional Source Comments The information contained in this document represents components of the legal health record. It is not the complete legal health record.[facility]
--- OUTSIDE RECORDS SUMMARY | 2024-12-16 13:00 | XMS_ITS | Encounter Summary ---
Author Organization [facility] Address [address] [place] [address] Phone Care Team Providers Care [employer] Special Education Teacher Name Role Phone Misa Dinero MD Unavailable Tri Trujillo MD Unavailable [phone] Artemio Mckinley MD Primary Care Provider [phone] Artemio Mckinley MD Unavailable [phone] Encounter Details Date Type Department Care Team (Late st Contact Info) Description 01/17/2020 Ancillary Orders [facility],Outside Imaging [address] [place] [address] System, Provider Not In, [place] [address] Social History Tobacco Use Types Packs/Day Years [...] 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 Not on file Not on file documented as of this encounter Plan of Treatment Upcoming Encounters Date Type Department Care Team (Late st Contact Info) Description 03/07/2025 4:30 PM EST Office Visit [facility] [address] [place] [address] Artemio Mckinley MD [address] [place] [address] [email or web address] documented as of this encounter Results * Mammogram Outside (No [...] documented as of this encounter Care Teams [employer] Special Education Teacher Relationship Specialty Start Date End Date Artemio Mckinley MD [address] [place] [address], [address] [place] [address] PCP - General Internal Medicine 04/27/19 Misa Dinero MD [address] [place] [address], [address] [place] [address] Historical LMR Provider 02/01/1704/21 Tri Trujillo MD [address] [address] Historical LMR Provider 02/01/17 2 Artemio Mckinley MD [address] [place] [address] Insurance Assigned Provider 07/19/23 01/18/24 documented as of this encounter Additional Source Comments The information contained in this document represents components of the legal health record. It is not the complete legal health record.[facility]
--- OUTSIDE RECORDS SUMMARY | 2024-12-16 13:00 | XMS_ITS | Encounter Summary ---
Author Organization [facility] Address [address] [place] [address] Phone Care Team Providers Care Stonecutter Hand Name Role Phone Misa Dinero MD Unavailable Tri Trujillo MD Unavailable [phone] Patricia Martinez MD Primary Care Provider Eli Cornejo Primary Care Provide r Artemio Mckinley MD Primary Care Provider Artemio Mckinley MD Unavailable [phone] Encounter Details Date Type Department Care Team (Late st Contact Info) Description 06/03/2018 Ancillary Orders Virtual Department [address] [place] [address] Russel Vogt MD [address] [place] [id number] Pelvic pain Social History Tobacco Use Types Packs/Day Years Used Date Smoking Tobacco: Never Smokeless Tobacco: Never Alcohol Use Standard Drinks/Week Comments No 0 (1 standard drink = 0.6 oz pur e alcohol) Comments Unknown Sex and Gender Information Value [...] Description 03/07/2025 4:30 PM EST Office Visit [address] [place] [address] Artemio Mckinley MD [address] [place] [address], [address] [place] [address] [email or web address] documented as of this encounter Results * US PELVIS TRANSABDOMINAL PLUS TRANSVAGINAL (06/04/2018 5:21 PM EST) Anatomical Region Laterality Modality Pelvis, Uterus/Adnexa Ultrasound 06/04/2018 5:22 PM EST Impressions 06/04/2018 5:24 PM EST Status post hysterectomy. Ovaries not visualized. No adnexal mass or free fluid demonstrated. POS - [id number] Narrative 06/04/2018 5:24 PM EST EXAM: US PELVIS TRANSABDOMINAL PLUS TRANSVAGINAL COMPARISON: None HISTORY: Pelvic pain FINDINGS: UTERUS: Status post hysterectomy. RIGHT OVARY: Not visualized. No right adnexal mass demonstrated. LEFT OVARY: Not visualized. No left adnexal mass demonstrated. PELVIS: No free fluid. Procedure Note Gamal Orlando MD - 06/04/2018 EXAM: US PELVIS TRANSABDOMINAL PLUS TRANSVAGINAL COMPARISON: None HISTORY: Pelvic pain FINDINGS: UTERUS: Status post hysterectomy. RIGHT OVARY: Not visualized. No right adnexal mass demonstrated. LEFT OVARY: Not visualized. No left adnexal mass demonstrated. PELVIS: No free fluid. IMPRESSION: Status post hysterectomy. Ovaries not visualized. No adnexal mass or freefluid demonstrated. POS - [id number] Russel Vogt MD IMG US PELVIS Final Resul t documented in this encounter Visit Diagnoses Diagnosis Pelvic pain Pelvic pain documented in this encounter Additional Health Concerns [...] documented as of this encounter Care Teams Stonecutter Hand Relationship Specialty Start Date End Date Patricia Martinez MD [address] [address] PCP - General Internal Medicine 02/18/17 01/28/19 Eli Cornejo PA [address] [address] PCP - General Health Education Teacher 01/29/19 04/26/19 Artemio Mckinley MD [address] [place] [address], [address] [place] [address] [email or web address] PCP - General Internal Medicine 04/27/19 Misa Dinero MD [address] [place] [address], [address] [place] [address] Historical LMR Provider 02/01/1704/21 Tri Trujillo MD [address] [address] Historical LMR Provider 02/01/17 2 Artemio Mckinley MD [address] [place] [address], [address] [place] [address] [email or web address] Insurance Assigned Provider 07/19/23 01/18/24 documented as of this encounter Additional Source Comments The information contained in this document represents components of the legal health record. It is not the complete legal health record.[facility]
--- OUTSIDE RECORDS SUMMARY | 2024-12-16 13:00 | XMS_ITS | Encounter Summary ---
Author Organization [facility] Address [address] [place] [address] Phone Care Team Providers Care Mortar Worker Name Role Phone Misa Dinero MD Unavailable [phone] Tri Trujillo MD Unavailable [phone] Artemio Mckinley MD Primary Care Provider [phone] rAtemio Mckinley MD Unavailable [phone] Encounter Details Date Type Department Care Team (Late st Contact Info) Description 04/10/2020 Transcribe Orders Virtual Department [address] [place] [address] Carter Andersen MD [address] [place] [address] [email or web address] Social History Tobacco Use Types Packs/Day Years [...] 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 Not on file Not on file documented as of this encounter Plan of Treatment Upcoming Encounters Date Type Department Care Team (Late st Contact Info) Description 03/07/2025 4:30 PM EST [facility] [address] [place] [address] Artemio Mckinley MD [address] [facility] [place] [address] documented as of this encounter Visit Diagnoses Not on filedocumented in this encounter Additional Health Concerns Infection Onset Date Last Indicated Resolved Time CoV-Risk 03/31/2020 03/31/2020 04/14/2020 1:24 AM EST CoV-Exposed Comment:Recent close contact documented in the COVID-19 PCR/PRO order 08/02/2020 08/02/2020 08/17/2020 1:23 AM E DT CoV-Presumed 02/01/2022 02/01/2022 02/22/2022 1:23 AM EST Assessment Noted Time PHQ-2 Depression Total Score: 0 10/01/19 11:25 AM EDT documented as of this encounter Care Teams Mortar Worker Relationship Specialty Start Date End Date Artemio Mckinley MD [address] [place] [address], [address] [place] [address] PCP - General Internal Medicine 04/27/19 Misa Dinero MD [address] [place] [address], [address] [place] [address] Historical LMR Provider 02/01/1704/21 Tri Trujillo MD [address] [address] Historical LMR Provider 02/01/17 2 Artemio Mckinley MD [address] [place] [address], [address] [place] [address] [email or web address] Insurance Assigned Provider 07/19/23 01/18/24 documented as of this encounter Additional Source Comments The information contained in this document represents components of the legal health record. It is not the complete legal health record.[facility]
--- OUTSIDE RECORDS SUMMARY | 2024-12-16 13:00 | XMS_ITS | Encounter Summary ---
Author Organization [facility] Address [address] [place] [address] Phone Care Team Providers Care Literacy Teacher Name Role Phone Misa Dinero MD Unavailable [phone] Tri Trujillo MD Unavailable [phone] Artemio Mckinley MD Primary Care Provider [phone] Artemio Mckinley MD Unavailable Encounter Details Date Type Department Care Team (Late st Contact Info) Description 01/17/2020 Ancillary Orders [facility],Outside Imaging [address] [place] [address] System, Provider Not In, [place] [address] Social History Tobacco Use Types Packs/Day Years [...] Industry 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 Not on file Not on file documented as of this encounter Plan of Treatment Upcoming Encounters Date Type Department Care Team (Late st Contact Info) Description 03/07/2025 4:30 PM EST Office Visit [facility] [address] [place] [address] Artemio Mckinley MD [address] [facility] [place] [address] [email or web address] documented as of this encounter Results * US Breast Outside [...] documented as of this encounter Care Teams Literacy Teacher Relationship Specialty Start Date End Date Artemio Mckinley MD [address] [place] [address], [address] [place] [address] PCP - General Internal Medicine 04/27/19 Misa Dinero MD [address] [place] [address], [address] [place] [address] Historical LMR Provider 02/01/1704/21 Tri Trujillo MD [address] [address] Historical LMR Provider 02/01/17 2 Artemio Mckinley MD [address] [facility] [place] [address] Insurance Assigned Provider 07/19/23 01/18/24 documented as of this encounter Additional Source Comments The information contained in this document represents components of the legal health record. It is not the complete legal health record.[facility]
== END 2024-12-16 11:19 | disposition home or self-care (01) ==
LOC: HO.MAMMO 11:18
PROVIDERS: PCP Pediatrics; Visit Provider Pediatrics
DX: Z12.31 Encounter for screening mammogram for malignant neoplasm of breast (principal)
CPT/HCPCS: 77063; 77067

== ENCOUNTER → 2024-12-16 11:45 | Outpatient (BNV) | payer BC, SELFPAY | PROVIDERS: PCP Pediatrics; Visit Provider Internal Medicine | DX: Z12.31 Encounter for screening mammogram for malignant neoplasm of breast (principal) | CPT/HCPCS: 77063; 77067 ==

== ENCOUNTER 2024-12-20 10:17 | Outpatient (AMB) | payer BC, SELFPAY ==
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
[2024-12-20 10:26] VITALS: BP 130/70; PULSE 74; RESP 14; TEMP 36.7; O2SAT 99; BMI 30.5
--- OUTSIDE RECORDS SUMMARY | 2024-12-20 12:14 | XMS_ITS | Patient Health Record ---
Author Organization [facility] Address [address] [facility] [place] [address] Care Team Providers Care Lamp Tester And Inspector Name Role Phone Artemio Mckinley MD Primary Care Provider Unavail able Deepika Cortez Unavailable [phone] Allergies Allergen (clinical drug ingredient) Drug/Non Drug [...] Problem Acquired hammer toe of right foot ([id number] 105) Hammer toe of right foot (M20.41) Active confirmed Plan Of Treatment Pending Test Test Name Order Date X ray : Foot, right 3V 01/29/2022 Insurance Providers Payer Name Payer Address Payer Phone Subscriber Number Group Number Insured Name Patient Relationship to Insured Coverage Start Date Coverage End Date [facility] [address] [place] [address] [id number] Emmett Sheikh Spouse - patient is the spouse of the insured Medical (General) History Medical History History ICD Code Anxiety Arthritis asthma Back,Hip,and Knee pain Diverticulosis Fibromyalgia Reflux ( GERD) chronic sinusitis thyroid Transfusions Surgical History Surgery Date(Month/Year) Open Heart 11/17/1990 tonsillectomy and adenoidectomy carpal tunnel surgery partial hysterectomy 2009 multiple fibroid removals
== END 2024-12-20 11:04 | disposition home or self-care (01) ==
LOC: HO.HMCSH 10:17
PROVIDERS: PCP Internal Medicine; Visit Provider Internal Medicine
DX: F41.1 Generalized anxiety disorder (principal)

== ENCOUNTER 2025-01-31 15:46 | Outpatient (AMB) | payer BC, SELFPAY ==
--- OUTSIDE RECORDS SUMMARY | 2006-11-18 | XMS_ITS | Encounter Summary ---
Author Organization [facility] Address [address] [place] [address] Phone Care Team Providers Care Surgical Elastic Knitter Name Role Phone Unavailable Primary Care Provider Unavailabl e Encounter Details Date Type Department Care Team (Late st Contact Info) Description 11/18/2006 Hospital Encounter [facility],Outside Imaging [address] [place], [place] [phone] System, Provider [place] In, [place] [address] Social History Tobacco Use Types Packs/Day Years Used Date Smoking Tobacco: Every Day Cigarettes 1 39.8 Started: 1985 Smokeless Tobacco: Never Comments:Tapering down [...] 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 Family Medicine [address] [place] [address] Artemio Mckinley MD [address] [place] [address], [address] [place] [address] [email or web address] documented as of this encounter Procedures Procedure [...] It is not the complete legal health record.[facility]
--- OUTSIDE RECORDS SUMMARY | 2006-11-18 00:05 | XMS_ITS | Encounter Summary ---
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
[2025-01-31 15:50] VITALS: BP 117/70; PULSE 64; TEMP 36.2; O2SAT 97; BMI 28.6
--- OUTSIDE RECORDS SUMMARY | 2025-01-31 20:03 | XMS_ITS | Encounter Summary ---
Author Organization [facility] Address [address] [place] [address] Phone Care Team Providers Care Continuous Process Coffee Roaster Name Role Phone Misa Dinero MD Unavailable [phone] Tri Trujillo MD Unavailable [phone] Artemio Mckinley MD Primary Care Provider [phone] Artemio Mckinley MD Unavailable [phone] Encounter Details Date Type Department Care Team (Late st Contact Info) Description 12/31/2019 Ancillary Orders [facility] [address] [place] [address] Artemio Mckinley MD [address] [facility] [place] [address] [email or web address] Breast pain, left Social History Tobacco [...] 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 Not on file Not on file documented as of this encounter Plan of Treatment Upcoming Encounters Date Type Department Care Team (Late st Contact Info) Description 03/07/2025 4:30 PM EST Office Visit [facility] [address] [place] [address] Artemio Mckinley MD [address] [facility] [place] [address] [email or web address] documented as of this encounter Results * BI US BREAST LIMITED (LEFT) (01/13/2020 12:02 PM EDT) Anatomical Region Laterality Modality Breast Left, Breast Bilateral Left Ul trasound 01/13/2020 11:4 7 AM EDT Narrative 01/13/2020 11:57 AM EDT Refer to same day mammogram report. Procedure Note Indio Maajno MD - 01/13/2020 Refer to same day mammogram report. Artemio Mckinley MD [facility] US BREAST Final Result documented in this [...] documented as of this encounter Care Teams Continuous Process Coffee Roaster Relationship Specialty Start Date End Date Artemio Mckinley MD [address] [facility] [place] [address] PCP - General Internal Medicine 04/27/19 Misa Dinero MD [address] [facility] [place] [address] [email or web address] Historical LMR Provider 02/01/1704/21 [facility] [address] [address] Historical LMR Provider 02/01/17 2 Artemio Mckinley MD [address] [facility] [place] [address] [email or web address] Insurance Assigned Provider 07/19/23 01/18/24 documented as of this encounter Additional Source Comments The information contained in this document represents components of the legal health record. It is not the complete legal health record.[facility]
--- OUTSIDE RECORDS SUMMARY | 2025-01-31 20:03 | XMS_ITS | Encounter Summary ---
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 Not on file Not on file documented as of this encounter Plan of Treatment Upcoming Encounters Date Type Department Care Team (Late st Contact Info) Description 03/07/2025 4:30 PM EST Office Visit [address] [place] [address] Artemio Mckinley MD [address] [facility] [place] [address] [email or web address] documented as of this encounter Visit Diagnoses [...] documented as of this encounter Care Teams Auto Phone Installer Relationship Specialty Start Date End Date Artemio Mckinley MD [address] [facility] [place] [address] [email or web address] PCP - General Internal Medicine 04/27/19 Misa Dinero MD [address] [place] [address], [address] [place] [address] [email or web address] Historical LMR Provider 02/01/1704/21 [facility] [address] [address] Historical LMR Provider 02/01/17 2 Artemio Mckinley MD [address] [facility] [place] [address] [email or web address] Insurance Assigned Provider 07/19/23 01/18/24 documented as of this encounter Additional Source Comments The information contained in this document represents components of the legal health record. It is not the complete legal health record.[facility]
--- OUTSIDE RECORDS SUMMARY | 2025-01-31 20:03 | XMS_ITS | Encounter Summary ---
Author Organization [facility] Address [address] [place] [address] Phone Care Team Providers Care Roll Threader Operator Name Role Phone Artemio Mckinley MD Primary Care Provider [phone] Artemio Mckinley MD Unavailable [phone] Encounter Details Date Type Department Care Team (Late Contact Info) Description 07/12/2021 Telephone [employer] [address] [address] Artemio Mckinley MD [address] [facility] [place] [address] [email or web address] Social History Tobacco Use Types Packs/Day Years [...] 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 Not on file Not on file documented as of this encounter Plan of Treatment Upcoming Encounters Date Type Department Care Team (Late Contact Info) Description 03/07/2025 4:30 PM EST Office Visit [facility] [address] [place] [address] Artemio Mckinley MD [address] [facility] [place] [address] [email or web address] documented as of this encounter Visit Diagnoses Not on filedocumented in this encounter Additional Health Concerns Infection Onset Date Last Indicated Resolved Time CoV-Presumed 02/01/2022 02/01/2022 02/22/2022 1:23 AM EST Assessment Noted Time PHQ-2 Depression Total Score: 0 10/01/19 11:25 AM EDT documented as of this encounter Care Teams Roll Threader Operator Relationship Specialty Start Date End Date Artemio Mckinley MD [address] [place] [address], [address] [place] [address] [email or web address] PCP - General Internal Medicine 04/27/19 Artemio Mckinley MD [address] [place] [address], [address] [place] [address] [email or web address] Insurance Assigned Provider 07/19/23 01/18/24 documented as of this encounter Additional Source Comments The information contained in this document represents components of the legal health record. It is not the complete legal health record.[facility]
--- OUTSIDE RECORDS SUMMARY | 2025-01-31 20:03 | XMS_ITS | Encounter Summary ---
Author Organization [facility] Address [address] [place] [address] Phone Care Team Providers Care Plumbing Warehouse Helper Name Role Phone Artemio Mckinley MD Primary Care Provider [phone] Artemio Mckinley MD Unavailable [phone] Encounter Details Date Type Department Care Team (Late st Contact Info) Description 07/02/2023 Procedure Pass [facility] [address] [place] [address] Social History Tobacco Use Types Packs/Day Years [...] high school, GED, job training, learning the Qatari language, technical skills, or developing parenting skills)? 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 [address] [place] [address] [place] [address] Artemio Mckinley MD [address] [place] [address], [address] [place] [address] [email or web address] documented as of this encounter Visit Diagnoses Not on filedocumented in this encounter Additional Health Concerns Assessment Noted Time PHQ-9 Depression Total Score: 14 023 1:53 PM EDT PHQ-2 Depression Total Score: 6 08/03/19 23 1:53 PM EDT documented as of this encounter Care Teams Plumbing Warehouse Helper Relationship Specialty Start Date End Date Artemio Mckinley MD [address] [place] [address], [address] [place] [address] [email or web address] PCP - General Internal Medicine 04/27/19 Artemio Mckinley MD [address] [place] [address], [address] [place] [address] [email or web address] Insurance Assigned Provider 07/19/23 01/18/24 documented as of this encounter Additional Source Comments The information contained in this document represents components of the legal health record. It is not the complete legal health record.[facility]
--- OUTSIDE RECORDS SUMMARY | 2025-01-31 20:04 | XMS_ITS | Patient Health Record ---
Author Organization [facility] Address [address] [place] [address] Care Team Providers Care Buckle Sewer Machine Name Role Phone Artemio Mckinley MD Primary Care Provider Unavail able Deepika Cortez Unavailable [phone] Allergies Allergen (clinical drug ingredient) Drug/Non Drug [...] Problem Acquired hammer toe of right foot ([id number] 105) Hammer toe of right foot (M20.41) Active confirmed Plan Of Treatment Pending Test Test Name Order Date X ray : Foot, right 3V 01/29/2022 Insurance Providers Payer Name Payer Address Payer Phone Subscriber Number Group Number Insured Name Patient Relationship to Insured Coverage Start Date Coverage End Date [facility] [address] [place] [address] [id number] Emmett Sheikh Spouse - patient is the spouse of the insured Medical (General) History Medical History History ICD Code Anxiety Arthritis asthma Back,Hip,and Knee pain Diverticulosis Fibromyalgia Reflux ( GERD) chronic sinusitis thyroid Transfusions Surgical History Surgery Date(Month/Year) Open Heart 11/17/1990 tonsillectomy and adenoidectomy carpal tunnel surgery partial hysterectomy 2009 multiple fibroid removals
--- OUTSIDE RECORDS SUMMARY | 2025-01-31 20:04 | XMS_ITS | Clinical Summary ---
Author Organization [facility] Address [address] [place] [address] Phone Care Team Providers Care Foster Care Social Worker Name Role Phone Artemio Mckinley MD Primary Care Provider [phone] Allergies Active Allergy Reactions Criticality Noted Date [...] LAD lesion at Cath, Dr. Miller, [facility] 03/2023 Assessment & Plan (09/13/2024 2:38 PM [...] will request ultrasound to be repeated at [facility] in a years time by 06/25/2024. Assessment & Plan (07/04/2023 1:00 PM EDT): The patient had her left lower pole nodule indicated as #2 in the HPI and left lower isthmus nodule indicated as #3 and per HPI which was biopsied and found to be benign. At this point I recommend the patient repeat ultrasound thyroid panel on 06/15/2024 at [facility] and she should follow-up with me afterwards to review imaging and to determine future management. Assessment & Plan (06/23/2023 4:16 PM EDT): The patient repeated ultrasound at [facility] because is more convenient to her due to the location. However, the description of the nodules are completely different and it is really difficult to follow. The ultrasound actually is quite excellent and I have informed the patient that in the future she just needs to follow-up 1 place. Since she did have the ultrasound done last at [facility] she should continue going there from [...] has to go through interventional radiology at [facility] for the biopsy. Assessment & Plan (03/18/2022 [...] Overview (04/28/2020): Noted on outside CT at [facility] for evaluation of shortness of breath. Dedicated [...] like to see Dr. Rm at the [facility], close to her home. Defer workup to [...] Encounters Date Type Department Care Team Description 12/23/[address] [place] [address] Artemio Mckinley MD Visit for screening mammogram 12/06/[address] [place] [address] Artemio Mckinley MD 11/12/2024 Orders Only [facility] [address] [place] [address] Jacoby Pereyra MD 11/11/[address] [place] [address] Artemio Mckinley MD Results 11/09/[address] [place] [address] Jacoby Pereyra MD 11/05/[address] [place] [address] Artemio Mckinley MD Medication Refill 11/04/[address] [place] [address] Daniel Blanton, NICOLE 11/03/[address] [place] [address] ProviderJacoby MD from Last 3 Months Immunizations Immunization Administration [...] 1 39.8 Started: 1985 Smokeless Tobacco: Never Tobacco Cessation:Ready [...] 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 Not on file [...] Description 03/07/2025 4:30 PM EST Office Visit [facility] [address] [place] [address] [place] [address] Artemio Mckinley MD [address] [facility] [facility] [place] [address] [email or web address] Health Maintenance Due Date Last Done Comments Adult Td,Tdap Booster 1969 PNEUMOCOCCAL VACCINES (50+ years) (1 of 2 - PCV) 1988 COLOGUARD 2014 FIT TEST 2014 FOBT 2014 SIGMOIDOSCOPY 2014 VIRTUAL COLONOSCOPY 2014 LUNG CANCER SCREENING (LDCT Only) 11/01/2019 ZOSTER VACCINES (1 of 2) 11/01/2019 SCREENING FOR DIABETES 12/30/2022 0, 12/31/2019 DEPRESSION SCREENING 08/03/2023 08/02/2022, 08/02/2022 INFLUENZA VACCINE (#1) 2024 0, 02/15/2019 COVID-19 VACCINE ( - 2024-2 6 season) 2024 03/16/2021, 06/07/2020, 05/04/2020 SMOKING Hx and SMOKELESS TOBACCO SCREENING 09/13/2025 09/13/2024 MAMMOGRAM 12/16/2026 12/16/2024, 01/13/2020, 11/18/2006 COLONOSCOPY 12/06/2032 12/06/2022 COLORECTAL CANCER SCREENING 12/06/2032 RSV VACCINE (1 - 1-dose 75+ series) 2044 HEPATITIS C SCREENING Completed 01/07/2014 HIV ONE-TIME [...] this topic Medical Devices Implanted Type Area Naval Inspector Device Identifier Shelf Expiration Date Model / Serial / Lot Marker Ultraclip 17ga 10cm Tissue Dual Trigger Breast Ti Heart Shape Bx/5ea - [id number] Implanted:Qty: 1 on 04/24/2020 by Gamal Orlando MD at [facility] Left: Breast CR [employer] [id number] / / Procedures Procedure Name Priority Date/Time Associated Diagnosis Comments BI MAMMOGRAM SCREENING (BILATERAL) Routine 12/16/2024 9:46 AM EDT Visit for screening mammogram OUTSIDE LAB Routine 11/01/2024 3:00 PM EDT OUTSIDE LAB Routine 11/01/2024 11:01 AM EDT OUTSIDE LAB Routine 11/01/2024 10:57 AM EDT HM COLONOSCOPY FOR RESULT ENTRY ONLY Routine 12/06/2022 OUTSIDE HIV Routine 01/07/2014 OUTSIDE HEPATITIS C VIRUS SCREENING Routine 01/07/2014 from Last 3 Months or Most Recently Relevant to Health Maintenance Results * Mammogram Screening (Bilateral) (12/16/2024 9:46 AM EDT) Anatomical Region Laterality Modality Breast Left, Breast Right, Breast Bilateral Bila teral Breast Screening Artemio Mckinley MD IMG MG EXAMS Final Result * Outside Lab (11/01/2024 3:00 PM EDT) Only the most recent of3 resultswithin the time period is included. Result [facility] Historical [employer] LAB BLOOD ORDERABLES Edit ed Result - Final * HM COLONOSCOPY FOR RESULT ENTRY ONLY (12/06/2022) Artemio Mckinley MD HEALTH MAINTENANCE Edited Resu lt - Final * Outside Hepatitis C Virus Screening (01/07/2014) Hepatitis C Screening - External Neg Result [facility] Historical [employer] LAB BLOOD ORDERABLES Marine l Result * OUTSIDE HIV TEST (01/07/2014) HIV - External Neg Result [facility] Historical [employer] LAB BLOOD ORDERABLES Marine l Result from Last 3 Months or Most Recently Relevant to Health Maintenance Insurance [facility] [employer] [facility] [employer] [employer] [facility] [place] [id number] [facility] [place] [address] [facility] [place] [id number] [facility] [employer] [facility] [place] [address] [facility] [place] Care Teams Foster Care Social Worker Relationship Specialty Start Date End Date Artemio Mckinley MD [address] [place] [address], [address] [place] [address] [email or web address] PCP - General Internal Medicine 04/27/19 Additional Source Comments The information contained in this document represents components of the legal health record. It is not the complete legal health record.[facility]
--- OUTSIDE RECORDS SUMMARY | 2025-01-31 20:04 | XMS_ITS | Encounter Summary ---
Author Organization [facility] Address [address] [place] [address] Phone Care Team Providers Care Consultant Nurse Name Role Phone Misa Dinero MD Unavailable [phone] Tri Trujillo MD Unavailable [phone] Artemio Mckinley MD Primary Care Provider [phone] Artemio Mckinley MD Unavailable [phone] Encounter Details Date Type Department Care Team (Late st Contact Info) Description 04/10/2020 Transcribe Orders Virtual Department [address] [place] [address] Carter Andersen MD [address] [place] [address] [email or web address] Social History Tobacco Use Types Packs/Day Years [...] 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 Not on file documented as of this encounter Plan of Treatment Upcoming Encounters Date Type Department Care Team (Late st Contact Info) Description 03/07/2025 4:30 PM EST Office Visit [facility] [address] [place] [address] Artemio Mckinley MD [address] [facility], [address] [place] [address] documented as of this encounter Visit Diagnoses [...] documented as of this encounter Care Teams Consultant Nurse Relationship Specialty Start Date End Date Artemio Mckinley MD [address] [place] [address], [address] [place] [address] PCP - General Internal Medicine 04/27/19 Misa Dinero MD [address] [place] [address], [address] [place] [address] Historical LMR Provider 02/01/1704/21 Tri Trujillo MD [address] [address] Historical LMR Provider 02/01/17 2 Artemio Mckinley MD [address] [place] [address], [address] [place] [address] [email or web address] Insurance Assigned Provider 07/19/23 01/18/24 documented as of this encounter Additional Source Comments The information contained in this document represents components of the legal health record. It is not the complete legal health record.[facility]
--- OUTSIDE RECORDS SUMMARY | 2025-01-31 20:04 | XMS_ITS | Encounter Summary ---
Author Organization [facility] Address [address] [place] [address] Phone Care Team Providers Care Platform Material Handler Manager Name Role Phone Misa Dinero MD Unavailable [phone] Tri Trujillo MD Unavailable [phone] Patricia Martinez MD Primary Care Provider [phone] Eli Cornejo Primary Care Provide r Artemio Mckinley MD Primary Care Provider Artemio Mckinley MD Unavailable [phone] Reason for Referral * Physical Therapy (Routine) - Closed Specialty Diagnoses / Procedures Referred By Agatha razo Referred To Contact Physical Therapy Diagnoses Encounter for rehabilitation System, Provider Not In, [facility] [id number] [place] [address] Phone: tel: Referral ID Status Reason Start Date Expiration Date Visits Re quested Visits Authorized [id number] Closed 02/17/2017 02/17/2018 16 16 Encounter Details Date Type Department Care Team (Latest Contact Info) Description 02/27/2017 Transcribe Orders [facility] [address] [place] [address] [id number] Indio Davis MD [address] [place] [id number] Encounter for rehabilitation (Primary Dx) Social History [...] Upcoming Encounters Date Type Department Care Team ([facility] st Contact Info) Description 03/07/2025 4:30 PM EST Office Visit [address] [place] [address] Artemio Mckinley MD [address] [place] [address], [address] [place] [address] [email or web address] Scheduled Referrals Name Type Priority Associated Diagnoses Orde r Schedule Ambulatory referral to [facility] Physical Therapy Outpatient Referral Routine Encounter for [...] documented as of this encounter Care Teams Platform Material Handler Manager Relationship Specialty Start Date End Date Patricia Matrinez MD [address] [address] PCP - General Internal Medicine 02/18/17 01/28/19 Eli Cornejo PA [address] [address] PCP - General Patient Flow Coordinator 01/29/19 04/26/19 Artemio Mckinley MD [address] [place] [address], [address] [place] [address] PCP - General Internal Medicine 04/27/19 Misa Dinero MD [address] [facility], [address] [place] [address] Historical LMR Provider 02/01/1704/21 Tri Trujillo MD [address] [address] Historical LMR Provider 02/01/17 2 Artemio Mckinley MD [address] [place] [address], [address] [place] [address] Insurance Assigned Provider 07/19/23 01/18/24 documented as of this encounter Additional Source Comments The information contained in this document represents components of the legal health record. It is not the complete legal health record.[facility]
--- OUTSIDE RECORDS SUMMARY | 2025-01-31 20:04 | XMS_ITS | Encounter Summary ---
Author Organization [facility] Address [address] [place] [address] Phone Care Team Providers Care Floor Care Specialist Name Role Phone Misa Dinero MD Unavailable Tri Trujillo MD Unavailable [phone] Artemio Mckinley MD Primary Care Provider [phone] Artemio Mckinley MD Unavailable [phone] Encounter Details Date Type Department Care Team (Late st Contact Info) Description 01/17/2020 Ancillary Orders [facility],Outside Imaging [address] [place] [address] System, Provider Not In, [place] [address] Social History Tobacco Use Types Packs/Day Years [...] 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 Not on file Not on file documented as of this encounter Plan of Treatment Upcoming Encounters Date Type Department Care Team (Late st Contact Info) Description 03/07/2025 4:30 PM EST Office Visit [facility] [address] [place] [address] Artemio Mckinley MD [address] [facility], [address] [place] [address] [email or web address] documented as of this encounter Results * [...] documented as of this encounter Care Teams Floor Care Specialist Relationship Specialty Start Date End Date Artemio Mckinley MD [address] [place] [address], [address] [place] [address] PCP - General Internal Medicine 04/27/19 Misa Dinero MD [address] [place] [address], [address] [place] [address] Historical LMR Provider 02/01/1704/21 Tri Trujillo MD [address] [address] Historical LMR Provider 02/01/17 2 Artemio Mckinley MD [address] [facility] [place] [address] Insurance Assigned Provider 07/19/23 01/18/24 documented as of this encounter Additional Source Comments The information contained in this document represents components of the legal health record. It is not the complete legal health record.[facility]
--- OUTSIDE RECORDS SUMMARY | 2025-01-31 20:04 | XMS_ITS | Encounter Summary ---
Author Organization [facility] Address [address] [place] [address] Phone Care Team Providers Care Satellite Dish Technician Name Role Phone Misa Dinero MD Unavailable [phone] Tri Trujillo MD Unavailable [phone] Artemio Mckinley MD Primary Care Provider [phone] Artemio Mckinley MD Unavailable [phone] Encounter Details Date Type Department Care Team (Latest Contact Info) Description 08/02/2020 Transcribe Orders Virtual Department 30 [place] [address] Carter Andersen MD [address] [place] [address] [email or web address] Close exposure to COVID-19 virus (Primary Dx) [...] 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 NO [facility] 08/02/2020 8:57 AM EDT 08/02/2020 1:09 PM EDT us Carter Andersen MD BODY FLUIDS AND STOOLS ORDERAB LES Final Result [facility] [address] [place] [address] documented in this encounter Visit Diagnoses Diagnosis [...] documented as of this encounter Care Teams Satellite Dish Technician Relationship Specialty Start Date End Date Artemio Mckinley MD [address] [place] [address], [address] [place] [address] PCP - General Internal Medicine 04/27/19 Misa Dinero MD [address] [facility], [address] [place] [address] [email or web address] Historical LMR Provider 02/01/1704/21 Tri Trujillo MD [address] [address] Historical LMR Provider 02/01/17 2 Artemio Mckinley MD [address] [facility] [place] [address] [email or web address] Insurance Assigned Provider 07/19/23 01/18/24 documented as of this encounter Additional Source Comments The information contained in this document represents components of the legal health record. It is not the complete legal health record.[facility]
--- OUTSIDE RECORDS SUMMARY | 2025-01-31 20:04 | XMS_ITS | Encounter Summary ---
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 Not on file documented as of this encounter Plan of Treatment Upcoming Encounters Date Type Department Care Team (Late st Contact Info) Description 03/07/2025 4:30 PM EST Office Visit [address] [place] [address] Artemio Mckinley MD [address] [facility] [place] [address] [email or web address] documented as of this encounter Visit Diagnoses [...] documented as of this encounter Care Teams Check Processing Clerk Relationship Specialty Start Date End Date Artemio Mckinley MD [address] [facility], [address] [place] [address] [email or web address] PCP - General Internal Medicine 04/27/19 Misa Dinero MD [address] [place] [address], [address] [place] [address] [email or web address] Historical LMR Provider 02/01/1704/21 Tri Trujillo MD [facility] [address] [address] Historical LMR Provider 02/01/17 2 Artemio Mckinley MD [address] [facility] [place] [address] [email or web address] Insurance Assigned Provider 07/19/23 01/18/24 documented as of this encounter Additional Source Comments The information contained in this document represents components of the legal health record. It is not the complete legal health record.[facility]
--- OUTSIDE RECORDS SUMMARY | 2025-01-31 20:04 | XMS_ITS | Encounter Summary ---
Author Organization [facility] Address [address] [place] [address] Phone Care Team Providers Care Line Crewman Name Role Phone Artemio Mckinley MD Primary Care Provider [phone] Encounter Details Date Type Department Care Team (Late st Contact Info) Description 12/06/2024 Telephone [facility] [address] [place] [address] Artemio Mckinley MD [address] [facility], [address] [place] [address] [email or web address] Social History Tobacco Use Types Packs/Day Years [...] 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 Not 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 Not on file documented as of this encounter Plan of Treatment Upcoming Encounters Date Type Department Care Team (Late st Contact Info) Description 03/07/2025 4:30 PM EST Office Visit [address] [place] [address] Artemio Mckinley MD [address] [place] [address], [address] [place] [address] [email or web address] documented as of this encounter Visit Diagnoses Not on filedocumented in this encounter Additional Health Concerns Assessment Noted Time PHQ-9 Depression Total Score: 14 023 1:53 PM EDT PHQ-2 Depression Total Score: 6 08/03/19 23 1:53 PM EDT documented as of this encounter Care Teams Line Crewman Relationship Specialty Start Date End Date Artemio Mckinley MD [address] [place] [address], [address] [place] [address] [email or web address] PCP - General Internal Medicine 04/27/19 documented as of this encounter Additional Source Comments The information contained in this document represents components of the legal health record. It is not the complete legal health record.[facility]
--- OUTSIDE RECORDS SUMMARY | 2025-01-31 20:04 | XMS_ITS | Encounter Summary ---
Author Organization [facility] Address [address] [place] [address] Phone Care Team Providers Care Laser Systems Engineer Name Role Phone Misa Dinero MD Unavailable Tri Trujillo MD Unavailable [phone] Patricia Martinez MD Primary Care Provider Eli Cornejo Primary Care Provide r Artemio Mckinley MD Primary Care Provider Artemio Mckinley MD Unavailable [phone] Encounter Details Date Type Department Care Team (Late st Contact Info) Description 06/03/2018 Ancillary Orders Virtual Department [address] [place] [address] Russel Vogt MD [address] [place] [address] [id number] Pelvic pain Social History Tobacco Use Types [...] Description 03/07/2025 4:30 PM EST Office Visit [address] [place] [address] Artemio Mckinley MD [address] [place] [address], [address] [place] [address] [email or web address] documented as of this encounter Results * US PELVIS TRANSABDOMINAL PLUS TRANSVAGINAL (06/04/2018 5:21 PM EST) Anatomical Region Laterality Modality Pelvis, Uterus/Adnexa Ultrasound 06/04/2018 5:22 PM EST Impressions 06/04/2018 5:24 PM EST Status post hysterectomy. Ovaries not visualized. No adnexal mass or free fluid demonstrated. POS - [id number] Narrative 06/04/2018 5:24 PM EST EXAM: US [...] adnexal mass or freefluid demonstrated. POS - [id number] Russel Vogt MD IMG US PELVIS Final [...] documented as of this encounter Care Teams Laser Systems Engineer Relationship Specialty Start Date End Date Patricia Martinez MD [address] [address] PCP - General Internal Medicine 02/18/17 01/28/19 Eli Cornejo PA [address] [address] PCP - General Country Director 01/29/19 04/26/19 Artemio Mckinley MD [address] [place] [address], [address] [place] [address] [email or web address] PCP - General Internal Medicine 04/27/19 Misa Dinero MD [address] [place] [address], [address] [place] [address] Historical LMR Provider 02/01/1704/21 Tri Trujillo MD [address] [address] Historical LMR Provider 02/01/17 2 Artemio Mckinley MD [address] [place] [address], [address] [place] [address] [email or web address] Insurance Assigned Provider 07/19/23 01/18/24 documented as of this encounter Additional Source Comments The information contained in this document represents components of the legal health record. It is not the complete legal health record.[facility]
--- OUTSIDE RECORDS SUMMARY | 2025-01-31 20:05 | XMS_ITS | Encounter Summary ---
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 Not on file documented as of this encounter Plan of Treatment Upcoming Encounters Date Type Department Care Team (Late st Contact Info) Description 03/07/2025 4:30 PM EST Office Visit [facility] Medicine [address] [place] [address] Artemio Mckinley MD [address] [facility], [address] [place] [address] [email or web address] documented as of this encounter Visit Diagnoses [...] documented as of this encounter Care Teams Special Effects Designer Relationship Specialty Start Date End Date Artemio Mckinley MD [address] [place] [address], [address] [place] [address] [email or web address] PCP - General Internal Medicine 04/27/19 Misa Dinero MD [address] [place] [address], [address] [place] [address] [email or web address] Historical LMR Provider 02/01/1704/21 [facility] [address] [address] Historical LMR Provider 02/01/17 2 Artemio Mckinley MD [address] [place] [address], [address] [place] [address] [email or web address] Insurance Assigned Provider 07/19/23 01/18/24 documented as of this encounter Additional Source Comments The information contained in this document represents components of the legal health record. It is not the complete legal health record.[facility]
--- OUTSIDE RECORDS SUMMARY | 2025-01-31 20:05 | XMS_ITS | Encounter Summary ---
Author Organization [facility] Address [address] [place] [address] Phone Care Team Providers Care Collections Clerk Name Role Phone Misa Dinero MD Unavailable [phone] Tri Trujillo MD Unavailable [phone] Artemio Mckinley MD Primary Care Provider [phone] Artemio Mckinley MD Unavailable Encounter Details Date Type Department Care Team (Latest Contact Info) Description 04/24/2020 [facility] Medicine [address] [place] [address] [place] [address] Artemio Mckinley MD [address] [facility], [address] [place] [address] [email or web address] Breast lump in female Social [...] 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 Pathology findings are benign and concordant [...] patient's left breast was imaged with the [facility] ultrasound unit and images of the solid [...] patient's left breast was imaged with the [facility] ultrasound unit andimages of the solid hypoechoic [...] documented as of this encounter Care Teams Collections Clerk Relationship Specialty Start Date End Date Artemio Mckinley MD [address] [facility], [address] [place] [address] PCP - General Internal Medicine 04/27/19 Misa Dinero MD [address] [facility], [address] [place] [address] Historical LMR Provider 02/01/1704/21 [facility] [address] [address] Historical LMR Provider 02/01/17 2 Artemio Mckinley MD [address] [facility] [place] [address] [email or web address] Insurance Assigned Provider 07/19/23 01/18/24 documented as of this encounter Additional Source Comments The information contained in this document represents components of the legal health record. It is not the complete legal health record.[facility]
== END 2025-01-31 16:32 | disposition home or self-care (01) ==
LOC: HO.HMCSH 15:46
PROVIDERS: PCP Internal Medicine; Visit Provider Internal Medicine
DX: F41.1 Generalized anxiety disorder (principal)

== ENCOUNTER → 2025-01-31 15:46 | Outpatient (BNVA) | payer BC, SELFPAY | PROVIDERS: PCP Internal Medicine; Visit Provider Internal Medicine | DX: F41.1 Generalized anxiety disorder (principal); F43.10 Post-traumatic stress disorder, unspecified; Z28.9 Immunization not carried out for unspecified reason | CPT/HCPCS: 90471; 96127 ==

== ENCOUNTER 2025-03-28 08:53 | Outpatient (AMB) | payer BC, SELFPAY ==
[2025-03-28 09:18] VITALS: BP 110/68; PULSE 74; TEMP 36.7; O2SAT 98; BMI 28.6
--- NOTE | 2025-03-28 09:18 | AM.OFFWIN_ITS ---
Intake Vital Signs 03/28/25 09:18 Height 5 ft 6 in Weight 177 lb BMI 28.6 BP 110/68 Blood Pressure Location Rt brachial Position Sitting Pulse 74 Pulse Source Pulse Oximeter Temp 98.1 F Temp Source Oral Pulse Oximetry (%) 98 Oxygen Delivery Method Room Air Intake Visit Reasons: eP ear pain cough over a month Intake Note: pt presents with bilateral ear pain LT>RT and non resolving productive coughing x1 mo, reports mid upper back pain starting and has a h/o pneumonia Patient Tobacco Use Status: Current everyday Tobacco user Allergies morphine Allergy (Mild, Verified 03/28/25 09:22) Rash clarithromycin (From BIAXIN) Allergy (Unknown, Verified 03/28/25 09:22) ANAPHYLAXIS erythromycin base (From ERYTHROCIN) Allergy (Unknown, Verified 03/28/25 09:22) ANAPHYLAXIS oxycodone (From PERCOCET) Allergy (Unknown, Verified 03/28/25 09:22) HIVES Penicillins (PENICILLINS) Allergy (Unknown, Verified 03/28/25 09:22) ANAPHYLAXIS Sulfa (Sulfonamide Antibiotics) (SULFA (SULFONAMIDE ANTIBIOTICS)) Allergy (Unknown, Verified 03/28/25 09:22) ANAPHYLAXIS vancomycin (VANCOMYCIN) Allergy (Unknown, Verified 03/28/25 09:22) ANAPHYLAXIS bupropion (From Wellbutrin) Adverse Reaction (Intermediate, Verified 03/28/25 09:22) Agitated Medication List - Last Reconciled 03/28/25 by Bette Vergara, GEO amlodipine 2.5 mg PO DAILY aspirin 81 mg PO DAILY 90 days atorvastatin 40 mg PO DAILY cetirizine (Zyrtec) 10 mg PO DAILY citalopram 20 mg PO DAILY metoprolol succinate ER 25 mg PO DAILY pantoprazole 40 mg PO QAM sucralfate 1 g PO BEDTIME 90 days trazodone 100 mg PO BEDTIME PRN 90 days Do you need a note to return to daycare/school/sports/work: No HPI HPI Comments History of Present Illness Details 54-year-old female presents to the walk- in clinic with complaints of upper respiratory symptoms. Patient reports bilateral ear pain and pressure. She also reports a persistent cough on and off for approximately 1 month. Denies fevers, chills, nausea, or vomiting. Denies recent sick contacts. [facility] Medical History (Updated 03/28/25 @ 09:41 by Bette Vergara NP) Cough Generalized anxiety disorder Ileal adhesions Claustrophobia Hiatal hernia Intestinal adhesions Partial small bowel obstruction Abdominal pain Thyroid nodule Labial abscess Heart problem Atrial septal defect Surgical History H/O left breast biopsy Status post atrial septal defect repair History of exploratory laparotomy (07/15/22) History of incision and drainage History of carpal tunnel release Hx of colonoscopy (~12/06/22) History of esophagogastroduodenoscopy (EGD) History of open heart surgery History of partial hysterectomy Hx of tonsillectomy Family History Maternal Grandmother Ovarian cancer Unknown Ovarian cancer Father Throat cancer Mother Diabetes Social History Household Members: Spouse Housing: House Do you presently have visiting nurse or other home services: No Alcohol intake: current Alcohol intake frequency: does not drink Patient Tobacco Use Status: Current everyday Tobacco user Tobacco use type: Cigarette Cigarette Packs Per Day: 0.5 Cigarettes Per Day: 10.0 Years Smoked: 45 Second Hand Smoke Exposure: Yes service: No Current occupational status: employed Sexual orientation: Straight/Heterosexual Gender identity: Female Cognitive needs: No Hearing needs: No Vision needs: Yes (reading glasses) Review of Systems Const All systems reviewed & are unremarkable except as noted in HPI and below Physical Exam Vital Signs: Last Vital Signs Temp 98.1 F 03/28/25 09:18 Pulse 74 03/28/25 09:18 BP 110/68 03/28/25 09:18 Pulse Ox 98 03/28/25 09:18 Oxygen Delivery Method Room Air 03/28/25 09:18 BMI result Body Mass Index 28.6 Const General: no acute distress Nutritional Appearance: obese Orientation/consciousness: patient oriented x3 HEENT Head: Yes normocephalic Ears: external ears normal and TM abnormal bulging bilateral and with fluid behind the TM bilateral General nose exam: Normal external nose present Face and sinus: Yes sinuses nontender Mouth: moist mucous membranes Throat: Yes uvula midline Resp Effort & Inspection: normal respiratory effort and able to speak in complete sentences Auscultation: clear to auscultation bilaterally, no crackles, no rales, no rhonchi and no wheezes Cardio Heart sounds: S1 normal heart sound present and S2 normal heart sound present Neuro General: patient oriented x3 Assessment & Plan Assessment & Plan (1) Cough: Code(s): R05.9 - Cough, unspecified Plan: Ordered Chest Xray. Supportive care recommended Encourage increased oral fluids and rest OTC decongestant and/or antihistamine as needed for nasal and ear pressure symptoms Consider intranasal corticosteroid (e.g., Flonase) daily OTC cough suppressant as needed Educated patient on expected course of viral illness Return precautions reviewed: worsening symptoms, fever, shortness of breath, persistent ear pain, or no improvement. Orders: Orders XR chest 2V Today R05.9 - Cough, unspecified Medications: New cetirizine (Zyrtec) 10 mg PO DAILY 30 tabs 0RF J06.9 - Acute upper respiratory infection, unspecified benzonatate 200 mg (2 x 100 mg) PO BID 60 caps 0RF R05.9 - Cough, unspecified Coding Level of Care Code Est Pt Level 4 (19052) Diagnoses Cough R05.9 Time Spent (min) 20
== END 2025-03-28 10:05 | disposition home or self-care (01) ==
PROVIDERS: PCP Internal Medicine; Visit Provider Nurse Practitioner Family
DX: R05.9 Cough, unspecified (principal)

== ENCOUNTER 2025-03-28 08:53 | Outpatient (REF) | payer BC, SELFPAY ==
--- NOTE | ~2025-03-28 | XR_ITS ---
EXAMINATION: XR CHEST CLINICAL INFORMATION: R05.9 - Cough, unspecified COMPARISON: September 03, 2023. TECHNIQUE: PA and lateral views. FINDINGS: Pulmonary reticular pattern. No gross consolidation, pleural fissure pneumothorax. Cardiomediastinal silhouette size is normal. Status post median sternotomy with sternal wires. Multilevel spondylosis. S-shaped curvature of the thoracolumbar spine. XR/XR chest 2V IMPRESSION: Chronic interstitial lung disease without acute airspace disease. Electronically signed by: Hair Shah MD 03/28/2025 09:53 AM EST
== END 2025-03-28 08:54 | disposition home or self-care (01) ==
LOC: HO.HMGCX 08:53
PROVIDERS: PCP Internal Medicine; Visit Provider Nurse Practitioner Family
DX: R05.1 Acute cough (principal); H92.03 Otalgia, bilateral
CPT/HCPCS: 71046

== ENCOUNTER → 2025-03-28 09:43 | Outpatient (BNV) | payer BC, SELFPAY | PROVIDERS: PCP Internal Medicine; Visit Provider Radiology Diagnostic Radiology | DX: J84.9 Interstitial pulmonary disease, unspecified (principal) | CPT/HCPCS: 71046 ==

== ENCOUNTER 2025-03-28 13:58 | Outpatient (REF) | payer BC, SELFPAY ==
--- OUTSIDE RECORDS SUMMARY | 2006-11-17 23:00 | XMS_ITS | Encounter Summary ---
Author Organization [facility] Address [address] [place] [address] Phone Care Team Providers Care Firer Powerhouse Name Role Phone Unavailable Primary Care Provider Unavailabl e Encounter Details Date Type Department Care Team (Late st Contact Info) Description 11/18/2006 Hospital Encounter [facility],Outside Imaging [address], [place] [id number] System, Provider [place] In, [place] [address] Social History Tobacco Use Types Packs/Day Years Used Date Smoking Tobacco: Every Day Cigarettes 1 40 Started: 1985 Smokeless Tobacco: Never Comments:Tapering down quite a lot. Not setting a quit date. Alcohol Use Standard Drinks/Week Comments No 0 (1 standard drink = 0.6 oz pur e alcohol) once a year, maybe Child or Family Care Answer Date Record ed Do you have problems with on e of the following making it difficult for you to work, study, or receive health care? No 08/02/2022 Education Answer Date Recorded Are you interested in more education? Not on jorge alberto e 08/02/2024 Are you concerned about learning? Not on file 08/02/2024 No 08/02/2024 No 08/02/2024 Food Answer Date Recorded Within the past 6 months we worried whether our food would run out before we got money to buy more. Never True 08/02/2022 Within the past 6 months the food we bought just didn't last and we didn't have enough money to get more. Never True Residential Stability Answer Date Recor ded What is your housing situation today? I have peg spencer 08/02/2022 How many times have you move d in the past 12 months? Zero (I did not move) 08/02/2022 Paying for Meds Answer Date Recorded Do you have trouble paying for medicines? No 08/02/2022 Paying Utility Bills Answer Date Record ed Do you have trouble paying your heating or elect ricity bill? No 08/02/2022 Transportation Answer Date Recorded Has the lack of transportati on kept you from medical appointments or from getting medications? No 08/02/2022 Unemployment Answer Date Recorded Are you currently unemployed or working on a part-time or temporary basis, and looking for work? No 08/02/2022 Digital Access Answer Date Recorded No 09/04/2022 No 09/04/2022 Reliable internet access at home? Not on file 09/04/2022 Device with a working camera? Not on file Intimate Partner Violence Answer Date R ecorded Are you denied basic needs s uch as food, clothing, or medical care? No 07/02/2023 In the past 12 months have y ou been in a relationship with a person who hurts, threatens, or tries to control you? No 07/02/2023 Are you denied basic needs s uch as food, clothing, or medical care? No 07/02/2023 In the past 12 months have y ou been in a relationship with a person who hurts, threatens, or tries to control you? 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 us Provider Not In System PhD IMG OUTSIDE IMAGING W /OUT INTERPRETATION Final Result documented in this encounter Visit Diagnoses Not on filedocumented in this encounter Additional Health Concerns Infection Onset Date Last Indicated Resolved Time CoV-Risk 11/22/2019 11/22/2019 12/06/2019 1:24 AM EDT CoV-Risk 02/07/2020 02/07/2020 02/21/2020 1:23 AM EST CoV-Risk 03/31/2020 03/31/2020 04/14/2020 1:24 AM EST CoV-Exposed Comment:Recent close contact documented in the COVID-19 PCR/PRO order 08/02/2020 08/02/2020 08/17/2020 1:23 AM E DT CoV-Presumed 02/01/2022 02/01/2022 02/22/2022 1:23 AM EST documented as of this encounter Additional Source Comments The information contained in this document represents components of the legal health record. It is not the complete legal health record.[facility]
--- OUTSIDE RECORDS SUMMARY | 2006-11-17 23:05 | XMS_ITS | Encounter Summary ---
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
[2025-03-28 15:10] LABS: Resp Syncy Virus RNA Qual PCR NEGATIVE (Negative); SARS COV2 PCR INHOUSE NEGATIVE (Negative)
--- OUTSIDE RECORDS SUMMARY | 2025-03-28 20:20 | XMS_ITS | Encounter Summary ---
Author Organization [facility] Address [address] [place] [address] Phone Care Team Providers Care Hardness Tester Name Role Phone Misa Dinero MD Unavailable [phone] Tri Trujillo MD Unavailable [phone] Artemio Mckinley MD Primary Care Provider [phone] Artemio Mckinley MD Unavailable [phone] Encounter Details Date Type Department Care Team (Latest Contact Info) Description 04/24/2020 [facility] Medicine [address] [place] [address] [place] [address] Artemio Mckinley MD [address] [facility], [address] [place] [address] [email or web address] Breast lump in female Social [...] Industry Job Start Date 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 Pathology findings are benign and concordant [...] patient's left breast was imaged with the [facility] [place] and images of the solid [...] patient's left breast was imaged with the [facility] ultrasound unit andimages of the solid hypoechoic [...] when pathologic analysis iscomplete. Artemio Mckinley MD [facility] EX[facility] Edited Result - Final documented in [...] documented as of this encounter Care Teams Hardness Tester Relationship Specialty Start Date End Date Artemio Mckinley MD [address] [place] [address], [address] [place] [address] PCP - General Internal Medicine 04/27/19 Misa Dinero MD [address] [place] [address], [address] [place] [address] Historical LMR Provider 02/01/1704/21 Tri Trujillo MD [address] [address] Historical LMR Provider 02/01/17 2 Artemio Mckinley MD [address] [place] [address], [address] [place] [address] Insurance Assigned Provider 07/19/23 01/18/24 documented as of this encounter Additional Source Comments The information contained in this document represents components of the legal health record. It is not the complete legal health record.[facility]
--- OUTSIDE RECORDS SUMMARY | 2025-03-28 20:20 | XMS_ITS | Encounter Summary ---
Author Organization [facility] Address [address] [place] [address] Phone Care Team Providers Care Bareback Rider Name Role Phone Misa Dinero MD Unavailable [phone] Tri Trujillo MD Unavailable [phone] Artemio Mckinley MD Primary Care Provider [phone] Artemio Mckinley MD Unavailable [phone] Encounter Details Date Type Department Care Team (Late st Contact Info) Description 01/17/2020 Ancillary Orders [facility],Outside Imaging [address] [place] [address] System, Provider Not In, [facility] [address] [address] Social History Tobacco Use Types Packs/Day Years [...] 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 PCP - General Internal Medicine 04/27/19 Misa Dinero MD 22 [facility], [address] [place] [address] Historical LMR Provider 02/01/1704/21 Tri Trujillo MD [address] [address] Historical LMR Provider 02/01/17 2 Artemio Mckinley MD 22 [facility], [address] [place] [address] [email or web address] Insurance Assigned Provider 07/19/23 01/18/24 documented as of this encounter Additional Source Comments The information contained in this document represents components of the legal health record. It is not the complete legal health record.[facility]
--- OUTSIDE RECORDS SUMMARY | 2025-03-28 20:20 | XMS_ITS | Encounter Summary ---
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 Not on file [...] documented as of this encounter Care Teams Chain Forming Machine Operator Relationship Specialty Start Date End Date Artemio Mckinley MD [address] [facility], [address] [place] [address] PCP - General Internal Medicine 04/27/19 Misa Dinero MD [address] [facility], [address] [place] [address] Historical LMR Provider 02/01/1704/21 Tri Trujillo MD [address] [address] Historical LMR Provider 02/01/17 2 Artemio Mckinley MD [address] [facility] [place] [address] Insurance Assigned Provider 07/19/23 01/18/24 documented as of this encounter Additional Source Comments The information contained in this document represents components of the legal health record. It is not the complete legal health record.[facility]
--- OUTSIDE RECORDS SUMMARY | 2025-03-28 20:20 | XMS_ITS | Clinical Summary ---
Author Organization [facility] Address [address] [place] [address] Phone Care Team Providers Care Ship Joiner Name Role Phone Artemio Mckinley MD Primary Care Provider [phone] Allergies Active Allergy Reactions Criticality Noted Date [...] 60% LAD lesion at Cath, Dr. Miller, [facility] 03/2023 Assessment & Plan [...] will request ultrasound to be repeated at [facility] in a years time by 06/25/2024. Assessment & Plan (07/04/2023 1:00 PM EDT): The patient had her left lower pole nodule indicated as #2 in the HPI and left lower isthmus nodule indicated as #3 and per HPI which was biopsied and found to be benign. At this point I recommend the patient repeat ultrasound thyroid panel on 06/15/2024 at [facility] and she should follow-up with me afterwards to review imaging and to determine future management. Assessment & Plan (06/23/2023 4:16 PM EDT): The patient repeated ultrasound at [facility] because is more convenient to her due to the location. However, the description of the nodules are completely different and it is really difficult to follow. The ultrasound actually is quite excellent and I have informed the patient that in the future she just needs to follow-up 1 place. Since she did have the ultrasound done last at [facility] she should continue going there from [...] has to go through interventional radiology at [facility] for the biopsy. Assessment & Plan [...] Overview (04/28/2020): Noted on outside CT at [facility] for evaluation of shortness of breath. Dedicated [...] like to see Dr. Rm at the [facility], close to her home. 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 [...] 09/13/2024 9:09 AM EDT Plan of Treatment Health Maintenance Due Date Last Done Comments [...] VACCINE (#1) 2024 0, 02/15/2019 COVID-19 VACCINE (4 - 2024-2 6 season) 2024 03/16/2021, 06/07/2020, [...] this topic Medical Devices Implanted Type Area Coil Assembler Device Identifier Shelf Expiration Date Model / Serial / Lot Marker Ultraclip 17ga 10cm Tissue Dual Trigger Breast Ti Heart Shape Bx/5ea - [id number] Implanted:Qty: 1 on 04/24/2020 by Gamal Orlando MD at [facility] Left: Breast CR [employer] [id number] / / Procedures Procedure Name Priority Date/Time Associated Diagnosis Comments BI MAMMOGRAM SCREENING (BILATERAL) Routine 12/16/2024 9:46 AM EDT Visit for screening mammogram COLONOSCOPY FOR RESULT ENTRY ONLY Routine 12/06/2022 OUTSIDE HIV Routine 01/07/2014 OUTSIDE HEPATITIS C VIRUS SCREENING Routine 01/07/2014 from Last 3 Months or Most Recently Relevant to Health Maintenance Results * Mammogram Screening (Bilateral) (12/16/2024 9:46 AM EDT) Anatomical Region Laterality Modality Breast Left, Breast Right, Breast Bilateral Bila teral Breast Screening Artemio Mckinley MD [facility] EXAMS Final Result * COLONOSCOPY FOR RESULT ENTRY ONLY (12/06/2022) Artemio [...] Most Recently Relevant to Health Maintenance Insurance [facility] [place] [address] [place] [address] [facility] [place] [address] [facility] [place] [address] [facility] Care Teams Ship Joiner Relationship Specialty Start Date End Date Artemio Mckinley MD [address] [facility], [address] [place] [address] [email or web address] PCP - General Internal Medicine 04/27/19 Additional Source Comments The information contained in this document represents components of the legal health record. It is not the complete legal health record.[facility]
--- OUTSIDE RECORDS SUMMARY | 2025-03-28 20:20 | XMS_ITS | Encounter Summary ---
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 Not on [...] documented as of this encounter Care Teams Sign Installer Relationship Specialty Start Date End Date Artemio Mckinley MD [address] [facility] [place] [address] PCP - General Internal Medicine 04/27/19 Misa Dinero MD [address] [facility] [place] [address] Historical LMR Provider 02/01/1704/21 Tri Trujillo MD [address] [address] Historical LMR Provider 02/01/17 2 Artemio Mckinley MD [address] [facility] [place] [address] Insurance Assigned Provider 07/19/23 01/18/24 documented as of this encounter Additional Source Comments The information contained in this document represents components of the legal health record. It is not the complete legal health record.[facility]
--- OUTSIDE RECORDS SUMMARY | 2025-03-28 20:20 | XMS_ITS | Encounter Summary ---
Author Organization [facility] Address [address] [place] [address] Phone Care Team Providers Care Transcript Clerk Name Role Phone Artemio Mckinley MD Primary Care Provider [phone] Artemio Mckinley MD Unavailable [phone] Encounter Details Date Type Department Care Team (Late st Contact Info) Description 07/12/2021 Telephone [facility] Medicine [address] [place] [address] [place] [address] Artemio Mckinley MD [address] [facility], [address] [place] [address] [email or web address] Social History Tobacco Use Types Packs/Day Years [...] 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 Not on [...] documented as of this encounter Care Teams Transcript Clerk Relationship Specialty Start Date End Date Artemio Mckinley MD [address] [facility] [place] [address] [email or web address] PCP - General Internal Medicine 04/27/19 Artemio Mckinley MD [address] [facility] [place] [address] [email or web address] Insurance Assigned Provider 07/19/23 01/18/24 documented as of this encounter Additional Source Comments The information contained in this document represents components of the legal health record. It is not the complete legal health record.[facility]
--- OUTSIDE RECORDS SUMMARY | 2025-03-28 20:20 | XMS_ITS | Patient Health Record ---
Author Organization [facility] Address [address] [place] [address] Care Team Providers Care Ux Architect Name Role Phone Artemio Mckinley MD Primary Care Provider Unavail able Deepika Cortez Unavailable [phone] Allergies Allergen (clinical drug ingredient) Drug/Non Drug [...] Problem Acquired hammer toe of right foot ([id number] 105) Hammer toe of right foot (M20.41) Active confirmed Plan Of Treatment Pending Test Test Name Order Date X ray : Foot, right 3V 01/29/2022 Insurance Providers Payer Name Payer Address Payer Phone Subscriber Number Group Number Insured Name Patient Relationship to Insured Coverage Start Date Coverage End Date [facility] [address] [place] [address] [id number] Emmett Sheikh Spouse - patient is the spouse of the insured Medical (General) History Medical History History ICD Code Anxiety Arthritis asthma Back,Hip,and Knee pain Diverticulosis Fibromyalgia Reflux ( GERD) chronic sinusitis thyroid Transfusions Surgical History Surgery Date(Month/Year) Open Heart 11/17/1990 tonsillectomy and adenoidectomy carpal tunnel surgery partial hysterectomy 2009 multiple fibroid removals
--- OUTSIDE RECORDS SUMMARY | 2025-03-28 20:20 | XMS_ITS | Encounter Summary ---
Author Organization [facility] Address [address] [place] [address] Phone Care Team Providers Care Physical Therapist Name Role Phone Misa Dinero MD Unavailable [phone] Tri Trujillo MD Unavailable [phone] Artemio Mckinley MD Primary Care Provider [phone] Artemio Mckinley MD Unavailable [phone] Encounter Details Date Type Department Care Team (Late st Contact Info) Description 12/31/2019 Ancillary Orders [facility] [address] [place] [address] Artemio Mckinley MD [address] [facility] [place] [address] [email or web address] Breast pain, left Social History Tobacco [...] 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 Artemio Mckinley MD [facility] US BREAST Final Result documented in this [...] documented as of this encounter Care Teams Physical Therapist Relationship Specialty Start Date End Date Artemio Mckinley MD [address] [place] [address], [address] [place] [address] [email or web address] PCP - General Internal Medicine 04/27/19 Misa Dinero MD [address] [place] [address], [address] [place] [address] [email or web address] Historical LMR Provider 02/01/1704/21 Tri Trujillo MD [address] [address] Historical LMR Provider 02/01/17 2 Artemio Mckinley MD [address] [place] [address], [address] [place] [address] [email or web address] Insurance Assigned Provider 07/19/23 01/18/24 documented as of this encounter Additional Source Comments The information contained in this document represents components of the legal health record. It is not the complete legal health record.[facility]
--- OUTSIDE RECORDS SUMMARY | 2025-03-28 20:20 | XMS_ITS | Encounter Summary ---
Author Organization [facility] Address [address] [place] [address] Phone Care Team Providers Care Correctional Captain Name Role Phone Artemio Mckinley MD Primary Care Provider [phone] Encounter Details Date Type Department Care Team (Late st Contact Info) Description 12/06/2024 Telephone [employer] [facility] [address] [place] [address] Artemio Mckinley MD [address] [facility] [place] [address] [email or web address] Social History Tobacco Use Types Packs/Day Years [...] Job 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 It is not the complete legal health record.[facility]
--- OUTSIDE RECORDS SUMMARY | 2025-03-28 20:20 | XMS_ITS | Encounter Summary ---
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 Not on file [...] documented as of this encounter Care Teams Plant Operations Vice President Relationship Specialty Start Date End Date Artemio Mckinley MD [address] [facility] [place] [address] PCP - General Internal Medicine 04/27/19 Misa Dinero MD [address] [facility], [address] [place] [address] Historical LMR Provider 02/01/1704/21 Tri Trujillo MD [address] [address] Historical LMR Provider 02/01/17 2 Artemio Mckinley MD [address] [place] [address], [address] [place] [address] Insurance Assigned Provider 07/19/23 01/18/24 documented as of this encounter Additional Source Comments The information contained in this document represents components of the legal health record. It is not the complete legal health record.[facility]
--- OUTSIDE RECORDS SUMMARY | 2025-03-28 20:20 | XMS_ITS | Encounter Summary ---
Author Organization [facility] Address [address] [place] [address] Phone Care Team Providers Care Polishing Pad Mounter Name Role Phone Misa Dinero MD Unavailable [phone] Tri Trujillo MD Unavailable [phone] Artemio Mckinley MD Primary Care Provider [phone] Artemio Mckinley MD Unavailable [phone] Encounter Details Date Type Department Care Team (Late st Contact Info) Description 04/10/2020 Transcribe Orders Virtual Department [address] [place] [address] Carter Andersen MD [address] [place] [address] [email or web address] Social History Tobacco Use Types Packs/Day Years [...] 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 Not on file Not [...] documented as of this encounter Care Teams Polishing Pad Mounter Relationship Specialty Start Date End Date Artemio Mckinley MD [address] [place] [address], [address] [place] [address] PCP - General Internal Medicine 04/27/19 Misa Dinero MD [address] [facility], [address] [place] [address] Historical LMR Provider 02/01/1704/21 Tri Trujillo MD [address] [address] Historical LMR Provider 02/01/17 2 Artemio Mckinley MD [address] [facility] [place] [address] Insurance Assigned Provider 07/19/23 01/18/24 documented as of this encounter Additional Source Comments The information contained in this document represents components of the legal health record. It is not the complete legal health record.[facility]
--- OUTSIDE RECORDS SUMMARY | 2025-03-28 20:20 | XMS_ITS | Encounter Summary ---
Author Organization [facility] Address [address] [place] [address] Phone Care Team Providers Care Report Clerk Name Role Phone Artemio Mckinley MD Primary Care Provider [phone] Artemio Mckinley MD Unavailable [phone] Encounter Details Date Type Department Care Team (Late st Contact Info) Description 07/02/2023 Procedure Pass [facility] [address] [place] [address] Social History Tobacco Use Types Packs/Day Years [...] high school, GED, job training, learning the Slovak language, technical skills, or developing parenting skills)? 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 It is not the complete legal health record.[facility]
--- OUTSIDE RECORDS SUMMARY | 2025-03-28 20:20 | XMS_ITS | Encounter Summary ---
Author Organization [facility] Address [address] [place] [address] Phone Care Team Providers Care Metalizer Field Operation Name Role Phone Misa Dinero MD Unavailable [phone] Tri Trujillo MD Unavailable [phone] Artemio Mckinley MD Primary Care Provider [phone] Artemio Mckinley MD Unavailable [phone] Encounter Details Date Type Department Care Team (Late st Contact Info) Description 01/17/2020 Ancillary Orders [facility] [address] [place] [address] System, Provider Not In, [facility] [address] [address] Social History Tobacco Use Types Packs/Day Years [...] 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 Not [...] documented as of this encounter Care Teams Metalizer Field Operation Relationship Specialty Start Date End Date Artemio Mckinley MD [address] [place] [address], [address] [place] [address] [email or web address] PCP - General Internal Medicine 04/27/19 Misa Dinero MD [address] [facility], [address] [place] [address] Historical LMR Provider 02/01/1704/21 Tri Trujillo MD [address] [address] Historical LMR Provider 02/01/17 2 Artemio Mckinley MD [address] [facility] [place] [address] [email or web address] Insurance Assigned Provider 07/19/23 01/18/24 documented as of this encounter Additional Source Comments The information contained in this document represents components of the legal health record. It is not the complete legal health record.[facility]
--- OUTSIDE RECORDS SUMMARY | 2025-03-28 20:20 | XMS_ITS | Encounter Summary ---
Author Organization [facility] Address [address] [place] [address] Phone Care Team Providers Care System Support Administrator Name Role Phone Misa Dinero MD Unavailable [phone] Tri Trujillo MD Unavailable [phone] Artemio Mckinley MD Primary Care Provider [phone] Artemio Mckinley MD Unavailable [phone] Encounter Details Date Type Department Care Team (Latest Contact Info) Description 08/02/2020 Transcribe Orders Virtual Department 30 [place] [address] Carter Andersen MD [address] [place] [address] [email or web address] Close exposure to COVID-19 virus (Primary Dx) [...] 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 Symptomatic? NO [facility] 08/02/2020 8:57 AM EDT 08/02/2020 1:09 PM EDT us Carter Andersen MD LAB GENERAL ORDERABLES Final R esult [facility] [address] [place] [address] documented in this encounter Visit Diagnoses Diagnosis [...] documented as of this encounter Care Teams System Support Administrator Relationship Specialty Start Date End Date Artemio Mckinley MD [address] [place] [address], [address] [place] [address] [email or web address] PCP - General Internal Medicine 04/27/19 Misa Dinero MD [address] [facility], [address] [place] [address] Historical LMR Provider 02/01/1704/21 [facility] [address] [address] Historical LMR Provider 02/01/17 2 Artemio Mckinley MD [address] [place] [address], [address] [place] [address] [email or web address] Insurance Assigned Provider 07/19/23 01/18/24 documented as of this encounter Additional Source Comments The information contained in this document represents components of the legal health record. It is not the complete legal health record.[facility]
--- OUTSIDE RECORDS SUMMARY | 2025-03-28 20:21 | XMS_ITS | Encounter Summary ---
Author Organization [facility] Address [address] [place] [address] Phone Care Team Providers Care Shot Man Name Role Phone Misa Dinero MD Unavailable Tri Trujillo MD Unavailable [phone] Patricia Martinez MD Primary Care Provider [phone] Eli Cornejo Primary Care Provide r Artemio Mckinley MD Primary Care Provider Artemio Mckinley MD Unavailable [phone] Encounter Details Date Type Department Care Team (Late st Contact Info) Description 06/03/2018 Ancillary Orders Virtual Department [address] [place] [address] Russel Vogt MD [address] [place] [id number] Pelvic pain Social History Tobacco Use Types [...] mass or free fluid demonstrated. POS - [id number] Narrative 06/04/2018 5:24 PM EST EXAM: US [...] adnexal mass or freefluid demonstrated. POS - [id number] Russel Vogt MD G US PELVIS Final Resul t documented in [...] documented as of this encounter Care Teams Shot Man Relationship Specialty Start Date End Date Patricia Martinez MD [address] [address] PCP - General Internal Medicine 02/18/17 01/28/19 Eli Cornejo PA [address] [address] PCP - General Sample Coordinator 01/29/19 04/26/19 Artemio Mckinley MD [address] [place] [address], [address] [place] [address] PCP - General Internal Medicine 04/27/19 Misa Dinero MD [address] [facility], [address] [place] [address] Historical LMR Provider 02/01/1704/21 Tri rTujillo MD [address] [place] [address] Historical LMR Provider 02/01/17 2 Artemio Mckinley MD [address] [facility] [place] [address] Insurance Assigned Provider 07/19/23 01/18/24 documented as of this encounter Additional Source Comments The information contained in this document represents components of the legal health record. It is not the complete legal health record.[facility]
--- OUTSIDE RECORDS SUMMARY | 2025-03-28 20:21 | XMS_ITS | Encounter Summary ---
Author Organization [facility] Address [address] [place] [address] Phone Care Team Providers Care Diesel Engine Mechanic Apprentice Name Role Phone Misa Dinero MD Unavailable Tri Trujillo MD Unavailable [phone] Patricia Martinez MD Primary Care Provider Eli Cornejo Primary Care Provide r Artemio Mckinley MD Primary Care Provider [phone] Artemio Mckinley MD Unavailable [phone] Reason for Referral * Physical Therapy (Routine) - Closed Specialty Diagnoses / Procedures Referred By Agatha razo Referred To Contact Physical Therapy Diagnoses Encounter for rehabilitation System, Provider Not In, [facility] [address] [place] [address] Phone: tel: Referral ID Status Reason Start Date Expiration Date Visits Re quested Visits Authorized [id number] Closed 02/17/2017 02/17/2018 16 16 Encounter Details Date Type Department Care Team (Latest Contact Info) Description 02/27/2017 Transcribe Orders [facility] [address] [place] [address] [id number] Indio Davis MD [address] [place] [address] Encounter for rehabilitation (Primary Dx) Social History [...] as of this encounter Plan of Treatment Scheduled Referrals Name Type Priority Associated Diagnoses Orde r Schedule Ambulatory referral to [facility] Physical Therapy Outpatient Referral Routine Encounter for [...] documented as of this encounter Care Teams Diesel Engine Mechanic Apprentice Relationship Specialty Start Date End Date Patricia Martinez MD [address] [address] PCP - General Internal Medicine 02/18/17 01/28/19 Eli Cornejo PA [address] [address] PCP - General Auto Tune Up Mechanic 01/29/19 04/26/19 Artemio Mckinley MD [address] [place] [address], [address] [place] [address] PCP - General Internal Medicine 04/27/19 Misa Dinero MD [address] [facility], [address] [place] [address] Historical LMR Provider 02/01/1704/21 Tri Trujillo MD [address] [place] [address] Historical LMR Provider 02/01/17 2 Artemio Mckinley MD [address] [place] [address], [address] [place] [address] [email or web address] Insurance Assigned Provider 07/19/23 01/18/24 documented as of this encounter Additional Source Comments The information contained in this document represents components of the legal health record. It is not the complete legal health record.[facility]
== END 2025-03-28 13:59 | disposition home or self-care (01) ==
LOC: HO.LAB 13:58
PROVIDERS: Visit Provider Physician Assistant Medical
DX: R09.89 Other specified symptoms and signs involving the circulatory and respiratory systems (principal); Z03.818 Encounter for observation for suspected exposure to other biological agents ruled out
CPT/HCPCS: 87637